=== PATIENT | female | born 1970 | race Caucasian/White ===

== ENCOUNTER 2020-02-23 08:45 | Emergency (ER) | payer MEDICARE, MEDICAID, SELFPAY ==
[2020-02-23 09:05] VITALS: BP 131/70; PULSE 78; RESP 16; TEMP 37.1; O2SAT 99; BMI 25.6
--- NOTE | 2020-02-23 09:12 | ED.BACK ---
HPI - Back Pain/Injury General Chief Complaint: Back Pain/Injury Stated Complaint: upper buttock pain Time Seen by Provider: 02/23/20 09:02 Source: patient Mode of arrival: ambulatory Limitations: language barrier History of Present Illness HPI Narrative: 49 y/o female with history of chronic back pain for the last 5 years presenting with worsening right lower back pain that started yesterday after she was lifting heavy boxes while at work. She states the pain is aching and worse with movement or palpation. She has been taking Avdil with no improvement. She reports the pain travels down her right leg and causing her to limp when she walks. No recent trauma. No bladder/bowel incontinence, saddle paresethesias. Pertinent past history: prior back pain Onset (ago): day(s) (1) Timing: constant Severity: severe Similar Symptoms Previously: Yes Quality: aching Location: right lower back Radiation: buttocks and right upper leg Exacerbating factors: movement and walking Relieving factors: immobilization Context: while lifting Associated symptoms: difficulty walking Treatments prior to arrival: NSAIDS Work related injury: Yes Related Data Previous Rx's Medication Instructions Recorded cyclobenzaprine 10 mg PO TID PRN #14 tab 02/23/20 ibuprofen 600 mg PO Q8H PRN #30 tab 02/23/20 lidocaine [Lidoderm] 1 patch TOPICAL DAILY #15 ea 02/23/20 tramadol 50 mg PO Q8H PRN #10 tab 02/23/20 Allergies Allergy/AdvReac Type Severity Reaction Status Date / Time No Known Allergies Allergy Verified 02/23/20 09:14 [No Known Allergies*] seasonal Allergy Unknown Itchy Eyes Uncoded 02/23/20 09:14 Review of Systems Review of Systems: Constitutional: No Fever, No Chills ENT/Mouth: No sore throat, No Rhinorrhea, No Swallowing Difficulty Cardiovascular: No Chest Pain, No SOB, No Orthopnea, No Edema Respiratory: No Cough, No Sputum, No Wheezing, No dyspnea Gastrointestinal: No Nausea, No Vomiting, No Diarrhea, No abdominal Pain Genitourinary: No Dysuria, No Urinary Frequency, No Hematuria Musculoskeletal: + joint pain, + Myalgias Skin: No Skin Lesions, No rash Neuro: No Weakness, No Numbness, No Dizziness, No Headache Psych: No Anxiety/Panic, No Depression Heme/Lymph: No Bruising, No Lymphadenopathy Endocrine: No Polyuria, No Polydipsia [facility] Past Medical History Attestation statement: The following information was validated with the patient. Medical History Anxiety Back pain Depression Social History Social History Use of substances other than those prescribed or required for medical reasons: No Advance Directives: No Advance Directives Information Provided: No Physical Exam Vital Signs: Vital Signs: Vital Signs Temp Pulse Resp BP Pulse Ox 02/23/20 09:05 98.7 F 78 16 131/70 99 Body Mass Index 25.6 Appearance: Alert. Oriented X3. No acute distress. HEENT: normal inspection Respiratory: No respiratory distress. Skin: Skin warm and dry. Normal skin color. Normal skin turgor. No rashes. Back: normal inspection, right lower lumbar soft tissue tenderness, no spinal tenderness +straight leg raise test Extremities: full ROM, normal inspection. Neuro: Oriented X 3. No motor deficit. No sensory deficit. Course Course Course Narrative: right lower back pain after lifting, acute on chronic. neuro exam intact. MDM - Back Pain/Injury Differential Diagnosis Differential diagnosis: Likely lumbar radiculopathy, sciatica and strain of lumbar region Discharge Plan Discharge Clinical Impression: Strain of lumbar region Qualifiers: Encounter type: initial encounter Qualified Code(s): S39.012A - Strain of muscle, fascia and tendon of lower back, initial encounter Patient Disposition: Home, Self-Care Instructions: Low Back Strain (ED), Lower Back Exercises (ED) Additional Instructions: Follow up with your Primary Care Doctor this week. If your pain worsens, if you develop worsening numbness, tingling or loss of function come back to the ER for further evaluation. Use ice several times per day for the next 24 hours then change to heat. Limit lifting, bending and twisting. Prescriptions: New cyclobenzaprine 10 mg tablet 10 mg PO TID PRN (Reason: muscle spasm) Qty: 14 RF: 0 lidocaine [Lidoderm] 5 % adhesive patch,medicated 1 patch topical DAILY Qty: 15 RF: 0 ibuprofen 600 mg tablet 600 mg PO Q8H PRN (Reason: pain) Qty: 30 RF: 0 tramadol 50 mg tablet 50 mg PO Q8H PRN (Reason: pain) Qty: 10 RF: 0 Stand Alone Forms: Work/School Release Interventions: ED Discharge Assessment Last Done: 02/23/20 09:36 Discharge Date/Time: 02/23/20 09:36 Print Language: South African
== END 2020-02-23 09:36 | disposition home or self-care (01) ==
PROVIDERS: Emergency Provider Emergency Medicine
DX: S39.012A Strain of muscle, fascia and tendon of lower back, initial encounter (principal); X50.0XXA Overexertion from strenuous movement or load, initial encounter; Y93.89 Activity, other specified; Y92.9 Unspecified place or not applicable; Y99.0 Civilian activity done for income or pay
CPT/HCPCS: 99283; 99284

== ENCOUNTER 2020-03-14 07:23 | Outpatient (REF) | payer MEDICARE, MEDICAID, SELFPAY | END 2020-03-14 07:24 | disposition home or self-care (01) | LOC: HO.LAB 07:23 | PROVIDERS: Visit Provider Internal Medicine | DX: Z20.828 Contact with and (suspected) exposure to other viral communicable diseases (principal) | CPT/HCPCS: C9803; U0003 ==

== ENCOUNTER → 2020-06-01 12:31 | Outpatient (BNVA) | payer MEDICARE, MEDICAID, SELFPAY | PROVIDERS: Visit Provider Advanced Practice Midwife | DX: Z76.89 Persons encountering health services in other specified circumstances (principal) ==

== ENCOUNTER 2022-04-04 07:43 | Emergency (ER) | payer MEDICARE, SELFPAY ==
--- NOTE | ~2022-04-04 | XR_ITS ---
EXAMINATION: XR CHEST CLINICAL INFORMATION: Chest tightness COMPARISON: 01/30/2019 TECHNIQUE: Frontal view of the chest was obtained. FINDINGS: No acute finding. Lung gautam are grossly clear. The cardiac silhouette is within normal limits. There is no effusion. The hilar regions do not appear pathologically enlarged. XR/XR chest 1V IMPRESSION: No acute finding.
[2022-04-04 07:49] VITALS: BP 173/99; PULSE 98; RESP 16; TEMP 36.3; O2SAT 98; BMI 29.6
--- NOTE | 2022-04-04 07:58 | ECG_ITS ---
Test Reason : Difficulty Breathing Blood Pressure : / mmHG Vent. Rate : 087 BPM Atrial Rate : 087 BPM P-R Int : 172 ms QRS Dur : 076 ms QT Int : 368 ms P-R-T Axes : 036 007 013 degrees QTc Int : 442 ms Normal sinus rhythm Left axis deviation Otherwise normal ECG No significant changes seen Referred By: Generic ED Physician Electronically Signed By:HARMONY WILSON MD
--- NOTE | 2022-04-04 08:00 | PC.NURSE ---
lungs - slightly diminished all lobes
[2022-04-04 08:27] LABS: MANUAL DIFF FLAG NO
[2022-04-04 08:34] LABS: Basophils Percent Auto 0.4 % (0-2); Eosinophils Absolute Auto 0.1 X10*3/uL (0.0-0.4); Eosinophils Percent Auto 1.1 % (0-4); Hematocrit 38.4 % (37.0-47.0); Hemoglobin 13.1 g/dl (12.0-16.0); Imm Gran Abs Auto 0.05 X10*3/uL (0.00-0.03); Imm Gran Pct Auto 0.5 % (0.0-0.4); Lymphocytes Absolute Auto 2.9 X10*3/uL (1.2-4.9); Lymphocytes Percent Auto 29.5 % (20-40); Mean Corpuscular HGB Conc 34.1 g/dl (31.0-35.0); Mean Corpuscular Hemoglobin 28.3 pg (27.0-33.0); Mean Corpuscular Volume 82.9 fL (80.0-98.0); Mean Platelet Volume 9.8 fL (9.4-12.3); Monocytes Absolute Auto 0.5 X10*3/uL (0.1-1.2); Neutrophils Absolute Auto 6.3 x10*3/uL (2.0-8.3); Neutrophils Percent Auto 63.5 % (45-73); Platelet Count 284 X10*3/uL (160-400); Red Blood Count 4.63 X10*6/uL (4.20-5.50); Red Cell Distribution Width 12.6 % (11.0-16.0)
[2022-04-04 08:45] LABS: COVID-19 Test Positive (Negative); IDNOW Serial# BCCEAD1C
[2022-04-04 08:47] LABS: Anion Gap 14 (12-20); Blood Urea Nitrogen 12 mg/dL (9-16); Calcium 9.4 mg/dL (8.4-10.2); Carbon Dioxide 26 mmol/L (22-29); Chloride 103 mmol/L (96-108); Creatinine Clr Calc Pharmacy 89.3; Estimated Glomerular Filt Rate > 60; Glucose Random 145 mg/dL (60-115); Sodium 139 mmol/L (135-145)
[2022-04-04 08:50] LABS: IDNOW Serial# 16C4AD1C; Influenza A Negative (Negative); Influenza B2 Negative (Negative)
[2022-04-04 08:55] LABS: Troponin-I High Sensitivity < 3.5 ng/L (<3.5-17.0)
--- OUTSIDE RECORDS SUMMARY | 2022-04-04 09:01 | XMS_ITS | Continuity of Care Document ---
:1970 Author Organization [facility] Address [address] [place] [address]- Care Team Providers Name Role Phone Trever OBSWELL, Dara Primary Care Physician Encounter [facility] Date(s): 12/12/20 - 01/27/21 [facility] [address] [place] [id number] Attending Physician: Sim Hernandez MD Admitting Physician: Sim Hernandez MD Allergies, Adverse Reactions, Alerts No Known Medication Allergies Immunizations Given and Recorded Vaccine Date Status Refusal Reason influenza virus vaccine, inactivated 08/17/15 Given influenza virus vaccine, inactivated 05/17/14 Given influenza virus vaccine, inactivated1 02/13/12 Given tetanus/diphtheria/pertussis, acel(Tdap)2 10/15/12 Given 1Admin Note: PATIENT [id number] Note: vis given dated 05/29/2011 Medications ARIPiprazole 2 mg oral tablet Refills 0, Maintenance, 07/27/20 9:39:00 EDT, Partial fill upon patient request if the prescription is for a schedule II opioid drug. Start Date: 07/27/20 Status: OrderedmetFORMIN 500 mg oral tablet, extended release 1 tablet = 500 mg, By Mouth, Daily, # 30 tablet, 5 Refills, Maintenance, 10/20/20 10:51:00 EDT, ER Tablet, [id number], Partial fill upon patient request if the prescription is for a schedule IIopioid drug., 155, cm, 09/21/20 9:29:00 EDT, Height Start Date: 10/20/20 Status: OrderedTylenol Extra Strength 500 mg oral tablet 1 tablet = 500 mg, By Mouth, 2 times a day, PRN Pain , Mild, # 50 tablet, 1 Refills, Maintenance, 04/07/20 15:50:00 EST, Tablet, [id number], 155, cm, 02/29/20 12:46:00 EDT, Height Start Date: 04/07/20 Status: Ordered Problem List Condition Effective Dates Status Health Status Informant Depression(Confirmed) Active *[employer] [facility] 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
--- OUTSIDE RECORDS SUMMARY | 2022-04-04 09:01 | XMS_ITS | Continuity of Care Document ---
:1970 Author Organization [facility] Address [address] [place] [address]- Care Team Providers Name Role Phone Dara Perera MD Primary Care Physician Encounter [facility] [place] Date(s): 01/01/20 - 01/31/20 [facility] [address] [place] [phone] [facility] Attending Physician: Travis Cortes Admitting Physician: Travis Cortes Referring Physician: Admtr, Travis Allergies, Adverse Reactions, Alerts No Known Medication Allergies Immunizations Given and Recorded Vaccine Date Status Refusal Reason influenza virus vaccine, inactivated 08/17/15 Given influenza virus vaccine, inactivated 05/17/14 Given influenza virus vaccine, inactivated1 02/13/12 Given tetanus/diphtheria/pertussis, acel(Tdap)2 10/15/12 Given 1Admin Note: PATIENT [id number] Note: vis given dated 05/29/2011 Medications ARIPiprazole 2 mg oral tablet Refills 0, Maintenance, 07/08/19 15:06:00 EST Start Date: 07/08/19 Status: OrderedCompression stockings Compression stockings, See Instructions, # 1 application, Refills 0, Tot. Refills 0, Maintenance, Use Daily I83.81 Varicose veins Compression 15-20 Knee high, 04/21/19 9:11:47 EST, Compression 15-20; Knee high, Compound Start Date: 04/21/19 Status: Ordereddiclofenac 1% topical gel 1 application, Topically, 4 times a day, not to exceed 8 grams/day/single joint of upper extremities, # 100 Gm, 4 Refills, Maintenance, 09/11/19 10:06:00 EDT, Gel, [id number], 155, cm, 07/07/2014:25:00 EST, Height Start Date: 09/11/19 Status: Orderedescitalopram 10 mg oral tablet 1 tablet = 10 mg, By Mouth, Daily, via psychiatry, # 1 tablet, 1 Refills, Maintenance, 01/01/20 18:41:00 EDT, Tablet, [id number], 155, cm, 07/08/19 15:25:00 EST, Height Start Date: 01/01/20 Status: OrderedTylenol Extra Strength 500 mg oral tablet 1 tablet = 500 mg, By Mouth, 2 times a day, PRN Pain , Mild, # 50 tablet, 0 Refills, Maintenance, 12/09/19 9:23:00 EDT, Tablet, [id number], 155, cm, 07/08/19 15:25:00 EST, Height Start Date: 12/09/19 Status: Ordered Problem List Condition Effective Dates Status Health Status Informant *[facility] 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
--- OUTSIDE RECORDS SUMMARY | 2022-04-04 09:01 | XMS_ITS | Continuity of Care Document ---
:1970 Author Organization [facility] Address [address] [place] [id number]- Care Team Providers Name Role Phone Dara Perera MD Primary Care Physician Encounter [facility] [place] Date(s): 11/14/20 - 12/14/[address] [id number] Attending Physician: Travis Cortes Admitting Physician: AdmtrTravis Referring Physician: Admtr, Ar8 Allergies, Adverse Reactions, Alerts No Known Medication Allergies Immunizations Given and Recorded Vaccine Date Status Refusal Reason influenza virus vaccine, inactivated 08/17/15 Given influenza virus vaccine, inactivated 05/17/14 Given influenza virus vaccine, inactivated1 02/13/12 Given tetanus/diphtheria/pertussis, acel(Tdap)2 10/15/12 Given 1Admin Note: PATIENT [id number] Note: vis given dated 05/29/2011 Medications ARIPiprazole 2 mg oral tablet Refills 0, Maintenance, 07/27/20 9:39:00 EDT, Partial fill upon patient request if the prescription is for a schedule II opioid drug. Start Date: 07/27/20 Status: OrderedmetFORMIN 500 mg oral tablet, extended release 1 tablet = 500 mg, By Mouth, Daily, # 30 tablet, 5 Refills, Maintenance, 10/20/20 10:51:00 EDT, ER Tablet, [id number], Partial fill upon patient request if the [...] Dates Status Health Status Informant Depression(Confirmed) Active *[facility] Food And Drug Inspector Alma Reaves Active [phone](Confirmed) Hysterectomy(Confirmed)1 Active Overweight(Confirmed) Active Prediabetes(Confirmed) Active Prehypertension(Confirmed) Active Hepatic steatosis(Confirmed) Active 1D/T fibroids, ovaries remain ~ 2009 Social History Social History Type Response Smoking Status Never smoker entered on: 05/17/14 Sex Female
--- OUTSIDE RECORDS SUMMARY | 2022-04-04 09:01 | XMS_ITS | Continuity of Care Document ---
:1970 Author Organization [facility] Address [address] [place] [address]- Care Team Providers Name Role Phone Trever BOSWELL, Dara Primary Care Physician Encounter [facility] Date(s): 07/27/20 - 08/26/20 [facility] [address] [place], [place] [address] Attending Physician: Travis Cortes Admitting Physician: Travis Cortes Referring Physician: AdmtrTravis Allergies, Adverse Reactions, Alerts No Known Medication Allergies Immunizations Given and Recorded Vaccine Date Status Refusal Reason influenza virus vaccine, inactivated 08/17/15 Given influenza virus vaccine, inactivated 05/17/14 Given influenza virus vaccine, inactivated1 02/13/12 Given tetanus/diphtheria/pertussis, acel(Tdap)2 10/15/12 Given 1Admin Note: PATIENT [id number] Note: vis given dated 05/29/2011 Medications ARIPiprazole 2 mg oral tablet Refills 0, Maintenance, 07/27/20 9:39:00 EDT, Partial fill upon patient request if the prescription is for a schedule II opioid drug. Start Date: 07/27/20 Status: Ordereddiclofenac 1% topical gel 1 application, Topically, 4 times a day, not to exceed 8 grams/day/single joint of upper extremities, # 100 Gm, 4 Refills, Maintenance, 04/07/20 15:50:00 EST, Gel, [facility] #[id number], 155, cm, 02/29/2012:46:00 EDT, Height Start Date: 04/07/20 Status: Orderedlidocaine 4% topical film 1 patch, Topically, Daily, do not leave patch on for more than 8 hours at a time, # 6 each, 1 Refills, Maintenance, 04/07/20 15:49:00 EST, Film, [facility]/pharmacy #[id number], 1 patch Topically Daily,Instr:do notleave patch on for more than 8 hours at a time, 1... Start Date: 04/07/20 Status: Orderednaproxen 250 mg oral tablet 250 mg, 1, tablet, By Mouth, 2 times a day, PRN, Print instructions in faroese with food, # 20 tablet, Refills 1, Tot. Refills 1, Maintenance, for pain, 05/02/20 12:08:00 EST, Route to Pharmacy Electronically, [facility]/pharmacy #[id number], Partial fill upon pa... Start Date: 05/02/20 Status: OrderedTylenol Extra Strength 500 mg oral tablet 1 tablet = 500 mg, By Mouth, 2 times a day, PRN Pain , Mild, # 50 tablet, 1 Refills, Maintenance, 04/07/20 15:50:00 EST, Tablet, [facility]/pharm[facility] #207, 155, cm, 02/29/20 12:46:00 EDT, Height Start Date: 04/07/20 Status: Ordered Problem List Condition Effective Dates Status Health Status Informant *[facility] Records Associate Alma Reaves Active [phone](Confirmed) Hysterectomy(Confirmed)1 Active Overweight(Confirmed) Active Prediabetes(Confirmed) Active Hepatic steatosis(Confirmed) Active 1D/T fibroids, ovaries remain ~ 2009 Social History Social History Type Response Smoking Status Never smoker entered on: 05/17/14 Sex Female
--- OUTSIDE RECORDS SUMMARY | 2022-04-04 09:01 | XMS_ITS | Continuity of Care Document ---
:1970 Author Organization [facility] [address] [place] [address]- Care Team Providers Name Role Phone Trever BOSWELL, Dara Primary Care Physician Encounter [facility] Date(s): 07/26/20 - 10/01/[address] [place], [place] [address] Attending Physician: Renae Marley Allergies, Adverse Reactions, Alerts No Known Medication Allergies Immunizations Given and Recorded Vaccine Date Status Refusal Reason influenza virus vaccine, inactivated 08/17/15 Given influenza virus vaccine, inactivated 05/17/14 Given influenza virus vaccine, inactivated1 02/13/12 Given tetanus/diphtheria/pertussis, acel(Tdap)2 10/15/12 Given 1Admin Note: PATIENT [id number] Note: vis given dated 05/29/2011 Medications ARIPiprazole 2 mg oral tablet Refills 0, Maintenance, 07/27/20 9:39:00 EDT, Partial fill upon patient request if the prescription is for a schedule II opioid drug. Start Date: 07/27/20 Status: OrderedmetFORMIN 500 mg oral tablet, extended release 1 tablet = 500 mg, By Mouth, Daily, # 30 tablet, 0 Refills, Maintenance, 09/21/20 9:55:00 EDT, ER Tablet, [id number], Partial fill upon patient request if the prescription is for a schedule II opioid drug., 155, cm, 09/21/20 9:29:00 EDT, Height Start Date: 09/21/20 Status: OrderedTylenol Extra Strength 500 mg oral tablet 1 tablet = 500 mg, By Mouth, 2 times a day, PRN Pain , Mild, # 50 tablet, 1 Refills, Maintenance, 04/07/20 15:50:00 EST, Tablet, [id number], 155, cm, 02/29/20 12:46:00 EDT, Height Start Date: 04/07/20 Status: Ordered Problem List Condition Effective Dates Status Health Status Informant Depression(Confirmed) Active *[facility] Complex Human Resources Manager Alma Reaves Active [phone](Confirmed) Hysterectomy(Confirmed)1 Active Overweight(Confirmed) Active Prediabetes(Confirmed) Active Prehypertension(Confirmed) Active Hepatic steatosis(Confirmed) Active 1D/T fibroids, ovaries remain ~ 2009 Social History Social History Type Response Smoking Status Never smoker entered on: 05/17/14 Sex Female
--- OUTSIDE RECORDS SUMMARY | 2022-04-04 09:01 | XMS_ITS | Continuity of Care Document ---
:1970 Author Organization [facility] Address [address] [place] [address]- Care Team Providers Name Role Phone Trever BOSWELL, Dara Primary Care Physician [place] [facility] [place]20 [place] 06/01/20 [facility] [address] [place] [id number] Allergies, Adverse Reactions, Alerts No Known Medication Allergies Immunizations Given and Recorded Vaccine Date Status Refusal Reason influenza virus vaccine, inactivated 08/17/15 Given influenza virus vaccine, inactivated 05/17/14 Given influenza virus vaccine, inactivated1 02/13/12 Given tetanus/diphtheria/pertussis, acel(Tdap)2 10/15/12 Given 1Admin Note: PATIENT [id number] Note: vis given dated 05/29/2011 Medications ARIPiprazole [...] 4 Refills, Maintenance, 04/07/20 15:50:00 EST, Gel, [id number], 155, cm, 02/29/2012:46:00 EDT, Height Start Date: 04/07/20 Status: Orderedescitalopram 10 mg oral tablet 1 tablet = 10 mg, By Mouth, Daily, via psychiatry, # 1 tablet, 1 Refills, Maintenance, 01/01/20 18:41:00 EDT, Tablet, [facility]/pharmacy #[id number], 155, cm, 07/08/19 15:25:00 EST, Height Start Date: 01/01/20 Status: Orderedlidocaine 4% topical film 1 patch, Topically, Daily, do not leave patch on for more than 8 hours at a time, # 6 each, 1 Refills, Maintenance, 04/07/20 15:49:00 EST, Film, [facility]/pharmacy #[id number], 1 patch Topically Daily,Instr:do notleave patch on for more than 8 hours at a time, 1... Start Date: 04/07/20 Status: Orderedmeclizine 12.5 mg oral tablet 1 tablet = 12.5 mg, By Mouth, 3 times a day, PRN for dizziness, for 30 days, label in Thai, # 60 tablet, 0 Refills, Acute 06/08/20 15:31:00 EST, 05/09/20 15:31:00 EST, Tablet, [facility]/pharmacy #207, Partial fill upon patient request if the prescriptio... Start Date: 05/09/20 Stop Date: 06/08/20 Status: Orderednaproxen 250 mg oral tablet 250 mg, 1, tablet, By Mouth, 2 times a day, PRN, Print instructions in latvian with food, # 20 tablet, Refills 1, Tot. Refills 1, Maintenance, for pain, 05/02/20 12:08:00 EST, Route to Pharmacy Electronically, [facility]/pharmacy #207, Partial fill upon pa... Start Date: 05/02/20 Status: OrderedTylenol Extra Strength 500 mg oral tablet 1 tablet = 500 mg, By Mouth, 2 times a day, PRN Pain , Mild, # 50 tablet, 1 Refills, Maintenance, 04/07/20 15:50:00 EST, Tablet, [facility]/pharmacy #[id number], 155, cm, 02/29/20 12:46:00 EDT, Height Start Date: 04/07/20 Status: Ordered Problem List Condition Effective Dates Status Health Status Informant *[facility] Progress Man Alma Reaves Active [phone](Confirmed) Hysterectomy(Confirmed)1 Active Overweight(Confirmed) Active Prediabetes(Confirmed) Active 1D/T fibroids, ovaries remain ~ 2009 Social History Social History Type Response Smoking Status Never smoker entered on: 05/17/14 Sex Female
--- OUTSIDE RECORDS SUMMARY | 2022-04-04 09:01 | XMS_ITS | Continuity of Care Document ---
:1970 Author Organization [address] [place] [address]- Care Team Providers Name Role Phone Dara Perera MD Primary Care Physician [place] [facility] [place](s[place] 10/20/20 - 12/10/[address] [place], [place] [address] Attending Physician: Renae Marley Referring Physician: Dara Perera MD Allergies, Adverse Reactions, Alerts No Known Medication Allergies Immunizations Given and Recorded Vaccine Date Status Refusal Reason influenza virus vaccine, inactivated 08/17/15 Given influenza virus vaccine, inactivated 05/17/14 Given influenza virus vaccine, inactivated1 02/13/12 Given tetanus/diphtheria/pertussis, acel(Tdap)2 10/15/12 Given 1Admin Note: PATIENT [id number] Note: vis given dated 05/29/2011 Medications ARIPiprazole 2 mg oral tablet Refills 0, Maintenance, 07/27/20 9:39:00 EDT, Partial fill upon patient request if the prescription is for a schedule II opioid drug. 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
--- OUTSIDE RECORDS SUMMARY | 2022-04-04 09:01 | XMS_ITS | Continuity of Care Document ---
:1970 Author Organization [facility] Address [address] [place] [id number]- Care Team Providers Name Role Phone Dara Perera MD Primary Care Physician Encounter [facility] [place] Date(s): 08/20/20 - 09/25/20 [facility] [address] [address] Attending Physician: Renae Marley Admitting Physician: Renae Marley Referring Physician: Renae Marley Allergies, Adverse Reactions, Alerts No Known Medication Allergies Immunizations Given and Recorded Vaccine Date Status Refusal Reason influenza virus vaccine, inactivated 08/17/15 Given influenza virus vaccine, inactivated 05/17/14 Given influenza virus vaccine, inactivated1 02/13/12 Given tetanus/diphtheria/pertussis, acel(Tdap)2 10/15/12 Given 1Admin Note: PATIENT [id number] Note: vis given dated 05/29/2011 Medications ARIPiprazole 2 mg oral tablet Refills 0, Maintenance, 07/27/20 9:39:00 EDT, Partial fill upon patient request if the prescription is for a schedule II opioid drug. Start Date: 07/27/20 Status: OrderedmetFORMIN 500 mg oral tablet, extended release 1 tablet = 500 mg, By Mouth, Daily, # 30 tablet, 0 Refills, Maintenance, 09/21/20 9:55:00 EDT, ER Tablet, [id number], Partial fill upon patient request if the [...] Status Health Status Informant Depression(Confirmed) Active *[facility] Property Management Intern Alma Reaves Active [phone](Confirmed) Hysterectomy(Confirmed)1 Active Overweight(Confirmed) Active Prediabetes(Confirmed) Active Prehypertension(Confirmed) Active Hepatic steatosis(Confirmed) Active 1D/T fibroids, ovaries remain ~ 2009 Social History Social History Type Response Smoking Status Never smoker entered on: 05/17/14 Sex Female
--- OUTSIDE RECORDS SUMMARY | 2022-04-04 09:01 | XMS_ITS | Continuity of Care Document ---
:1970 Author Organization [facility] Address [address] [place] [address] [place] [address]- Care Team Providers Name Role Phone Dara Perera MD Primary Care Physician [place] [facility] [place]): [place] 07[place]28/20 [facility] [address] [place] [address] Drive [address] [place], [place] [address] Attending Physician: Renae Marley Referring Physician: Dara Perera MD Allergies, Adverse Reactions, Alerts No Known Medication Allergies Immunizations Given and Recorded Vaccine Date Status Refusal Reason influenza virus vaccine, inactivated 08/17/15 Given influenza virus vaccine, inactivated 05/17/14 Given influenza virus vaccine, inactivated1 02/13/12 Given tetanus/diphtheria/pertussis, acel(Tdap)2 10/15/12 Given 1Admin Note: PATIENT [id number] Note: vis given dated 05/29/2011 Medications ARIPiprazole [...] Refills, Maintenance, 04/07/20 15:50:00 EST, Gel, [id number], 155, cm, 02/29/2012:46:00 EDT, Height Start Date: 04/07/20 Status: Orderedlidocaine 4% topical film 1 patch, Topically, Daily, do not leave patch on for more than 8 hours at a time, # 6 each, 1 Refills, Maintenance, 04/07/20 15:49:00 EST, Film, [id number], 1 patch Topically Daily,Instr:do notleave patch on for more than 8 hours at a time, 1... Start Date: 04/07/20 Status: Orderednaproxen 250 mg oral tablet 250 mg, 1, tablet, By Mouth, 2 times a day, PRN, Print instructions in turkmen with food, # 20 tablet, Refills 1, Tot. Refills 1, Maintenance, for pain, 05/02/20 12:08:00 EST, Route to Pharmacy Electronically, [facility] #[id number], Partial fill upon pa... 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
--- OUTSIDE RECORDS SUMMARY | 2022-04-04 09:01 | XMS_ITS | Continuity of Care Document ---
:1970 Author Organization [facility] Address [address] [place] [id number]- Care Team Providers Name Role Phone Darion Linton MD Primary Care Physician Encounter [facility] Date(s): 05/22/19 - 06/01/19 [facility] [address] [place] [address] Attending Physician: Travis Cortes Admitting Physician: AdmtrTravis Referring Physician: Admtr, Travis Allergies, Adverse Reactions, Alerts No Known Medication Allergies Immunizations Given and Recorded Vaccine Date Status Refusal Reason influenza virus vaccine, inactivated 08/17/15 Given influenza virus vaccine, inactivated 05/17/14 Given influenza virus vaccine, inactivated1 02/13/12 Given tetanus/diphtheria/pertussis, acel(Tdap)2 10/15/12 Given 1Admin Note: PATIENT [id number] Note: vis given dated 05/29/2011 Medications ARIPiprazole 10 mg oral tablet 10 mg, 1, tablet, By Mouth, Daily, # 30 tablet, Refills 3, Tot. Refills 3, Maintenance, 05/16/18 8:57:03 EST, Route to Pharmacy Electronically, [id number], [facility]/pharmacy #[id number] Start Date: 05/16/18 Stop Date: 09/13/18 Status: OrderedCompression stockings Compression stockings, See Instructions, # 1 application, Refills 0, Tot. Refills 0, Maintenance, Use Daily I83.81 Varicose veins Compression 15-20 Knee high, 04/21/19 9:11:47 EST, Compression 15-20; Knee high, Compound Start Date: 04/21/19 Status: Ordereddiclofenac 1% topical gel 1 application, Topically, 4 times a day, # 100 Gm, 4 Refills, Maintenance, 10/29/18 9:05:47 EDT, Gel, 1 application Topically 4 times a day Start Date: 10/29/18 Status: Orderedescitalopram 10 mg oral tablet via psychiatry, 0 Refills, Maintenance, 10/29/18 9:13:14 EDT Start Date: 10/29/18 Status: Orderednaproxen sodium 550 mg oral tablet 1 tablet = 550 mg, By Mouth, 2 times a day, PRN for pain, # 20 tablet, 0 Refills, Maintenance, 09/11/17 15:31:08 EDT, Tablet Start Date: 09/11/17 Status: OrderedPlantar fascitis left foot brace Plantar fascitis left foot brace, See Instructions, # 1 each, Refills 0, Tot. Refills 0, Maintenance, Dx: left plantar fascitis Duration: 3 months. 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
--- NOTE | 2022-04-04 09:26 | ED.GENADULT ---
HPI - General Adult General Chief complaint: General Medical Stated complaint: diff breathing Time Seen by Provider: 04/04/22 08:46 Source: patient Mode of arrival: ambulatory History of Present Illness HPI narrative: 51-year-old female with a past medical history of anxiety, depression, presenting to the ED complaining chest tightness, mild SOB, productive cough, rhinorrhea/nasal congestion x2 days. Admits was in contact with friend who had fever/cough. Denies abdominal pain, nausea/vomiting, fever, chills, pedal edema, calf pain Onset (ago): day(s) Related Data Home Medications Medication Instructions Recorded Confirmed aripiprazole 2 mg tablet 2 mg PO DAILY 06/01/20 Previous Rx's Medication Instructions Recorded cyclobenzaprine 10 mg tablet 10 mg PO TID PRN muscle spasm #14 02/23/20 tabs ibuprofen 600 mg tablet 600 mg PO Q8H PRN pain #30 tabs 02/23/20 lidocaine 5 % topical patch 1 patch topical DAILY #15 ea 02/23/20 (Lidoderm) tramadol 50 mg tablet 50 mg PO Q8H PRN pain #10 tabs 02/23/20 Allergies Allergy/AdvReac Type Severity Reaction Status Date / Time No Known Allergies Allergy Verified 02/23/20 09:14 [No Known Allergies*] seasonal Allergy Unknown Itchy Eyes Uncoded 02/23/20 09:14 Review of Systems Review of Systems: Constitutional: No Fever, No Chills, No Fatigue, No Malaise ENT/Mouth: No Ear Pain, + Nasal Congestion, No sore throat, + Rhinorrhea, No Swallowing Difficulty Eyes: No Eye Pain, No Swelling, No Redness, No Vision Changes Cardiovascular: + Chest tightness, + SOB, No Dyspnea on Exertion, No Orthopnea, No Edema, No Palpitations Respiratory: + Cough, + Sputum, No Wheezing, No Dyspnea Gastrointestinal: No Nausea, No Vomiting, No Diarrhea, No Constipation, No Abdominal pain Genitourinary: No Dysuria, No Urinary Frequency, No Hematuria, No Flank Pain Musculoskeletal: No joint pain, No Myalgias, No Joint Swelling Skin: No Skin Lesions, No rash Neuro: No Weakness, No Loss of Consciousness, No Dizziness, No Headache Yes all other systems are reviewed and are negative Constitutional: Constitutional: Reports as per [facility] Past Medical History Attestation statement: The following information was validated with the patient. Medical History Anxiety Back pain Depression Surgical History History of hysterectomy Hx of section Hx of cholecystectomy Social History Social History Alcohol intake: current Alcohol intake frequency: holidays/special occasions only Advance Directives: No Physical Exam ED Vital Signs: Vital Signs - 24 hr 04/04/22 07:49 Temperature 97.3 F Pulse Rate 98 Respiratory Rate 16 Blood Pressure 173/99 H Pulse Oximetry 98 Oxygen Delivery Method Room Air BMI result Body Mass Index 29.6 Const General: cooperative, healthy appearing, no acute distress, alert and awake Orientation/consciousness: patient oriented x3 Limitations: no limitations HENMT Head: Yes normal to inspection and Yes atraumatic Ears: hearing grossly normal bilaterally General nose exam: Normal external nose present Face and sinus: Yes normal facial exam Throat: Yes posterior oropharynx normal, Yes tonsils normal and Yes uvula midline Eyes General: appearance normal, both eyes and all related structures EOM: EOMs intact bilaterally Neck Neck: Yes normal visual inspection and Yes no meningeal signs Resp Effort & Inspection: normal respiratory effort and no respiratory distress Auscultation: clear to auscultation bilaterally, no crackles, no rales, no rhonchi and no wheezes Cardio Rate: regular rate Heart sounds: S1 normal heart sound present and S2 normal heart sound present GI Inspection: Yes normal to inspection Palpation (GI): Soft to palpation, nontender, no guarding and not rigid Skin Rashes: no rashes Wounds: no wounds Neuro General: patient oriented x3, tone normal and no meningeal signs Gait exam (Neuro): Normal gait present Extrem General: Yes normal to inspection, Yes no pedal edema and Yes no calf tenderness Course Course Course Narrative: -931--labs unremarkable. Troponin negative. 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 They verbalized understanding and feel safe for discharge at this time. Medical Decision Making MDM Narrative Medical decision making narrative: 51-year-old female with a past medical history of anxiety, depression, presenting to the ED complaining chest tightness, mild SOB, productive cough, rhinorrhea/nasal congestion x2 days. On exam vital signs stable, NAD, nontoxic appearing, lungs CTA, abdomen soft/nontender, no pedal edema. Concern for viral illness vs bronchitis vs pneumonia. Low suspicion for PE/DVT or ACS Plan: EKG, labs, CXR, COVID 19/influenza testing, re-evaluate Medical Records Medical records reviewed: Yes I reviewed the patient's medical records. Lab Data Lab results reviewed: Yes I reviewed the patient's lab results. Result diagrams: 04/04/22 08:12 04/04/22 08:12 Labs: Lab Results 04/04/22 04/04/22 04/04/22 Range/Units 08:12 08:12 08:12 WBC 10.0 (4.8-10.8) X10*3/uL RBC 4.63 (4.20-5.50) X10*6/uL Hgb 13.1 (12.0-16.0) g/dl Hct 38.4 (37.0-47.0) % MCV 82.9 (80.0-98.0) fL MCH 28.3 (27.0-33.0) pg MCHC 34.1 (31.0-35.0) g/dl RDW 12.6 (11.0-16.0) % Plt Count 284 (160-400) X10*3/uL MPV 9.8 (9.4-12.3) fL Immature Gran % (Auto) 0.5 H (0.0-0.4) % Neut % (Auto) 63.5 (45-73) % Lymph % (Auto) 29.5 (20-40) % Pennington % (Auto) 5.0 (2-11) % Eos % (Auto) 1.1 (0-4) % Baso % (Auto) 0.4 (0-2) % Lymph # (Auto) 2.9 (1.2-4.9) X10*3/uL Pennington # (Auto) 0.5 (0.1-1.2) X10*3/uL Eos # (Auto) 0.1 (0.0-0.4) X10*3/uL Baso # (Auto) 0.0 (0.0-0.2) X10*3/uL Abs Immat Gran (auto) 0.05 H (0.00-0.03) X10*3/uL Absolute Neuts (auto) 6.3 (2.0-8.3) x10*3/uL Absolute Nucleated RBC 0.000 (0.0-0.012) X10*3/uL Nucleated RBC % (auto) 0.0 (0.0-0.2) /100WBC Sodium 139 (135-145) mmol/L Potassium 4.0 (3.3-5.1) mmol/L Chloride 103 (96-108) mmol/L Carbon Dioxide 26 (22-29) mmol/L Anion Gap 14 (12-20) BUN 12 (9-16) mg/dL Creatinine 0.68 (0.5-1.4) mg/dL Estim Creat Clear Calc 89.3 Estimated GFR > 60 Random Glucose 145 H (60-115) mg/dL Calcium 9.4 (8.4-10.2) mg/dL Troponin I High Sens < 3.5 (<3.5-17.0) ng/L COVID-19 (WENDY) (Negative) COVID-19 Clin Com Influenza Type A (HAIR) (Negative) Influenza Type B (HAIR) (Negative) Influenza A & B Note 04/04/22 04/04/22 Range/Units 08:12 08:12 WBC (4.8-10.8) X10*3/uL RBC (4.20-5.50) X10*6/uL Hgb (12.0-16.0) g/dl Hct (37.0-47.0) % MCV (80.0-98.0) fL MCH (27.0-33.0) pg MCHC (31.0-35.0) g/dl RDW (11.0-16.0) % Plt Count (160-400) X10*3/uL MPV (9.4-12.3) fL Immature Gran % (Auto) (0.0-0.4) % Neut % (Auto) (45-73) % Lymph % (Auto) (20-40) % Pennington % (Auto) (2-11) % Eos % (Auto) (0-4) % Baso % (Auto) (0-2) % Lymph # (Auto) (1.2-4.9) X10*3/uL Pennington # (Auto) (0.1-1.2) X10*3/uL Eos # (Auto) (0.0-0.4) X10*3/uL Baso # (Auto) (0.0-0.2) X10*3/uL Abs Immat Gran (auto) (0.00-0.03) X10*3/uL Absolute Neuts (auto) (2.0-8.3) x10*3/uL Absolute Nucleated RBC (0.0-0.012) X10*3/uL Nucleated RBC % (auto) (0.0-0.2) /100WBC Sodium (135-145) mmol/L Potassium (3.3-5.1) mmol/L Chloride (96-108) mmol/L Carbon Dioxide (22-29) mmol/L Anion Gap (12-20) BUN (9-16) mg/dL Creatinine (0.5-1.4) mg/dL Estim Creat Clear Calc Estimated GFR Random Glucose (60-115) mg/dL Calcium (8.4-10.2) mg/dL Troponin I High Sens (<3.5-17.0) ng/L COVID-19 (WENDY) Positive A (Negative) COVID-19 Clin Com See Note Influenza Type A (HAIR) Negative (Negative) Influenza Type B (HAIR) Negative (Negative) Influenza A & B Note See Note ECG Data Attestation: I personally reviewed and interpreted this ECG as follows: Interpretation: EKG normal sinus rhythm at a rate of 87. ME interval 172. QTC 442. No STEMI Discharge Plan Discharge Clinical Impression: COVID-19 Patient Disposition: Home, Self-Care Instructions: COVID-19 (Coronavirus Disease 2019) (ED) Additional Instructions: At this time you will be okay for discharge. Please self isolate for 5-10 days. Do not expose yourself to others. You may not go to work or school. Please continue to follow cold instructions and wash your hands frequently. You may take Tylenol / Motrin as directed on the bottle for pain or fever. If you have constant or persistent shortness of breath, fever unresolved with medications, chest pain, or your unable to eat or drink please return to the ED CDC Guidelines for home isolation: - Stay away from others - WEAR A MASK if you are sick AND STAY HOME - Cover your mouth and nose with a tissue when you cough or sneeze. Dispose of tissues in a lined trash can and wash your hands immediately with soap and water for at least 20 seconds. If soap and water are not available, clean hands with alcohol-based hand bottle labeler that contains at least 60% alcohol. - Clean your hands often with soap and water for at least 20 seconds - Avoid touching your eyes, nose and mouth with unwashed hands - Do not share dishes, drinking glasses, cups, eating utensils, towels, or bedding with other people in your home. After using these items, wash them thoroughly with soap and water or put in the novelty printing machine operator. - Clean high-touch surfaces in your isolation area ( sick room and bathroom) every day; let a caregiver clean and disinfect high-touch surfaces in other areas of the home. Clean the area or item with soap and water or another detergent if it is dirty. Then, use a household disinfectant. - Limit contact with pets and animals: If you must care for a pet, wash your hands before and after interacting with them) En roslyn momento estar? abhinav para el mark. A?slese por 5-10 d?as. No te expongas a los dem?s. Es posible que no vaya al trabajo ni a la escuela. Contin?e siguiendo las instrucciones en fr?o y l?vese las tatum con frecuencia. Puede aleida Tylenol/Motrin abdelrahman se indica en el frasco para el dolor o la fiebre. Si tiene dificultad para respirar pb o persistente, fiebre que no se resuelve con medicamentos, dolor en el pecho o no puede comer o beber, regrese al servicio de urgencias. Pautas de los CDC para el aislamiento en el hogar: - Mant?ngase alejado de los dem?s. - USE MARANDA MASCARILLA si est? enfermo Y QU?DESE EN CASA - C?brase la boca y la nariz con un pa?uelo desechable al toser o estornudar. Deseche los pa?uelos en un bote de basura forrado y l?vese las tatum inmediatamente con agua y jab?n jan al menos 20 segundos. Si no hay agua y jab?n disponibles, l?vese las tatum con un desinfectante para tatum a base de alcohol que contenga al menos un 60 % de alcohol. - L?vese las tatum con frecuencia con agua y jab?n jan al menos 20 segundos. - Evite tocarse los ojos, la nariz y la boca con las tatum sin giuliana - No comparta platos, vasos, tazas, utensilios para comer, toallas o ropa de cama con otras personas en adam hogar. Despu?s de usar estos art?culos, l?velos abhinav con agua y jab?n o col?quelos en el lavavajias. - Limpie las superficies de alto contacto en adam ?marco a de aislamiento ( cuarto de enfermos y ba?o) todos los d?as; permita que un cuidador limpie y desinfecte las superficies de alto contacto en otras ?reas del hogar. Limpie el ?marco a o art?culo con agua y jab?n u otro detergente si est? sucio. Luego, use un desinfectante dom?stico. - Limite el contacto con mascotas y animales: si debe cuidar maranda mascota, l?vese las tatum antes y despu?s de interactuar con ellos) Prescriptions: No Action cyclobenzaprine 10 mg tablet 10 mg PO TID PRN (Reason: muscle spasm) Qty: 14 0RF lidocaine [Lidoderm] 5 % adhesive patch,medicated 1 patch topical DAILY Qty: 15 0RF Rx Instructions: leave on most painful area for up to 12 hrs ibuprofen 600 mg tablet 600 mg PO Q8H PRN (Reason: pain) Qty: 30 0RF tramadol 50 mg tablet 50 mg PO Q8H PRN (Reason: pain) Qty: 10 0RF aripiprazole 2 mg tablet 2 mg PO DAILY Referrals: Michelle Gold [Emergency Nurse] - 1 week Stand Alone Forms: Work/School Release Print Language: Iranian
--- NOTE | 2022-04-04 10:00 | PC.NURSE ---
PT READY FOR DISCH.
== END 2022-04-04 10:03 | disposition home or self-care (01) ==
PROVIDERS: Emergency Provider Student in an Organized Health Care Education/Training Program
DX: U07.1 COVID-19 (principal); I10 Essential (primary) hypertension; E78.5 Hyperlipidemia, unspecified
CPT/HCPCS: 36415; 71045; 80048; 84484; 85025; 87502; 87635; 93005; 99283; 99284

== ENCOUNTER 2022-04-05 22:07 | Emergency (ER) | payer MEDICARE, MEDICAID, SELFPAY ==
[2022-04-05 22:47] VITALS: BP 154/83; PULSE 87; RESP 20; TEMP 36.1; O2SAT 97; BMI 29.6
== END 2022-04-06 01:39 | disposition left against medical advice (07) ==
PROVIDERS: Emergency Provider Emergency Medicine
DX: U07.1 COVID-19 (principal); I10 Essential (primary) hypertension
CPT/HCPCS: 99281

== ENCOUNTER 2022-04-08 09:46 | Emergency (ER) | payer MEDICARE, SELFPAY ==
--- NOTE | ~2022-04-08 | CT_ITS ---
EXAMINATION: CT ANGIOGRAM OF THE CHEST WITH AND WITHOUT CONTRAST (CT PULMONARY ANGIOGRAM FOR PE) CLINICAL INFORMATION: Reason for Exam + for covid now c cp/sob/palpitation/tachycardia COMPARISON: Chest radiograph 04/08/2022 TECHNIQUE: Prior to contrast administration, noncontrast localization images were obtained. Subsequently, multidetector volumetric imaging was performed from the thoracic inlet to below the diaphragms following the administration of 65 mL Omnipaque 350 intravenous contrast. No contrast reaction reported Sagittal, coronal, and MIP oblique sagittal reformatted images were obtained on the CT workstation, uploaded to PACS, and reviewed. This CT examination was performed using dose optimization techniques as appropriate, variously including the following: *Automated exposure control *Adjustment of mA and/or kV according to patient size (this includes techniques or standardized protocols for targeted exams where dose is matched to indication/reason for exam; i.e. extremities or head) *Use of iterative reconstruction technique Total exam dose-length product 270 mGy-cm FINDINGS: QUALITY OF STUDY/CONTRAST BOLUS: Satisfactory. PULMONARY ARTERIES: No pulmonary embolism. CHEST WALL/AXILLA: No axillary lymphadenopathy. LUNGS: No suspicious pulmonary nodule. No significant groundglass or consolidation. MEDIASTINUM: Heart is normal in size. No mediastinal lymphadenopathy. No hilar lymphadenopathy. CORONARY ARTERY CALCIFICATION: No significant coronary artery calcification appreciated on this exam. PLEURA: There is no pleural effusion. UPPER ABDOMEN: Hypoattenuating hepatic parenchyma compatible with hepatic steatosis. OSSEOUS STRUCTURES: Unremarkable. CT/CT angio chest PE protocol IMPRESSION: No pulmonary embolism. Hepatic steatosis. VTE: negative
--- NOTE | ~2022-04-08 | XR_ITS ---
EXAMINATION: XR CHEST CLINICAL INFORMATION: Chest pain COMPARISON: April 04, 2022 TECHNIQUE: AP portable view of the chest was obtained. FINDINGS: No significant abnormality is noted involving the heart, lungs, mediastinum, bony thorax or soft tissues. XR/XR chest 1V IMPRESSION: No acute disease.
--- NOTE | 2022-04-08 09:49 | ECG_ITS ---
Test Reason : CHEST PAIN Blood Pressure : / mmHG Vent. Rate : 111 BPM Atrial Rate : 111 BPM P-R Int : 152 ms QRS Dur : 072 ms QT Int : 334 ms P-R-T Axes : 059 009 039 degrees QTc Int : 454 ms Sinus tachycardia Possible Inferior infarct (cited on or before 08-APR-2022) Cannot rule out Anterior infarct (cited on or before 08-APR-2022) Abnormal ECG When compared with ECG of 04-APR-2022 08:00, No significant change was found Referred By: Generic ED Physician Electronically Signed By:NACHO CASTRO MD
[2022-04-08 10:00] VITALS: BP 152/83; PULSE 109; RESP 20; TEMP 36.3; O2SAT 96; BMI 29.7
[2022-04-08 10:11] LABS: MANUAL DIFF FLAG NO
[2022-04-08 10:13] LABS: Basophils Percent Auto 0.3 % (0-2); Eosinophils Absolute Auto 0.1 X10*3/uL (0.0-0.4); Eosinophils Percent Auto 1.3 % (0-4); Hematocrit 35.7 % (37.0-47.0); Hemoglobin 12.4 g/dl (12.0-16.0); Imm Gran Abs Auto 0.03 X10*3/uL (0.00-0.03); Imm Gran Pct Auto 0.3 % (0.0-0.4); Lymphocytes Absolute Auto 1.9 X10*3/uL (1.2-4.9); Lymphocytes Percent Auto 20.8 % (20-40); Mean Corpuscular HGB Conc 34.7 g/dl (31.0-35.0); Mean Corpuscular Hemoglobin 28.4 pg (27.0-33.0); Mean Corpuscular Volume 81.9 fL (80.0-98.0); Mean Platelet Volume 9.5 fL (9.4-12.3); Monocytes Absolute Auto 0.6 X10*3/uL (0.1-1.2); Monocytes Percent Auto 7.1 % (2-11); Neutrophils Absolute Auto 6.3 x10*3/uL (2.0-8.3); Neutrophils Percent Auto 70.2 % (45-73); Platelet Count 232 X10*3/uL (160-400); Red Blood Count 4.36 X10*6/uL (4.20-5.50); Red Cell Distribution Width 12.3 % (11.0-16.0); White Blood Count 8.9 X10*3/uL (4.8-10.8)
[2022-04-08 10:19] LABS: Prothrombin Time 11.6 SEC (10.0-13.1)
[2022-04-08 10:35] LABS: B Type Natriuretic Peptide < 10 pg/mL (<100)
--- NOTE | 2022-04-08 10:42 | ED_ITS ---
HPI - Chest Pain General Chief Complaint: Chest Pain Stated Complaint: Chest pain Time Seen by Provider: 04/08/22 09:52 Source: patient Mode of arrival: ambulatory Limitations: language barrier (Citizen Of [place]-speaking) History of Present Illness HPI narrative: 51yoF c PMHx of anxiety, depression, HLD, HTN who was recently diagnosed with COVID when she was seen here on 04/04/2022 who is presenting to the ER with complaints of persistent cough although now she has chest pain/shortness of breath worse with coughing with associated feeling like her heart is racing for the past few days worse today. She denies any fevers, dizziness, headaches, neck pain/stiffness, sore throat, nasal concerned/rhinorrhea, ear pain, orthopnea, dyspnea on exertion, nausea/vomiting/diarrhea constipation, black or bloody stools, abdominal pain, flank pain, dysuria, hematuria, abnormal vaginal discharge, lower extremity edema or calf tenderness, recent travel or any other symptoms complaints or concerns at this time. MD complaint: chest pain Pertinent past history: other (See above) Onset (ago): day(s) (For the past few days worse today) Timing of current episode: constant Onset: other (Worse with coughing) Pain location: other (Mid sternal and diffusely across the entire chest) Pain radiation: none Severity: mild Quality: tightness and aching Relieving factors: nothing Exacerbating factors: other (Coughing) Context: recent illness Associated symptoms: palpitations and cough Treatment prior to arrival: none Risk Factors Coronary artery disease risk factors: hyperlipidemia and hypertension Thoracic aortic dissection risk factors: longstanding hypertension Related Data Home Medications Medication Instructions Recorded Confirmed aripiprazole 2 mg tablet 2 mg PO DAILY 06/01/20 Previous Rx's Medication Instructions Recorded cyclobenzaprine 10 mg tablet 10 mg PO TID PRN muscle spasm #14 20 tabs ibuprofen 600 mg tablet 600 mg PO Q8H PRN pain #30 tabs 20 lidocaine 5 % topical patch 1 patch topical DAILY #15 ea 02/23/20 (Lidoderm) tramadol 50 mg tablet 50 mg PO Q8H PRN pain #10 tabs 20 albuterol sulfate 0.63 mg/3 mL 0.63 mg (3 mL) inhalation QID PRN 04/08/22 solution for nebulization shortness of breath or wheezing #75 mL albuterol sulfate 90 mcg/actuation 1 inh inhalation QID PRN shortness 04/08/22 aerosol inhaler of breath or wheezing #8.5 grams azithromycin 250 mg tablet See Rx Instructions PO .COMPLEX #6 04/08/22 tabs codeine 10 mg-guaifenesin 100 mg/5 5 ml PO Q6H PRN cold symptoms #120 04/08/22 mL oral liquid (Guaifenesin AC) mL Allergies Allergy/AdvReac Type Severity Reaction Status Date / Time No Known Allergies Allergy Verified 04/05/22 22:50 [No Known Allergies*] seasonal Allergy Unknown Itchy Eyes Uncoded 02/23/20 09:14 Review of Systems Review of Systems: Constitutional : No Weight loss, No Fever, No Chills, No Night Sweats, + Fatigue, + Malaise ENT/Mouth : No Hearing loss, No Ear Pain, No Nasal Congestion, No Sinus Pain, No Hoarseness, No sore throat, No Rhinorrhea, No Swallowing Difficulty Eyes: No Eye Pain, No Swelling, No Redness, No Foreign Body, No Discharge, No Vision Changes Cardiovascular : + Chest Pain, + SOB, No Dyspnea on Exertion, No Orthopnea, No Edema, No Palpitations Respiratory : + Cough, No Sputum, No Wheezing, No Smoke Exposure, + Dyspnea Gastrointestinal : No Nausea, No Vomiting, No Diarrhea, No Constipation, No abdominal Pain, No Hematochezia, No Melena Genitourinary : no irregular bleeding, No Dysuria, No Urinary Frequency, No Hematuria, No Urinary Incontinence, No Urgency, No Flank Pain, No Urinary Flow Changes, No Hesitancy Musculoskeletal : No joint pain, + Myalgias, No Joint Swelling Skin : No Skin Lesions, No rash Neuro : No Weakness, No Numbness, No Paresthesias, No Loss of Consciousness, No Dizziness, No Headache Psych : No Anxiety/Panic, No Depression, No SI/HI/AH/VH, No Social Issues, Heme/Lymph: No Bruising, No Bleeding,No Lymphadenopathy Endocrine : No Polyuria, No Polydipsia, No Temperature Intolerance Yes all other systems are reviewed and are negative [facility] Past Medical History Attestation statement: The following information was validated with the patient. Source: old records reviewed and nursing notes reviewed Medical History Anxiety Back pain Depression Surgical History History of hysterectomy Hx of section Hx of cholecystectomy Social History Social History Alcohol intake: current Alcohol intake frequency: does not drink Smoked in Last 30 Days: No Use of substances other than those prescribed or required for medical reasons: No Advance Directives: No Advance Directives Information Provided: No Physical Exam Vital Signs: Vital Signs: Last Vital Signs Temp 97.3 F 04/08/22 10:00 Pulse 96 04/08/22 11:14 Resp 18 04/08/22 11:14 BP 152/83 H 04/08/22 10:00 Pulse Ox 96 04/08/22 10:00 O2 Del Method 04/08/22 10:00 BMI result Body Mass Index 29.7 vital signs have been reviewed as normal and appeared to be correct. Blood pressure 152/83. Heart rate 109. Respiration rate normal. Temperature normal. Oxygen saturation normal. Appearance: Alert. Oriented X3. No acute distress. Head: Normal external exam. Normocephalic. Atraumatic. Eyes: PERRLA. EOMI. Conjunctiva and sclera normal. Eyelids normal. ENT: EAC normal. TM's Normal. Pharynx normal. Uvula midline. Moist mucous membranes. No lesions/ulcerations or masses noted on the tongue. Normal voice. No trismus noted. No drooling noted. No muffled voice noted. Neck: Normal inspection. Neck supple. FROM. No adenopathy. Thyroid Normal. No tracheal deviation noted. No crepitus is noted. No meningeal signs. No neck mass noted. No signs of trauma noted. CVS: Normal heart rate and rhythm. Heart sound normal. Pulses normal throughout. No murmurs/rales/gallops. Respiratory: No respiratory distress. Painless inspiration. Breath sounds normal. No wheezes/rales/rhonchi noted. Chest nontender. No crepitus is noted. No accessory muscle usage noted or decreased air movement noted. No signs of trauma. Abdomen: Soft and nontender. Nondistended. No guarding. No rigidity. Bowel sounds normal in all 4 quadrants. No distention noted. No organomegaly noted. No visible injury noted. No rebound tenderness. Negative Rovsing sign. Negative obturator's sign. Negative psoas sign. Negative Tee sign. Back: No CVA tenderness. Full range of motion noted. Nontender. No signs of trauma. Patient neuro intact bilaterally and distally on all 4 extremities. Patient's reflexes intact bilaterally and distally on all 4 extremities. No rashes/lesion/induration/fluctuance or signs of infection noted. Skin: Skin warm and dry. Normal skin color. Normal skin turgor. No rashes/lesions/lacerations noted. Extremities: No lower extremity edema. No calf tenderness is noted. Extremities exhibit normal range of motion and nontender. Neuro: Oriented X 3. No motor deficit. No sensory deficit. Reflexes normal. Normal steady gait. No focal neuro deficits noted. CN's II-XII intact bilaterally? Vascular: + radial pulses/+ 2 distal pedal pulses/+2 dorsalis pedis b/l. Normal cap refill. No cyanosis noted to upper extremity nails and lower extremity toes nails. Course Course Course Narrative: 9:55am - 51yoF c PMHx of anxiety and depression who was recently diagnosed with COVID when she was seen here on 04/04/2022 who is presenting to the ER with complaints of persistent cough although now she has chest pain/shortness of breath worse with coughing with associated feeling like her heart is racing for the past few days worse today. This patient presents with dyspnea, most likely secondary to COVID- 19/bronchospasm. Differential diagnosis includes COVID pneumonia. Presentation not consistent with acute cardiac etiologies to include ACS (HEART score 2), CHF, pericardial effusion / tamponade . Presentation not consistent with acute respiratory etiologies to include acute PE (Wells low risk score 1.5), pneumothorax , asthma, COPD exacerbation, allergic etiologies, or infectious etiologies. Presentation also not consistent with non-cardiopulmonary causes to include toxidromes, metabolic etiologies such as acidemia or electrolyte derangements, sepsis, neurologic causes (i.e. demyelinating diseases). Plan: Will obtain labs, EKG, chest x-ray, CT of chest for PE. Provide a breathing treatment and re-evaluate. Reevaluation(s) Reevaluation #1: Labs obtained reviewed - sodium 134. - anion gap 9. - random glucose 239. - magnesium 1.5. - ALT 34 - alkaline phosphate 176 Otherwise all other labs are within normal limits. Chest x-ray within normal limits no acute processes noted. Therefore at this time awaiting CTA of chest for PE. Will provide 2 g of IV magnesium and re-evaluate. Time: 12:53 Reevaluation #2: CTA negative. Patient reports she feels much better. Therefore at this time no indication for admission. Will DC home with symptomatic treatment for COVID/bronchospasm instructions return if any new or worsening symptoms. Patient understands agrees with this plan. Time: 13:40 Medications Administered Discontinued Medications Generic Name Dose Route Start Last Admin Trade Name Freq PRN Reason Stop Dose Admin Dexamethasone Sodium Phosphate 10 mg 04/08/22 11:31 04/08/22 11:56 Dexamethasone Sod Phosphate 10 Mg/Ml Vial IVPUSH 04/08/22 11:32 10 mg ONCE ONE Administration Magnesium Sulfate 2 gm in 50 mls @ 25 mls/hr 04/08/22 11:31 04/08/22 11:56 Magnesium Sulfate/H2o IV 04/08/22 13:30 25 mls/hr ONCE ONE Administration Iohexol 65 ml 04/08/22 12:22 04/08/22 12:24 Iohexol 350 Mg/Ml 100 Ml Infus..Btl IV 04/08/22 12:23 65 ml ONCE ONE Administration Levalbuterol HCl 1.25 mg 04/08/22 10:47 04/08/22 11:13 Levalbuterol Hcl 1.25 Mg/0.5 Ml Vial.Neb INHALE 04/08/22 10:48 1.25 mg ONCE ONE Administration MDM - Chest Pain Medical Records Data Attestation: I reviewed the patient's medical records. Lab Data Attestation: I reviewed the patient's lab results. Result diagrams: 04/08/22 10:08 04/08/22 10:08 Labs: Lab Results 04/08/22 04/08/22 04/08/22 Range/Units 10:08 10:08 10:08 WBC 8.9 (4.8-10.8) X10*3/uL RBC 4.36 (4.20-5.50) X10*6/uL Hgb 12.4 (12.0-16.0) g/dl Hct 35.7 L (37.0-47.0) % MCV 81.9 (80.0-98.0) fL MCH 28.4 (27.0-33.0) pg MCHC 34.7 (31.0-35.0) g/dl RDW 12.3 (11.0-16.0) % Plt Count 232 (160-400) X10*3/uL MPV 9.5 (9.4-12.3) fL Immature Gran % (Auto) 0.3 (0.0-0.4) % Neut % (Auto) 70.2 (45-73) % Lymph % (Auto) 20.8 (20-40) % [place] % (Auto) 7.1 (2-11) % Eos % (Auto) 1.3 (0-4) % Baso % (Auto) 0.3 (0-2) % Lymph # (Auto) 1.9 (1.2-4.9) X10*3/uL [place] # (Auto) 0.6 (0.1-1.2) X10*3/uL Eos # (Auto) 0.1 (0.0-0.4) X10*3/uL Baso # (Auto) 0.0 (0.0-0.2) X10*3/uL Abs Immat Gran (auto) 0.03 (0.00-0.03) X10*3/uL Absolute Neuts (auto) 6.3 (2.0-8.3) x10*3/uL Absolute Nucleated RBC 0.000 (0.0-0.012) X10*3/uL Nucleated RBC % (auto) 0.0 (0.0-0.2) /100WBC PT 11.6 (10.0-13.1) SEC INR 1.0 (0.9-1.1) Sodium 134 L (135-145) mmol/L Potassium 4.3 (3.3-5.1) mmol/L Chloride 103 (96-108) mmol/L Carbon Dioxide 26 (22-29) mmol/L Anion Gap 9 L (12-20) BUN 14 (9-16) mg/dL Creatinine 0.83 (0.5-1.4) mg/dL Estim Creat Clear Calc 73.2 Estimated GFR > 60 Random Glucose 239 H (60-115) mg/dL Calcium 9.7 (8.4-10.2) mg/dL Magnesium 1.5 L (1.6-2.6) mg/dL Total Bilirubin 0.4 (0.0-1.0) mg/dL AST 24 (5-31) U/L ALT 34 H (0-31) U/L Alkaline Phosphatase 176 H (39-117) U/L Troponin I High Sens (<3.5-17.0) ng/L B-Natriuretic Peptide (<100) pg/mL Total Protein 7.1 (6.5-8.0) g/dL Albumin 4.2 (3.5-5.0) g/dL 04/08/22 04/08/22 Range/Units 10:08 10:08 WBC (4.8-10.8) X10*3/uL RBC (4.20-5.50) X10*6/uL Hgb (12.0-16.0) g/dl Hct (37.0-47.0) % MCV (80.0-98.0) fL MCH (27.0-33.0) pg MCHC (31.0-35.0) g/dl RDW (11.0-16.0) % Plt Count (160-400) X10*3/uL MPV (9.4-12.3) fL Immature Gran % (Auto) (0.0-0.4) % Neut % (Auto) (45-73) % Lymph % (Auto) (20-40) % [place] % (Auto) (2-11) % Eos % (Auto) (0-4) % Baso % (Auto) (0-2) % Lymph # (Auto) (1.2-4.9) X10*3/uL [place] # (Auto) (0.1-1.2) X10*3/uL Eos # (Auto) (0.0-0.4) X10*3/uL Baso # (Auto) (0.0-0.2) X10*3/uL Abs Immat Gran (auto) (0.00-0.03) X10*3/uL Absolute Neuts (auto) (2.0-8.3) x10*3/uL Absolute Nucleated RBC (0.0-0.012) X10*3/uL Nucleated RBC % (auto) (0.0-0.2) /100WBC PT (10.0-13.1) SEC INR (0.9-1.1) Sodium (135-145) mmol/L Potassium (3.3-5.1) mmol/L Chloride (96-108) mmol/L Carbon Dioxide (22-29) mmol/L Anion Gap (12-20) BUN (9-16) mg/dL Creatinine (0.5-1.4) mg/dL Estim Creat Clear Calc Estimated GFR Random Glucose (60-115) mg/dL Calcium (8.4-10.2) mg/dL Magnesium (1.6-2.6) mg/dL Total Bilirubin (0.0-1.0) mg/dL AST (5-31) U/L ALT (0-31) U/L Alkaline Phosphatase (39-117) U/L Troponin I High Sens < 3.5 (<3.5-17.0) ng/L B-Natriuretic Peptide < 10 (<100) pg/mL Total Protein (6.5-8.0) g/dL Albumin (3.5-5.0) g/dL Imaging Data Chest x-ray: Attestation: I personally reviewed and interpreted this imaging study as follows: Radiologist's impression: FINDINGS: No significant abnormality is noted involving the heart, lungs, mediastinum, bony thorax or soft tissues. XR/XR chest 1V IMPRESSION: No acute disease CT of chest for PE: Attestation: I personally reviewed and interpreted this imaging study as follows: Radiologist's impression: FINDINGS: QUALITY OF STUDY/CONTRAST BOLUS: Satisfactory. PULMONARY ARTERIES: No pulmonary embolism.? CHEST WALL/AXILLA: No axillary lymphadenopathy. LUNGS: No suspicious pulmonary nodule. No significant groundglass or consolidation. MEDIASTINUM:? Heart is normal in size. No mediastinal lymphadenopathy. No hilar lymphadenopathy. CORONARY ARTERY CALCIFICATION: No significant coronary artery calcification appreciated on this exam. PLEURA: There is no pleural effusion.? ? UPPER ABDOMEN: Hypoattenuating hepatic parenchyma compatible with hepatic steatosis. OSSEOUS STRUCTURES: Unremarkable.? CT/CT angio chest PE protocol IMPRESSION: ? No pulmonary embolism. ? Hepatic steatosis. ? ? VTE: negative ECG Data ECG #1: Attestation: I personally reviewed and interpreted this ECG as follows: ECG interpretation date: 04/08/22 ECG interpretation time: 09:51 Prior ECG tracings: available for review Interpretation: Sinus tachycardia ventricular rate of 111 with nonspecific T-wave abnormalities no acute ischemic change are noted. Some mild changes when compared to prior EKG 04/04/2022. Critical Care Time Critical Care Time Critical Care Time: Yes Total Critical Care Time: 60 Attestation: I personally attest to this time spent taking care of the patient Discharge Plan Discharge Clinical Impression: Low blood magnesium level, Acute bronchitis with bronchospasm, COVID-19 Patient Disposition: Home, Self-Care Instructions: Acute Bronchitis (ED) Prescriptions: New albuterol sulfate 0.63 mg/3 mL solution for nebulization 0.63 mg inhalation QID PRN (Reason: shortness of breath or wheezing) Qty: 75 0RF azithromycin 250 mg tablet See Rx Instructions .ROUTE .COMPLEX Qty: 6 0RF Rx Instructions: take 500 mg today (day 1), then 250 mg for 4 days (days 2-5) codeine-guaifenesin [Guaifenesin AC] 10-100 mg/5 mL liquid 5 ml PO Q6H PRN (Reason: cold symptoms) Qty: 120 0RF albuterol sulfate 90 mcg/actuation HFA aerosol inhaler 1 inh inhalation QID PRN (Reason: shortness of breath or wheezing) Qty: 8.5 0RF No Action cyclobenzaprine 10 mg tablet 10 mg PO TID PRN (Reason: muscle spasm) Qty: 14 0RF lidocaine [Lidoderm] 5 % adhesive patch,medicated 1 patch topical DAILY Qty: 15 0RF Rx Instructions: leave on most painful area for up to 12 hrs ibuprofen 600 mg tablet 600 mg PO Q8H PRN (Reason: pain) Qty: 30 0RF tramadol 50 mg tablet 50 mg PO Q8H PRN (Reason: pain) Qty: 10 0RF aripiprazole 2 mg tablet 2 mg PO DAILY Referrals: Physician,Unknown J [Primary Care Provider] - (your pcp)
[2022-04-08 11:11] LABS: Alanine Aminotransferase 34 U/L (0-31); Albumin Level 4.2 g/dL (3.5-5.0); Alkaline Phosphatase 176 U/L (39-117); Anion Gap 9 (12-20); Aspartate Amino Transferase 24 U/L (5-31); Bilirubin Total 0.4 mg/dL (0.0-1.0); Blood Urea Nitrogen 14 mg/dL (9-16); Calcium 9.7 mg/dL (8.4-10.2); Carbon Dioxide 26 mmol/L (22-29); Chloride 103 mmol/L (96-108); Creatinine Clr Calc Pharmacy 73.2; Estimated Glomerular Filt Rate > 60; Glucose Random 239 mg/dL (60-115); Magnesium 1.5 mg/dL (1.6-2.6); Potassium 4.3 mmol/L (3.3-5.1); Sodium 134 mmol/L (135-145); Total Protein 7.1 g/dL (6.5-8.0); Troponin-I High Sensitivity < 3.5 ng/L (<3.5-17.0)
[2022-04-08 11:14] VITALS: PULSE 96; RESP 18; O2SAT 96
[2022-04-08] MEDS: dexAMETHasone sod phosphate 10 MG/ML VIAL IVPUSH (11:56)
[2022-04-08] MEDS: Magnesium Sulfate/H2O 2 GM/50 ML PIGGYBACK IV (11:56)
[2022-04-08] MEDS: iohexoL 350 MG/ML 100 ML INFUS..BTL 65 ML IV (12:24)
[2022-04-08 13:52] VITALS: BP 132/73; PULSE 99; RESP 22; TEMP 37; O2SAT 97
== END 2022-04-08 14:00 | disposition home or self-care (01) ==
PROVIDERS: Physician Assistant Medical; Emergency Provider Emergency Medicine
DX: U07.1 COVID-19 (principal); J20.9 Acute bronchitis, unspecified; R07.89 Other chest pain; I10 Essential (primary) hypertension; R05.9 Cough, unspecified; R06.02 Shortness of breath; Z79.899 Other long term (current) drug therapy
CPT/HCPCS: 36415; 71045; 71275; 80053; 83735; 83880; 84484; 85025; 85610; 93005; 94640; 96365; 96366; 96375; 99285; J1100; J3475; Q9967

== ENCOUNTER 2022-04-11 09:38 | Outpatient (REF) | payer MEDICARE, SELFPAY ==
[2022-04-11 10:29] LABS: COVID-19 Test Negative (Negative); IDNOW Serial# BCCEAD1C
== END 2022-04-11 09:39 | disposition home or self-care (01) ==
LOC: HO.LAB 09:38
PROVIDERS: Visit Provider Internal Medicine
DX: Z20.822 Contact with and (suspected) exposure to COVID-19 (principal)
CPT/HCPCS: 87635; C9803

== ENCOUNTER 2022-06-17 09:49 | Emergency (ER) | payer MEDICARE, SELFPAY ==
[2022-06-17 09:55] VITALS: BP 126/71; PULSE 67; RESP 16; TEMP 36.6; O2SAT 98; BMI 29.2
--- NOTE | 2022-06-17 10:13 | ED_ITS ---
HPI - General Adult General Chief complaint: General Medical Stated complaint: HBP/Headache/Needs medication Time Seen by Provider: 06/17/22 10:13 Source: patient and group care worker Mode of arrival: ambulatory Limitations: language barrier History of Present Illness HPI narrative: Patient is a 52 year old assigned female at with a history of HTN presenting to the emergency department today requesting a medication refill. Patient states that she has a history of high blood pressure and has been out of her medications for a little while now. Patient states that she is on a wait list for a new PCP since she moved here. Patient states that she had a headache yesterday that is now resolved. Patient denies any dizziness, lightheadedness, abdominal pain, nausea, vomiting, fever, chills, blurry vision, double vision, loss of vision, chest pain, difficulty breathing, shortness of breath, back pain, night sweats, pain with urination, increased urinary frequency, increased urinary urgency, blood in her urine or stool, syncope or a near syncopal episode, recent trauma or falls, bowel incontinence, bladder incontinence, bowel retention, bladder retention, or any other complaints at this time. Onset (ago): day(s) Severity: mild Severity scale (1-10): 1 Relieving factors: none Exacerbating factors: none Associated symptoms: denies other symptoms Treatments prior to arrival: none Related Data Home Medications Medication Instructions Recorded Confirmed aripiprazole 2 mg tablet 2 mg PO DAILY 06/01/20 Previous Rx's Medication Instructions Recorded cyclobenzaprine 10 mg tablet 10 mg PO TID PRN muscle spasm #14 02/23/20 tabs ibuprofen 600 mg tablet 600 mg PO Q8H PRN pain #30 tabs 02/23/20 lidocaine 5 % topical patch 1 patch topical DAILY #15 ea 02/23/20 (Lidoderm) tramadol 50 mg tablet 50 mg PO Q8H PRN pain #10 tabs 02/23/20 albuterol sulfate 0.63 mg/3 mL 0.63 mg (3 mL) inhalation QID PRN 04/08/22 solution for nebulization shortness of breath or wheezing #75 mL albuterol sulfate 90 mcg/actuation 1 inh inhalation QID PRN shortness 04/08/22 aerosol inhaler of breath or wheezing #8.5 grams azithromycin 250 mg tablet See Rx Instructions PO .COMPLEX #6 04/08/22 tabs codeine 10 mg-guaifenesin 100 mg/5 5 ml PO Q6H PRN cold symptoms #120 04/08/22 mL oral liquid (Guaifenesin AC) mL atorvastatin 40 mg tablet 40 mg PO DAILY #30 tabs 06/17/22 celecoxib 200 mg capsule 200 mg PO DAILY #30 caps 06/17/22 cetirizine 10 mg tablet 10 mg PO DAILY #30 tabs 06/17/22 lisinopril 5 mg tablet 5 mg PO DAILY #30 tabs 06/17/22 Allergies Allergy/AdvReac Type Severity Reaction Status Date / Time No Known Allergies Allergy Verified 04/05/22 22:50 [No Known Allergies*] seasonal Allergy Unknown Itchy Eyes Uncoded 02/23/20 09:14 Review of Systems Constitutional: Constitutional: Reports no additional constitutional complaints, Denies chills, Denies fever(s) and Denies night sweats Eyes: Eyes: Reports no additional eye complaints, Denies blurry vision, Denies change in vision, Denies diplopia, Denies eye discharge, Denies loss of vision and Denies eye pain ENT: Denies dizziness Cardiovascular: Cardiovascular: Reports no additional cardiovascular complaints, Denies chest pain, Denies lightheadedness, Denies Loss of Consc iousness and Denies dyspnea Respiratory: Respiratory: Reports no additional respiratory complaints and Denies dyspnea Gastrointestinal: Gastrointestinal: Reports no additional gastrointestinal complaints, Denies abdominal pain, Denies melena, Denies hematochezia, Denies change in bowel habits and Denies change in stool character Genitourinary: Genitourinary: Denies hematuria, Denies urinary frequency, Denies dysuria, Denies urinary incontinence, Denies urinary hesitancy and Denies urinary urgency Musculoskeletal: Musculoskeletal: Reports no additional musculoskeletal complaints, Denies numbness and Denies tingling Neurologic: Denies dizziness, Denies loss of vision, Denies numbness and Denies tingling Psychiatric: Psychiatric: Reports no additional psychiatric complaints Endocrine: Endocrine: Reports no additional endocrine complaints Hematologic/Lymphatic: Hematologic/Lymphatic: Reports no additional hematologic/lymphatic complaints Allergic/Immunologic: Allergic/Immunologic: Reports no additional allergic/immunologic complaints PMFSH Past Medical History Attestation statement: The following information was validated with the patient. Source: old records reviewed and nursing notes reviewed Medical History Anxiety Back pain Depression Surgical History History of hysterectomy Hx of section Hx of cholecystectomy Social History Social History Alcohol intake: current Alcohol intake frequency: does not drink Advance Directives: No Advance Directives Information Provided: No Physical Exam ED Vital Signs: Vital Signs - 24 hr 06/17/22 09:55 Temperature 98 F Pulse Rate 67 Respiratory Rate 16 Blood Pressure 126/71 Pulse Oximetry 98 Oxygen Delivery Method Room Air BMI result Body Mass Index 29.2 Const General: cooperative, no acute distress, alert and awake Nutritional Appearance: well nourished Orientation/consciousness: patient oriented x3 Limitations: no limitations HENMT Head: Yes normal to inspection and Yes atraumatic Ears: hearing grossly normal bilaterally and external ears normal General nose exam: Normal external nose present, no nasal discharge noted and no epistaxis Face and sinus: Yes normal facial exam, No abrasion and No laceration Mouth: Normal oral and palatal mucosa present, no drooling and no muffled voice Eyes General: appearance normal, both eyes and all related structures Periorbital: periorbital findings normal Eyelids: Yes eyelids normal Conjunctivae: conjunctivae normal Pupils: Equal, round and reactive pupils present EOM: EOMs intact bilaterally Neck Neck: Yes normal visual inspection, Yes full ROM and Yes no lymphadenopathy Chest Chest palpation & inspection: normal inspection of the chest Resp Effort & Inspection: normal respiratory effort and able to speak in complete sentences Auscultation: clear to auscultation bilaterally Cardio Rate: regular rate Rhythm: regular rhythm GI Inspection: Yes normal to inspection Neuro General: patient oriented x3 and moves all extremities Cranial nerves: Yes Equal, round and reactive pupils present Cognition (Neuro): normal cognition Motor exam (neuro): 5/5 motor strength present throughout Sensory Exam: Normal double simultaneous stimulation for sensation Coordination: [id number] test normal Extrem General: Yes normal to inspection, Yes full ROM and Yes capillary refill normal Psych Appearance: grossly normal Mental Status: mental status grossly normal Affect: normal affect Attitude: cooperative Thought process: Normal thought process present Thought content: Normal thought content present Insight: Good insight present (Psych) Medical Decision Making Medical Decision Making MDM Narrative: Patient is a 52 year old assigned female at with a history of HTN presenting to the emergency department today requesting a medication refll. Patient's physical exam was unremarkable. I explained my physical exam findings to the patient. I answered all questions asked by the patient. I stressed the importance of the patient taking her medication as prescribed. I stressed the importance of the patient following up with her primary care provider. I stressed the importance of the patient returning to the emergency department immediately if her symptoms were to worsen or if she were to develop any dizziness, shortness of breath, difficulty breathing, chest pain, blurry vision, loss of vision, nausea, vomiting, abdominal pain, fever, chills, back pain, or any other complaints. Patient verbalized agreement and understanding with this treatment plan and discharge. Differential Diagnosis Differential Diagnoses: The differential diagnosis associated with the presentation includes HTN, medication refill Social Determinants Patient?s care significantly limited by Social Determinants of Health including: Other Social Determinant of Health (patient does not have a primary care provider and is currently on a wait list for one) Discharge Plan Discharge Clinical Impression: Hypertension Patient Disposition: Home, Self-Care Instructions: Hypertension (ED) Additional Instructions: Follow up with a primary care provider. Return to the emergency department immediately if your symptoms worsen or if you develop any dizziness, shortness of breath, difficulty breathing, chest pain, blurry vision, loss of vision, nausea, vomiting, abdominal pain, fever, chills, back pain, or any other complaints. Seguimiento con un proveedor de atenci?n primaria. Regrese a la michelle de emergencias de inmediato si sissy s?ntomas empeoran o si presenta mareos, dificultad para respirar, dolor de pecho, visi?n borrosa, p?rdida de la visi?n, n?useas, v?mitos, dolor abdominal, fiebre, escalofr?os, dolor de espalda o cualquier otras quejas. Prescriptions: New celecoxib 200 mg capsule 200 mg PO DAILY Qty: 30 0RF lisinopril 5 mg tablet 5 mg PO DAILY Qty: 30 0RF cetirizine 10 mg tablet 10 mg PO DAILY Qty: 30 0RF atorvastatin 40 mg tablet 40 mg PO DAILY Qty: 30 0RF No Action cyclobenzaprine 10 mg tablet 10 mg PO TID PRN (Reason: muscle spasm) Qty: 14 0RF lidocaine [Lidoderm] 5 % adhesive patch,medicated 1 patch topical DAILY Qty: 15 0RF Rx Instructions: leave on most painful area for up to 12 hrs ibuprofen 600 mg tablet 600 mg PO Q8H PRN (Reason: pain) Qty: 30 0RF tramadol 50 mg tablet 50 mg PO Q8H PRN (Reason: pain) Qty: 10 0RF albuterol sulfate 0.63 mg/3 mL solution for nebulization 0.63 mg inhalation QID PRN (Reason: shortness of breath or wheezing) Qty: 75 0RF azithromycin 250 mg tablet See Rx Instructions .ROUTE .COMPLEX Qty: 6 0RF Rx Instructions: take 500 mg today (day 1), then 250 mg for 4 days (days 2-5) codeine-guaifenesin [Guaifenesin AC] 10-100 mg/5 mL liquid 5 ml PO Q6H PRN (Reason: cold symptoms) Qty: 120 0RF albuterol sulfate 90 mcg/actuation HFA aerosol inhaler 1 inh inhalation QID PRN (Reason: shortness of breath or wheezing) Qty: 8.5 0RF aripiprazole 2 mg tablet 2 mg PO DAILY Referrals: Marleny Dumas MD [Primary Care Provider] - Interventions: ED Discharge Assessment Last Done: 06/17/22 11:23 Discharge Date/Time: 06/17/22 11:24 Print Language: Latvian
== END 2022-06-17 11:24 | disposition home or self-care (01) ==
PROVIDERS: Emergency Provider Emergency Medicine Emergency Medical Services; PCP Internal Medicine
DX: R51.9 Headache, unspecified (principal); I10 Essential (primary) hypertension; Z79.899 Other long term (current) drug therapy
CPT/HCPCS: 99283

== ENCOUNTER 2022-08-09 07:52 | Emergency (ER) | payer MEDICARE, SELFPAY ==
[2022-08-09 07:59] VITALS: BP 124/69; PULSE 80; RESP 16; TEMP 36.8; O2SAT 97; BMI 30.9
--- NOTE | 2022-08-09 08:09 | ED.GENADULT ---
HPI - General Adult General Chief complaint: General Medical Stated complaint: medication Time Seen by Provider: 08/09/22 08:08 Source: patient, RN notes reviewed and primary counselor Mode of arrival: ambulatory Limitations: no limitations History of Present Illness HPI narrative: 52-year-old female with past medical history of hypertension, hypercholesteremia is here today requesting medication refills. Patient states that she went to her primary care provider trying to request appointment and refill on her medications, however she was told that she can get 1. Patient needs refill on her lisinopril and atorvastatin. Patient states that the last time she took it was 1 week ago. Patient denies any headache, dizziness, chest pain, SOB. Patient reports that she is feeling well. Denies any abdominal pain, nausea, vomiting, blurry vision, fever, chills, back pain, night sweats, pain with urination, urinary frequency or urgency, dyspepsia, dysphagia or odynophagia. Melena, hematochezia, unintentional weight loss or ribbon like stools. Related Data Home Medications Medication Instructions Recorded Confirmed aripiprazole 2 mg tablet 2 mg PO DAILY 06/01/20 Previous Rx's Medication Instructions Recorded cyclobenzaprine 10 mg tablet 10 mg PO TID PRN muscle spasm #14 02/23/20 tabs ibuprofen 600 mg tablet 600 mg PO Q8H PRN pain #30 tabs 02/23/20 lidocaine 5 % topical patch 1 patch topical DAILY #15 ea 02/23/20 (Lidoderm) tramadol 50 mg tablet 50 mg PO Q8H PRN pain #10 tabs 20 albuterol sulfate 0.63 mg/3 mL 0.63 mg (3 mL) inhalation QID PRN 04/08/22 solution for nebulization shortness of breath or wheezing #75 mL albuterol sulfate 90 mcg/actuation 1 inh inhalation QID PRN shortness 04/08/22 aerosol inhaler of breath or wheezing #8.5 grams azithromycin 250 mg tablet See Rx Instructions PO .COMPLEX #6 04/08/22 tabs codeine 10 mg-guaifenesin 100 mg/5 5 ml PO Q6H PRN cold symptoms #120 04/08/22 mL oral liquid (Guaifenesin AC) mL atorvastatin 40 mg tablet 40 mg PO DAILY #30 tabs 06/17/22 celecoxib 200 mg capsule 200 mg PO DAILY #30 caps 06/17/22 cetirizine 10 mg tablet 10 mg PO DAILY #30 tabs 06/17/22 lisinopril 5 mg tablet 5 mg PO DAILY #30 tabs 06/17/22 atorvastatin 40 mg tablet 40 mg PO QPM #30 tabs 08/09/22 lisinopril 5 mg tablet 5 mg PO DAILY #30 tabs 08/09/22 Allergies Allergy/AdvReac Type Severity Reaction Status Date / Time No Known Allergies Allergy Verified 04/05/22 22:50 [No Known Allergies*] seasonal Allergy Unknown Itchy Eyes Uncoded 02/23/20 09:14 Review of Systems Review of Systems: Constitutional : No Weight loss, No Fever, No Chills, No Night Sweats, No Fatigue, No Malaise ENT/Mouth : No Hearing loss, No Ear Pain, No Nasal Congestion, No Sinus Pain, No Hoarseness, No sore throat, No Rhinorrhea, No Swallowing Difficulty Eyes: No Eye Pain, No Swelling, No Redness, No Foreign Body, No Discharge, No Vision Changes Cardiovascular : No Chest Pain, No SOB, No Dyspnea on Exertion, No Orthopnea, No Edema, No Palpitations Respiratory : No Cough, No Sputum, No Wheezing, No Smoke Exposure, No Dyspnea Gastrointestinal : No Nausea, No Vomiting, No Diarrhea, No Constipation, No abdominal Pain, No Hematochezia, No Melena Musculoskeletal : No joint pain, No Myalgias, No Joint Swelling Skin : No Skin Lesions, No rash Neuro : No Weakness, No Numbness, No Paresthesias, No Loss of Consciousness, No Dizziness, No Headache Yes all other systems are reviewed and are negative [facility] Past Medical History Medical History Anxiety Back pain Depression Surgical History History of hysterectomy Hx of section Hx of cholecystectomy Social History Social History Alcohol intake: current Alcohol intake frequency: does not drink Advance Directives: No Physical Exam ED Vital Signs: Vital Signs - 24 hr 08/09/22 07:59 Temperature 98.2 F Pulse Rate 80 Respiratory Rate 16 Blood Pressure 124/69 Pulse Oximetry 97 Oxygen Delivery Method Room Air BMI result Body Mass Index 30.9 Const General: cooperative, no acute distress, alert and awake Nutritional Appearance: well nourished Orientation/consciousness: patient oriented x3 Limitations: no limitations HENMT Head: Yes normal to inspection and Yes atraumatic Ears: hearing grossly normal bilaterally and external ears normal General nose exam: Normal external nose present, no nasal discharge noted and no epistaxis Face and sinus: Yes normal facial exam, No abrasion and No laceration Mouth: Normal oral and palatal mucosa present, no drooling and no muffled voice Eyes General: appearance normal, both eyes and all related structures Periorbital: periorbital findings normal Eyelids: Yes eyelids normal Conjunctivae: conjunctivae normal Pupils: Equal, round and reactive pupils present EOM: EOMs intact bilaterally Neck Neck: Yes normal visual inspection, Yes full ROM and Yes no lymphadenopathy Chest Chest palpation & inspection: normal inspection of the chest Resp Effort & Inspection: normal respiratory effort and able to speak in complete sentences Auscultation: clear to auscultation bilaterally Cardio Rate: regular rate Rhythm: regular rhythm GI Inspection: Yes normal to inspection Neuro General: patient oriented x3 and moves all extremities Cranial nerves: Yes Equal, round and reactive pupils present Cognition (Neuro): normal cognition Motor exam (neuro): 5/5 motor strength present throughout Sensory Exam: Normal double simultaneous stimulation for sensation Coordination: [id number] test normal Extrem General: Yes normal to inspection, Yes full ROM and Yes capillary refill normal Psych Appearance: grossly normal Mental Status: mental status grossly normal Affect: normal affect Attitude: cooperative Thought process: Normal thought process present Thought content: Normal thought content present Insight: Good insight present (Psych) Course Course Course Narrative: 52-year-old female with past medical history of hypertension, hypercholesteremia is here today requesting medication refills. Patient states that she went to her primary care provider trying to request appointment and refill on her medications, however she was told that she can get 1. Patient needs refill on her lisinopril and atorvastatin. Patient states that the last time she took it was 1 week ago. Patient denies any headache, dizziness, chest pain, SOB. Patient reports that she is feeling well. Denies any abdominal pain, nausea, vomiting, blurry vision, fever, chills, back pain, night sweats, pain with urination, urinary frequency or urgency, dyspepsia, dysphagia or odynophagia. Melena, hematochezia, unintentional weight loss or ribbon like stools. Medical Decision Making Medical Decision Making MDM Narrative: Patient is here today for medication refills. History of hypertension and hypercholesteremia. Unremarkable physical exam. Patient tried going to her PCP, however unable to see provider yet. Patient was here last month and her lisinopril was filled. Patient has an appointment coming up unknown date or time yet patient is on a waiting list. Discussed with patient the importance of following up with PCP regarding her medications. She was instructed to return to emergency room if she will develop any dizziness, SOB, CP, blurry vision, nausea, vomiting, abdominal pain, fever, chills, any concerning symptoms. Patient verbalizes understanding and is agreeable to plan of care. She was given the opportunity to ask questions and all questions answered Differential Diagnosis Differential Diagnoses: The differential diagnosis associated with the presentation includes Hypertension, hypercholesteremia Discharge Plan Discharge Clinical Impression: Hypertension, Hyperlipidemia Patient Disposition: Home, Self-Care Instructions: Chronic Hypertension (DC), Hyperlipidemia (DC) Additional Instructions: Follow up with a primary care provider. Return to the emergency department immediately if your symptoms worsen or if you develop any dizziness, shortness of breath, difficulty breathing, chest pain, blurry vision, loss of vision, nausea, vomiting, abdominal pain, fever, chills, back pain, or any other complaints. Seguimiento con un proveedor de atenci?n primaria. Regrese a la michelle de emergencias de inmediato si sissy s?ntomas empeoran o si presenta mareos, dificultad para respirar, dolor de pecho, visi?n borrosa, p?rdida de la visi?n, n?useas, v?mitos, dolor abdominal, fiebre, escalofr?os, dolor de espalda o cualquier otras quejas. Prescriptions: New lisinopril 5 mg tablet 5 mg PO DAILY Qty: 30 0RF atorvastatin 40 mg tablet 40 mg PO QPM Qty: 30 0RF No Action cyclobenzaprine 10 mg tablet 10 mg PO TID PRN (Reason: muscle spasm) Qty: 14 0RF lidocaine [Lidoderm] 5 % adhesive patch,medicated 1 patch topical DAILY Qty: 15 0RF Rx Instructions: leave on most painful area for up to 12 hrs ibuprofen 600 mg tablet 600 mg PO Q8H PRN (Reason: pain) Qty: 30 0RF tramadol 50 mg tablet 50 mg PO Q8H PRN (Reason: pain) Qty: 10 0RF celecoxib 200 mg capsule 200 mg PO DAILY Qty: 30 0RF lisinopril 5 mg tablet 5 mg PO DAILY Qty: 30 0RF cetirizine 10 mg tablet 10 mg PO DAILY Qty: 30 0RF atorvastatin 40 mg tablet 40 mg PO DAILY Qty: 30 0RF albuterol sulfate 0.63 mg/3 mL solution for nebulization 0.63 mg inhalation QID PRN (Reason: shortness of breath or wheezing) Qty: 75 0RF azithromycin 250 mg tablet See Rx Instructions .ROUTE .COMPLEX Qty: 6 0RF Rx Instructions: take 500 mg today (day 1), then 250 mg for 4 days (days 2-5) codeine-guaifenesin [Guaifenesin AC] 10-100 mg/5 mL liquid 5 ml PO Q6H PRN (Reason: cold symptoms) Qty: 120 0RF albuterol sulfate 90 mcg/actuation HFA aerosol inhaler 1 inh inhalation QID PRN (Reason: shortness of breath or wheezing) Qty: 8.5 0RF aripiprazole 2 mg tablet 2 mg PO DAILY Referrals: Marleny Dumas MD [Primary Care Provider] - Interventions: ED Discharge Assessment Last Done: 08/09/22 08:54 Discharge Date/Time: 08/09/22 08:56
--- NOTE | 2022-08-09 08:55 | PC.NURSE ---
PT WAS EVALUATED AND PLAN FOR DISCHARGE.
== END 2022-08-09 08:56 | disposition home or self-care (01) ==
PROVIDERS: Emergency Provider Emergency Medicine; PCP Internal Medicine
DX: E78.5 Hyperlipidemia, unspecified (principal); I10 Essential (primary) hypertension; Z79.899 Other long term (current) drug therapy; Z76.0 Encounter for issue of repeat prescription
CPT/HCPCS: 99282; 99283

== ENCOUNTER 2022-09-14 14:37 | Emergency (ER) | payer MEDICARE, MEDICAID, SELFPAY ==
--- NOTE | ~2022-09-14 | XR_ITS ---
EXAMINATION: XR CHEST CLINICAL INFORMATION: Chest pain and SOB COMPARISON: None available. TECHNIQUE: Frontal view of the chest was obtained. FINDINGS: No significant abnormality is noted involving the heart, lungs, mediastinum, bony thorax or soft tissues. XR/XR chest 1V IMPRESSION: Unremarkable chest examination.
--- NOTE | ~2022-09-14 | CT_ITS ---
EXAMINATION: CT ABDOMEN AND PELVIS WITHOUT CONTRAST CLINICAL INFORMATION: Left-sided abdominal pain COMPARISON: CT abdomen pelvis 09/21/2019 TECHNIQUE: Multidetector volumetric imaging was performed from the superior aspect of the liver through the pubic symphysis. Sagittal and coronal reformatted images were obtained on the technologist's workstation. This CT examination was performed using dose optimization techniques as appropriate, variously including the following: *Automated exposure control *Adjustment of mA and/or kV according to patient size (this includes techniques or standardized protocols for targeted exams where dose is matched to indication/reason for exam; i.e. extremities or head) *Use of iterative reconstruction technique DLP: 535 mGy-cm FINDINGS: LUNG BASES: The visualized lung bases are unremarkable. LIVER, GALLBLADDER, AND BILIARY TREE: Diffuse low attenuation of liver parenchyma due to fatty change. No focal liver lesion and no intrahepatic bile duct dilatation. The liver is enlarged measuring 21.5 cm superior-inferior. The gallbladder is unremarkable with no evidence of radiopaque gallstones, gallbladder wall thickening, or obvious pericholecystic inflammatory changes. PANCREAS: Unremarkable. SPLEEN: Unremarkable. ADRENAL GLANDS: Unremarkable. KIDNEYS AND URETERS: The kidneys are normal in size, shape, and attenuation. No hydronephrosis, hydroureter, or calculi seen. No perinephric stranding. BLADDER: Unremarkable. GASTROINTESTINAL TRACT: There are scattered diverticula of the colon. There is no diverticulitis. There is no bowel wall thickening /edema. There is no bowel obstruction. There is a moderate to large volume of stool in the colon. The appendix is normal . The small bowel loops are unremarkable. The stomach is normal. There is no hiatal hernia. ABDOMINAL WALL: No significant hernia is appreciated. LYMPH NODES: Normal. VASCULAR: Unremarkable. PELVIC VISCERA: Status post hysterectomy. No adnexal abnormality. No pelvic fluid. OSSEOUS STRUCTURES: Unremarkable. CT/CT abdomen pelvis wo IV con IMPRESSION: 1. No acute abnormality CT scan abdomen pelvis. 2. Hepatomegaly with diffuse fatty change of liver. Fleischner guidelines were followed.
[2022-09-14 14:45] VITALS: BP 138/90; PULSE 90; PULSE 92; RESP 20; TEMP 36.8; O2SAT 97; BMI 31.7
--- NOTE | 2022-09-14 15:28 | ECG_ITS ---
Test Reason : CP Blood Pressure : / mmHG Vent. Rate : 094 BPM Atrial Rate : 094 BPM P-R Int : 148 ms QRS Dur : 070 ms QT Int : 358 ms P-R-T Axes : 023 010 021 degrees QTc Int : 447 ms Normal sinus rhythm Minimal voltage criteria for LVH, may be normal variant ( R in aVL ) Possible Inferior infarct (cited on or before 08-APR-2022) cannot exclude - Possible Anterior infarct (cited on or before 08-APR-2022) Abnormal ECG When compared with ECG of 08-APR-2022 09:51, Nonspecific T wave abnormality now evident in Anterior leads Referred By: Ramila Phillips Electronically Signed By:RAYMUNDO RIVERA
[2022-09-14 16:00] VITALS: BP 154/83; PULSE 98; RESP 20; TEMP 37; O2SAT 98
[2022-09-14 16:13] LABS: MANUAL DIFF FLAG NO
[2022-09-14 16:15] LABS: Basophils Percent Auto 0.2 % (0-2); Eosinophils Absolute Auto 0.1 X10*3/uL (0.0-0.4); Eosinophils Percent Auto 1.1 % (0-4); Hematocrit 39.9 % (37.0-47.0); Hemoglobin 13.8 g/dl (12.0-16.0); Imm Gran Abs Auto 0.04 X10*3/uL (0.00-0.03); Imm Gran Pct Auto 0.3 % (0.0-0.4); Lymphocytes Percent Auto 15.9 % (20-40); Mean Corpuscular HGB Conc 34.6 g/dl (31.0-35.0); Mean Corpuscular Hemoglobin 28.3 pg (27.0-33.0); Mean Corpuscular Volume 81.8 fL (80.0-98.0); Mean Platelet Volume 10.1 fL (9.4-12.3); Monocytes Absolute Auto 0.7 X10*3/uL (0.1-1.2); Monocytes Percent Auto 5.7 % (2-11); Neutrophils Absolute Auto 9.7 x10*3/uL (2.0-8.3); Neutrophils Percent Auto 76.8 % (45-73); Platelet Count 272 X10*3/uL (160-400); Red Blood Count 4.88 X10*6/uL (4.20-5.50); Red Cell Distribution Width 12.8 % (11.0-16.0); White Blood Count 12.7 X10*3/uL (4.8-10.8)
[2022-09-14 16:35] LABS: Alanine Aminotransferase 49 U/L (0-31); Albumin Level 4.5 g/dL (3.5-5.0); Alkaline Phosphatase 140 U/L (39-117); Anion Gap 15 (12-20); Aspartate Amino Transferase 42 U/L (5-31); Bilirubin Direct 0.2 mg/dL (0.0-0.5); Bilirubin Total 0.9 mg/dL (0.0-1.0); Blood Urea Nitrogen 12 mg/dL (9-16); Calcium 9.5 mg/dL (8.4-10.2); Carbon Dioxide 23 mmol/L (22-29); Chloride 108 mmol/L (96-108); Creatinine Clr Calc Pharmacy 91.2; Estimated Glomerular Filt Rate > 60; Glucose Random 119 mg/dL (60-115); Magnesium 1.7 mg/dL (1.6-2.6); Potassium 3.9 mmol/L (3.3-5.1); Sodium 142 mmol/L (135-145); Total Protein 7.7 g/dL (6.5-8.0)
[2022-09-14 16:39] LABS: Troponin-I High Sensitivity < 2.7 ng/L (<3.5-17.0)
--- NOTE | 2022-09-14 17:03 | ED.ABDPAIN ---
HPI - Abdominal Pain General Chief Complaint: Abdominal Pain Stated Complaint: Abd pain, weakness, dizzy per EMS Time Seen by Provider: 09/14/22 16:51 Source: patient Mode of arrival: ambulatory Limitations: no limitations History of Present Illness HPI narrative: Patient With no significant abdominal complaints in the past noticed pain in mid abdomen since yesterday afternoon rated the left side with nausea no vomiting no fever , no chills no urinary complaints no blood in the urine stool Related Data Home Medications Medication Instructions Recorded Confirmed aripiprazole 2 mg tablet 2 mg PO DAILY 06/01/20 Previous Rx's Medication Instructions Recorded cyclobenzaprine 10 mg tablet 10 mg PO TID PRN muscle spasm #14 02/23/20 tabs ibuprofen 600 mg tablet 600 mg PO Q8H PRN pain #30 tabs 02/23/20 lidocaine 5 % topical patch 1 patch topical DAILY #15 ea 02/23/20 (Lidoderm) tramadol 50 mg tablet 50 mg PO Q8H PRN pain #10 tabs 02/23/20 albuterol sulfate 0.63 mg/3 mL 0.63 mg (3 mL) inhalation QID PRN 04/08/22 solution for nebulization shortness of breath or wheezing #75 mL albuterol sulfate 90 mcg/actuation 1 inh inhalation QID PRN shortness 04/08/22 aerosol inhaler of breath or wheezing #8.5 grams azithromycin 250 mg tablet See Rx Instructions PO .COMPLEX #6 04/08/22 tabs codeine 10 mg-guaifenesin 100 mg/5 5 ml PO Q6H PRN cold symptoms #120 04/08/22 mL oral liquid (Guaifenesin AC) mL atorvastatin 40 mg tablet 40 mg PO DAILY #30 tabs 06/17/22 celecoxib 200 mg capsule 200 mg PO DAILY #30 caps 06/17/22 cetirizine 10 mg tablet 10 mg PO DAILY #30 tabs 06/17/22 lisinopril 5 mg tablet 5 mg PO DAILY #30 tabs 06/17/22 atorvastatin 40 mg tablet 40 mg PO QPM #30 tabs 08/09/22 lisinopril 5 mg tablet 5 mg PO DAILY #30 tabs 08/09/22 cefuroxime axetil 250 mg tablet 250 mg PO BID 7 days #14 tabs 09/14/22 ibuprofen 600 mg tablet 600 mg PO Q6H PRN fever or pain 09/14/22 #30 tabs Allergies Allergy/AdvReac Type Severity Reaction Status Date / Time No Known Allergies Allergy Verified 04/05/22 22:50 [No Known Allergies*] seasonal Allergy Unknown Itchy Eyes Uncoded 02/23/20 09:14 Review of Systems Review of Systems Yes all other systems are reviewed and are negative [facility] Past Medical History Medical History Anxiety Back pain Depression Surgical History History of hysterectomy Hx of section Hx of cholecystectomy Social History Social History Alcohol intake: current Alcohol intake frequency: holidays/special occasions only Smoked in Last 30 Days: No Use of substances other than those prescribed or required for medical reasons: No Advance Directives: No Advance Directives Information Provided: Yes Physical Exam ED Vital Signs: Vital Signs - 24 hr 09/14/22 14:45 09/14/22 16:00 09/14/22 20:10 Temperature 98.3 F 98.6 F 98.5 F Pulse Rate 92 98 96 Respiratory Rate 20 20 14 Blood Pressure 138/90 H 154/83 H 136/80 Pulse Oximetry 97 98 97 Oxygen Delivery Method Room Air Room Air Room Air BMI result Body Mass Index 31.7 Appearance: Alert. Oriented X3. No acute distress. Eyes: No pallor or icterus ENT: Pharynx normal. Oral Mucosa moist Neck: Normal inspection. Neck supple. CVS: Normal heart rate and rhythm. Pulses normal. Respiratory: No respiratory distress. Equal air entry bilateral, no wheezing/rales/rhonchi Abdomen: Soft and mild tenderness mid abdomen. Bowel sounds are present, no mass palpable, no CVA tenderness Skin: Skin warm and dry. Normal skin color. Normal skin turgor. Extremities: No lower extremity edema. No calf tenderness Neuro: Oriented X 3. No motor deficit. No sensory deficit.No cerebellar signs , cranial nerves II-XII intact Medical Decision Making Medical Decision Making [facility] Narrative: Patient abdominal pain CT scan negative workup shows UTI was given IV Rocephin discharge patient home on Ceftin Lab Data [facility] Lab Attestation statement: I reviewed the patient's lab results. 09/14/22 15:41 09/14/22 15:41 Labs: Lab Results 09/14/22 09/14/22 09/14/22 Range/Units 15:41 15:41 15:41 WBC 12.7 H (4.8-10.8) X10*3/uL RBC 4.88 (4.20-5.50) X10*6/uL Hgb 13.8 (12.0-16.0) g/dl Hct 39.9 (37.0-47.0) % MCV 81.8 (80.0-98.0) fL MCH 28.3 (27.0-33.0) pg MCHC 34.6 (31.0-35.0) g/dl RDW 12.8 (11.0-16.0) % Plt Count 272 (160-400) X10*3/uL MPV 10.1 (9.4-12.3) fL Immature Gran % (Auto) 0.3 (0.0-0.4) % Neut % (Auto) 76.8 H (45-73) % Lymph % (Auto) 15.9 L (20-40) % [place] % (Auto) 5.7 (2-11) % Eos % (Auto) 1.1 (0-4) % Baso % (Auto) 0.2 (0-2) % Lymph # (Auto) 2.0 (1.2-4.9) X10*3/uL [place] # (Auto) 0.7 (0.1-1.2) X10*3/uL Eos # (Auto) 0.1 (0.0-0.4) X10*3/uL Baso # (Auto) 0.0 (0.0-0.2) X10*3/uL Abs Immat Gran (auto) 0.04 H (0.00-0.03) X10*3/uL Absolute Neuts (auto) 9.7 H (2.0-8.3) x10*3/uL Absolute Nucleated RBC 0.000 (0.0-0.012) X10*3/uL Nucleated RBC % (auto) 0.0 (0.0-0.2) /100WBC Sodium 142 (135-145) mmol/L Potassium 3.9 (3.3-5.1) mmol/L Chloride 108 (96-108) mmol/L Carbon Dioxide 23 (22-29) mmol/L Anion Gap 15 (12-20) BUN 12 (9-16) mg/dL Creatinine 0.68 (0.5-1.4) mg/dL Estim Creat Clear Calc 91.2 Estimated GFR > 60 Random Glucose 119 H (60-115) mg/dL Calcium 9.5 (8.4-10.2) mg/dL Magnesium 1.7 (1.6-2.6) mg/dL Total Bilirubin 0.9 (0.0-1.0) mg/dL Direct Bilirubin 0.2 (0.0-0.5) mg/dL AST 42 H (5-31) U/L ALT 49 H (0-31) U/L Alkaline Phosphatase 140 H (39-117) U/L Troponin I High Sens < 2.7 (<3.5-17.0) ng/L Total Protein 7.7 (6.5-8.0) g/dL Albumin 4.5 (3.5-5.0) g/dL Lipase 24 (8-78) U/L Urine Color Urine Appearance Urine pH (5.0-9.0) Ur Specific [place] (1.005-1.025) Urine Protein (Neg-Trace) mg/dL Urine Glucose (UA) (Negative) mg/dL Urine Ketones (Negative) mg/dL Urine Blood (Negative) Urine Nitrite (Negative) Ur Leukocyte Esterase (Negative) Urine RBC (0-2) /HPF Urine WBC (0-5) /HPF Ur Squamous Epith Cells (0-2) /HPF Calcium Oxalate Crystal Urine Bacteria (None Seen) Hyaline Casts (0-2) /LPF 09/14/22 Range/Units 17:52 WBC (4.8-10.8) X10*3/uL RBC (4.20-5.50) X10*6/uL Hgb (12.0-16.0) g/dl Hct (37.0-47.0) % MCV (80.0-98.0) fL MCH (27.0-33.0) pg MCHC (31.0-35.0) g/dl RDW (11.0-16.0) % Plt Count (160-400) X10*3/uL MPV (9.4-12.3) fL Immature Gran % (Auto) (0.0-0.4) % Neut % (Auto) (45-73) % Lymph % (Auto) (20-40) % [place] % (Auto) (2-11) % Eos % (Auto) (0-4) % Baso % (Auto) (0-2) % Lymph # (Auto) (1.2-4.9) X10*3/uL [place] # (Auto) (0.1-1.2) X10*3/uL Eos # (Auto) (0.0-0.4) X10*3/uL Baso # (Auto) (0.0-0.2) X10*3/uL Abs Immat Gran (auto) (0.00-0.03) X10*3/uL Absolute Neuts (auto) (2.0-8.3) x10*3/uL Absolute Nucleated RBC (0.0-0.012) X10*3/uL Nucleated RBC % (auto) (0.0-0.2) /100WBC Sodium (135-145) mmol/L Potassium (3.3-5.1) mmol/L Chloride (96-108) mmol/L Carbon Dioxide (22-29) mmol/L Anion Gap (12-20) BUN (9-16) mg/dL Creatinine (0.5-1.4) mg/dL Estim Creat Clear Calc Estimated GFR Random Glucose (60-115) mg/dL Calcium (8.4-10.2) mg/dL Magnesium (1.6-2.6) mg/dL Total Bilirubin (0.0-1.0) mg/dL Direct Bilirubin (0.0-0.5) mg/dL AST (5-31) U/L ALT (0-31) U/L Alkaline Phosphatase (39-117) U/L Troponin I High Sens (<3.5-17.0) ng/L Total Protein (6.5-8.0) g/dL Albumin (3.5-5.0) g/dL Lipase (8-78) U/L Urine Color Yellow Urine Appearance Turbid Urine pH 5.0 (5.0-9.0) Ur Specific [place] 1.025 (1.005-1.025) Urine Protein Trace (Neg-Trace) mg/dL Urine Glucose (UA) Negative (Negative) mg/dL Urine Ketones Negative (Negative) mg/dL Urine Blood Small (1+) H (Negative) Urine Nitrite Negative (Negative) Ur Leukocyte Esterase Moderate (2+) H (Negative) Urine RBC >20 H (0-2) /HPF Urine WBC 21-50 H (0-5) /HPF Ur Squamous Epith Cells 11-20 (0-2) /HPF Calcium Oxalate Crystal Present Urine Bacteria 1+ (None Seen) Hyaline Casts 0-2 (0-2) /LPF Medications Administered Discontinued Medications Generic Name Dose Route Start Last Admin Trade Name Freq PRN Reason Stop Dose Admin Sodium Chloride 1,000 mls @ 999 mls/hr 09/14/22 17:13 09/14/22 20:21 Ns IV 09/14/22 18:13 Infused .Q1H1M ONE Infusion Ceftriaxone Sodium 1 gm/ 50 mls @ 100 mls/hr 09/14/22 18:14 09/14/22 19:52 Sodium Chloride IV 09/14/22 18:43 Infused ONCE ONE Infusion Morphine Sulfate 4 mg 09/14/22 17:13 09/14/22 17:31 Morphine Sulfate 4 Mg/Ml Cartridge IVPUSH 09/14/22 17:14 4 mg ONCE ONE Administration Protocol Ondansetron HCl 4 mg 09/14/22 17:13 09/14/22 17:31 Ondansetron Hcl 4 Mg/2 Ml Vial IVPUSH 09/14/22 17:14 4 mg ONCE ONE Administration Discharge Plan Discharge Clinical Impression: UTI (urinary tract infection) Patient Disposition: Home, Self-Care Instructions: Urinary Tract Infection in Women (ED) Additional Instructions: Drink plenty of fluids Take antibiotic as prescribed Tylenol/Motrin for pain Prescriptions: New cefuroxime axetil 250 mg tablet 250 mg PO BID 7 Days Qty: 14 0RF ibuprofen 600 mg tablet 600 mg PO Q6H PRN (Reason: fever or pain) Qty: 30 0RF No Action cyclobenzaprine 10 mg tablet 10 mg PO TID PRN (Reason: muscle spasm) Qty: 14 0RF lidocaine [Lidoderm] 5 % adhesive patch,medicated 1 patch topical DAILY Qty: 15 0RF Rx Instructions: leave on most painful area for up to 12 hrs ibuprofen 600 mg tablet 600 mg PO Q8H PRN (Reason: pain) Qty: 30 0RF tramadol 50 mg tablet 50 mg PO Q8H PRN (Reason: pain) Qty: 10 0RF celecoxib 200 mg capsule 200 mg PO DAILY Qty: 30 0RF lisinopril 5 mg tablet 5 mg PO DAILY Qty: 30 0RF cetirizine 10 mg tablet 10 mg PO DAILY Qty: 30 0RF atorvastatin 40 mg tablet 40 mg PO DAILY Qty: 30 0RF albuterol sulfate 0.63 mg/3 mL solution for nebulization 0.63 mg inhalation QID PRN (Reason: shortness of breath or wheezing) Qty: 75 0RF azithromycin 250 mg tablet See Rx Instructions .ROUTE .COMPLEX Qty: 6 0RF Rx Instructions: take 500 mg today (day 1), then 250 mg for 4 days (days 2-5) codeine-guaifenesin [Guaifenesin AC] 10-100 mg/5 mL liquid 5 ml PO Q6H PRN (Reason: cold symptoms) Qty: 120 0RF albuterol sulfate 90 mcg/actuation HFA aerosol inhaler 1 inh inhalation QID PRN (Reason: shortness of breath or wheezing) Qty: 8.5 0RF lisinopril 5 mg tablet 5 mg PO DAILY Qty: 30 0RF atorvastatin 40 mg tablet 40 mg PO QPM Qty: 30 0RF aripiprazole 2 mg tablet 2 mg PO DAILY Stand Alone Forms: Work/School Release Interventions: ED Discharge Assessment Last Done: 09/14/22 22:25 Discharge Date/Time: 09/14/22 22:26
[2022-09-14] MEDS: ondansetron HCL 4 MG/2 ML VIAL IVPUSH (17:31)
[2022-09-14] MEDS: Morphine Sulfate 4 MG/ML CARTRIDGE IVPUSH (17:31)
[2022-09-14] MEDS: 0.9 % Sodium Chloride 1,000 ML 999 ML IV (17:33)
[2022-09-14 17:41] LABS: Lipase 24 U/L (8-78)
--- NOTE | 2022-09-14 17:53 | PC.NURSE ---
pt medicated per JUL. EKG done and urine sent
--- NOTE | 2022-09-14 17:55 | MHC.EDTECH ---
Just acquired patient. EKG completed now
[2022-09-14 18:10] LABS: Appearance Urine Turbid; Color Urine Yellow; Glucose Urine UA Negative (Negative); Leukocyte Esterase Urine Moderate (2+) (Negative); Nitrite Urine Negative (Negative); Specific Gravity - Urine 1.025 (1.005-1.025); UMIC TRIGGER UACC YES; Urine Blood Small (1+) (Negative); Urine Ketones Negative (Negative); Urine Protein Trace mg/dL (Neg-Trace)
[2022-09-14 18:46] LABS: Bacteria Urine 1+ (None Seen); Calcium Oxalate Crystals Urine Present; Hyaline Casts Urine 0-2 /LPF (0-2); RBC Urine >20 /HPF (0-2); UACC Culture Trigger YES; WBC Urine 21-50 /HPF (0-5)
--- NOTE | 2022-09-14 19:13 | PC.NURSE ---
per MD no BC needed. Admin rocephin per JUL. Pt reports feeling better.
[2022-09-14] MEDS: cefTRIAXone sodium 1 GM in 0.9 % Sodium Chloride 50 ML IV (19:15)
[2022-09-14 20:10] VITALS: BP 136/80; PULSE 96; RESP 14; TEMP 36.9; O2SAT 97
== END 2022-09-14 22:26 | disposition home or self-care (01) ==
PROVIDERS: Physician Assistant; Emergency Provider Internal Medicine
DX: N39.0 Urinary tract infection, site not specified (principal); R10.9 Unspecified abdominal pain; I10 Essential (primary) hypertension; E78.5 Hyperlipidemia, unspecified; Z79.02 Long term (current) use of antithrombotics/antiplatelets; Z79.899 Other long term (current) drug therapy
CPT/HCPCS: 36415; 71045; 74176; 80048; 80076; 81001; 83690; 83735; 84484; 85025; 87086; 93005; 96361; 96374; 96375; 99284; 99285; J0696; J2270; J2405

== ENCOUNTER 2022-09-21 11:00 | Emergency (ER) | payer MEDICARE, MEDICAID, SELFPAY ==
[2022-09-21 11:07] VITALS: BP 132/74; PULSE 88; RESP 18; TEMP 36.6; O2SAT 98; BMI 30.3
--- NOTE | 2022-09-21 11:46 | ED.BACK ---
HPI - Back Pain/Injury General Chief Complaint: Back Pain/Injury Stated Complaint: back pain Time Seen by Provider: 09/21/22 11:21 Source: patient Mode of arrival: ambulatory Limitations: language barrier History of Present Illness HPI Narrative: 52-year-old female past medical history hypertension presents to the emergency department after injuring her back at work earlier today. 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 She denies any red flag symptoms such as saddle anesthesias, urinary hesitancy or incontinence, fecal incontinence, paresthesias, weakness in bilateral lower extremities, or changes in gait or ambulation. She reports she has not taken any [id number] analgesics for treatment of pain. Pertinent positives and negatives discussed in HPI. Related Data Home Medications Medication Instructions Recorded Confirmed aripiprazole 2 mg tablet 2 mg PO DAILY 06/01/20 Previous Rx's Medication Instructions Recorded cyclobenzaprine 10 mg tablet 10 mg PO TID PRN muscle spasm #14 02/23/20 tabs ibuprofen 600 mg tablet 600 mg PO Q8H PRN pain #30 tabs 02/23/20 lidocaine 5 % topical patch 1 patch topical DAILY #15 ea 02/23/20 (Lidoderm) tramadol 50 mg tablet 50 mg PO Q8H PRN pain #10 tabs 02/23/20 albuterol sulfate 0.63 mg/3 mL 0.63 mg (3 mL) inhalation QID PRN 04/08/22 solution for nebulization shortness of breath or wheezing #75 mL albuterol sulfate 90 mcg/actuation 1 inh inhalation QID PRN shortness 04/08/22 aerosol inhaler of breath or wheezing #8.5 grams azithromycin 250 mg tablet See Rx Instructions PO .COMPLEX #6 04/08/22 tabs codeine 10 mg-guaifenesin 100 mg/5 5 ml PO Q6H PRN cold symptoms #120 04/08/22 mL oral liquid (Guaifenesin AC) mL atorvastatin 40 mg tablet 40 mg PO DAILY #30 tabs 06/17/22 celecoxib 200 mg capsule 200 mg PO DAILY #30 caps 06/17/22 cetirizine 10 mg tablet 10 mg PO DAILY #30 tabs 06/17/22 lisinopril 5 mg tablet 5 mg PO DAILY #30 tabs 06/17/22 atorvastatin 40 mg tablet 40 mg PO QPM #30 tabs 08/09/22 lisinopril 5 mg tablet 5 mg PO DAILY #30 tabs 08/09/22 cefuroxime axetil 250 mg tablet 250 mg PO BID 7 days #14 tabs 09/14/22 ibuprofen 600 mg tablet 600 mg PO Q6H PRN fever or pain 09/14/22 #30 tabs Allergies Allergy/AdvReac Type Severity Reaction Status Date / Time No Known Allergies Allergy Verified 04/05/22 22:50 [No Known Allergies*] seasonal Allergy Unknown Itchy Eyes Uncoded 02/23/20 09:14 Review of Systems Review of Systems: Yes all other systems are reviewed and are negative [facility] Past Medical History Attestation statement: The following information was validated with the patient. Source: old records reviewed Medical History Anxiety Back pain Depression Surgical History History of hysterectomy Hx of section Hx of cholecystectomy Social History Social History Alcohol intake: current Alcohol intake frequency: holidays/special occasions only Advance Directives: No Advance Directives Information Provided: Yes Physical Exam Vital Signs: Vital Signs: Last Vital Signs Temp 98 F 09/21/22 11:07 Pulse 88 09/21/22 11:07 Resp 18 09/21/22 11:07 BP 132/74 09/21/22 11:07 Pulse Ox 98 09/21/22 11:07 O2 Del Method Room Air 09/21/22 11:07 BMI result Body Mass Index 30.3 Nursing notes and vital signs reviewed. GENERAL APPEARANCE: A&0 x 4, generally well appearing, no acute distress HENMT: Normal to inspection, atraumatic, face symmetrical. Normal external ears, nose, and oropharynx clear. EYE: PERRLA, EOM intact, structures appear normal NECK: Supple. No stiffness or restricted ROM. CHEST: Normal to inspection HEART: Normal rate and regular rhythm, normal S1/S2, no M/R/G LUNGS: LS CTA, moving air well. Able to speak in complete sentences. No crackles, wheezes, or rhonchi auscultated ABDOMEN: Soft, nontender, nondistended. Normal bowel sounds noted BACK: No CVAT, no obvious deformity. Tenderness with palpation at right low back/upper buttocks. EXTREMITIES: Moving all extremities without difficulty. No cyanosis, clubbing, or edema. Normal capillary refill. NEUROLOGICAL: Alert and oriented, moving all 4 extremities with equal strength. CN not formally tested but appearing grossly intact. Observed to ambulate with normal gait. Cognition normal SKIN: Warm and dry without any lesions, rash, or visible sores PSYCH: Cooperative, normal affect, normal thought process Medical Decision Making Medical Decision Making [facility] Narrative: 1135: Old records reviewed for previous imaging, lab studies, ECGs, or notes. Patient was assessed the emergency department with no step-offs or red flag symptoms.. No acute distress or toxicity noted. Patient is A&O x4, LS CTA, PENA x4 with good strength. Symptoms consistent with low back strain. Low suspicion of cauda equina, epidural abscess, systemic infection, or malignancy. Patient is safe for discharge at this time with plan for [id number] Tylenol and/or NSAID such as ibuprofen or naproxen for fever/discomfort with dosing as per packaging. HPI, PE, diagnostics, and plan discussed with patient and family with no unanswered questions at this time. Strict return precautions given to return to the emergency department with new, worsening, or concerning emergent symptoms. Recommended to follow-up with there primary care provider in 24-48 hours for further treatment and management. Discharge Plan Discharge Clinical Impression: Strain of lumbar region Patient Disposition: Home, Self-Care Instructions: Low Back Strain (ED), Acute Low Back Pain (ED) Additional Instructions: Your symptoms are consistent with a low back strain. Please use [id number] Tylenol and ibuprofen to manage discomfort. Prescriptions: No Action cyclobenzaprine 10 mg tablet 10 mg PO TID PRN (Reason: muscle spasm) Qty: 14 0RF lidocaine [Lidoderm] 5 % adhesive patch,medicated 1 patch topical DAILY Qty: 15 0RF Rx Instructions: leave on most painful area for up to 12 hrs ibuprofen 600 mg tablet 600 mg PO Q8H PRN (Reason: pain) Qty: 30 0RF tramadol 50 mg tablet 50 mg PO Q8H PRN (Reason: pain) Qty: 10 0RF celecoxib 200 mg capsule 200 mg PO DAILY Qty: 30 0RF lisinopril 5 mg tablet 5 mg PO DAILY Qty: 30 0RF cetirizine 10 mg tablet 10 mg PO DAILY Qty: 30 0RF atorvastatin 40 mg tablet 40 mg PO DAILY Qty: 30 0RF albuterol sulfate 0.63 mg/3 mL solution for nebulization 0.63 mg inhalation QID PRN (Reason: shortness of breath or wheezing) Qty: 75 0RF azithromycin 250 mg tablet See Rx Instructions .ROUTE .COMPLEX Qty: 6 0RF Rx Instructions: take 500 mg today (day 1), then 250 mg for 4 days (days 2-5) codeine-guaifenesin [Guaifenesin AC] 10-100 mg/5 mL liquid 5 ml PO Q6H PRN (Reason: cold symptoms) Qty: 120 0RF albuterol sulfate 90 mcg/actuation HFA aerosol inhaler 1 inh inhalation QID PRN (Reason: shortness of breath or wheezing) Qty: 8.5 0RF lisinopril 5 mg tablet 5 mg PO DAILY Qty: 30 0RF atorvastatin 40 mg tablet 40 mg PO QPM Qty: 30 0RF cefuroxime axetil 250 mg tablet 250 mg PO BID 7 Days Qty: 14 0RF ibuprofen 600 mg tablet 600 mg PO Q6H PRN (Reason: fever or pain) Qty: 30 0RF aripiprazole 2 mg tablet 2 mg PO DAILY Referrals: Rachel Suazo MD [Primary Care Provider] - Stand Alone Forms: Work/School Release Print Language: Faroese
[2022-09-21] MEDS: Acetaminophen 325 MG TABLET 650 MG PO (11:56)
[2022-09-21] MEDS: Ibuprofen 600 MG TABLET PO (11:56)
== END 2022-09-21 11:59 | disposition home or self-care (01) ==
PROVIDERS: Emergency Provider Emergency Medicine Emergency Medical Services; PCP Student in an Organized Health Care Education/Training Program
DX: S39.012A Strain of muscle, fascia and tendon of lower back, initial encounter (principal); X58.XXXA Exposure to other specified factors, initial encounter; Y93.9 Activity, unspecified; Y92.9 Unspecified place or not applicable; Y99.9 Unspecified external cause status
CPT/HCPCS: 99283

== ENCOUNTER 2022-10-08 09:01 | Outpatient (REF) | payer MEDICARE, MEDICAID, SELFPAY ==
--- NOTE | ~2022-10-08 | XR_ITS ---
EXAMINATION: XR LUMBOSACRAL SPINE CLINICAL INFORMATION: Chronic back pain with history of trauma. COMPARISON: CT abdomen study of 09/14/2022 . TECHNIQUE: Three views of the lumbosacral spine. FINDINGS: There are 5 war-gof-momynto lumbar vertebrae. The bony texture and alignment is satisfactory. Disc spaces are maintained. There is some minimal anterior spurring seen at multiple levels. No acute fracture, spondylolisthesis, or spondylolysis is appreciated. Sacroiliac joints are unremarkable. XR/XR lumbar spine 2-3V IMPRESSION: No significant bony abnormality of the lumbosacral spine identified.
== END 2022-10-08 09:02 | disposition home or self-care (01) ==
LOC: HO.HHCX 09:01
PROVIDERS: Visit Provider Student in an Organized Health Care Education/Training Program
DX: M54.50 Low back pain, unspecified (principal)
CPT/HCPCS: 72100

== ENCOUNTER 2022-10-22 10:36 | Emergency (ER) | payer MEDICARE, MEDICAID, SELFPAY ==
[2022-10-22 11:22] VITALS: BP 149/75; PULSE 69; RESP 18; TEMP 36.1; O2SAT 100; BMI 30.3
--- NOTE | 2022-10-22 11:29 | ECG_ITS ---
Test Reason : ANXIETY Blood Pressure : / mmHG Vent. Rate : 073 BPM Atrial Rate : 073 BPM P-R Int : 200 ms QRS Dur : 084 ms QT Int : 388 ms P-R-T Axes : 036 004 009 degrees QTc Int : 427 ms Normal sinus rhythm Minimal voltage criteria for LVH, may be normal variant ( R in aVL ) Inferior infarct (cited on or before 08-APR-2022) Cannot rule out Anterior infarct (cited on or before 08-APR-2022) Abnormal ECG When compared with ECG of 14-SEP-2022 17:43, No significant change was found Referred By: Irineo Tsang Electronically Signed By:RAYMUNDO RIVERA
--- NOTE | 2022-10-22 11:32 | ED.GENADULT ---
HPI - General Adult General Chief complaint: Syncope Stated complaint: anxiety attack Time Seen by Provider: 10/22/22 12:40 Source: patient Mode of arrival: ambulatory Limitations: no limitations History of Present Illness HPI narrative: 52 yo female with history of HTN, anxiety, back pain, HLD, history of syncopal episodes in the past who presents to the ER for evaluation of a syncopal episode at work today. 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 She suddenly became nauseated with a ball in her throat. She started to hyperventilate so she went and sat down. She stated to get tingling and contractions of her hands and fingers. She stood up and when she did she fell down with question LOC. She states she heard her co-workers voices in the distance. She did not hit her head. She did not sustain any injuries. She reports history of similar episodes in the past. She is on abilify for anxiety. Her PCP is aware of these episodes. MD complaint: anxiety, syncope Onset (ago): hour(s) Pain Consistency: now resolved Associated symptoms: shortness of breath and other (anxiety) Treatments prior to arrival: none Related Data Home Medications Medication Instructions Recorded Confirmed aripiprazole 2 mg tablet 2 mg PO DAILY 06/01/20 Previous Rx's Medication Instructions Recorded cyclobenzaprine 10 mg tablet 10 mg PO TID PRN muscle spasm #14 02/23/20 tabs ibuprofen 600 mg tablet 600 mg PO Q8H PRN pain #30 tabs 02/23/20 lidocaine 5 % topical patch 1 patch topical DAILY #15 ea 02/23/20 (Lidoderm) tramadol 50 mg tablet 50 mg PO Q8H PRN pain #10 tabs 20 albuterol sulfate 0.63 mg/3 mL 0.63 mg (3 mL) inhalation QID PRN 04/08/22 solution for nebulization shortness of breath or wheezing #75 mL albuterol sulfate 90 mcg/actuation 1 inh inhalation QID PRN shortness 04/08/22 aerosol inhaler of breath or wheezing #8.5 grams azithromycin 250 mg tablet See Rx Instructions PO .COMPLEX #6 04/08/22 tabs codeine 10 mg-guaifenesin 100 mg/5 5 ml PO Q6H PRN cold symptoms #120 04/08/22 mL oral liquid (Guaifenesin AC) mL atorvastatin 40 mg tablet 40 mg PO DAILY #30 tabs 06/17/22 celecoxib 200 mg capsule 200 mg PO DAILY #30 caps 06/17/22 cetirizine 10 mg tablet 10 mg PO DAILY #30 tabs 06/17/22 lisinopril 5 mg tablet 5 mg PO DAILY #30 tabs 06/17/22 atorvastatin 40 mg tablet 40 mg PO QPM #30 tabs 08/09/22 lisinopril 5 mg tablet 5 mg PO DAILY #30 tabs 08/09/22 cefuroxime axetil 250 mg tablet 250 mg PO BID 7 days #14 tabs 09/14/22 ibuprofen 600 mg tablet 600 mg PO Q6H PRN fever or pain 09/14/22 #30 tabs hydroxyzine HCl 25 mg tablet 25 mg PO TID PRN anxiety #10 tabs 10/22/22 Allergies Allergy/AdvReac Type Severity Reaction Status Date / Time No Known Allergies Allergy Verified 04/05/22 22:50 [No Known Allergies*] seasonal Allergy Unknown Itchy Eyes Uncoded 02/23/20 09:14 Review of Systems Review of Systems: Yes all other systems are reviewed and are negative [facility] Past Medical History Medical History Anxiety Back pain Depression Surgical History History of hysterectomy Hx of section Hx of cholecystectomy Social History Social History Alcohol intake: current Alcohol intake frequency: holidays/special occasions only Advance Directives: No Advance Directives Information Provided: No Physical Exam ED Vital Signs: Vital Signs - 24 hr 10/22/22 11:22 10/22/22 11:55 10/22/22 11:57 Temperature 97.0 F 97.5 F Pulse Rate 69 71 69 Respiratory Rate 18 21 H Blood Pressure 149/75 H 151/77 H 140/78 H Pulse Oximetry 100 98 Oxygen Delivery Method Room Air Room Air 10/22/22 11:58 10/22/22 11:59 Temperature Pulse Rate 74 75 Respiratory Rate Blood Pressure 132/71 123/71 Pulse Oximetry Oxygen Delivery Method BMI result Body Mass Index 30.3 Appearance: Alert. Oriented X3. No acute distress. Head: normocephalic, atraumatic. Eyes: Pupils equal, round and reactive to light. ENT: Pharynx normal. No tonsillar swelling or exudate. Neck: Normal inspection. Neck supple. No midline tenderness CVS: Normal heart rate and rhythm. Pulses normal. Respiratory: No respiratory distress. Breath sounds normal. Abdomen: Soft and nontender. +BS x4 Skin: Skin warm and dry. Normal skin color. Normal skin turgor. No rashes. Extremities: No lower extremity edema. No joint swelling. Neuro/psych: Oriented X 3. No motor deficit. No sensory deficit. CN II-XII intact. Normal speech and cognition. Course Course Course Narrative: 52-year-old primarily Upper Sorbian-speaking female presents for evaluation of a syncopal episode. Patient reports that she had ?an anxiety attack and then I passed out. ? She states that she has a history of similar. Denies having had any chest pain or shortness of breath. Plan for EKG, labs Medical Decision Making Medical Decision Making MDM Narrative: 52 yo female presenting for evaluation of syncope after a panic attack. Syncopal event preceded by hyperventilation and carpopedal spasm which lead to her event. it was brief and no injuries sustained. VSS on arrival. EKG unremarkable. Negative orthostatic VS. Doubt cardiac etiology at this time. she is stable for d/c home with follow up with her PCP and trial of PRN hydroxyzine. Differential Diagnosis Differential Diagnoses: The differential diagnosis associated with the presentation includes vasovagal syncope, panic attack, anemia, dehydration, cardiac arrythmia, orthostatic hypotension Lab Data MDM Lab Attestation statement: I reviewed the patient's lab results. unremarkable, no acute anemia or metabolic derangement. 10/22/22 11:45 10/22/22 11:45 Labs: Lab Results 10/22/22 10/22/22 10/22/22 Range/Units 11:45 11:45 11:45 WBC 8.1 (4.8-10.8) X10*3/uL RBC 4.36 (4.20-5.50) X10*6/uL Hgb 12.3 (12.0-16.0) g/dl Hct 36.7 L (37.0-47.0) % MCV 84.2 (80.0-98.0) fL MCH 28.2 (27.0-33.0) pg MCHC 33.5 (31.0-35.0) g/dl RDW 13.0 (11.0-16.0) % Plt Count 269 (160-400) X10*3/uL MPV 9.7 (9.4-12.3) fL Immature Gran % (Auto) 0.2 (0.0-0.4) % Neut % (Auto) 54.7 (45-73) % Lymph % (Auto) 38.3 (20-40) % [place] % (Auto) 5.2 (2-11) % Eos % (Auto) 1.1 (0-4) % Baso % (Auto) 0.5 (0-2) % Lymph # (Auto) 3.1 (1.2-4.9) X10*3/uL [place] # (Auto) 0.4 (0.1-1.2) X10*3/uL Eos # (Auto) 0.1 (0.0-0.4) X10*3/uL Baso # (Auto) 0.0 (0.0-0.2) X10*3/uL Abs Immat Gran (auto) 0.02 (0.00-0.03) X10*3/uL Absolute Neuts (auto) 4.5 (2.0-8.3) x10*3/uL Absolute Nucleated RBC 0.000 (0.0-0.012) X10*3/uL Nucleated RBC % (auto) 0.0 (0.0-0.2) /100WBC Sodium 142 (135-145) mmol/L Potassium 3.7 (3.3-5.1) mmol/L Chloride 107 (96-108) mmol/L Carbon Dioxide 27 (22-29) mmol/L Anion Gap 12 (12-20) BUN 10 (9-16) mg/dL Creatinine 0.71 (0.5-1.4) mg/dL Estim Creat Clear Calc 81.9 Estimated GFR > 60 Random Glucose 108 (60-115) mg/dL Calcium 9.8 (8.4-10.2) mg/dL Total Bilirubin 0.6 (0.0-1.0) mg/dL AST 25 (5-31) U/L ALT 31 (0-31) U/L Alkaline Phosphatase 136 H (39-117) U/L Troponin I High Sens < 2.7 (<3.5-17.0) ng/L Total Protein 7.2 (6.5-8.0) g/dL Albumin 4.2 (3.5-5.0) g/dL Lipase 31 (8-78) U/L Independent Interpretation I performed an independent interpretation of an: EKG Interpretation: normal sinus rhythm, HR 73 bpm. normal VT interval, no significant change from September 2022 External Record Review External record reviewed: Outpatient record, Prior outpatient labs and Prior outpatient radiology Prescription Management I considered prescription management with: Other (anxiolytic) Chronic Conditions Patient?s care impacted by: Hypertension Critical Care Time Critical Care Time Critical Care Time: No Discharge Plan Discharge Clinical Impression: Panic attack Patient Disposition: Home, Self-Care Instructions: Panic Attack (ED) Additional Instructions: Your lab workup today was unremarkable. You passed out because of an anxiety attack. Recommend trial of the prescribed medication as needed for anxiety. Follow up with your doctor as soon as possible. If you develop new or worsening symptoms call 911 or come back to the ER for further evaluation. Tu an?lisis de laboratorio de hoy no tuvo nada especial. Te desmayaste por un ataque de ansiedad. Recomendar prueba de la medicaci?n prescrita seg?n sea necesario para la ansiedad. Dyllan un seguimiento con adam m?dico lo antes posible. Si desarrolla s?ntomas nuevos o que empeoran, llame al 911 o regrese a la michelle de emergencias para maranda evaluaci?n adicional. Prescriptions: New hydroxyzine HCl 25 mg tablet 25 mg PO TID PRN (Reason: anxiety) Qty: 10 0RF No Action cyclobenzaprine 10 mg tablet 10 mg PO TID PRN (Reason: muscle spasm) Qty: 14 0RF lidocaine [Lidoderm] 5 % adhesive patch,medicated 1 patch topical DAILY Qty: 15 0RF Rx Instructions: leave on most painful area for up to 12 hrs ibuprofen 600 mg tablet 600 mg PO Q8H PRN (Reason: pain) Qty: 30 0RF tramadol 50 mg tablet 50 mg PO Q8H PRN (Reason: pain) Qty: 10 0RF celecoxib 200 mg capsule 200 mg PO DAILY Qty: 30 0RF lisinopril 5 mg tablet 5 mg PO DAILY Qty: 30 0RF cetirizine 10 mg tablet 10 mg PO DAILY Qty: 30 0RF atorvastatin 40 mg tablet 40 mg PO DAILY Qty: 30 0RF albuterol sulfate 0.63 mg/3 mL solution for nebulization 0.63 mg inhalation QID PRN (Reason: shortness of breath or wheezing) Qty: 75 0RF azithromycin 250 mg tablet See Rx Instructions .ROUTE .COMPLEX Qty: 6 0RF Rx Instructions: take 500 mg today (day 1), then 250 mg for 4 days (days 2-5) codeine-guaifenesin [Guaifenesin AC] 10-100 mg/5 mL liquid 5 ml PO Q6H PRN (Reason: cold symptoms) Qty: 120 0RF albuterol sulfate 90 mcg/actuation HFA aerosol inhaler 1 inh inhalation QID PRN (Reason: shortness of breath or wheezing) Qty: 8.5 0RF lisinopril 5 mg tablet 5 mg PO DAILY Qty: 30 0RF atorvastatin 40 mg tablet 40 mg PO QPM Qty: 30 0RF cefuroxime axetil 250 mg tablet 250 mg PO BID 7 Days Qty: 14 0RF ibuprofen 600 mg tablet 600 mg PO Q6H PRN (Reason: fever or pain) Qty: 30 0RF aripiprazole 2 mg tablet 2 mg PO DAILY Referrals: Rachel Suazo MD [Primary Care Provider] - Stand Alone Forms: Work/School Release Interventions: ED Discharge Assessment Last Done: 10/22/22 13:17 Print Language: Upper Sorbian
[2022-10-22 11:50] LABS: MANUAL DIFF FLAG NO
[2022-10-22 11:52] LABS: Basophils Percent Auto 0.5 % (0-2); Eosinophils Absolute Auto 0.1 X10*3/uL (0.0-0.4); Eosinophils Percent Auto 1.1 % (0-4); Hematocrit 36.7 % (37.0-47.0); Hemoglobin 12.3 g/dl (12.0-16.0); Imm Gran Abs Auto 0.02 X10*3/uL (0.00-0.03); Imm Gran Pct Auto 0.2 % (0.0-0.4); Lymphocytes Absolute Auto 3.1 X10*3/uL (1.2-4.9); Lymphocytes Percent Auto 38.3 % (20-40); Mean Corpuscular HGB Conc 33.5 g/dl (31.0-35.0); Mean Corpuscular Hemoglobin 28.2 pg (27.0-33.0); Mean Corpuscular Volume 84.2 fL (80.0-98.0); Mean Platelet Volume 9.7 fL (9.4-12.3); Monocytes Absolute Auto 0.4 X10*3/uL (0.1-1.2); Monocytes Percent Auto 5.2 % (2-11); Neutrophils Absolute Auto 4.5 x10*3/uL (2.0-8.3); Neutrophils Percent Auto 54.7 % (45-73); Platelet Count 269 X10*3/uL (160-400); Red Blood Count 4.36 X10*6/uL (4.20-5.50); White Blood Count 8.1 X10*3/uL (4.8-10.8)
[2022-10-22 11:55] VITALS: BP 151/77; PULSE 71; RESP 21; TEMP 36.4; O2SAT 98
[2022-10-22 11:57] VITALS: BP 140/78; PULSE 69
[2022-10-22 11:58] VITALS: BP 132/71; PULSE 74
[2022-10-22 11:59] VITALS: BP 123/71; PULSE 75
[2022-10-22 12:10] LABS: Alanine Aminotransferase 31 U/L (0-31); Albumin Level 4.2 g/dL (3.5-5.0); Alkaline Phosphatase 136 U/L (39-117); Anion Gap 12 (12-20); Aspartate Amino Transferase 25 U/L (5-31); Bilirubin Total 0.6 mg/dL (0.0-1.0); Blood Urea Nitrogen 10 mg/dL (9-16); Calcium 9.8 mg/dL (8.4-10.2); Carbon Dioxide 27 mmol/L (22-29); Chloride 107 mmol/L (96-108); Creatinine Clr Calc Pharmacy 81.9; Estimated Glomerular Filt Rate > 60; Glucose Random 108 mg/dL (60-115); Lipase 31 U/L (8-78); Potassium 3.7 mmol/L (3.3-5.1); Sodium 142 mmol/L (135-145); Total Protein 7.2 g/dL (6.5-8.0)
[2022-10-22 12:19] LABS: Troponin-I High Sensitivity < 2.7 ng/L (<3.5-17.0)
== END 2022-10-22 13:18 | disposition home or self-care (01) ==
PROVIDERS: Physician Assistant; Emergency Provider Student in an Organized Health Care Education/Training Program; PCP Student in an Organized Health Care Education/Training Program
DX: F41.0 Panic disorder [episodic paroxysmal anxiety] (principal); R55 Syncope and collapse; F41.9 Anxiety disorder, unspecified; R94.31 Abnormal electrocardiogram [ECG] [EKG]; Z79.899 Other long term (current) drug therapy
CPT/HCPCS: 36415; 80053; 83690; 84484; 85025; 93005; 99283; 99285

== ENCOUNTER 2022-12-05 10:26 | Outpatient (REF) | payer MEDICARE, SELFPAY ==
--- NOTE | ~2022-12-05 | MM_ITS ---
EXAMINATION: MM SCREENING DIGITAL BREAST TOMOSYNTHESIS, BILATERAL CLINICAL INFORMATION: Screening. Asymptomatic. The lifetime risk of breast cancer based on the Tyrer-Cuzick Model is 4.2%. COMPARISON: Mammography: This study is compared with prior exams dating back to 2017. TECHNIQUE: Digital breast tomosynthesis is performed in both the craniocaudal and mediolateral oblique views along with computer-aided detection (CAD). Synthesized 2D images are generated from the tomosynthesis. FINDINGS: The breasts are almost entirely fatty (ACR BI-RADS breast composition Category a). There are no significant masses, abnormal calcifications, or other abnormalities. MM/MM tomosynthesis screening BI IMPRESSION: No mammographic evidence of malignancy. ASSESSMENT: BI-RADS BI-RADS 1 - Negative RECOMMENDATION: Routine annual mammography screening. 1 year F/U This examination should not preclude the clinical evaluation of a suspicious palpable abnormality. This patient's information was entered into a reminder system with a target due date for their next mammogram.
== END 2022-12-05 10:27 | disposition home or self-care (01) ==
LOC: HO.MAMMO 10:26
PROVIDERS: PCP Student in an Organized Health Care Education/Training Program; Visit Provider Student in an Organized Health Care Education/Training Program
DX: Z12.31 Encounter for screening mammogram for malignant neoplasm of breast (principal)
CPT/HCPCS: 77063; 77067

== ENCOUNTER → 2022-12-05 10:30 | Outpatient (BNV) | payer MEDICARE, SELFPAY | PROVIDERS: PCP Student in an Organized Health Care Education/Training Program; Visit Provider Radiology Diagnostic Radiology | DX: Z12.31 Encounter for screening mammogram for malignant neoplasm of breast (principal) | CPT/HCPCS: 77063; 77067 ==

== ENCOUNTER 2022-12-15 15:30 | Emergency (ER) | payer MEDICARE, MEDICAID, SELFPAY ==
[2022-12-15 16:44] VITALS: BP 122/68; PULSE 89; RESP 18; TEMP 36.6; O2SAT 98; BMI 28.3
--- NOTE | 2022-12-15 16:47 | ED.GENADULT ---
HPI - General Adult General Chief complaint: Nausea/Vomiting/Diarrhea Stated complaint: Sugar uncontrollable Time Seen by Provider: 12/15/22 17:41 Source: patient Mode of arrival: ambulatory Limitations: no limitations History of Present Illness HPI narrative: 52 yo female with history of HTN, HLD, DM who presents to the ER for evaluation of 3 days of nausea and vomiting, episodes of loose stool, dry throat, and nasal congestion as well. She reports last vomiting episode was yesterday and nausea persisted today. She has had diarrhea intermittently since starting metformin a few months ago. No abdominal pain, fever, chills, known sick contacts. No blood in her stool or vomitus. Her glucose has been 80-120 at home. complaint: N/V/D Onset (ago): day(s) (3) Location: face, mouth and abdomen Radiation: non-radiation Severity: moderate Quality: aching Pain Consistency: intermittent Relieving factors: none Exacerbating factors: none Associated symptoms: loss of appetite, malaise and nausea/vomiting Treatments prior to arrival: none Related Data Home Medications Medication Instructions Recorded Confirmed aripiprazole 2 mg tablet 2 mg PO DAILY 06/01/20 Previous Rx's Medication Instructions Recorded cyclobenzaprine 10 mg tablet 10 mg PO TID PRN muscle spasm #14 02/23/20 tabs ibuprofen 600 mg tablet 600 mg PO Q8H PRN pain #30 tabs 20 lidocaine 5 % topical patch 1 patch topical DAILY #15 ea 02/23/20 (Lidoderm) tramadol 50 mg tablet 50 mg PO Q8H PRN pain #10 tabs 20 albuterol sulfate 0.63 mg/3 mL 0.63 mg (3 mL) inhalation QID PRN 04/08/22 solution for nebulization shortness of breath or wheezing #75 mL albuterol sulfate 90 mcg/actuation 1 inh inhalation QID PRN shortness 04/08/22 aerosol inhaler of breath or wheezing #8.5 grams azithromycin 250 mg tablet See Rx Instructions PO .COMPLEX #6 04/08/22 tabs codeine 10 mg-guaifenesin 100 mg/5 5 ml PO Q6H PRN cold symptoms #120 04/08/22 mL oral liquid (Guaifenesin AC) mL atorvastatin 40 mg tablet 40 mg PO DAILY #30 tabs 02/12/23 celecoxib 200 mg capsule 200 mg PO DAILY #30 caps 06/17/22 cetirizine 10 mg tablet 10 mg PO DAILY #30 tabs 06/17/22 lisinopril 5 mg tablet 5 mg PO DAILY #30 tabs 06/17/22 atorvastatin 40 mg tablet 40 mg PO QPM #30 tabs 08/09/22 lisinopril 5 mg tablet 5 mg PO DAILY #30 tabs 08/09/22 cefuroxime axetil 250 mg tablet 250 mg PO BID 7 days #14 tabs 09/14/22 ibuprofen 600 mg tablet 600 mg PO Q6H PRN fever or pain 09/14/22 #30 tabs hydroxyzine HCl 25 mg tablet 25 mg PO TID PRN anxiety #10 tabs 10/22/22 ondansetron 4 mg disintegrating 4 mg PO Q8H PRN nausea and 12/15/22 tablet vomiting #7 tabs Allergies Allergy/AdvReac Type Severity Reaction Status Date / Time No Known Allergies Allergy Verified 12/15/22 16:44 [No Known Allergies*] seasonal Allergy Unknown Itchy Eyes Uncoded 02/23/20 09:14 Review of Systems Review of Systems: Yes all other systems are reviewed and are negative [facility] Past Medical History Medical History Anxiety Back pain Depression Surgical History History of hysterectomy Hx of section Hx of cholecystectomy Social History Social History Alcohol intake: current Alcohol intake frequency: holidays/special occasions only Advance Directives: No Advance Directives Information Provided: Yes Physical Exam ED Vital Signs: Vital Signs - 24 hr 12/15/22 16:44 Temperature 98 F Pulse Rate 89 Respiratory Rate 18 Blood Pressure 122/68 Pulse Oximetry 98 Oxygen Delivery Method Room Air BMI result Body Mass Index 28.3 Appearance: Alert. Oriented X3. No acute distress. Head: normocephalic, atraumatic. Eyes: Pupils equal, round and reactive to light. ENT: Pharynx normal. No tonsillar swelling or exudate. Neck: Normal inspection. Neck supple. CVS: Normal heart rate and rhythm. Pulses normal. Respiratory: No respiratory distress. Breath sounds normal. Abdomen: Soft and nontender. +BS x4 Skin: Skin warm and dry. Normal skin color. Normal skin turgor. No rashes. Extremities: No lower extremity edema. No joint swelling. Neuro/psych: Oriented X 3. No motor deficit. No sensory deficit. CN II-XII intact. Normal speech and cognition. Medical Decision Making Medical Decision Making [facility] Narrative: 52 year old female presents for evaluation of nausea, cough, dry throat. Plan for basic labs and a covid swab - labs were unremarkable aside from WBC 12K which is likely reactive from vomiting. COVID negative. VSS and physical exam is unremarkable. she has no chest pain or abdominal pain. She appears well. Stable for d/c home w/ prn zofran. Differential Diagnosis Differential Diagnoses: The differential diagnosis associated with the presentation includes viral gastroenteritis, bacterial gastroenteritis, adverse side effect of medication, viral syndrome, COVID, hyperglycemia Lab Data [facility] Lab Attestation statement: I reviewed the patient's lab results. Mild leukocytosis, no major metabolic derangement to suggest dehydration 12/15/22 16:57 12/15/22 16:57 Labs: Lab Results 12/15/22 12/15/22 12/15/22 Range/Units 16:43 16:57 16:57 WBC 12.0 H (4.8-10.8) X10*3/uL RBC 4.76 (4.20-5.50) X10*6/uL Hgb 13.1 (12.0-16.0) g/dl Hct 39.6 (37.0-47.0) % MCV 83.2 (80.0-98.0) fL MCH 27.5 (27.0-33.0) pg MCHC 33.1 (31.0-35.0) g/dl RDW 12.8 (11.0-16.0) % Plt Count 306 (160-400) X10*3/uL MPV 9.4 (9.4-12.3) fL Immature Gran % (Auto) 0.4 (0.0-0.4) % Neut % (Auto) 59.3 (45-73) % Lymph % (Auto) 34.2 (20-40) % [place] % (Auto) 5.0 (2-11) % Eos % (Auto) 0.7 (0-4) % Baso % (Auto) 0.4 (0-2) % Lymph # (Auto) 4.1 (1.2-4.9) X10*3/uL [place] # (Auto) 0.6 (0.1-1.2) X10*3/uL Eos # (Auto) 0.1 (0.0-0.4) X10*3/uL Baso # (Auto) 0.1 (0.0-0.2) X10*3/uL Abs Immat Gran (auto) 0.05 H (0.00-0.03) X10*3/uL Absolute Neuts (auto) 7.1 (2.0-8.3) x10*3/uL Absolute Nucleated RBC 0.000 (0.0-0.012) X10*3/uL Nucleated RBC % (auto) 0.0 (0.0-0.2) /100WBC Sodium 143 (135-145) mmol/L Potassium 4.3 (3.3-5.1) mmol/L Chloride 106 (96-108) mmol/L Carbon Dioxide 26 (22-29) mmol/L Anion Gap 15 (12-20) BUN 16 (9-16) mg/dL Creatinine 0.88 (0.5-1.4) mg/dL Estim Creat Clear Calc 66.7 Estimated GFR > 60 POC Glucose 109 (60-115) mg/dL Random Glucose 113 (60-115) mg/dL Calcium 9.6 (8.4-10.2) mg/dL Total Bilirubin 0.5 (0.0-1.0) mg/dL AST 28 (5-31) U/L ALT 39 H (0-31) U/L Alkaline Phosphatase 112 (39-117) U/L Total Protein 7.9 (6.5-8.0) g/dL Albumin 4.6 (3.5-5.0) g/dL Lipase 32 (8-78) U/L COVID-19 (WENDY) (Negative) COVID-19 Clin Com 12/15/22 Range/Units 16:57 WBC (4.8-10.8) X10*3/uL RBC (4.20-5.50) X10*6/uL Hgb (12.0-16.0) g/dl Hct (37.0-47.0) % MCV (80.0-98.0) fL MCH (27.0-33.0) pg MCHC (31.0-35.0) g/dl RDW (11.0-16.0) % Plt Count (160-400) X10*3/uL MPV (9.4-12.3) fL Immature Gran % (Auto) (0.0-0.4) % Neut % (Auto) (45-73) % Lymph % (Auto) (20-40) % [place] % (Auto) (2-11) % Eos % (Auto) (0-4) % Baso % (Auto) (0-2) % Lymph # (Auto) (1.2-4.9) X10*3/uL [place] # (Auto) (0.1-1.2) X10*3/uL Eos # (Auto) (0.0-0.4) X10*3/uL Baso # (Auto) (0.0-0.2) X10*3/uL Abs Immat Gran (auto) (0.00-0.03) X10*3/uL Absolute Neuts (auto) (2.0-8.3) x10*3/uL Absolute Nucleated RBC (0.0-0.012) X10*3/uL Nucleated RBC % (auto) (0.0-0.2) /100WBC Sodium (135-145) mmol/L Potassium (3.3-5.1) mmol/L Chloride (96-108) mmol/L Carbon Dioxide (22-29) mmol/L Anion Gap (12-20) BUN (9-16) mg/dL Creatinine (0.5-1.4) mg/dL Estim Creat Clear Calc Estimated GFR POC Glucose (60-115) mg/dL Random Glucose (60-115) mg/dL Calcium (8.4-10.2) mg/dL Total Bilirubin (0.0-1.0) mg/dL AST (5-31) U/L ALT (0-31) U/L Alkaline Phosphatase (39-117) U/L Total Protein (6.5-8.0) g/dL Albumin (3.5-5.0) g/dL Lipase (8-78) U/L COVID-19 (WENDY) Negative (Negative) COVID-19 Clin Com See Note External Record Review External record reviewed: Office record, Outpatient record and Prior outpatient labs Prescription Management I considered prescription management with: Other ( antiemetics) Chronic Conditions Patient?s care impacted by: Diabetes and Hypertension Critical Care Time Critical Care Time Critical Care Time: No Discharge Plan Discharge Clinical Impression: Viral gastroenteritis Patient Disposition: Home, Self-Care Instructions: Acute Nausea and Vomiting (ED) Additional Instructions: You lab workup today was unremarkable. You most likely have a viral GI bug also known as gastroenteritis. Treatment is supportive care, symptoms usually resolve on their own in 48-72 hours. Recommend rest and plenty of oral hydration. Stick to a bland diet like soup and toast while you are not feeling well. Take the prescribed medication as needed for nausea. Recommend over the counter Pepto Bismol or Imodium for upset stomach and diarrhea. Follow up with your doctor as needed. If you develop new or worsening symptoms call 911 or come back to the ER for further evaluation. Tu an?lisis de laboratorio de tito no tuvo nada especial. Lo m?s probable es que tenga un bicho GI viral, tambi?n conocido abdelrahman gastroenteritis. El tratamiento es atenci?n de apoyo, los s?ntomas generalmente se resuelven por s? solos en 48 a 72 horas. Recomendable reposo y davina hidrataci?n oral. Siga maranda dieta blanda abdelrahman sopa y tostadas mientras no se sienta abhinav. Gomer el medicamento recetado seg?n sea necesario para las n?useas. Recomiende Pepto Bismol o Imodium de venta elo para el malestar estomacal y la diarrea. Dyllan un seguimiento con adam m?dico seg?n sea necesario. Si desarrolla s?ntomas nuevos o que empeoran, llame al 911 o regrese a la michelle de emergencias para maranda evaluaci?n adicional. Prescriptions: New ondansetron 4 mg tablet,disintegrating 4 mg PO Q8H PRN (Reason: nausea and vomiting) Qty: 7 0RF No Action cyclobenzaprine 10 mg tablet 10 mg PO TID PRN (Reason: muscle spasm) Qty: 14 0RF lidocaine [Lidoderm] 5 % adhesive patch,medicated 1 patch topical DAILY Qty: 15 0RF Rx Instructions: leave on most painful area for up to 12 hrs ibuprofen 600 mg tablet 600 mg PO Q8H PRN (Reason: pain) Qty: 30 0RF tramadol 50 mg tablet 50 mg PO Q8H PRN (Reason: pain) Qty: 10 0RF celecoxib 200 mg capsule 200 mg PO DAILY Qty: 30 0RF lisinopril 5 mg tablet 5 mg PO DAILY Qty: 30 0RF cetirizine 10 mg tablet 10 mg PO DAILY Qty: 30 0RF atorvastatin 40 mg tablet 40 mg PO DAILY Qty: 30 0RF albuterol sulfate 0.63 mg/3 mL solution for nebulization 0.63 mg inhalation QID PRN (Reason: shortness of breath or wheezing) Qty: 75 0RF azithromycin 250 mg tablet See Rx Instructions .ROUTE .COMPLEX Qty: 6 0RF Rx Instructions: take 500 mg today (day 1), then 250 mg for 4 days (days 2-5) codeine-guaifenesin [Guaifenesin AC] 10-100 mg/5 mL liquid 5 ml PO Q6H PRN (Reason: cold symptoms) Qty: 120 0RF albuterol sulfate 90 mcg/actuation HFA aerosol inhaler 1 inh inhalation QID PRN (Reason: shortness of breath or wheezing) Qty: 8.5 0RF lisinopril 5 mg tablet 5 mg PO DAILY Qty: 30 0RF atorvastatin 40 mg tablet 40 mg PO QPM Qty: 30 0RF cefuroxime axetil 250 mg tablet 250 mg PO BID 7 Days Qty: 14 0RF ibuprofen 600 mg tablet 600 mg PO Q6H PRN (Reason: fever or pain) Qty: 30 0RF hydroxyzine HCl 25 mg tablet 25 mg PO TID PRN (Reason: anxiety) Qty: 10 0RF aripiprazole 2 mg tablet 2 mg PO DAILY Referrals: [place] [Primary Care Provider] - Print Language: Belarusian
[2022-12-15 16:56] LABS: Glucose, Whole Blood 109 mg/dL (60-115)
[2022-12-15 17:02] LABS: MANUAL DIFF FLAG NO
[2022-12-15 17:03] LABS: Basophils Absolute Auto 0.1 X10*3/uL (0.0-0.2); Basophils Percent Auto 0.4 % (0-2); Eosinophils Absolute Auto 0.1 X10*3/uL (0.0-0.4); Eosinophils Percent Auto 0.7 % (0-4); Hematocrit 39.6 % (37.0-47.0); Hemoglobin 13.1 g/dl (12.0-16.0); Imm Gran Abs Auto 0.05 X10*3/uL (0.00-0.03); Imm Gran Pct Auto 0.4 % (0.0-0.4); Lymphocytes Absolute Auto 4.1 X10*3/uL (1.2-4.9); Lymphocytes Percent Auto 34.2 % (20-40); Mean Corpuscular HGB Conc 33.1 g/dl (31.0-35.0); Mean Corpuscular Hemoglobin 27.5 pg (27.0-33.0); Mean Corpuscular Volume 83.2 fL (80.0-98.0); Mean Platelet Volume 9.4 fL (9.4-12.3); Monocytes Absolute Auto 0.6 X10*3/uL (0.1-1.2); Neutrophils Absolute Auto 7.1 x10*3/uL (2.0-8.3); Neutrophils Percent Auto 59.3 % (45-73); Platelet Count 306 X10*3/uL (160-400); Red Blood Count 4.76 X10*6/uL (4.20-5.50); Red Cell Distribution Width 12.8 % (11.0-16.0)
[2022-12-15 17:16] LABS: COVID-19 Test Negative (Negative); IDNOW Serial# 08D9AD1C
[2022-12-15 17:22] LABS: Alanine Aminotransferase 39 U/L (0-31); Albumin Level 4.6 g/dL (3.5-5.0); Alkaline Phosphatase 112 U/L (39-117); Anion Gap 15 (12-20); Aspartate Amino Transferase 28 U/L (5-31); Bilirubin Total 0.5 mg/dL (0.0-1.0); Blood Urea Nitrogen 16 mg/dL (9-16); Calcium 9.6 mg/dL (8.4-10.2); Carbon Dioxide 26 mmol/L (22-29); Chloride 106 mmol/L (96-108); Creatinine Clr Calc Pharmacy 66.7; Estimated Glomerular Filt Rate > 60; Glucose Random 113 mg/dL (60-115); Lipase 32 U/L (8-78); Potassium 4.3 mmol/L (3.3-5.1); Sodium 143 mmol/L (135-145); Total Protein 7.9 g/dL (6.5-8.0)
== END 2022-12-15 18:28 | disposition home or self-care (01) ==
PROVIDERS: Physician Assistant; Emergency Provider Emergency Medicine
DX: A08.4 Viral intestinal infection, unspecified (principal); R11.2 Nausea with vomiting, unspecified; I10 Essential (primary) hypertension; E11.9 Type 2 diabetes mellitus without complications; Z79.84 Long term (current) use of oral hypoglycemic drugs; Z20.822 Contact with and (suspected) exposure to COVID-19
CPT/HCPCS: 36415; 80053; 82947; 83690; 85025; 87635; 99282; 99283

== ENCOUNTER 2023-02-18 09:35 | Outpatient (REF) | payer MEDICARE, MEDICAID, SELFPAY ==
--- NOTE | ~2023-02-18 | US_ITS ---
EXAMINATION: US PELVIS CLINICAL INFORMATION: Status post hysterectomy. Follow up right ovarian cyst. COMPARISON: Pelvic ultrasound 12/03/2019. CT abdomen and pelvis 09/14/2022. TECHNIQUE: Ultrasound of the pelvis is performed using both transabdominal and transvaginal transducers along with Doppler. Transvaginal imaging is performed due to inadequate visualization transabdominally. FINDINGS: The uterus is surgically absent. No significant free fluid. The left ovary was not visualized. The right ovary measures 2.0 x 0.9 x 1.1 cm, volume 1.10 mL. A 0.6 x 0.7 x 0.7 cm right ovarian cyst is likely simple. Previously identified 5.8 cm large septated right ovarian cyst is not clearly identified. A 0.7 x 0.7 x 0.6 cm cyst is identified adjacent to the right ovary, probably simple, probably separate from the right ovary. This was not clearly appreciated on prior studies. US/US pelvic and transvaginal IMPRESSION: 1. Status post hysterectomy. 2. Left ovary not visualized. 3. A 0.7 cm right ovarian cyst is likely simple. Previously identified 5.8 cm large septated right ovarian cyst is not clearly identified. 4. A 0.7 cm cyst is identified adjacent to the right ovary, probably simple, probably separate from the right ovary. This was not clearly appreciated on prior studies.
== END 2023-02-18 09:36 | disposition home or self-care (01) ==
LOC: HO.US 09:35
PROVIDERS: Visit Provider Student in an Organized Health Care Education/Training Program
DX: N83.209 Unspecified ovarian cyst, unspecified side (principal)
CPT/HCPCS: 76830; 76856

== ENCOUNTER 2023-02-25 12:03 | Outpatient (REF) | payer MEDICARE, SELFPAY ==
[2023-02-25 13:30] LABS: MANUAL DIFF FLAG NO
[2023-02-25 13:44] LABS: Basophils Absolute Auto 0.1 X10*3/uL (0.0-0.2); Basophils Percent Auto 0.6 % (0-2); Eosinophils Absolute Auto 0.1 X10*3/uL (0.0-0.4); Hematocrit 38.9 % (37.0-47.0); Hemoglobin 12.9 g/dl (12.0-16.0); Imm Gran Abs Auto 0.03 X10*3/uL (0.00-0.03); Imm Gran Pct Auto 0.3 % (0.0-0.4); Lymphocytes Absolute Auto 3.3 X10*3/uL (1.2-4.9); Lymphocytes Percent Auto 36.3 % (20-40); Mean Corpuscular HGB Conc 33.2 g/dl (31.0-35.0); Mean Corpuscular Hemoglobin 28.6 pg (27.0-33.0); Mean Corpuscular Volume 86.3 fL (80.0-98.0); Mean Platelet Volume 10.6 fL (9.4-12.3); Monocytes Absolute Auto 0.5 X10*3/uL (0.1-1.2); Monocytes Percent Auto 5.4 % (2-11); Neutrophils Absolute Auto 5.1 x10*3/uL (2.0-8.3); Neutrophils Percent Auto 56.4 % (45-73); Platelet Count 308 X10*3/uL (160-400); Red Blood Count 4.51 X10*6/uL (4.20-5.50); Red Cell Distribution Width 13.2 % (11.0-16.0); White Blood Count 9.1 X10*3/uL (4.8-10.8)
[2023-02-25 14:12] LABS: Appearance Urine Clear; Color Urine Yellow; Glucose Urine UA >=1000 mg/dL (Negative); Leukocyte Esterase Urine Trace (Negative); Nitrite Urine Negative (Negative); PH 5.5 (5.0-9.0); Specific Gravity - Urine >= 1.030 (1.005-1.025); UMIC TRIGGER UACC YES; Urine Blood Trace (Negative); Urine Ketones Negative (Negative); Urine Protein Negative (Neg-Trace)
[2023-02-25 14:24] LABS: Bacteria Urine 1+ (None Seen); Hyaline Casts Urine 0-2 /LPF (0-2); RBC Urine 0-2 /HPF (0-2); UACC Culture Trigger YES
[2023-02-25 14:45] LABS: Alanine Aminotransferase 34 U/L (0-31); Albumin Level 4.4 g/dL (3.5-5.0); Alkaline Phosphatase 142 U/L (39-117); Anion Gap 13 (12-20); Aspartate Amino Transferase 22 U/L (5-31); Bilirubin Total 0.3 mg/dL (0.0-1.0); Blood Urea Nitrogen 11 mg/dL (9-16); Calcium 10.2 mg/dL (8.4-10.2); Carbon Dioxide 25 mmol/L (22-29); Chloride 109 mmol/L (96-108); Estimated Glomerular Filt Rate > 60; Glucose Random 99 mg/dL (60-115); Potassium 3.8 mmol/L (3.3-5.1); Sodium 143 mmol/L (135-145); Total Protein 7.5 g/dL (6.5-8.0)
[2023-02-25 14:53] LABS: TSH reflex Free T4 1.48 uIU/mL (0.32-4.0)
[2023-02-26 09:27] LABS: ~HepC Num1 0.06 S/CO (0.00-0.79); ~Hepatitis C Antibody Nonreactive (Nonreactive)
[2023-03-02 22:38] LABS: VITAMIN D (1,25 OH) D3 33 pg/mL; Vit D (1,25-Dihydroxy) Total 33 pg/mL (18-72); Vitamin D (1,25 OH) D2 <8 pg/mL
== END 2023-02-25 12:04 | disposition home or self-care (01) ==
LOC: HO.HHCL 12:03
PROVIDERS: Visit Provider Emergency Medicine
DX: R53.83 Other fatigue (principal)
CPT/HCPCS: 36415; 80053; 81001; 82652; 84443; 85025; 86803; 87086

== ENCOUNTER 2023-03-05 22:11 | Emergency (ER) | payer MEDICARE, MEDICAID, SELFPAY ==
--- NOTE | 2023-03-05 | ECG_ITS ---
Test Reason : chest tightness Blood Pressure : / mmHG Vent. Rate : 078 BPM Atrial Rate : 078 BPM P-R Int : 186 ms QRS Dur : 080 ms QT Int : 370 ms P-R-T Axes : 046 002 005 degrees QTc Int : 421 ms Normal sinus rhythm Minimal voltage criteria for LVH, may be normal variant ( R in aVL ) Inferior infarct (cited on or before 08-APR-2022) Abnormal ECG When compared with ECG of 22-OCT-2022 11:32, No significant change was found Referred By: Generic ED Physician Electronically Signed By:HARMONY WILSON MD
--- NOTE | ~2023-03-05 | XR_ITS ---
EXAMINATION: XR CHEST CLINICAL INFORMATION: Cough. Chest tightness. COMPARISON: None available. TECHNIQUE: 2 views of the chest were obtained. FINDINGS: The cardiomediastinal silhouette is normal. There is no focal lung consolidation or pleural effusion. The bony structures and soft tissues are unremarkable. XR/XR chest 2V IMPRESSION: No active cardiopulmonary disease.
[2023-03-05 22:12] VITALS: BP 122/71; PULSE 87; RESP 16; TEMP 36.2; O2SAT 100; BMI 751.8
--- NOTE | 2023-03-05 22:44 | MHC.EDTECH ---
Patient brought from waiting area,EKG taken and labs were obtained and sent to lab and patient brought back to waiting area.
[2023-03-05 22:45] LABS: MANUAL DIFF FLAG NO
[2023-03-05 22:47] LABS: Basophils Absolute Auto 0.1 X10*3/uL (0.0-0.2); Basophils Percent Auto 0.5 % (0-2); Eosinophils Absolute Auto 0.2 X10*3/uL (0.0-0.4); Eosinophils Percent Auto 1.9 % (0-4); Hematocrit 38.1 % (37.0-47.0); Hemoglobin 12.8 g/dl (12.0-16.0); Imm Gran Abs Auto 0.03 X10*3/uL (0.00-0.03); Imm Gran Pct Auto 0.3 % (0.0-0.4); Lymphocytes Absolute Auto 4.5 X10*3/uL (1.2-4.9); Lymphocytes Percent Auto 48.7 % (20-40); Mean Corpuscular HGB Conc 33.6 g/dl (31.0-35.0); Mean Corpuscular Hemoglobin 28.6 pg (27.0-33.0); Mean Platelet Volume 9.7 fL (9.4-12.3); Monocytes Absolute Auto 0.6 X10*3/uL (0.1-1.2); Monocytes Percent Auto 6.2 % (2-11); Neutrophils Absolute Auto 3.9 x10*3/uL (2.0-8.3); Neutrophils Percent Auto 42.4 % (45-73); Platelet Count 270 X10*3/uL (160-400); Red Blood Count 4.48 X10*6/uL (4.20-5.50); Red Cell Distribution Width 12.8 % (11.0-16.0); White Blood Count 9.3 X10*3/uL (4.8-10.8)
[2023-03-05 22:59] LABS: COVID-19 Test Negative (Negative); IDNOW Serial# BCCEAD1C
[2023-03-05 23:00] LABS: IDNOW Serial# 08D9AD1C; Influenza A Negative (Negative); Influenza B2 Negative (Negative)
[2023-03-05 23:01] LABS: Alanine Aminotransferase 38 U/L (0-31); Albumin Level 4.3 g/dL (3.5-5.0); Alkaline Phosphatase 128 U/L (39-117); Anion Gap 13 (12-20); Aspartate Amino Transferase 26 U/L (5-31); Bilirubin Total 0.3 mg/dL (0.0-1.0); Blood Urea Nitrogen 9 mg/dL (9-16); Calcium 9.6 mg/dL (8.4-10.2); Carbon Dioxide 23 mmol/L (22-29); Chloride 109 mmol/L (96-108); Creatinine Clr Calc Pharmacy -14.4; Estimated Glomerular Filt Rate > 60; Glucose Random 121 mg/dL (60-115); Sodium 141 mmol/L (135-145); Total Protein 7.4 g/dL (6.5-8.0)
--- NOTE | 2023-03-05 23:44 | ED.GENADULT ---
HPI - General Adult General Chief complaint: General Medical Stated complaint: Asthma/weakness Time Seen by Provider: 03/05/23 23:44 Source: patient Mode of arrival: ambulatory Limitations: no limitations History of Present Illness HPI narrative: Patient with History of asthma hyperlipidemia hypertension breathing of tiredness weakness dry cough last 2 days no fever no chills cough is mostly dry without any upper respiratory symptoms no other family member sick no history of thyroid problem no recent weight gain no constipation denies significant depression is time Related Data Home Medications Medication Instructions Recorded Confirmed aripiprazole 2 mg tablet 2 mg PO DAILY 06/01/20 Previous Rx's Medication Instructions Recorded cyclobenzaprine 10 mg tablet 10 mg PO TID PRN muscle spasm #14 02/23/20 tabs ibuprofen 600 mg tablet 600 mg PO Q8H PRN pain #30 tabs 02/23/20 lidocaine 5 % topical patch 1 patch topical DAILY #15 ea 02/23/20 (Lidoderm) tramadol 50 mg tablet 50 mg PO Q8H PRN pain #10 tabs 02/23/20 albuterol sulfate 0.63 mg/3 mL 0.63 mg (3 mL) inhalation QID PRN 04/08/22 solution for nebulization shortness of breath or wheezing #75 mL albuterol sulfate 90 mcg/actuation 1 inh inhalation QID PRN shortness 04/08/22 aerosol inhaler of breath or wheezing #8.5 grams azithromycin 250 mg tablet See Rx Instructions PO .COMPLEX #6 04/08/22 tabs codeine 10 mg-guaifenesin 100 mg/5 5 ml PO Q6H PRN cold symptoms #120 04/08/22 mL oral liquid (Guaifenesin AC) mL atorvastatin 40 mg tablet 40 mg PO DAILY #30 tabs 06/17/22 celecoxib 200 mg capsule 200 mg PO DAILY #30 caps 06/17/22 cetirizine 10 mg tablet 10 mg PO DAILY #30 tabs 06/17/22 lisinopril 5 mg tablet 5 mg PO DAILY #30 tabs 06/17/22 atorvastatin 40 mg tablet 40 mg PO QPM #30 tabs 08/09/22 lisinopril 5 mg tablet 5 mg PO DAILY #30 tabs 08/09/22 cefuroxime axetil 250 mg tablet 250 mg PO BID 7 days #14 tabs 09/14/22 ibuprofen 600 mg tablet 600 mg PO Q6H PRN fever or pain 09/14/22 #30 tabs hydroxyzine HCl 25 mg tablet 25 mg PO TID PRN anxiety #10 tabs 10/22/22 ondansetron 4 mg disintegrating 4 mg PO Q8H PRN nausea and 12/15/22 tablet vomiting #7 tabs benzonatate 200 mg capsule 200 mg PO TID PRN cough #30 caps 03/06/23 ibuprofen 600 mg tablet 600 mg PO Q6H PRN fever or pain 03/06/23 #30 tabs Allergies Allergy/AdvReac Type Severity Reaction Status Date / Time No Known Allergies Allergy Verified 12/15/22 16:44 [No Known Allergies*] seasonal Allergy Unknown Itchy Eyes Uncoded 02/23/20 09:14 Review of Systems Review of Systems: Yes all other systems are reviewed and are negative [facility] Past Medical History Medical History Depression Anxiety Back pain Surgical History Hx of section Hx of cholecystectomy History of hysterectomy Social History Social History Alcohol intake: current Alcohol intake frequency: holidays/special occasions only Advance Directives: No Advance Directives Information Provided: No Physical Exam ED Vital Signs: Vital Signs - 24 hr 03/05/23 22:12 03/06/23 00:07 03/06/23 01:59 Temperature 97.1 F 97.4 F 98.4 F Pulse Rate 87 74 88 Respiratory Rate 16 16 16 Blood Pressure 122/71 115/64 118/80 Pulse Oximetry 100 98 98 Oxygen Delivery Method Room Air Room Air Room Air BMI result Body Mass Index 751.8 Appearance: Alert. Oriented X3. No acute distress. Eyes: No pallor or icterus ENT: Pharynx normal. Oral Mucosa moist Neck: Normal inspection. Neck supple. Thyroid not palpable CVS: Normal heart rate and rhythm. Pulses normal. Respiratory: No respiratory distress. Equal air entry bilateral, no wheezing/rales/rhonchi Abdomen: Soft and nontender. Bowel sounds are present, no mass palpable, no CVA tenderness Skin: Skin warm and dry. Normal skin color. Normal skin turgor. Extremities: No lower extremity edema. No calf tenderness Neuro: Oriented X 3. No motor deficit. Medical Decision Making Medical Decision Making [facility] Narrative: Patient with generalized weakness likely viral syndrome lab workup showed slightly elevated TSH but normal FT for [place] patient supportive treatment tessalon for cough and ibuprofen from apain Differential Diagnosis Differential Diagnoses: The differential diagnosis associated with the presentation includes Viral syndrome/viral bronchitis/COVID/influenza/hypothyroidism Lab Data [facility] Lab Attestation statement: I reviewed the patient's lab results. 03/05/23 22:40 03/05/23 22:40 Labs: Lab Results 03/05/23 Range/Units 22:40 WBC 9.3 (4.8-10.8) X10*3/uL RBC 4.48 (4.20-5.50) X10*6/uL Hgb 12.8 (12.0-16.0) g/dl Hct 38.1 (37.0-47.0) % MCV 85.0 (80.0-98.0) fL MCH 28.6 (27.0-33.0) pg MCHC 33.6 (31.0-35.0) g/dl RDW 12.8 (11.0-16.0) % Plt Count 270 (160-400) X10*3/uL MPV 9.7 (9.4-12.3) fL Immature Gran % (Auto) 0.3 (0.0-0.4) % Neut % (Auto) 42.4 L (45-73) % Lymph % (Auto) 48.7 H (20-40) % [place] % (Auto) 6.2 (2-11) % Eos % (Auto) 1.9 (0-4) % Baso % (Auto) 0.5 (0-2) % Lymph # (Auto) 4.5 (1.2-4.9) X10*3/uL [place] # (Auto) 0.6 (0.1-1.2) X10*3/uL Eos # (Auto) 0.2 (0.0-0.4) X10*3/uL Baso # (Auto) 0.1 (0.0-0.2) X10*3/uL Abs Immat Gran (auto) 0.03 (0.00-0.03) X10*3/uL Absolute Neuts (auto) 3.9 (2.0-8.3) x10*3/uL Absolute Nucleated RBC 0.000 (0.0-0.012) X10*3/uL Nucleated RBC % (auto) 0.0 (0.0-0.2) /100WBC Sodium 141 (135-145) mmol/L Potassium 4.0 (3.3-5.1) mmol/L Chloride 109 H (96-108) mmol/L Carbon Dioxide 23 (22-29) mmol/L Anion Gap 13 (12-20) BUN 9 (9-16) mg/dL Creatinine 0.80 (0.5-1.4) mg/dL Estim Creat Clear Calc -14.4 Estimated GFR > 60 Random Glucose 121 H (60-115) mg/dL Calcium 9.6 (8.4-10.2) mg/dL Total Bilirubin 0.3 (0.0-1.0) mg/dL AST 26 (5-31) U/L ALT 38 H (0-31) U/L Alkaline Phosphatase 128 H (39-117) U/L Total Protein 7.4 (6.5-8.0) g/dL Albumin 4.3 (3.5-5.0) g/dL TSH 9.83 H (0.32-4.0) uIU/mL Free T4 0.87 (0.71-1.85) ng/dL COVID-19 (WENDY) Negative (Negative) COVID-19 Clin Com See Note Influenza Type A (HAIR) Negative (Negative) Influenza Type B (HAIR) Negative (Negative) Influenza A & B Note See Note Discharge Plan Discharge Clinical Impression: Acute viral bronchitis Patient Disposition: Home, Self-Care Instructions: Acute Bronchitis (ED) Additional Instructions: Take cough drops as prescribed Drink plenty of fluid Check with your PCP about the thyroid function [place] pastillas para la tos seg?n lo prescrito Karin mucho l?quido Consulte con adam PCP sobre la funci?n tiroidea. Prescriptions: New benzonatate 200 mg capsule 200 mg PO TID PRN (Reason: cough) Qty: 30 0RF ibuprofen 600 mg tablet 600 mg PO Q6H PRN (Reason: fever or pain) Qty: 30 0RF No Action cyclobenzaprine 10 mg tablet 10 mg PO TID PRN (Reason: muscle spasm) Qty: 14 0RF lidocaine [Lidoderm] 5 % adhesive patch,medicated 1 patch topical DAILY Qty: 15 0RF Rx Instructions: leave on most painful area for up to 12 hrs ibuprofen 600 mg tablet 600 mg PO Q8H PRN (Reason: pain) Qty: 30 0RF tramadol 50 mg tablet 50 mg PO Q8H PRN (Reason: pain) Qty: 10 0RF celecoxib 200 mg capsule 200 mg PO DAILY Qty: 30 0RF lisinopril 5 mg tablet 5 mg PO DAILY Qty: 30 0RF cetirizine 10 mg tablet 10 mg PO DAILY Qty: 30 0RF atorvastatin 40 mg tablet 40 mg PO DAILY Qty: 30 0RF albuterol sulfate 0.63 mg/3 mL solution for nebulization 0.63 mg inhalation QID PRN (Reason: shortness of breath or wheezing) Qty: 75 0RF azithromycin 250 mg tablet See Rx Instructions .ROUTE .COMPLEX Qty: 6 0RF Rx Instructions: take 500 mg today (day 1), then 250 mg for 4 days (days 2-5) codeine-guaifenesin [Guaifenesin AC] 10-100 mg/5 mL liquid 5 ml PO Q6H PRN (Reason: cold symptoms) Qty: 120 0RF albuterol sulfate 90 mcg/actuation HFA aerosol inhaler 1 inh inhalation QID PRN (Reason: shortness of breath or wheezing) Qty: 8.5 0RF lisinopril 5 mg tablet 5 mg PO DAILY Qty: 30 0RF atorvastatin 40 mg tablet 40 mg PO QPM Qty: 30 0RF cefuroxime axetil 250 mg tablet 250 mg PO BID 7 Days Qty: 14 0RF ibuprofen 600 mg tablet 600 mg PO Q6H PRN (Reason: fever or pain) Qty: 30 0RF hydroxyzine HCl 25 mg tablet 25 mg PO TID PRN (Reason: anxiety) Qty: 10 0RF ondansetron 4 mg tablet,disintegrating 4 mg PO Q8H PRN (Reason: nausea and vomiting) Qty: 7 0RF aripiprazole 2 mg tablet 2 mg PO DAILY Stand Alone Forms: Work/School Release Interventions: ED Discharge Assessment Last Done: 03/06/23 02:01 Discharge Date/Time: 03/06/23 02:01 Print Language: Azeri
[2023-03-06 00:07] VITALS: BP 115/64; PULSE 74; RESP 16; TEMP 36.3; O2SAT 98
[2023-03-06 00:46] LABS: Thyroid Stimulating Hormone 9.83 uIU/mL (0.32-4.0)
[2023-03-06 01:59] VITALS: BP 118/80; PULSE 88; RESP 16; TEMP 36.9; O2SAT 98
[2023-03-06 02:03] LABS: Free T4 (Free Thyroxine) 0.87 ng/dL (0.71-1.85)
== END 2023-03-06 02:01 | disposition home or self-care (01) ==
PROVIDERS: Emergency Provider Internal Medicine; PCP Student in an Organized Health Care Education/Training Program
DX: J20.8 Acute bronchitis due to other specified organisms (principal); Z79.899 Other long term (current) drug therapy; Z11.52 Encounter for screening for COVID-19
CPT/HCPCS: 71046; 80053; 84439; 84443; 85025; 87502; 87635; 93005; 99283; 99284

== ENCOUNTER 2023-03-18 10:34 | Outpatient (REF) | payer MEDICARE, SELFPAY ==
[2023-03-18 11:31] LABS: Estimated Average Glucose 126 mg/dL
[2023-03-18 11:57] LABS: Alanine Aminotransferase 41 U/L (0-31); Albumin Level 4.4 g/dL (3.5-5.0); Alkaline Phosphatase 117 U/L (39-117); Anion Gap 14 (12-20); Aspartate Amino Transferase 27 U/L (5-31); Bilirubin Total 0.3 mg/dL (0.0-1.0); Blood Urea Nitrogen 12 mg/dL (9-16); Calcium 9.2 mg/dL (8.4-10.2); Carbon Dioxide 26 mmol/L (22-29); Chloride 107 mmol/L (96-108); Cholesterol 143 mg/dL (<200); Estimated Glomerular Filt Rate > 60; Glucose Random 124 mg/dL (60-115); HDL Cholesterol 30 mg/dL (>40); LDL Cholesterol Calculated 68 mg/dL (<100); Potassium 4.2 mmol/L (3.3-5.1); Sodium 143 mmol/L (135-145); Total Protein 7.8 g/dL (6.5-8.0); Triglycerides 229 mg/dL (<150)
[2023-03-18 12:05] LABS: Creatinine Urine 135.97 mg/dL; Microalbum/Creatinine Ratio Ur 49.2 ug/mg cr (<30)
[2023-03-18 12:32] LABS: Folate 10.7 ng/mL (> or = 4.0); Vitamin B12 284 pg/mL (200-900)
== END 2023-03-18 10:35 | disposition home or self-care (01) ==
LOC: HO.HHCL 10:34
PROVIDERS: Visit Provider Student in an Organized Health Care Education/Training Program
DX: E11.9 Type 2 diabetes mellitus without complications (principal)
CPT/HCPCS: 36415; 80053; 80061; 82043; 82570; 82607; 82746; 83036

== ENCOUNTER → 2023-05-22 09:35 | Outpatient (BNVA) | payer MEDICARE, SELFPAY | PROVIDERS: PCP Student in an Organized Health Care Education/Training Program; Visit Provider Nurse Practitioner Family ==

== ENCOUNTER 2023-05-23 10:19 | Outpatient (REF) | payer MEDICARE, SELFPAY ==
[2023-05-26 07:34] LABS: TS Negative Control Passed; TS Panel A 1; TS Panel B 2; TS Positive Control Passed; TSpotTB Negative (Negative)
== END 2023-05-23 10:20 | disposition home or self-care (01) ==
LOC: HO.HHCL 10:19
PROVIDERS: Visit Provider Student in an Organized Health Care Education/Training Program
DX: Z11.1 Encounter for screening for respiratory tuberculosis (principal)
CPT/HCPCS: 36415; 86481

== ENCOUNTER 2023-07-23 16:17 | Emergency (ER) | payer MEDICARE, MEDICAID, SELFPAY ==
--- NOTE | 2023-07-23 | ECG_ITS ---
Test Reason : CHEST PAIN Blood Pressure : / mmHG Vent. Rate : 077 BPM Atrial Rate : 077 BPM P-R Int : 190 ms QRS Dur : 072 ms QT Int : 382 ms P-R-T Axes : 052 018 036 degrees QTc Int : 432 ms Normal sinus rhythm Cannot rule out Anterior infarct (cited on or before 08-APR-2022) Abnormal ECG When compared with ECG of 05-MAR-2023 22:31, Criteria for Inferior infarct are no longer Present Referred By: Generic ED Physician Electronically Signed By:RAYMUNDO RIVERA
--- NOTE | ~2023-07-23 | XR_ITS ---
EXAMINATION: XR CHEST CLINICAL INFORMATION: Chest pain COMPARISON: Chest x-ray 03/05/2023 TECHNIQUE: Frontal view of the chest was obtained. FINDINGS: No significant abnormality is noted involving the heart, lungs, mediastinum, bony thorax or soft tissues. XR/XR chest 1V IMPRESSION: Unremarkable chest examination.
[2023-07-23 16:40] VITALS: BP 115/69; PULSE 82; RESP 20; TEMP 37; O2SAT 99; BMI 28.3
--- NOTE | 2023-07-23 16:42 | ED.CHESTPAIN ---
HPI - Chest Pain General Chief Complaint: Chest Pain Stated Complaint: chest pain Time Seen by Provider: 07/24/23 00:20 Source: patient Mode of arrival: ambulatory Limitations: no limitations History of Present Illness HPI narrative: Patient been coughing complaining of pain in the left side of chest in the shoulder for last 2 days no fever no shortness a breath history of same chest pain off and on in the past but not as severe no diaphoresis no nausea no vomiting patient had 2 sets of troponin done prior to my evaluation which were negative EKG was normal lab workup showed COVID positive patient is saturating 97% at room air Related Data Home Medications Medication Instructions Recorded Confirmed aripiprazole 2 mg tablet 2 mg PO DAILY 06/01/20 cefuroxime axetil 250 mg tablet 250 mg PO BID 05/22/23 dapagliflozin propanediol 5 mg 5 mg PO DAILY 05/22/23 tablet (Farxiga) lidocaine 5 % topical patch 1 patch topical DAILY PRN 05/22/23 (Lidoderm) metformin 1,000 mg tablet 1,000 mg PO BID 05/22/23 trazodone 50 mg tablet 50 mg PO BEDTIME 05/22/23 Previous Rx's Medication Instructions Recorded albuterol sulfate 0.63 mg/3 mL 0.63 mg (3 mL) inhalation QID PRN 04/08/22 solution for nebulization shortness of breath or wheezing #75 mL albuterol sulfate 90 mcg/actuation 1 inh inhalation QID PRN shortness 04/08/22 aerosol inhaler of breath or wheezing #8.5 grams celecoxib 200 mg capsule 200 mg PO DAILY #30 caps 06/17/22 cetirizine 10 mg tablet 10 mg PO DAILY #30 tabs 06/17/22 atorvastatin 40 mg tablet 40 mg PO QPM #30 tabs 08/09/22 lisinopril 5 mg tablet 5 mg PO DAILY #30 tabs 08/09/22 hydroxyzine HCl 25 mg tablet 25 mg PO TID PRN anxiety #10 tabs 10/22/22 benzonatate 200 mg capsule 200 mg PO TID PRN cough #30 caps 03/06/23 bisacodyl 5 mg tablet,delayed 20 mg (4 x 5 mg) PO ONCE 1 day #4 05/22/23 release (Dulcolax (bisacodyl)) tabs polyethylene glycol 3350 17 238 g PO ONCE #238 grams 05/22/23 gram/dose oral powder (Miralax) benzonatate 200 mg capsule 200 mg PO TID PRN cough #30 caps 07/24/23 ibuprofen 600 mg tablet 600 mg PO Q6H PRN fever or pain 07/24/23 #30 tabs Allergies Allergy/AdvReac Type Severity Reaction Status Date / Time seasonal Allergy Unknown Itchy Eyes Uncoded 07/23/23 16:44 Review of Systems Review of Systems: Yes all other systems are reviewed and are negative [facility] Past Medical History Medical History Depression Anxiety Back pain Surgical History Hx of section Hx of cholecystectomy History of hysterectomy Family History Family History (Updated 05/22/23 @ 09:41 by ASHELY Lema) Mother Cancer Social History Social History Alcohol intake: current Alcohol intake frequency: holidays/special occasions only Advance Directives: No Advance Directives Information Provided: No Physical Exam Vital Signs: Vital Signs: Last Vital Signs Temp 97.5 F 07/24/23 00:15 Pulse 74 07/24/23 00:15 Resp 16 07/24/23 00:15 BP 154/79 H 07/24/23 00:15 Pulse Ox 97 07/24/23 00:15 O2 Del Method Room Air 07/24/23 00:15 BMI result Body Mass Index 28.3 Appearance: Alert. Oriented X3. No acute distress. Eyes: No pallor ENT: Pharynx normal. Oral Mucosa moist Neck: Normal inspection. Neck supple. CVS: Normal heart rate and rhythm. Pulses normal. Respiratory: No respiratory distress. Equal air entry bilateral, no wheezing/rales/rhonchi Abdomen: Soft and nontender. Bowel sounds are present, Skin: Skin warm and dry. Normal skin color. Normal skin turgor. Extremities: No lower extremity edema. No calf tenderness Neuro: Oriented X 3. Course Course Course Narrative: This is an RME: Additional HPI, ROS, PE not included below will be deferred to primary provider. This is a 53-year-old female, with a history of asthma, hyperlipidemia, hypertension, who presents emergency department complaints of chest pain and shortness of breath since yesterday. Patient does report cough, and body aches. Plan: Labs, EKG, chest x-ray, viral swabs Medical Decision Making Medical Decision Making [facility] Narrative: Patient with atypical chest pain likely musculoskeletal for more than 6 hour duration to set her high sensitive troponin negative EKG with ischemic changes also noted to have the positive for COVID-19 as the cause for the skeletal pain patient is saturating 97% on room air discharge patient home on Tessalon cough drops and ibuprofen for pain Lab Data [facility] Lab Attestation statement: I reviewed the patient's lab results. 07/23/23 17:25 07/23/23 17:25 Labs: Lab Results 07/23/23 07/23/23 Range/Units 17:25 22:01 WBC 9.9 (4.8-10.8) X10*3/uL RBC 4.52 (4.20-5.50) X10*6/uL Hgb 12.9 (12.0-16.0) g/dl Hct 37.1 (37.0-47.0) % MCV 82.1 (80.0-98.0) fL MCH 28.5 (27.0-33.0) pg MCHC 34.8 (31.0-35.0) g/dl RDW 12.7 (11.0-16.0) % Plt Count 252 (160-400) X10*3/uL MPV 9.8 (9.4-12.3) fL Immature Gran % (Auto) 0.3 (0.0-0.4) % Neut % (Auto) 51.1 (45-73) % Lymph % (Auto) 42.0 H (20-40) % [place] % (Auto) 4.9 (2-11) % Eos % (Auto) 1.1 (0-4) % Baso % (Auto) 0.6 (0-2) % Lymph # (Auto) 4.2 (1.2-4.9) X10*3/uL [place] # (Auto) 0.5 (0.1-1.2) X10*3/uL Eos # (Auto) 0.1 (0.0-0.4) X10*3/uL Baso # (Auto) 0.1 (0.0-0.2) X10*3/uL Abs Immat Gran (auto) 0.03 (0.00-0.03) X10*3/uL Absolute Neuts (auto) 5.1 (2.0-8.3) x10*3/uL Absolute Nucleated RBC 0.000 (0.0-0.012) X10*3/uL Nucleated RBC % (auto) 0.0 (0.0-0.2) /100WBC PT 11.4 (11.1-13.3) SEC INR 0.9 (0.9-1.1) Sodium 143 (135-145) mmol/L Potassium 3.6 (3.3-5.1) mmol/L Chloride 109 H (96-108) mmol/L Carbon Dioxide 24 (22-29) mmol/L Anion Gap 14 (12-20) BUN 10 (9-16) mg/dL Creatinine 0.77 (0.5-1.4) mg/dL Estim Creat Clear Calc 84.7 Estimated GFR > 60 Random Glucose 137 H (60-115) mg/dL Calcium 9.2 (8.4-10.2) mg/dL Magnesium 1.6 (1.6-2.6) mg/dL Total Bilirubin 0.4 (0.0-1.0) mg/dL AST 23 (5-31) U/L ALT 35 H (0-31) U/L Alkaline Phosphatase 127 H (39-117) U/L Troponin I High Sens < 2.7 < 2.7 (<3.5-17.0) ng/L Total Protein 7.0 (6.5-8.0) g/dL Albumin 4.1 (3.5-5.0) g/dL Influenza Type A (PCR) NEGATIVE (Negative) Influenza Type B (PCR) NEGATIVE (Negative) RSV RNA Qual (PCR) NEGATIVE (Negative) SARS-CoV-2 RNA (RT-PCR) POSITIVE A (Negative) Independent Interpretation I performed an independent interpretation of an: EKG and Plain X-Ray Interpretation: Normal sinus rhythm heart rate 77 beats per minute normal interval normal axis no acute ST T wave changes no acute ischemia Radiology Impression Discussion of test interpretation with radiology: I have reviewed the radiologist's reading. Discharge Plan Discharge Clinical Impression: COVID-19, Atypical chest pain Patient Disposition: Home, Self-Care Instructions: Chest Pain (ED), COVID-19 (Coronavirus Disease 2019) (ED) Additional Instructions: Cough drops as prescribed Ibuprofen for pain Social distancing till completely get better Prescriptions: New benzonatate 200 mg capsule 200 mg PO TID PRN (Reason: cough) Qty: 30 0RF ibuprofen 600 mg tablet 600 mg PO Q6H PRN (Reason: fever or pain) Qty: 30 0RF No Action celecoxib 200 mg capsule 200 mg PO DAILY Qty: 30 0RF cetirizine 10 mg tablet 10 mg PO DAILY Qty: 30 0RF albuterol sulfate 0.63 mg/3 mL solution for nebulization 0.63 mg inhalation QID PRN (Reason: shortness of breath or wheezing) Qty: 75 0RF albuterol sulfate 90 mcg/actuation HFA aerosol inhaler 1 inh inhalation QID PRN (Reason: shortness of breath or wheezing) Qty: 8.5 0RF lisinopril 5 mg tablet 5 mg PO DAILY Qty: 30 0RF atorvastatin 40 mg tablet 40 mg PO QPM Qty: 30 0RF hydroxyzine HCl 25 mg tablet 25 mg PO TID PRN (Reason: anxiety) Qty: 10 0RF benzonatate 200 mg capsule 200 mg PO TID PRN (Reason: cough) Qty: 30 0RF aripiprazole 2 mg tablet 2 mg PO DAILY cefuroxime axetil 250 mg tablet 250 mg PO BID lidocaine [Lidoderm] 5 % adhesive patch,medicated 1 patch topical DAILY PRN Rx Instructions: leave on most painful area for up to 12 hrs metformin 1,000 mg tablet 1,000 mg PO BID Farxiga 5 mg tablet 5 mg PO DAILY trazodone 50 mg tablet 50 mg PO BEDTIME bisacodyl [Dulcolax (bisacodyl)] 5 mg tablet,delayed release (DR/EC) 20 mg PO ONCE 1 Days Qty: 4 0RF Rx Instructions: take 4 tabs at noon the day before your colonoscopy polyethylene glycol 3350 [Miralax] 17 gram/dose powder 238 g PO ONCE Qty: 238 0RF Rx Instructions: As directed by gastroenterology department at [facility] Stand Alone Forms: Work/School Release Print Language: Polish
[2023-07-23 17:30] LABS: MANUAL DIFF FLAG NO
[2023-07-23 17:34] LABS: Basophils Absolute Auto 0.1 X10*3/uL (0.0-0.2); Basophils Percent Auto 0.6 % (0-2); Eosinophils Absolute Auto 0.1 X10*3/uL (0.0-0.4); Eosinophils Percent Auto 1.1 % (0-4); Hematocrit 37.1 % (37.0-47.0); Hemoglobin 12.9 g/dl (12.0-16.0); Imm Gran Abs Auto 0.03 X10*3/uL (0.00-0.03); Imm Gran Pct Auto 0.3 % (0.0-0.4); Lymphocytes Absolute Auto 4.2 X10*3/uL (1.2-4.9); Mean Corpuscular HGB Conc 34.8 g/dl (31.0-35.0); Mean Corpuscular Hemoglobin 28.5 pg (27.0-33.0); Mean Corpuscular Volume 82.1 fL (80.0-98.0); Mean Platelet Volume 9.8 fL (9.4-12.3); Monocytes Absolute Auto 0.5 X10*3/uL (0.1-1.2); Monocytes Percent Auto 4.9 % (2-11); Neutrophils Absolute Auto 5.1 x10*3/uL (2.0-8.3); Neutrophils Percent Auto 51.1 % (45-73); Platelet Count 252 X10*3/uL (160-400); Red Blood Count 4.52 X10*6/uL (4.20-5.50); Red Cell Distribution Width 12.7 % (11.0-16.0); White Blood Count 9.9 X10*3/uL (4.8-10.8)
[2023-07-23 17:36] LABS: INTERNATIONAL NORM RATIO 0.9 (0.9-1.1); Prothrombin Time 11.4 SEC (11.1-13.3)
[2023-07-23 17:45] LABS: Alanine Aminotransferase 35 U/L (0-31); Albumin Level 4.1 g/dL (3.5-5.0); Alkaline Phosphatase 127 U/L (39-117); Anion Gap 14 (12-20); Aspartate Amino Transferase 23 U/L (5-31); Bilirubin Total 0.4 mg/dL (0.0-1.0); Blood Urea Nitrogen 10 mg/dL (9-16); Calcium 9.2 mg/dL (8.4-10.2); Carbon Dioxide 24 mmol/L (22-29); Chloride 109 mmol/L (96-108); Creatinine Clr Calc Pharmacy 84.7; Estimated Glomerular Filt Rate > 60; Glucose Random 137 mg/dL (60-115); Magnesium 1.6 mg/dL (1.6-2.6); Potassium 3.6 mmol/L (3.3-5.1); Sodium 143 mmol/L (135-145)
[2023-07-23 17:53] LABS: Troponin-I High Sensitivity < 2.7 ng/L (<3.5-17.0)
[2023-07-23 18:10] LABS: Influenza A PCR NEGATIVE (Negative); Influenza B PCR NEGATIVE (Negative); Resp Syncy Virus RNA Qual PCR NEGATIVE (Negative); SARS COV2 PCR INHOUSE POSITIVE (Negative)
[2023-07-23 20:00] VITALS: BP 140/68; PULSE 72; RESP 16; TEMP 36.3; O2SAT 97
--- NOTE | 2023-07-23 22:03 | MHC.EDTECH ---
PATIENT WAS CALLED BACK TO TRIAGE TO REASSESS ,2ND TROP DRAWN AND SENT TO LAB ,REPEATED VITALS TAKEN ,AND IS STABLE ,NO APPARENT DISTRESS NOTED .
[2023-07-23 22:28] LABS: Troponin-I High Sensitivity < 2.7 ng/L (<3.5-17.0)
[2023-07-24 00:15] VITALS: BP 154/79; PULSE 74; RESP 16; TEMP 36.4; O2SAT 97
--- NOTE | 2023-07-24 00:18 | MHC.EDTECH ---
PATIENT WAS BROUGHT BACK TO A ROOM ,VITALS TAKEN ,PATIENT WAITING TO SEE PROVIDER .
[2023-07-24] MEDS: Ibuprofen 600 MG TABLET PO (01:07)
[2023-07-24] MEDS: Benzonatate 100 MG CAPSULE 200 MG PO (01:07)
[2023-07-24 01:12] VITALS: BP 154/79; PULSE 74; RESP 16; TEMP 36.4; O2SAT 97
== END 2023-07-24 01:15 | disposition home or self-care (01) ==
PROVIDERS: Physician Assistant Medical; Emergency Provider Internal Medicine; PCP Student in an Organized Health Care Education/Training Program
DX: U07.1 COVID-19 (principal); R07.89 Other chest pain; M25.512 Pain in left shoulder; Z79.899 Other long term (current) drug therapy
CPT/HCPCS: 0241U; 36415; 71045; 80053; 83735; 84484; 85025; 85610; 93005; 99283; 99284

== ENCOUNTER → 2023-07-23 16:21 | Outpatient (BNV) | payer MEDICARE, SELFPAY | PROVIDERS: Emergency Provider Internal Medicine; PCP Student in an Organized Health Care Education/Training Program; Visit Provider Internal Medicine | DX: R07.9 Chest pain, unspecified (principal); R94.31 Abnormal electrocardiogram [ECG] [EKG] | CPT/HCPCS: 93010 ==

== ENCOUNTER 2023-07-28 10:59 | Emergency (ER) | payer MEDICARE, MEDICAID, SELFPAY ==
[2023-07-28 11:04] VITALS: BP 134/64; PULSE 78; RESP 18; TEMP 35.8; O2SAT 98; BMI 27.7
--- NOTE | 2023-07-28 11:04 | ED.GENADULT ---
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 Admits to testing positive for COVID 5 days ago at our facility after presenting with atypical chest pain. She states that she has now tested negative for COVID at. She has requesting a note for work stating that she is COVID negative so that she may return. Denies any physical complaints at present. Denies fever, chills, sore throat, ear pain, cough, sputum production, chest pain, shortness of breath, rashes. Denies other sick contacts. Vaccinations up-to-date. 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 Related Data Home Medications Medication Instructions Recorded Confirmed aripiprazole 2 mg tablet 2 mg PO DAILY 06/01/20 cefuroxime axetil 250 mg tablet 250 mg PO BID 05/22/23 dapagliflozin propanediol 5 mg 5 mg PO DAILY 05/22/23 tablet (Farxiga) lidocaine 5 % topical patch 1 patch topical DAILY PRN 05/22/23 (Lidoderm) metformin 1,000 mg tablet 1,000 mg PO BID 05/22/23 trazodone 50 mg tablet 50 mg PO BEDTIME 05/22/23 Previous Rx's Medication Instructions Recorded albuterol sulfate 0.63 mg/3 mL 0.63 mg (3 mL) inhalation QID PRN 04/08/22 solution for nebulization shortness of breath or wheezing #75 mL albuterol sulfate 90 mcg/actuation 1 inh inhalation QID PRN shortness 04/08/22 aerosol inhaler of breath or wheezing #8.5 grams celecoxib 200 mg capsule 200 mg PO DAILY #30 caps 06/17/22 cetirizine 10 mg tablet 10 mg PO DAILY #30 tabs 06/17/22 atorvastatin 40 mg tablet 40 mg PO QPM #30 tabs 08/09/22 lisinopril 5 mg tablet 5 mg PO DAILY #30 tabs 08/09/22 hydroxyzine HCl 25 mg tablet 25 mg PO TID PRN anxiety #10 tabs 10/22/22 benzonatate 200 mg capsule 200 mg PO TID PRN cough #30 caps 03/06/23 bisacodyl 5 mg tablet,delayed 20 mg (4 x 5 mg) PO ONCE 1 day #4 05/22/23 release (Dulcolax (bisacodyl)) tabs polyethylene glycol 3350 17 238 g PO ONCE #238 grams 05/22/23 gram/dose oral powder (Miralax) benzonatate 200 mg capsule 200 mg PO TID PRN cough #30 caps 07/24/23 ibuprofen 600 mg tablet 600 mg PO Q6H PRN fever or pain 07/24/23 #30 tabs Allergies Allergy/AdvReac Type Severity Reaction Status Date / Time seasonal Allergy Unknown Itchy Eyes Uncoded 07/23/23 16:44 Review of Systems Review of Systems: Constitutional: No fever, chills, fatigue, night sweats, weight changes ENT/Mouth: No ear pain, hearing loss, nasal congestion, sinus pain, rhinorrhea, sore throat Eyes: No eye pain, swelling, redness, vision changes, discharge Cardio: No chest pain, palpitations, BARONE, orthopnea, peripheral edema Pulm: No SOB, cough, sputum, wheezing, dyspnea, hemoptysis GI: No nausea, vomiting, hematemesis, abdominal pain, diarrhea, constipation, hematochezia, melena : No irregular bleeding, dysuria, frequency, urgency, hesitancy, hematuria, flank pain, urinary flow changes, urinary incontinence or retention MSK: No back pain, neck pain, joint pain, myalgias Skin: No lesions, rashes Neuro: No weakness, numbness, paresthesias, LOC, dizziness, headache Psych: No anxiety/panic, depression, SI/HI, AH/VH All other systems reviewed and are negative. [facility] Past Medical History Attestation statement: The following information was validated with the patient. Source: old records reviewed and nursing notes reviewed Medical History Depression Anxiety Back pain Surgical History Hx of section Hx of cholecystectomy History of hysterectomy Family History Family History Mother Cancer Social History Social History Alcohol intake: current Alcohol intake frequency: holidays/special occasions only Physical Exam ED Vital Signs: Vital Signs - 24 hr 07/28/23 11:04 Temperature 96.4 F L Pulse Rate 78 Respiratory Rate 18 Blood Pressure 134/64 Pulse Oximetry 98 Oxygen Delivery Method Room Air BMI result Body Mass Index 27.7 Vital signs stable, afebrile Const General: cooperative, healthy appearing, comfortable and no acute distress Orientation/consciousness: patient oriented x3 Limitations: no limitations HENMT Other: + posterior oropharynx without erythema or edema. No tonsillar exudates. No peritonsillar masses. Uvula midline. Controlling secretions and speaking complete sentences. Head: Yes normal to inspection, Yes No palpable skull fracture present, Yes normocephalic and Yes atraumatic Ears: hearing grossly normal bilaterally, external ears normal, TM's normal bilaterally, EAC's normal, mastoids normal and no periauricular adenopathy General nose exam: Normal external nose present Eyes General: appearance normal, both eyes and all related structures Conjunctivae: conjunctivae normal Sclerae: sclerae normal Pupils: Equal, round and reactive pupils present Neck Neck: Yes normal visual inspection, Yes full ROM, Yes no lymphadenopathy and Yes no meningeal signs Resp Effort & Inspection: normal respiratory effort and able to speak in complete sentences Auscultation: clear to auscultation bilaterally Cardio Rate: regular rate Rhythm: regular rhythm GI Inspection: Yes normal to inspection Palpation (GI): Soft to palpation and nontender Skin General skin exam: no rashes or lesions noted Neuro General: patient oriented x3, gait normal and no meningeal signs Cranial nerves: Yes Equal, round and reactive pupils present Extrem General: Yes normal to inspection and Yes capillary refill normal Course Course Course Narrative: RME:?53 yo female hx of HTN, HDL here requesting work note. she was 4 days ago and tested positive for COVID. She has now tested negative at home and is requesting note for work saying that she can return in his negative for COVID. denies fever, chills, sore throat, cough, chest pain, SOB, rashes. vaccines UTD. serology ordered. Full HPI, ROS and PE to be performed by the primary ED provider. Reevaluation(s) Reevaluation #1: 1241-- Patient has tested negative for covid, flu and rsv. Discussed all results with patient. Will provide her with note for work confirming her negative COVID test as she is requesting. She has remained stable throughout ED visit today. Discussed worrisome signs and symptoms and when to return to the ED. All questions answered at this time. Patient is agreeable with disposition and stable for discharge. Medical Decision Making Medical Decision Making [facility] [place] Narrative: 53 year old female with pmhx significant for HTN and HDL presents to the ED today requesting a work note. Vital signs stable, afebrile. Patient is nontoxic-appearing and in no acute distress. B/l EACs and TMs wnl. Posterior oropharynx without erythema or edema. Uvula midline. No tonsillar exudates or peritonsillar masses. Controlling secretions and speaking complete sentences. RRR. Lungs CTA b/l. No rashes. Exam unremarkable. Differential diagnosis includes viral syndrome. Plan for serology and discharge. Differential Diagnosis Differential Diagnoses: The differential diagnosis associated with the presentation includes as above. Admission/Observation Not indicated Lab Data [facility] [place] Lab Attestation statement: I reviewed the patient's lab results. As above External Record Review External record reviewed: Inpatient record, Office record, Outpatient record, Prior outpatient labs, Prior outpatient radiology, Primary care record and Outside ED record Prescription Management I considered prescription management with: Pain Medication and Antiviral Social Determinants Patient?s care significantly limited by Social Determinants of Health including: Other Social Determinant of Health Discharge Plan Discharge Clinical Impression: Encounter for laboratory testing for COVID-19 virus Patient Disposition: Home, Self-Care Additional Instructions: You tested negative for COVID, flu, RSV. Follow-up with PCP as needed. Please return with any new or worsening symptoms. In the case of an emergency call 911. Prescriptions: No Action celecoxib 200 mg capsule 200 mg PO DAILY Qty: 30 0RF cetirizine 10 mg tablet 10 mg PO DAILY Qty: 30 0RF albuterol sulfate 0.63 mg/3 mL solution for nebulization 0.63 mg inhalation QID PRN (Reason: shortness of breath or wheezing) Qty: 75 0RF albuterol sulfate 90 mcg/actuation HFA aerosol inhaler 1 inh inhalation QID PRN (Reason: shortness of breath or wheezing) Qty: 8.5 0RF lisinopril 5 mg tablet 5 mg PO DAILY Qty: 30 0RF atorvastatin 40 mg tablet 40 mg PO QPM Qty: 30 0RF benzonatate 200 mg capsule 200 mg PO TID PRN (Reason: cough) Qty: 30 0RF ibuprofen 600 mg tablet 600 mg PO Q6H PRN (Reason: fever or pain) Qty: 30 0RF hydroxyzine HCl 25 mg tablet 25 mg PO TID PRN (Reason: anxiety) Qty: 10 0RF benzonatate 200 mg capsule 200 mg PO TID PRN (Reason: cough) Qty: 30 0RF aripiprazole 2 mg tablet 2 mg PO DAILY cefuroxime axetil 250 mg tablet 250 mg PO BID lidocaine [Lidoderm] 5 % adhesive patch,medicated 1 patch topical DAILY PRN Rx Instructions: leave on most painful area for up to 12 hrs metformin 1,000 mg tablet 1,000 mg PO BID Farxiga 5 mg tablet 5 mg PO DAILY trazodone 50 mg tablet 50 mg PO BEDTIME bisacodyl [Dulcolax (bisacodyl)] 5 mg tablet,delayed release (DR/EC) 20 mg PO ONCE 1 Days Qty: 4 0RF Rx Instructions: take 4 tabs at noon the day before your colonoscopy polyethylene glycol 3350 [Miralax] 17 gram/dose powder 238 g PO ONCE Qty: 238 0RF Rx Instructions: As directed by gastroenterology department at [facility] Stand Alone Forms: Work/School Release
[2023-07-28 12:38] LABS: Influenza A PCR NEGATIVE (Negative); Influenza B PCR NEGATIVE (Negative); Resp Syncy Virus RNA Qual PCR NEGATIVE (Negative); SARS COV2 PCR INHOUSE NEGATIVE (Negative)
[2023-07-28 12:41] VITALS: BP 153/90; PULSE 91; RESP 16; TEMP 37; O2SAT 98
== END 2023-07-28 12:45 | disposition home or self-care (01) ==
LOC: HO.ED 12:43
PROVIDERS: Physician Assistant Medical; Emergency Provider Emergency Medicine; PCP Student in an Organized Health Care Education/Training Program
DX: Z02.79 Encounter for issue of other medical certificate (principal); Z11.52 Encounter for screening for COVID-19; Z20.828 Contact with and (suspected) exposure to other viral communicable diseases
CPT/HCPCS: 0241U; 99282; 99283

== ENCOUNTER 2023-09-02 08:52 | Emergency (ER) | payer MEDICARE, SELFPAY ==
--- NOTE | ~2023-09-02 | XR_ITS ---
EXAMINATION: XR LUMBOSACRAL SPINE CLINICAL INFORMATION: Pain for years. COMPARISON: Lumbar spine radiographs dated 10/08/2022. TECHNIQUE: Three views of the lumbosacral spine. FINDINGS: Straightening of the normal lumbar lordosis, which may be positional or related muscle spasm. No acute fracture or subluxation. No loss of vertebral body height. Minimal multilevel loss of intervertebral disc height. Small multilevel anterior endplate ossific throughout the lower thoracic and lumbar spine, slightly progressed. Bilateral facet arthropathy at L5-S1. No concerning lytic or blastic osseous lesion. No abnormal soft tissue calcification. XR/XR lumbar spine 2-3V IMPRESSION: 1. Straightening of the normal lumbar lordosis, which may be positional or related to muscle spasm. 2. Mild multilevel degenerative disc disease, slightly progressed. Facet arthropathy at L5-S1.
[2023-09-02 08:54] VITALS: BP 124/66; PULSE 77; RESP 16; TEMP 35.8; O2SAT 98; BMI 27.3
--- NOTE | 2023-09-02 09:20 | ED.GENADULT ---
HPI - General Adult General Chief complaint: Back Pain/Injury Stated complaint: Back pain Time Seen by Provider: 09/02/23 09:17 Source: patient and end user consultant Mode of arrival: ambulatory Limitations: language barrier History of Present Illness HPI narrative: Patient is a 53-year-old [place]ese-speaking female presenting to the emergency department with complaint of lower back pain for years. States she is unable to lay down or bend over due to pain. States pain is the same as always, no new changes today. Denies radiation of pain to legs. Denies saddle anesthesia or bowel or bladder incontinence. Denies fevers. Denies IVDU or history of cancer. Has been going to physical therapy with little relief. Denies any urinary urgency, dysuria, hematuria or other urinary symptoms. MD complaint: Back pain Onset (ago): year(s) Location: back Radiation: non-radiation Severity: severe Severity scale (1-10): 10 Quality: aching Pain Consistency: constant Relieving factors: none Exacerbating factors: movement Associated symptoms: denies other symptoms Treatments prior to arrival: other Related Data Home Medications ?Medication ?Instructions ?Recorded ?Confirmed aripiprazole 2 mg tablet 2 mg PO DAILY 06/01/20 cefuroxime axetil 250 mg tablet 250 mg PO BID 05/22/23 dapagliflozin propanediol 5 mg 5 mg PO DAILY 05/22/23 tablet (Farxiga) lidocaine 5 % topical patch 1 patch topical DAILY PRN 05/22/23 (Lidoderm) metformin 1,000 mg tablet 1,000 mg PO BID 05/22/23 trazodone 50 mg tablet 50 mg PO BEDTIME 05/22/23 Previous Rx's ?Medication ?Instructions ?Recorded albuterol sulfate 0.63 mg/3 mL 0.63 mg (3 mL) inhalation QID PRN 04/08/22 solution for nebulization shortness of breath or wheezing #75 mL albuterol sulfate 90 mcg/actuation 1 inh inhalation QID PRN shortness 04/08/22 aerosol inhaler of breath or wheezing #8.5 grams celecoxib 200 mg capsule 200 mg PO DAILY #30 caps 06/17/22 cetirizine 10 mg tablet 10 mg PO DAILY #30 tabs 06/17/22 atorvastatin 40 mg tablet 40 mg PO QPM #30 tabs 08/09/22 lisinopril 5 mg tablet 5 mg PO DAILY #30 tabs 08/09/22 hydroxyzine HCl 25 mg tablet 25 mg PO TID PRN anxiety #10 tabs 10/22/22 benzonatate 200 mg capsule 200 mg PO TID PRN cough #30 caps 03/06/23 bisacodyl 5 mg tablet,delayed 20 mg (4 x 5 mg) PO ONCE 1 day #4 05/22/23 release (Dulcolax (bisacodyl)) tabs polyethylene glycol 3350 17 238 g PO ONCE #238 grams 05/22/23 gram/dose oral powder (Miralax) benzonatate 200 mg capsule 200 mg PO TID PRN cough #30 caps 07/24/23 ibuprofen 600 mg tablet 600 mg PO Q6H PRN fever or pain 07/24/23 #30 tabs cyclobenzaprine 5 mg tablet 5 mg PO TID PRN muscle spasm #10 09/02/23 tabs lidocaine 5 % topical patch 1 patch topical DAILY #15 ea 09/02/23 Allergies Allergy/AdvReac Type Severity Reaction Status Date / Time seasonal Allergy Unknown Itchy Eyes Uncoded 09/02/23 08:54 Review of Systems Review of Systems: As per HPI. Yes all other systems are reviewed and are negative Constitutional: Constitutional: Reports as per HPI [facility] Past Medical History Medical History Depression Anxiety Back pain Surgical History Hx of section Hx of cholecystectomy History of hysterectomy Family History Family History Mother Cancer Social History Social History Alcohol intake: current Alcohol intake frequency: holidays/special occasions only Advance Directives: No Advance Directives Information Provided: Yes Do you have a plan to hurt others: No Plan Physical Exam ED Vital Signs: Vital Signs - 24 hr 09/02/23 08:54 Temperature 96.5 F L Pulse Rate 77 Respiratory Rate 16 Blood Pressure 124/66 Pulse Oximetry 98 Oxygen Delivery Method Room Air BMI result Body Mass Index 27.3 Vital signs have been reviewed and appear to be correct. Blood pressure normal. Heart rate normal. Respiratory rate normal. Temperature normal. Oxygen saturation normal. Const General: cooperative, healthy appearing and no acute distress Orientation/consciousness: oriented to person, oriented to place, oriented to time and patient oriented x3 Limitations: no limitations HENMT Head: Yes normocephalic and Yes atraumatic Ears: external ears normal General nose exam: Normal external nose present Face and sinus: Yes face symmetric Mouth: oropharynx normal and moist mucous membranes Throat: Yes uvula midline Eyes Pupils: Equal, round and reactive pupils present Neck Neck: Yes normal visual inspection, Yes no meningeal signs and Yes supple Resp Effort & Inspection: normal respiratory effort and able to speak in complete sentences Auscultation: clear to auscultation bilaterally Cardio Rate: regular rate Rhythm: regular rhythm Heart sounds: S1 normal heart sound present and S2 normal heart sound present GI Palpation (GI): Soft to palpation and nontender Auscultation: normoactive bowel sounds General: Yes no CVA tenderness Back/Spine/Pelvis Back: no CVA tenderness Thoracic/Lumbar Spine: thoracic and lumbar spine normal to inspection, pain with thoraco-lumbar ROM, No thoracic spinal tenderness, No lumbar spinal tenderness and straight leg raise positive bilateral Pelvis: no pain with anterior-posterior compression and no pain with lateral compression Skin General skin exam: elasticity normal and turgor normal Neuro General: oriented to person, oriented to place, oriented to time, patient oriented x3, gait normal, tone normal, moves all extremities, Normal light touch and pain sensation, no meningeal signs, no focal motor deficits, CN's II-XI intact bilaterally and deep tendon reflexes 2+ bilaterally Cranial nerves: Yes Equal, round and reactive pupils present Cognition (Neuro): normal cognition Motor exam (neuro): 5/5 motor strength present throughout Extrem General: Yes full ROM, Yes no pedal edema and Yes no calf tenderness Psych Mental Status: mental status grossly normal Affect: normal affect Thought process: Normal thought process present Medications Administered Discontinued Medications Generic Name Dose Route Start Last Admin Trade Name Toniq PRN Reason Stop Dose Admin Cyclobenzaprine HCl 10 mg 09/02/23 09:39 09/02/23 09:50 Cyclobenzaprine Hcl 10 Mg Tablet PO 09/02/23 09:40 10 mg ONCE ONE Administration Lidocaine 1 patch 09/02/23 09:39 09/02/23 09:49 Lidocaine 4 % Patch Adh..Patch TRANSDERMA 09/02/23 09:40 1 patch ONCE ONE Administration Protocol Naproxen 500 mg 09/02/23 09:39 09/02/23 09:50 Naproxen 500 Mg Tablet PO 09/02/23 09:40 500 mg ONCE ONE Administration Medical Decision Making Medical Decision Making [facility] Narrative: Patient is a 53-year-old [place]-speaking female presenting to the emergency department with complaint of lower back pain for years. On exam patient is awake, A+Ox3, VS WNL, afebrile, normal neurological exam without focal deficits, physical exam findings as above. Given reported symptoms and physical exam findings, initial differential includes osteoarthritis/degenerative disc disease, lumbar strain, lumbar radiculopathy, disc herniation, spinal stenosis, spondylosis. Less likely vertebral fracture. Do not suspect malignancy/mass, SEA, cauda equina/cord compression. X-ray notable for degenerative disc disease and muscle spasm. My interpretation is in agreement with the radiologist's interpretation. No evidence of infection on urinalysis. Will treat with cyclobenzaprine, lidocaine patches, recommend pain management given ongoing nature of symptoms. Return precautions discussed. Patient verbalized understanding of and agreement with plan. Differential Diagnosis Differential Diagnoses: The differential diagnosis associated with the presentation includes As per [facility]. Admission/Observation Consideration of admission/observation: Escalation of care including admission/observation considered Patient would have been admitted to the hospital had their work up had any findings where hospital admission was appropriate and their clinical presentation warranted hospital admission. Lab Data [facility] Lab Attestation statement: I reviewed the patient's lab results. As per [facility]. Labs: Lab Results 09/02/23 Range/Units 11:17 Urine Color Yellow Urine Appearance Clear Urine pH 5.5 (5.0-9.0) Ur Specific [place] >= 1.030 H (1.005-1.025) Urine Protein Negative (Neg-Trace) mg/dL Urine Glucose (UA) >=1000 H (Negative) mg/dL Urine Ketones Trace (Negative) mg/dL Urine Blood Trace H (Negative) Urine Nitrite Negative (Negative) Ur Leukocyte Esterase Negative (Negative) Independent Interpretation I performed an independent interpretation of an: Plain X-Ray Interpretation: Degenerative disc disease Radiology Impression Discussion of test interpretation with radiology: I have reviewed the radiologist's reading. Radiologist Impression: XR/XR lumbar spine 2-3V IMPRESSION: 1. Straightening of the normal lumbar lordosis, which may be positional or related to muscle spasm. 2. Mild multilevel degenerative disc disease, slightly progressed. Facet arthropathy at L5-S1. External Record Review External record reviewed: Inpatient record, Office record and Outpatient record Prescription Management I considered prescription management with: Pain Medication Discharge Plan Discharge Clinical Impression: Strain of lumbar region Patient Disposition: Home, Self-Care Instructions: Low Back Strain (ED) Additional Instructions: You were evaluated in the emergency department today for back pain. Your evaluation did not show signs of medical conditions requiring emergent intervention at this time. Given the ongoing nature of your symptoms, we recommend that you follow-up with pain management. We recommended that you use ibuprofen or Tylenol per package directions every 6 hours as needed for pain. If necessary, you can alternate these medications so that you take one medication every 3 hours. For instance, at noon take ibuprofen, then at 3:00 p.m. take Tylenol, then at 6:00 p.m. take ibuprofen. You have been prescribed a muscle relaxer which you may take every 8 hours as needed for spasms. You have been prescribed 5% topical lidocaine patches which you can wear for up to 12 hours in a 24 hour period. Do not apply heat directly over the patches. Please schedule an appointment for follow-up with your primary care physician this week for further evaluation of your symptoms. Return to the emergency department if you experience worsening back pain, difficulty walking, fevers, numbness, tingling, incontinence, groin numbness or tingling, or any other concerning symptoms. Prescriptions: New cyclobenzaprine 5 mg tablet 5 mg PO TID PRN (Reason: muscle spasm) Qty: 10 0RF lidocaine 5 % adhesive patch,medicated 1 patch topical DAILY Qty: 15 0RF Rx Instructions: leave on most painful area for up to 12 hrs No Action celecoxib 200 mg capsule 200 mg PO DAILY Qty: 30 0RF cetirizine 10 mg tablet 10 mg PO DAILY Qty: 30 0RF albuterol sulfate 0.63 mg/3 mL solution for nebulization 0.63 mg inhalation QID PRN (Reason: shortness of breath or wheezing) Qty: 75 0RF albuterol sulfate 90 mcg/actuation HFA aerosol inhaler 1 inh inhalation QID PRN (Reason: shortness of breath or wheezing) Qty: 8.5 0RF lisinopril 5 mg tablet 5 mg PO DAILY Qty: 30 0RF atorvastatin 40 mg tablet 40 mg PO QPM Qty: 30 0RF benzonatate 200 mg capsule 200 mg PO TID PRN (Reason: cough) Qty: 30 0RF ibuprofen 600 mg tablet 600 mg PO Q6H PRN (Reason: fever or pain) Qty: 30 0RF hydroxyzine HCl 25 mg tablet 25 mg PO TID PRN (Reason: anxiety) Qty: 10 0RF benzonatate 200 mg capsule 200 mg PO TID PRN (Reason: cough) Qty: 30 0RF aripiprazole 2 mg tablet 2 mg PO DAILY cefuroxime axetil 250 mg tablet 250 mg PO BID lidocaine [Lidoderm] 5 % adhesive patch,medicated 1 patch topical DAILY PRN Rx Instructions: leave on most painful area for up to 12 hrs metformin 1,000 mg tablet 1,000 mg PO BID Farxiga 5 mg tablet 5 mg PO DAILY trazodone 50 mg tablet 50 mg PO BEDTIME bisacodyl [Dulcolax (bisacodyl)] 5 mg tablet,delayed release (DR/EC) 20 mg PO ONCE 1 Days Qty: 4 0RF Rx Instructions: take 4 tabs at noon the day before your colonoscopy polyethylene glycol 3350 [Miralax] 17 gram/dose powder 238 g PO ONCE Qty: 238 0RF Rx Instructions: As directed by gastroenterology department at [facility] Print Language: [place]
[2023-09-02] MEDS: Lidocaine 4 % Patch ADH..PATCH 1 PATCH TRANSDERMA (09:49)
[2023-09-02] MEDS: Cyclobenzaprine HCl 10 MG TABLET PO (09:50)
[2023-09-02] MEDS: NaPROXEN 500 MG TABLET PO (09:50)
[2023-09-02 11:33] LABS: Appearance Urine Clear; Color Urine Yellow; Glucose Urine UA >=1000 mg/dL (Negative); Leukocyte Esterase Urine Negative (Negative); Nitrite Urine Negative (Negative); PH 5.5 (5.0-9.0); Specific Gravity - Urine >= 1.030 (1.005-1.025); UMIC TRIGGER UACC YES; Urine Blood Trace (Negative); Urine Ketones Trace mg/dL (Negative); Urine Protein Negative (Neg-Trace)
[2023-09-02 11:59] VITALS: BP 131/78; PULSE 67; RESP 16; TEMP 36.7; O2SAT 100
--- NOTE | 2023-09-02 12:00 | PC.NURSE ---
PT CLEARED FOR DISCHARGE, DISCHARGE INSTRUCTIONS REVIEWED WITH PT. GREGORY.
[2023-09-02 13:02] LABS: Bacteria Urine 3+ (None Seen); Hyaline Casts Urine 0-2 /LPF (0-2); WBC Urine 0-5 /HPF (0-5)
== END 2023-09-02 12:01 | disposition home or self-care (01) ==
PROVIDERS: Registered Nurse Emergency; Emergency Provider Emergency Medicine; PCP Student in an Organized Health Care Education/Training Program
DX: S39.012A Strain of muscle, fascia and tendon of lower back, initial encounter (principal); X58.XXXA Exposure to other specified factors, initial encounter; Y93.9 Activity, unspecified; Y92.9 Unspecified place or not applicable; Y99.8 Other external cause status; Z79.899 Other long term (current) drug therapy
CPT/HCPCS: 72100; 81001; 99283; 99284

== ENCOUNTER 2024-03-02 04:37 | Emergency (ER) | payer MEDICARE, SELFPAY ==
--- NOTE | ~2024-03-02 | CT_ITS ---
EXAMINATION: CT ABDOMEN AND PELVIS WITHOUT CONTRAST CLINICAL INFORMATION: Right flank pain COMPARISON: CT abdomen pelvis 09/14/2022 TECHNIQUE: Multidetector volumetric imaging was performed from the superior aspect of the liver through the pubic symphysis. Sagittal and coronal reformatted images were obtained on the technologist's workstation. This CT examination was performed using dose optimization techniques as appropriate, variously including the following: *Automated exposure control *Adjustment of mA and/or kV according to patient size (this includes techniques or standardized protocols for targeted exams where dose is matched to indication/reason for exam; i.e. extremities or head) *Use of iterative reconstruction technique DLP: 488 mGy-cm FINDINGS: LUNG BASES: The visualized lung bases are unremarkable. LIVER, GALLBLADDER, AND BILIARY TREE: The liver is normal in size, shape, and attenuation. No focal hepatic lesion or biliary ductal dilatation is present. Gallbladder is not visualized. PANCREAS: Unremarkable. SPLEEN: Unremarkable. ADRENAL GLANDS: Unremarkable. KIDNEYS AND URETERS: No hydronephrosis. No urolithiasis. No ureterectasis. No perinephric inflammatory changes. BLADDER: Unremarkable. GASTROINTESTINAL TRACT: Normal appearance of the appendix. Normal appearance of the terminal ileum. No intestinal dilatation or mural thickening. No free intraperitoneal fluid or gas collections. Normal appearance of the stomach and duodenum. ABDOMINAL WALL: No significant hernia is appreciated. LYMPH NODES: Normal. VASCULAR: Unremarkable. PELVIC VISCERA: The uterus is absent. No adnexal lesions noted. OSSEOUS STRUCTURES: No suspicious skeletal abnormalities. CT/CT abdomen pelvis wo IV con IMPRESSION: 1. No acute abnormalities identified. No urolithiasis. No hydronephrosis. Normal appearance of the appendix. 2. Status post cholecystectomy and hysterectomy. Electronically signed by: Hosea Infante MD 03/02/2024 06:40 AM EDT
--- NOTE | 2024-03-02 04:46 | ED_ITS ---
HPI - Abdominal Pain General Chief Complaint: Abdominal Pain Stated Complaint: severe abdominal pain Time Seen by Provider: 03/02/24 04:45 Source: patient, old records reviewed and university registrar Mode of arrival: ambulatory Limitations: no limitations History of Present Illness ED Provider: Cisco JUÁREZ narrative: 53 yo female with PMH of asthma, HTN, HLD, prior hysterectomy, prior cholecystectomy here with c/o abrupt onset R flank and abdominal pain that started at 3am and woke her with nausea. She had some loose stool in the waiting room. No fevers, no urinary issues. Has not had kidney stones before. Went to bed fine. MD elicited complaint: flank pain Pertinent past history: none Onset (ago): hour(s) (3am) Pain Consistency: constant Location: R flank Severity: severe Quality: stabbing Radiation: RLQ Migration to: no migration Exacerbating factors: movement Relieving factors: nothing Associated symptoms: nausea Related Data Home Medications ?Medication ?Instructions ?Recorded ?Confirmed aripiprazole 2 mg tablet 2 mg PO DAILY 06/01/20 cefuroxime axetil 250 mg tablet 250 mg PO BID 05/22/23 dapagliflozin propanediol 5 mg 5 mg PO DAILY 05/22/23 tablet (Farxiga) lidocaine 5 % topical patch 1 patch topical DAILY PRN 05/22/23 (Lidoderm) metformin 1,000 mg tablet 1,000 mg PO BID 05/22/23 trazodone 50 mg tablet 50 mg PO BEDTIME 05/22/23 Previous Rx's ?Medication ?Instructions ?Recorded albuterol sulfate 0.63 mg/3 mL 0.63 mg (3 mL) inhalation QID PRN 04/08/22 solution for nebulization shortness of breath or wheezing #75 mL albuterol sulfate 90 mcg/actuation 1 inh inhalation QID PRN shortness 04/08/22 aerosol inhaler of breath or wheezing #8.5 grams celecoxib 200 mg capsule 200 mg PO DAILY #30 caps 06/17/22 cetirizine 10 mg tablet 10 mg PO DAILY #30 tabs 06/17/22 atorvastatin 40 mg tablet 40 mg PO QPM #30 tabs 08/09/22 lisinopril 5 mg tablet 5 mg PO DAILY #30 tabs 08/09/22 hydroxyzine HCl 25 mg tablet 25 mg PO TID PRN anxiety #10 tabs 10/22/22 benzonatate 200 mg capsule 200 mg PO TID PRN cough #30 caps 03/06/23 bisacodyl 5 mg tablet,delayed 20 mg (4 x 5 mg) PO ONCE 1 day #4 05/22/23 release (Dulcolax (bisacodyl)) tabs polyethylene glycol 3350 17 238 g PO ONCE #238 grams 05/22/23 gram/dose oral powder (Miralax) benzonatate 200 mg capsule 200 mg PO TID PRN cough #30 caps 07/24/23 ibuprofen 600 mg tablet 600 mg PO Q6H PRN fever or pain 07/24/23 #30 tabs cyclobenzaprine 5 mg tablet 5 mg PO TID PRN muscle spasm #10 09/02/23 tabs lidocaine 5 % topical patch 1 patch topical DAILY #15 ea 09/02/23 bisacodyl 5 mg tablet,delayed 20 mg (4 x 5 mg) PO ONCE 1 day #4 09/18/23 release (Dulcolax (bisacodyl)) tabs polyethylene glycol 3350 17 238 g PO ONCE 1 day #238 grams 09/18/23 gram/dose oral powder (Miralax) ondansetron 4 mg disintegrating 4 mg PO Q8H PRN nausea and 03/02/24 tablet vomiting #20 tabs Allergies Allergy/AdvReac Type Severity Reaction Status Date / Time seasonal Allergy Unknown Itchy Eyes Uncoded 03/02/24 04:55 Review of Systems Review of Systems Constitutional : No Weight loss, No Fever, No Chills ENT/Mouth : No sore throat, No Rhinorrhea Eyes: No Swelling, No Redness Cardiovascular : No Chest Pain, No SOB, NoEdema Respiratory : No Cough, No Sputum, No Wheezing Gastrointestinal : Positive Nausea, no Vomiting, no Diarrhea, positive abdominal Pain, No Hematochezia, No Melena Genitourinary : No Dysuria, No Urinary Frequency, No Hematuria, No Urgency Musculoskeletal : No joint pain, No Myalgias, No Joint Swelling Skin : No Skin Lesions, No rash Neuro : No Weakness, No Numbness, No Dizziness, No Headache Psych : No Anxiety/Panic, No Depression All other systems reviewed and are negative. [facility] Past Medical History Attestation statement: The following information was validated with the patient. Source: old records reviewed Medical History Depression Anxiety Back pain Surgical History Hx of section Hx of cholecystectomy History of hysterectomy Family History Family History Mother Cancer Social History Social History Alcohol intake: current Alcohol intake frequency: holidays/special occasions only Smoked in Last 30 Days: No Use of substances other than those prescribed or required for medical reasons: Yes Substance Use Type Other:: edibles Advance Directives: No Advance Directives Information Provided: Yes Do you have a plan to hurt others: No Plan Physical Exam ED Vital Signs: Vital Signs - 24 hr 03/02/24 04:47 03/02/24 06:07 Temperature 98.2 F 98.5 F Pulse Rate 83 95 Respiratory Rate 16 16 Blood Pressure 156/69 H 119/62 Pulse Oximetry 96 97 Oxygen Delivery Method Room Air Room Air BMI result Body Mass Index 26.9 Appearance: Alert. Oriented X3. in pain mild acute distress. Eyes: Pupils equal, round and reactive to light. ENT: Pharynx normal. Neck: Normal inspection. Neck supple. CVS: Normal heart rate and rhythm. Pulses normal. Respiratory: No respiratory distress. Breath sounds normal. Abdomen: Soft and mild R abdominal ttp no rebound Skin: Skin warm and dry. Normal skin color. Normal skin turgor. Extremities: No lower extremity edema. No calf ttp Neuro: Oriented X 3. No motor deficit. No sensory deficit. Course Course Course Narrative: signed out to Dr. De pending UA results Medical Decision Making Medical Decision Making [facility] Narrative: 53 yo female with PMH of asthma, HTN, HLD, prior hysterectomy, prior cholecystectomy here with c/o R flank pain and nausea. No vomiting, mild loose stools. No urinary symptoms. At this time basic labs, UA and CT scan for renal colic ordered. IV toradol and morphine for pain ordered. Differential Diagnosis Differential Diagnoses: The differential diagnosis associated with the presentation includes renal colic, constipation, SBO Admission/Observation Consideration of admission/observation: Escalation of care including admission/observation considered pain improved feels much better Lab Data [facility] Lab Attestation statement: I reviewed the patient's lab results. 03/02/24 04:56 03/02/24 04:56 Labs: Lab Results 03/02/24 Range/Units 04:56 WBC 9.6 (4.8-10.8) X10*3/uL RBC 4.71 (4.20-5.50) X10*6/uL Hgb 13.5 (12.0-16.0) g/dl Hct 38.5 (37.0-47.0) % MCV 81.7 (80.0-98.0) fL MCH 28.7 (27.0-33.0) pg MCHC 35.1 H (31.0-35.0) g/dl RDW 13.1 (11.0-16.0) % Plt Count 289 (160-400) X10*3/uL MPV 9.7 (9.4-12.3) fL Immature Gran % (Auto) 0.2 (0.0-0.4) % Neut % (Auto) 53.0 (45-73) % Lymph % (Auto) 38.9 (20-40) % [place] % (Auto) 6.5 (2-11) % Eos % (Auto) 1.1 (0-4) % Baso % (Auto) 0.3 (0-2) % Lymph # (Auto) 3.8 (1.2-4.9) X10*3/uL [place] # (Auto) 0.6 (0.1-1.2) X10*3/uL Eos # (Auto) 0.1 (0.0-0.4) X10*3/uL Baso # (Auto) 0.0 (0.0-0.2) X10*3/uL Abs Immat Gran (auto) 0.02 (0.00-0.03) X10*3/uL Absolute Neuts (auto) 5.1 (2.0-8.3) x10*3/uL Absolute Nucleated RBC 0.000 (0.0-0.012) X10*3/uL Nucleated RBC % (auto) 0.0 (0.0-0.2) /100WBC Sodium 141 (135-145) mmol/L Potassium 3.3 (3.3-5.1) mmol/L Chloride 109 H (96-108) mmol/L Carbon Dioxide 22 (22-29) mmol/L Anion Gap 13 (12-20) BUN 10 (9-16) mg/dL Creatinine 0.68 (0.5-1.4) mg/dL Estim Creat Clear Calc 86.6 Estimated GFR > 60 Random Glucose 117 H (60-115) mg/dL Calcium 9.2 (8.4-10.2) mg/dL Magnesium 1.5 L (1.6-2.6) mg/dL Total Bilirubin 0.4 (0.0-1.0) mg/dL Direct Bilirubin 0.1 (0.0-0.5) mg/dL AST 30 (5-31) U/L ALT 38 H (0-31) U/L Alkaline Phosphatase 131 H (39-117) U/L Troponin I High Sens < 2.7 (<3.5-17.0) ng/L Total Protein 7.4 (6.5-8.0) g/dL Albumin 4.4 (3.5-5.0) g/dL Lipase 30 (8-78) U/L Independent Interpretation I performed an independent interpretation of an: EKG and CT Scan (no acute findings) Interpretation: Rate: 77 Rhythm: NSR [place]: left Normal P waves. Normal YAJAIRA. Normal QRS complex. ST T wave : inverted t waves V1 and III, no HODA qTC: 434 prior studies: no acute ischemia The study has been interpreted contemporaneously by me. . Radiology Impression Discussion of test interpretation with radiology: I have reviewed the radiologist's reading. External Record Review External record reviewed: Office record Prescription Management I considered prescription management with: Pain Medication and Other Medications Administered Generic Name Dose Route Start Last Admin Trade Name Freq PRN Reason Stop Dose Admin Magnesium Sulfate 2 gm in 50 mls @ 25 mls/hr 03/02/24 05:15 03/02/24 06:25 Magnesium Sulfate/H2o IV 03/02/24 07:14 25 mls/hr ONCE ONE Administration Discontinued Medications Generic Name Dose Route Start Last Admin Trade Name Freq PRN Reason Stop Dose Admin Ketorolac Tromethamine 15 mg 03/02/24 04:53 03/02/24 05:16 Ketorolac Tromethamine 15 Mg/Ml Vial IVPUSH 03/02/24 04:54 15 mg ONCE ONE Administration Morphine Sulfate 4 mg 03/02/24 04:53 03/02/24 05:17 Morphine Sulfate 4 Mg/Ml Cartridge IVPUSH 03/02/24 04:54 4 mg ONCE ONE Administration Protocol Ondansetron HCl 4 mg 03/02/24 04:53 03/02/24 05:17 Ondansetron Hcl 4 Mg/2 Ml Vial IVPUSH 03/02/24 04:54 4 mg ONCE ONE Administration Discharge Plan Discharge Clinical Impression: Acute flank pain, Hypomagnesemia Patient Disposition: Home, Self-Care Instructions: Abdominal Pain (ED), Hypomagnesemia (ED) Additional Instructions: normal labs, CT scan no acute findings please return for any worsening symptoms or concerns eat a bland diet and stay hydrated could be a small passed renal stone CT/CT abdomen pelvis wo IV con IMPRESSION: 1. No acute abnormalities identified. No urolithiasis. No hydronephrosis. Normal appearance of the appendix. 2. Status post cholecystectomy and hysterectomy. Prescriptions: New ondansetron 4 mg tablet,disintegrating 4 mg PO Q8H PRN (Reason: nausea and vomiting) Qty: 20 0RF No Action bisacodyl [Dulcolax (bisacodyl)] 5 mg tablet,delayed release (DR/EC) 20 mg PO ONCE 1 Days Qty: 4 0RF Rx Instructions: take at noon the day before colonoscopy polyethylene glycol 3350 [Miralax] 17 gram/dose powder 238 g PO ONCE 1 Days Qty: 238 0RF Rx Instructions: Take as directed by mouth the day before your procedure. celecoxib 200 mg capsule 200 mg PO DAILY Qty: 30 0RF cetirizine 10 mg tablet 10 mg PO DAILY Qty: 30 0RF albuterol sulfate 0.63 mg/3 mL solution for nebulization 0.63 mg inhalation QID PRN (Reason: shortness of breath or wheezing) Qty: 75 0RF albuterol sulfate 90 mcg/actuation HFA aerosol inhaler 1 inh inhalation QID PRN (Reason: shortness of breath or wheezing) Qty: 8.5 0RF lisinopril 5 mg tablet 5 mg PO DAILY Qty: 30 0RF atorvastatin 40 mg tablet 40 mg PO QPM Qty: 30 0RF benzonatate 200 mg capsule 200 mg PO TID PRN (Reason: cough) Qty: 30 0RF ibuprofen 600 mg tablet 600 mg PO Q6H PRN (Reason: fever or pain) Qty: 30 0RF cyclobenzaprine 5 mg tablet 5 mg PO TID PRN (Reason: muscle spasm) Qty: 10 0RF lidocaine 5 % adhesive patch,medicated 1 patch topical DAILY Qty: 15 0RF Rx Instructions: leave on most painful area for up to 12 hrs hydroxyzine HCl 25 mg tablet 25 mg PO TID PRN (Reason: anxiety) Qty: 10 0RF benzonatate 200 mg capsule 200 mg PO TID PRN (Reason: cough) Qty: 30 0RF aripiprazole 2 mg tablet 2 mg PO DAILY cefuroxime axetil 250 mg tablet 250 mg PO BID lidocaine [Lidoderm] 5 % adhesive patch,medicated 1 patch topical DAILY PRN Rx Instructions: leave on most painful area for up to 12 hrs metformin 1,000 mg tablet 1,000 mg PO BID Farxiga 5 mg tablet 5 mg PO DAILY trazodone 50 mg tablet 50 mg PO BEDTIME bisacodyl [Dulcolax (bisacodyl)] 5 mg tablet,delayed release (DR/EC) 20 mg PO ONCE 1 Days Qty: 4 0RF Rx Instructions: take 4 tabs at noon the day before your colonoscopy polyethylene glycol 3350 [Miralax] 17 gram/dose powder 238 g PO ONCE Qty: 238 0RF Rx Instructions: As directed by gastroenterology department at [facility] Forms: Work/School Release Print Language: Estonian
[2024-03-02 04:47] VITALS: BP 156/69; PULSE 83; RESP 16; TEMP 36.8; O2SAT 96; BMI 26.9
--- NOTE | 2024-03-02 04:53 | ECG_ITS ---
Test Reason : ABD PAIN Blood Pressure : / mmHG Vent. Rate : 077 BPM Atrial Rate : 077 BPM P-R Int : 190 ms QRS Dur : 078 ms QT Int : 384 ms P-R-T Axes : 046 005 023 degrees QTc Int : 434 ms Normal sinus rhythm Cannot rule out Anterior infarct (cited on or before 08-APR-2022) ; can be related to body habitus and lead placement Abnormal ECG When compared with ECG of 23-JUL-2023 16:21, No significant changes seen Referred By: Ruth Valentino Electronically Signed By:RAYMUNDO RIVERA
[2024-03-02 05:00] LABS: Basophils Percent Auto 0.3 % (0-2); Eosinophils Absolute Auto 0.1 X10*3/uL (0.0-0.4); Eosinophils Percent Auto 1.1 % (0-4); Hematocrit 38.5 % (37.0-47.0); Hemoglobin 13.5 g/dl (12.0-16.0); Imm Gran Abs Auto 0.02 X10*3/uL (0.00-0.03); Imm Gran Pct Auto 0.2 % (0.0-0.4); Lymphocytes Absolute Auto 3.8 X10*3/uL (1.2-4.9); Lymphocytes Percent Auto 38.9 % (20-40); MANUAL DIFF FLAG NO; Mean Corpuscular HGB Conc 35.1 g/dl (31.0-35.0); Mean Corpuscular Hemoglobin 28.7 pg (27.0-33.0); Mean Corpuscular Volume 81.7 fL (80.0-98.0); Mean Platelet Volume 9.7 fL (9.4-12.3); Monocytes Absolute Auto 0.6 X10*3/uL (0.1-1.2); Monocytes Percent Auto 6.5 % (2-11); Neutrophils Absolute Auto 5.1 x10*3/uL (2.0-8.3); Platelet Count 289 X10*3/uL (160-400); Red Blood Count 4.71 X10*6/uL (4.20-5.50); Red Cell Distribution Width 13.1 % (11.0-16.0); White Blood Count 9.6 X10*3/uL (4.8-10.8)
[2024-03-02 05:14] LABS: Alanine Aminotransferase 38 U/L (0-31); Albumin Level 4.4 g/dL (3.5-5.0); Alkaline Phosphatase 131 U/L (39-117); Anion Gap 13 (12-20); Aspartate Amino Transferase 30 U/L (5-31); Bilirubin Direct 0.1 mg/dL (0.0-0.5); Bilirubin Total 0.4 mg/dL (0.0-1.0); Blood Urea Nitrogen 10 mg/dL (9-16); Calcium 9.2 mg/dL (8.4-10.2); Carbon Dioxide 22 mmol/L (22-29); Chloride 109 mmol/L (96-108); Creatinine Clr Calc Pharmacy 86.6; Estimated Glomerular Filt Rate > 60; Glucose Random 117 mg/dL (60-115); Lipase 30 U/L (8-78); Magnesium 1.5 mg/dL (1.6-2.6); Potassium 3.3 mmol/L (3.3-5.1); Sodium 141 mmol/L (135-145); Total Protein 7.4 g/dL (6.5-8.0)
--- OUTSIDE RECORDS SUMMARY | 2024-03-02 05:14 | XMS_ITS | Continuity of Care Document ---
Author Organization [facility] Cherri nessa Address [address] [place] [address] Dr [address] [place] [address]- Care Team Providers Care Production Engine Repairer Name Role Phone Dara Perera MD Primary Care Physician [phone] Encounter [facility] Date(s): 09/01/20 - 10/29/20 [facility] [address] [place], [place] [address] Attending Physician: Renae Marley Referring Physician: Dara Perera MD Allergies, Adverse Reactions, Alerts No Known Medication Allergies Immunizations Given and Recorded Vaccine Date Status Refusal Reason influenza virus vaccine, inactivated 08/17/15 Give n influenza virus vaccine, inactivated 05/17/14 Give n influenza virus vaccine, inactivated 1 02/13/12 Gi denisse tetanus/diphtheria/pertussis, acel(Tdap) 2 10/15/12 Given 1Admin Note: PATIENT REFUSED 2Admin Note: vis given dated 05/29/2011 Medications ARIPiprazole 2 mg oral tablet Refills 0, Maintenance, 07/27/20 9:39:00 EDT, Partial fill upon patient request if the prescriptionis for a schedule II opioid drug. Start Date: 07/27/20 Status: Ordered metFORMIN 500 mg oral tablet, extended release 1 tablet = 500 mg, By Mouth, Daily, # 30 tablet, 5 Refills, Maintenance, 10/20/20 10:51:00 EDT, ER Tablet, [id number], Partial fill upon patient request if the prescription is for a schedule II opioid drug., 155, cm, 09/21/20 9:29:00 EDT, Height Start Date: 10/20/20 Status: Ordered Tylenol Extra Strength 500 mg oral tablet 1 tablet = 500 mg, By Mouth, 2 times a day, PRN Pain , Mild, # 50 tablet, 1 Refills, Maintenance, 04/07/20 15:50:00 EST, Tablet, [id number], 155, cm, 02/29/20 12:46:00 EDT, Height Start Date: 04/07/20 Status: Ordered Problem List Condition Effective Dates Status Health Status Inform ant Depression(Confirmed) Active *[facility] Fiction And Nonfiction Author Forrest Reaves [phone](Confirmed) Active Hysterectomy(Confirmed) 1 Active Overweight(Confirmed) Active Prediabetes(Confirmed) Active Prehypertension(Confirmed) Active Hepatic steatosis(Confirmed) Active 1D/T fibroids, ovaries remain ~ 2009 Social History Social History Type Response Smoking Status Never smoker entered on: 05/17/14 Sex Female
--- OUTSIDE RECORDS SUMMARY | 2024-03-02 05:14 | XMS_ITS | Continuity of Care Document ---
Author Organization [facility] Address [address] [place] [address]- Care Team Providers Care Instrument And Electrical Technician Name Role Phone Darion Linton MD Primary Care Physician [phone] Encounter [facility] Date(s): 04/30/19 - 06/21/19 [facility] [address] [place] [address]- [facility] Attending Physician: Sim Hernandez MD Admitting Physician: Sim Hernandez MD Allergies, Adverse Reactions, Alerts No Known Medication Allergies Immunizations Given and Recorded Vaccine Date Status Refusal Reason influenza virus vaccine, inactivated 08/17/15 Give n influenza virus vaccine, inactivated 05/17/14 Give n influenza virus vaccine, inactivated 1 02/13/12 Gi densise tetanus/diphtheria/pertussis, acel(Tdap) 2 10/15/12 Given 1Admin Note: PATIENT REFUSED 2Admin Note: vis given dated 05/29/2011 Medications ARIPiprazole 10 mg oral tablet 10 mg, 1, tablet, By Mouth, Daily, # 30 tablet, Refills 3, Tot. Refills 3, Maintenance, 05/16/18 8:57:03 EST, Route to Pharmacy Electronically, [id number], [facility] #[id number] Start Date: 05/16/18 Stop Date: 09/13/18 Status: Ordered Compression stockings Compression stockings, See Instructions, # 1 application, Refills 0, Tot. Refills 0, Maintenance, Use Daily I83.81 Varicose veins Compression 15-20 Knee high, 04/21/19 9:11:47 EST, Compression 15-20;Knee high, Compound Start Date: 04/21/19 Status: Ordered diclofenac 1% topical gel 1 application, Topically, 4 times a day, # 100 Gm, 4 Refills, Maintenance, 10/29/18 9:05:47 EDT, Gel, 1 application Topically 4 times a day Start Date: 10/29/18 Status: Ordered escitalopram 10 mg oral tablet via psychiatry, 0 Refills, Maintenance, 10/29/18 9:13:14 EDT Start Date: 10/29/18 Status: Ordered naproxen sodium 550 mg oral tablet 1 tablet = 550 mg, By Mouth, 2 times a day, PRN for pain, # 20 tablet, 0 Refills, Maintenance, 09/11/17 15:31:08 EDT, Tablet Start Date: 09/11/17 Status: Ordered Plantar fascitis left foot brace Plantar fascitis left foot brace, See Instructions, # 1 each, Refills 0, Tot. Refills 0, Maintenance, Dx: left plantar fascitis Duration: 3 months. Wear each night, 02/23/19 16:46:50 EDT, Compound Start Date: 02/23/19 Status: Ordered Splint See Instructions, # 1 each, Maintenance, elbow support brace dx epicondylitis ICD M77.11, 08/16/17 9:59:53 EDT, Compound Start Date: 08/16/17 Status: Ordered Problem List Condition Effective Dates Status Health Status Inform ant *[facility] Sales Commissions Analyst Forrest Reaves [phone](Confirmed) Active Hysterectomy(Confirmed) 1 Active Overweight(Confirmed) Active Prediabetes(Confirmed) Active 1D/T fibroids, ovaries remain ~ 2009 Social History Social History Type Response Smoking Status Never smoker entered on: 05/17/14 Sex Female
--- OUTSIDE RECORDS SUMMARY | 2024-03-02 05:14 | XMS_ITS | Continuity of Care Document ---
Author Organization [facility] Address [address] [place] [address]- Care Team Providers Care Licensed Journeyman Electrician Name Role Phone Dara Perera MD Primary Care Physician [phone] [place] [facility] Date(s): 12/09/19 - 01/08/20 [facility] [address] [place] [address]- [facility] Allergies, Adverse Reactions, Alerts No Known Medication [...] 07/08/19 15:06:00 EST Start Date: 07/08/19 Status: Ordered Compression stockings Compression stockings, See [...] 10:06:00 EDT, Gel, [id number], 155, cm, 07/08/19 15:25:00 EST, Height Start Date: 09/11/19 Status: Ordered escitalopram 10 mg oral tablet 1 tablet = 10 mg, By Mouth, Daily, via psychiatry, # 1 tablet, 1 Refills, Maintenance, 01/01/20 18:41:00 EDT, Tablet, [id number], 155, cm, 07/08/19 15:25:00 EST, Height Start Date: 01/01/20 Status: Ordered Tylenol Extra Strength 500 mg oral tablet 1 tablet = 500 mg, By Mouth, 2 times a day, PRN Pain , Mild, # 50 tablet, 0 Refills, Maintenance, 12/09/19 9:23:00 EDT, Tablet, [id number], 155, cm, 07/08/19 15:25:00 EST, Height Start Date: 12/09/19 Status: Ordered Problem List Condition Effective Dates Status Health Status Inform ant *[facility] Electric Meter Tester Helper Forrest Reaves [phone](Confirmed) Active Hysterectomy(Confirmed) 1 Active Overweight(Confirmed) Active Prediabetes(Confirmed) Active 1D/T fibroids, ovaries remain ~ 2009 Social History Social History Type Response Smoking Status Never smoker entered on: 05/17/14 Sex Female
--- OUTSIDE RECORDS SUMMARY | 2024-03-02 05:14 | XMS_ITS | Continuity of Care Document ---
Author Organization [facility] Address [address] [place] [address]- Care Team Providers Care Toy Packer Name Role Phone Darion Linton MD Primary Care Physician [phone] Encounter [facility] Date(s): 09/22/19 - 10/22/19 [facility] [address] [place] [address]- [facility] Attending Physician: Travis Cortes Admitting Physician: Admtr, Travis Referring Physician: Admtr, Ar8 Allergies, Adverse Reactions, [...] 9:13:14 EDT Start Date: 10/29/18 Status: Ordered Problem List Condition Effective Dates Status Health Status Inform ant *[facility] Pattern Perforating Machine Operator Forrest Reaves [phone](Confirmed) Active Hysterectomy(Confirmed) 1 Active Overweight(Confirmed) Active Prediabetes(Confirmed) Active 1D/T fibroids, ovaries remain ~ 2009 Social History Social History Type Response Smoking Status Never smoker entered on: 05/17/14 Sex Female
--- OUTSIDE RECORDS SUMMARY | 2024-03-02 05:14 | XMS_ITS | Continuity of Care Document ---
Author Organization [facility] Address [address] [place] [address]- Care Team Providers Care Laser Beam Trim Operator Name Role Phone Dara Perera MD Primary Care Physician Encounter [facility] Date(s): 05/09/20 - 06/08/20 [facility] [address] [place] [address]- Allergies, Adverse Reactions, Alerts No Known Medication [...] 15:50:00 EST, Gel, [id number], 155, cm, 02/29/20 12:46:00 EDT, Height Start Date: 04/07/20 Status: Ordered escitalopram 10 mg oral tablet 1 tablet = 10 mg, By Mouth, Daily, via psychiatry, # 1 tablet, 1 Refills, Maintenance, 01/01/20 18:41:00 EDT, Tablet, [id number], 155, cm, 07/08/19 15:25:00 EST, Height Start Date: 01/01/20 Status: Ordered lidocaine 4% topical film 1 patch, Topically, Daily, do not leave patch on for more than 8 hours at a time, # 6 each, 1 Refills, Maintenance, 04/07/20 15:49:00 EST, Film, [facility]/pharmacy #1, 1 patch Topically Daily,Instr:do not leave patch on for more than 8 hours at a time, 1... Start Date: 04/07/20 Status: Ordered naproxen 250 mg oral tablet 250 mg, 1, tablet, By Mouth, 2 times a day, PRN, Print instructions in amharic with food, # 20 tablet, Refills 1, Tot. Refills 1, Maintenance, for pain, 05/02/20 12:08:00 EST, Route to Pharmacy Electronically, [facility]/pharmacy #[id number], Partial fill upon pa... Start Date: 05/02/20 Status: Ordered Tylenol Extra Strength 500 mg oral tablet 1 tablet = 500 mg, By Mouth, 2 times a day, PRN Pain , Mild, # 50 tablet, 1 Refills, Maintenance, 04/07/20 15:50:00 EST, Tablet, [id number], 155, cm, 02/29/20 12:46:00 EDT, Height Start Date: 04/07/20 Status: Ordered Problem List Condition Effective Dates Status Health Status Inform [facility] Fabric Machine Operator Forrest Reaves [phone](Confirmed) Active Hysterectomy(Confirmed) 1 Active Overweight(Confirmed) Active Prediabetes(Confirmed) Active 1D/T fibroids, ovaries remain ~ 2009 Social History Social History Type Response Smoking Status Never smoker entered on: 05/17/14 Sex Female
--- OUTSIDE RECORDS SUMMARY | 2024-03-02 05:14 | XMS_ITS | Continuity of Care Document ---
Author Organization [facility] Address [address] [place] [address]- Care Team Providers Care Senior Clerk Name Role Phone Dara Perera MD Primary Care Physician [place] [facility] [place]s): 05/16/20 - 06/15/20 [facility] [address] [place] [address]- Attending Physician: Admtr, Travis Admitting Physician: Admtr, [id number] Referring Physician: Admtr, Ar8 Allergies, Adverse Reactions, [...] Film, [id number], 1 patch Topically Daily,Instr:do not leave patch on for more than 8 hours at a time, 1... Start Date: 04/07/20 Status: Ordered naproxen 250 mg oral tablet 250 mg, 1, tablet, By Mouth, 2 times a day, PRN, Print instructions in burkinan with food, # 20 tablet, Refills 1, Tot. Refills 1, Maintenance, for pain, 05/02/20 12:08:00 EST, Route to Pharmacy Electronically, [facility]/pharmacy #[id number], Partial fill upon pa... Start Date: [...] Condition Effective Dates Status Health Status Inform [facility] *[facility] Plate Glass Installer Helper Forrest Reaves [phone](Confirmed) Active Hysterectomy(Confirmed) 1 Active Overweight(Confirmed) Active Prediabetes(Confirmed) Active 1D/T fibroids, ovaries remain ~ 2009 Social History Social History Type Response Smoking Status Never smoker entered on: 05/17/14 Sex Female
--- OUTSIDE RECORDS SUMMARY | 2024-03-02 05:14 | XMS_ITS | Continuity of Care Document ---
Author Organization [facility] Adult Medicine Address [address] [place] [address]- Care Team Providers Care Social Welfare Administrator Name Role Phone Dara Perera MD Primary Care Physician [phone] Encounter [facility] Date(s): 05/09/20 - 06/08/20 [facility] Adult Medicine [address] [place] [address]- Allergies, Adverse Reactions, Alerts No Known Medication [...] 1 Refills, Maintenance, 04/07/20 15:49:00 EST, Film, [facility]/pharmacy #1, 1 patch Topically Daily,Instr:do not leave patch on for more than 8 hours at a time, 1... Start Date: 04/07/20 Status: Ordered naproxen 250 mg oral tablet 250 mg, 1, tablet, By Mouth, 2 times a day, PRN, Print instructions in ukrainian with food, # 20 tablet, Refills 1, Tot. Refills 1, Maintenance, for pain, 05/02/20 12:08:00 EST, Route to Pharmacy Electronically, [facility]/pharmacy #207, Partial fill upon pa... Start [...] Condition Effective Dates Status Health Status Inform [facility] Manager Exchange Forrest Reaves [phone](Confirmed) Active Hysterectomy(Confirmed) 1 Active Overweight(Confirmed) Active Prediabetes(Confirmed) Active 1D/T fibroids, ovaries remain ~ 2009 Social History Social History Type Response Smoking Status Never smoker entered on: 05/17/14 Sex Female
--- OUTSIDE RECORDS SUMMARY | 2024-03-02 05:14 | XMS_ITS | Continuity of Care Document ---
Author Organization [facility] Adult Medicine Address [address] [place] [address]- Care Team Providers Care Vegetable Preparer Name Role Phone Dara Perera MD Primary Care Physician [place] [facility] [place] 12/30/19 - 01/29/20 [facility] Adult Medicine [address] [place] [address]- [facility] Allergies, Adverse Reactions, Alerts No Known Medication [...] Effective Dates Status Health Status Inform ant *[facility] Burning Plant Operator Forrest Reaves [phone](Confirmed) Active Hysterectomy(Confirmed) 1 Active Overweight(Confirmed) Active Prediabetes(Confirmed) Active 1D/T fibroids, ovaries remain ~ 2009 Social History Social History Type Response Smoking Status Never smoker entered on: 05/17/14 Sex Female
--- OUTSIDE RECORDS SUMMARY | 2024-03-02 05:14 | XMS_ITS | Continuity of Care Document ---
Author Organization [facility] Adult Medicine Address [address] [place] [address]- Care Team Providers Care Heating Unit Installer Name Role Phone Dara Perera MD Primary Care Physician Encounter [facility] Date(s): 12/16/20 - 01/15/21 [facility] Adult Medicine [address] [place] [address]- Allergies, Adverse Reactions, Alerts No Known Medication [...] Status Health Status Inform ant Depression(Confirmed) Active *[facility] Logistics Officer Forrest Reaves [phone](Confirmed) Active Hysterectomy(Confirmed) 1 Active Overweight(Confirmed) Active Prediabetes(Confirmed) Active Prehypertension(Confirmed) Active Hepatic steatosis(Confirmed) Active 1D/T fibroids, ovaries remain ~ 2009 Social History Social History Type Response Smoking Status Never smoker entered on: 05/17/14 Sex Female
--- OUTSIDE RECORDS SUMMARY | 2024-03-02 05:14 | XMS_ITS | Continuity of Care Document ---
Author Organization [facility] Adult Medicine Address [address] [place] [address]- Care Team Providers Care Senior Ux Designer Name Role Phone Trever BOSWELL, Dara Primary Care Physician [phone] Encounter [facility] Date(s): 10/24/20 - 11/23/20 [facility] Adult Medicine [address] [place], [place] [address] Attending Physician: Travis Cortes Admitting Physician: AdmTravis toledo Referring Physician: AdmtrTravis Allergies, Adverse Reactions, Alerts [...] Maintenance, 10/20/20 10:51:00 EDT, ER Tablet, [id number], Partial fill upon patient request if the [...] Status Health Status Inform ant Depression(Confirmed) Active *[facility] Board Filler Forrest Reaves [phone](Confirmed) Active Hysterectomy(Confirmed) 1 Active Overweight(Confirmed) Active Prediabetes(Confirmed) Active Prehypertension(Confirmed) Active Hepatic steatosis(Confirmed) Active 1D/T fibroids, ovaries remain ~ 2009 Social History Social History Type Response Smoking Status Never smoker entered on: 05/17/14 Sex Female
--- OUTSIDE RECORDS SUMMARY | 2024-03-02 05:14 | XMS_ITS | Continuity of Care Document ---
Author Organization [facility] Adult [facility] Address [address] [place] [address]- Care Team Providers Care Head Worker Name Role Phone Dara Perera MD Primary Care Physician [place] [facility] [place]20 - 06/15/20 [facility] [address] [place] [address]- Attending Physician: Sim Hernandez MD Admitting Physician: [...] 1 Refills, Maintenance, 01/01/20 18:41:00 EDT, Tablet, [facility]/pharmacy #[id number], 155, cm, 07/08/19 15:25:00 EST, Height [...] times a day, PRN, Print instructions in kosovan with food, # 20 tablet, Refills 1, Tot. Refills 1, Maintenance, for pain, 05/02/20 12:08:00 EST, Route to Pharmacy Electronically, [facility]/pharmacy #207, Partial fill upon pa... Start [...] Condition Effective Dates Status Health Status Inform [facility] Environmental Services Attendant Forrest Reaves [phone](Confirmed) Active Hysterectomy(Confirmed) 1 Active Overweight(Confirmed) Active Prediabetes(Confirmed) Active 1D/T fibroids, ovaries remain ~ 2009 Social History Social History Type Response Smoking Status Never smoker entered on: 05/17/14 Sex Female
--- OUTSIDE RECORDS SUMMARY | 2024-03-02 05:14 | XMS_ITS | Continuity of Care Document ---
Author Organization [facility] Plastic Cherri nessa Address [address] [place] [address] [address] [place] [address]- Care Team Providers Care Manager Apple Name Role Phone Dara Perera MD Primary Care Physician [place] [facility] [place]/10/20 - 12/10/20 [facility] Plastic [address] [place], [place] [address] Attending Physician: AdmtrTravis Admitting Physician: Admtr, Ar8 Referring Physician: Admtr, Ar8 Allergies, Adverse Reactions, [...] Maintenance, 10/20/20 10:51:00 EDT, ER Tablet, [id number], Partial fill upon patient request if the [...] Status Health Status Inform ant Depression(Confirmed) Active *[facility] Steward/Stewardess Chief Cargo Vessel Forrest Reaves [phone](Confirmed) Active Hysterectomy(Confirmed) 1 Active Overweight(Confirmed) Active Prediabetes(Confirmed) Active Prehypertension(Confirmed) Active Hepatic steatosis(Confirmed) Active 1D/T fibroids, ovaries remain ~ 2009 Social History Social History Type Response Smoking Status Never smoker entered on: 05/17/14 Sex Female
--- OUTSIDE RECORDS SUMMARY | 2024-03-02 05:14 | XMS_ITS | Continuity of Care Document ---
Author Organization [facility] Adult Medicine Address [address] [place] [address]- Care Team Providers Care Import Dispatcher Name Role Phone Dara Perera MD Primary Care Physician [place] [facility] [place]07[place]20 - 08/06/20 [facility] Adult Medicine [address] [place] [address]- Allergies, Adverse Reactions, Alerts No Known Medication [...] opioid drug. Start Date: 07/27/20 Status: Ordered diclofenac 1% topical gel 1 application, Topically, 4 times a day, not to exceed 8 grams/day/single joint of upper extremities, # 100 Gm, 4 Refills, Maintenance, 04/07/20 15:50:00 EST, Gel, [id number], 155, cm, 02/29/20 12:46:00 EDT, Height Start Date: 04/07/20 Status: Ordered lidocaine 4% topical film 1 patch, Topically, Daily, do not leave patch on for more than 8 hours at a time, # 6 each, 1 Refills, Maintenance, 04/07/20 15:49:00 EST, Film, [id number], 1 patch Topically Daily,Instr:do not leave patch on for more than 8 hours at a time, 1... Start Date: 04/07/20 Status: Ordered naproxen 250 mg oral tablet 250 mg, 1, tablet, By Mouth, 2 times a day, PRN, Print instructions in wolof with food, # 20 tablet, Refills 1, Tot. Refills 1, Maintenance, for pain, 05/02/20 12:08:00 EST, [id number] fill upon pa... Start Date: 05/02/20 Status: Ordered Tylenol Extra Strength 500 mg oral tablet 1 tablet = 500 mg, By Mouth, 2 times a day, PRN Pain , Mild, # 50 tablet, 1 Refills, Maintenance, 04/07/20 15:50:00 EST, Tablet, [facility]/pharmacy #[id number], 155, cm, 02/29/20 12:46:00 EDT, Height Start Date: 04/07/20 Status: Ordered Problem List Condition Effective Dates Status Health Status Inform ant *[facility] Gas Examiner Forrest Reaves [phone](Confirmed) Active Hysterectomy(Confirmed) 1 Active Overweight(Confirmed) Active Prediabetes(Confirmed) Active Hepatic steatosis(Confirmed) Active 1D/T fibroids, ovaries remain ~ 2009 Social History Social History Type Response Smoking Status Never smoker entered on: 05/17/14 Sex Female
--- OUTSIDE RECORDS SUMMARY | 2024-03-02 05:14 | XMS_ITS | Continuity of Care Document ---
Author Organization [facility] Adult Medicine Address [address] [place] [address]- Care Team Providers Care Larry Operator Name Role Phone Trever BOSWELL, Dara Primary Care Physician En[facility] Date(s): 12/30/20 - 02/22/21 [facility] Adult Medicine [address] [place] [address] Attending Physician: Sim Hernandez MD Admitting Physician: [...] Maintenance, 10/20/20 10:51:00 EDT, ER Tablet, [id number], Partial fill upon patient request if the [...] Status Health Status Inform ant Depression(Confirmed) Active *[facility] Brand Specialist Forrest Reaves [phone](Confirmed) Active Hysterectomy(Confirmed) 1 Active Overweight(Confirmed) Active Prediabetes(Confirmed) Active Prehypertension(Confirmed) Active Hepatic steatosis(Confirmed) Active 1D/T fibroids, ovaries remain ~ 2009 Social History Social History Type Response Smoking Status Never smoker entered on: 05/17/14 Sex Female
--- OUTSIDE RECORDS SUMMARY | 2024-03-02 05:14 | XMS_ITS | Continuity of Care Document ---
Author Organization [facility] Adult Medicine Address [address] [place] [address]- Care Team Providers Care Electrical Equipment Assembler Name Role Phone Darion Linton MD Primary Care Physician Encounter [facility] Date(s): 07/08/19 - 07/18/19 [facility] Adult Medicine [address] [place] [address]- [facility] Attending Physician: Travis Cortes Admitting Physician: AdmtrTravis [...] Effective Dates Status Health Status Inform ant *[facility] Graphic Arts Instructor Forrest Reaves [phone](Confirmed) Active Hysterectomy(Confirmed) 1 Active Overweight(Confirmed) Active Prediabetes(Confirmed) Active 1D/T fibroids, ovaries remain ~ 2009 Social History Social History Type Response Smoking Status Never smoker entered on: 05/17/14 Sex Female
--- OUTSIDE RECORDS SUMMARY | 2024-03-02 05:14 | XMS_ITS | Continuity of Care Document ---
Author Organization [facility] Adult Medicine Address [address] [place] [address]- Care Team Providers Care Unit Nurse Name Role Phone Dara Perera MD Primary Care Physician [phone] [place] [facility] Date(s): 07/18/20 - 08/17/20 [facility] Adult Medicine [address] [place] [address]- Allergies, Adverse Reactions, Alerts No Known Medication [...] times a day, PRN, Print instructions in haitian with food, # 20 tablet, Refills 1, Tot. Refills 1, Maintenance, for pain, 05/02/20 12:08:00 EST, [id number] fill upon pa... Start Date: 05/02/20 Status: Ordered Tylenol Extra Strength 500 mg oral tablet 1 tablet = 500 mg, By Mouth, 2 times a day, PRN Pain , Mild, # 50 tablet, 1 Refills, Maintenance, 04/07/20 15:50:00 EST, Tablet, [facility]/pharmacy #[id number], 155, cm, 02/29/20 12:46:00 EDT, Height Start Date: 04/07/20 Status: Ordered Problem List Condition Effective Dates Status Health Status Inform ant *[facility] Price Clerk Forrest Reaves [phone](Confirmed) Active Hysterectomy(Confirmed) 1 Active Overweight(Confirmed) Active Prediabetes(Confirmed) Active Hepatic steatosis(Confirmed) Active 1D/T fibroids, ovaries remain ~ 2009 Social History Social History Type Response Smoking Status Never smoker entered on: 05/17/14 Sex Female
--- OUTSIDE RECORDS SUMMARY | 2024-03-02 05:14 | XMS_ITS | Continuity of Care Document ---
Author Organization [facility] Adult Medicine Address [address] [place] [address]- Care Team Providers Care Crtt Name Role Phone Dara Perera MD Primary Care Physician Encounter [facility] Date(s): 01/23/21 - 02/22/21 [facility] Adult Medicine [address] [place] [id number] Attending Physician: Travis Cortes Admitting Physician: AdmTravis [...] Maintenance, 10/20/20 10:51:00 EDT, ER Tablet, [id number], Partial fill upon patient request if the [...] Status Health Status Inform ant Depression(Confirmed) Active *[facility] Pneumatic Tester Mechanic Forrest Reaves [phone](Confirmed) Active Hysterectomy(Confirmed) 1 Active Overweight(Confirmed) Active Prediabetes(Confirmed) Active Prehypertension(Confirmed) Active Hepatic steatosis(Confirmed) Active 1D/T fibroids, ovaries remain ~ 2009 Social History Social History Type Response Smoking Status Never smoker entered on: 05/17/14 Sex Female
--- OUTSIDE RECORDS SUMMARY | 2024-03-02 05:14 | XMS_ITS | Continuity of Care Document ---
Author Organization [facility] Adult Medicine Address [address] [place] [address]- Care Team Providers Care Ict Managers Name Role Phone Dara Perera MD Primary Care Physician En[place] [facility] Date(s): 05/03/20 - 06/02/20 [facility] Adult Medicine [address] [place] [address]- Allergies, Adverse Reactions, Alerts No Known Medication [...] 1 Refills, Maintenance, 01/01/20 18:41:00 EDT, Tablet, [facility]/pharmacy #[id number], 155, cm, 07/08/19 15:25:00 EST, Height Start Date: 01/01/20 Status: Ordered lidocaine 4% topical film 1 patch, Topically, Daily, do not leave patch on for more than 8 hours at a time, # 6 each, 1 Refills, Maintenance, 04/07/20 15:49:00 EST, Film, [facility]/pharmacy #[id number], 1 patch Topically Daily,Instr:do not leave patch on for more than 8 hours at a time, 1... Start Date: 04/07/20 Status: Ordered meclizine 12.5 mg oral tablet 1 tablet = 12.5 mg, By Mouth, 3 times a day, PRN for dizziness, for 30 days, label in Wallisian, # 60tablet, 0 Refills, Acute 06/08/20 15:31:00 EST, 05/09/20 15:31:00 EST, Tablet, [facility]/pharmacy #[id number], Partial fill upon patient request if the prescriptio... Start Date: 05/09/20 Stop Date: 06/08/20 Status: Ordered naproxen 250 mg oral tablet 250 mg, 1, tablet, By Mouth, 2 times a day, PRN, Print instructions in new zealander with food, # 20 tablet, Refills 1, Tot. Refills 1, Maintenance, for pain, 05/02/20 12:08:00 EST, Route to Pharmacy Electronically, [facility]/pharmacy #[id number], Partial fill upon pa... Start Date: [...] Dates Status Health Status Inform ant *[facility] Turret Lathe Operator Forrest Reaves [phone](Confirmed) Active Hysterectomy(Confirmed) 1 Active Overweight(Confirmed) Active Prediabetes(Confirmed) Active 1D/T fibroids, ovaries remain ~ 2009 Social History Social History Type Response Smoking Status Never smoker entered on: 05/17/14 Sex Female
--- OUTSIDE RECORDS SUMMARY | 2024-03-02 05:14 | XMS_ITS | Continuity of Care Document ---
Author Organization [facility] nessa Address [address] [place] [address] [address] [place] [address]- Care Team Providers Care Global Marketing Manager Name Role Phone Trever BOSWELL, Dara Primary Care Physician [place] [facility] [place]20 - 11/19/20 [facility]astic [address] [place], [place] [address] Attending Physician: Renae Marley Allergies, Adverse [...] Status Health Status Inform ant Depression(Confirmed) Active *[facility] Statistical Financial Analyst Forrest Reaves [phone](Confirmed) Active Hysterectomy(Confirmed) 1 Active Overweight(Confirmed) Active Prediabetes(Confirmed) Active Prehypertension(Confirmed) Active Hepatic steatosis(Confirmed) Active 1D/T fibroids, ovaries remain ~ 2009 Social History Social History Type Response Smoking Status Never smoker entered on: 05/17/14 Sex Female
--- OUTSIDE RECORDS SUMMARY | 2024-03-02 05:14 | XMS_ITS | Continuity of Care Document ---
Author Organization [facility] Adult Medicine Address [address] [place] [address]- Care Team Providers Care Mixing Engineer Name Role Phone Trever BOSWELL, Dara Primary Care Physician Encounter [facility] Date(s): 08/01/20 - 08/31/20 [facility] Adult Medicine [address] [place], [place] [address] Allergies, Adverse Reactions, Alerts No Known Medication [...] times a day, PRN, Print instructions in italian with food, # 20 tablet, Refills 1, Tot. Refills 1, Maintenance, for pain, 05/02/20 12:08:00 EST, Route to Pharmacy Electronically, [facility]/pharmacy #[id number], Partial fill upon pa... Start Date: 05/02/20 Status: Ordered Tylenol Extra Strength 500 mg oral tablet 1 tablet = 500 mg, By Mouth, 2 times a day, PRN Pain , Mild, # 50 tablet, 1 Refills, Maintenance, 04/07/20 15:50:00 EST, Tablet, [facility]/pharmacy #[id number], 155, cm, 02/29/20 12:46:00 EDT, Height Start Date: 04/07/20 Status: Ordered Problem List Condition Effective Dates Status Health Status Inform ant *[facility] Train Announcer Forrest Reaves [phone](Confirmed) Active Hysterectomy(Confirmed) 1 Active Overweight(Confirmed) Active Prediabetes(Confirmed) Active Hepatic steatosis(Confirmed) Active 1D/T fibroids, ovaries remain ~ 2009 Social History Social History Type Response Smoking Status Never smoker entered on: 05/17/14 Sex Female
--- OUTSIDE RECORDS SUMMARY | 2024-03-02 05:14 | XMS_ITS | Continuity of Care Document ---
Author Organization [facility] Address [address] [place] [address]- Care Team Providers Care Warehouse Packaging Supervisor Name Role Phone Dara Perera MD Primary Care Physician [place] [facility] [place] Date(s): 10/14/20 - 11/13/[address] [address]- Attending Physician: Travis Cortes Admitting Physician: AdmtrTravis Referring Physician: AdmtrTravis Allergies, Adverse Reactions, Alerts [...] Maintenance, 10/20/20 10:51:00 EDT, ER Tablet, [id number], Partial fill upon patient request if the [...] Status Health Status Inform ant Depression(Confirmed) Active *[facility] Guide Plant Forrest Reaves [phone](Confirmed) Active Hysterectomy(Confirmed) 1 Active Overweight(Confirmed) Active Prediabetes(Confirmed) Active Prehypertension(Confirmed) Active Hepatic steatosis(Confirmed) Active 1D/T fibroids, ovaries remain ~ 2009 Social History Social History Type Response Smoking Status Never smoker entered on: 05/17/14 Sex Female
--- OUTSIDE RECORDS SUMMARY | 2024-03-02 05:14 | XMS_ITS | Continuity of Care Document ---
Author Organization [facility] Address [address] [place] [address]- Care Team Providers Care Supervisor Tile [employer] Mottle Name Role Phone Dara Perera MD Primary Care Physician En[place] [facility] [place] Date(s): 02/28/20 - 02/28/[address] [address] [facility] Encounter Diagnosis Back pain(Final) - 02/28/20 Ovarian cyst(Final) - 02/28/20 Discharge Disposition: A-D/C Home Attending Physician: Alis Olivia MD Admitting Physician: Alis Olivia MD Referring Physician: Not on Staff, Referring MD Allergies, Adverse Reactions, Alerts No Known [...] Refills, Maintenance, 09/11/19 10:06:00 EDT, Gel, [facility], 155, cm, 07/08/19 15:25:00 EST, Height Start Date: 09/11/19 Status: Ordered escitalopram 10 mg oral tablet 1 tablet = 10 mg, By Mouth, Daily, via psychiatry, # 1 tablet, 1 Refills, Maintenance, 01/01/20 18:41:00 EDT, Tablet, [facility], 155, cm, 07/08/19 15:25:00 EST, Height Start Date: 01/01/20 Status: Ordered lidocaine 4% topical film 1 patch, Topically, Daily, do not leave patch on for more than 8 hours at a time, # 6 each, 0 Refills, Acute 02/29/20 16:00:00 EDT, 02/28/20 15:45:00 EDT, Film, [id number], 1 patch Topically Daily,Instr:do not leave patch on for more than 8 ho... Start Date: 02/28/20 Stop Date: 02/29/20 Status: Ordered Tylenol Extra Strength 500 mg oral tablet 1 tablet = 500 mg, By Mouth, 2 times a day, PRN Pain , Mild, # 50 tablet, 0 Refills, Maintenance, 12/09/19 9:23:00 EDT, Tablet, [id number], 155, cm, 07/08/19 15:25:00 EST, Height Start Date: 12/09/19 Status: Ordered Problem List Condition Effective Dates Status Health Status Inform [facility] *[facility] Keg Inspector Forrest Reaves [phone](Confirmed) Active Hysterectomy(Confirmed) 1 Active Overweight(Confirmed) Active Prediabetes(Confirmed) Active 1D/T fibroids, ovaries remain ~ 2009 Vital Signs Most recent to oldest [Reference Range]: 1 2 Oxygen Saturation [94-100 %] 100 % (02/28/20 12:57 PM) 100 % (02/28/20 12:12 PM) Pulse Rate [55-90 bpm] 89 bpm (02/28/20 12:57 PM) 100 bpm *H* (02/28/20 12:12 PM) Blood Pressure [90-138/55-84 mm Hg] 141/ 80mm Hg *H* (02/28/20 12:57 PM) Respiratory Rate [16-30 br/min] 14 br/mi n *L* (02/28/20 12:57 PM) Temperature [96.8-100.4 DegF] 97.9 DegF (02/28/20 12:57 PM) Mode of Delivery (Oxygen) Room air (02/28/20 12:57 PM) Room air (02/28/20 12:12 PM) Blood pressure sites Arm, right (02/28/20 12:57 PM) Temperature Route Oral (02/28/20 12:57 PM) Social History Social History Type Response Smoking Status Never smoker entered on: 05/17/14 Sex Female
--- OUTSIDE RECORDS SUMMARY | 2024-03-02 05:14 | XMS_ITS | Continuity of Care Document ---
Author Organization [facility] Plastic Cherri nessa Address [address] [place] [address] [address] [place] [address]- Care Team Providers Care Mold Unloader Name Role Phone Trever BOSWELL, Dara Primary Care Physician En[facility] [place] Date(s): 09/01/20 - 10/01/20 [facility] [address] [place], [place] [address] Attending Physician: Renae Marley Allergies, Adverse Reactions, [...] 9:29:00 EDT, Height Start Date: 09/21/20 Status: Ordered Tylenol Extra Strength 500 mg oral tablet 1 tablet = 500 mg, By Mouth, 2 times a day, PRN Pain , Mild, # 50 tablet, 1 Refills, Maintenance, 04/07/20 15:50:00 EST, Tablet, [id number], 155, cm, 02/29/20 12:46:00 EDT, Height Start Date: 04/07/20 Status: Ordered Problem List Condition Effective Dates Status Health Status Inform ant Depression(Confirmed) Active *[facility] Bulk Intake Worker Forrest Reaves [phone](Confirmed) Active Hysterectomy(Confirmed) 1 Active Overweight(Confirmed) Active Prediabetes(Confirmed) Active Prehypertension(Confirmed) Active Hepatic steatosis(Confirmed) Active 1D/T fibroids, ovaries remain ~ 2009 Social History Social History Type Response Smoking Status Never smoker entered on: 05/17/14 Sex Female
--- OUTSIDE RECORDS SUMMARY | 2024-03-02 05:14 | XMS_ITS | Continuity of Care Document ---
Author Organization [facility] Address [address] [place] [address]- Care Team Providers Care Tub Attendant Name Role Phone Darion Linton MD Primary Care Physician [phone] Encounter [facility] Date(s): 09/11/19 - 09/18/19 [facility] [address] [place] [id number]- [facility] Attending Physician: Mary BOSWELL, Sim Menjivar Allergies, Adverse Reactions, Alerts No Known Medication [...] Effective Dates Status Health Status Inform ant *[facility] Bunch Maker Hand Forrest Reaves [phone](Confirmed) Active Hysterectomy(Confirmed) 1 Active Overweight(Confirmed) Active Prediabetes(Confirmed) Active 1D/T fibroids, ovaries remain ~ 2009 Social History Social History Type Response Smoking Status Never smoker entered on: 05/17/14 Sex Female
--- OUTSIDE RECORDS SUMMARY | 2024-03-02 05:14 | XMS_ITS | Continuity of Care Document ---
Author Organization [facility] Address [address] [place] [id number]- Care Team Providers Care Bioinformatics Associate Name Role Phone Darion Linton MD Primary Care Physician Encounter [facility] Date(s): 09/22/19 - 09/29/19 [facility] [address] [place] [id number]- [facility] Attending Physician: Toan Singh MD Allergies, Adverse Reactions, Alerts No Known [...] Inform ant *[facility] Mixer Operator Vacuum Pan Salt Forrest Reaves [phone](Confirmed) Active Hysterectomy(Confirmed) 1 Active Overweight(Confirmed) Active Prediabetes(Confirmed) Active 1D/T fibroids, ovaries remain ~ 2009 Social History Social History Type Response Smoking Status Never smoker entered on: 05/17/14 Sex Female
[2024-03-02] MEDS: Ketorolac Tromethamine 15 MG/ML VIAL IVPUSH (05:16)
[2024-03-02] MEDS: Morphine Sulfate 4 MG/ML CARTRIDGE IVPUSH (05:17)
[2024-03-02] MEDS: ondansetron HCL 4 MG/2 ML VIAL IVPUSH (05:17)
[2024-03-02 05:21] LABS: Troponin-I High Sensitivity < 2.7 ng/L (<3.5-17.0)
[2024-03-02 06:07] VITALS: BP 119/62; PULSE 95; RESP 16; TEMP 36.9; O2SAT 97
[2024-03-02] MEDS: Magnesium Sulfate/H2O 2 GM/50 ML PIGGYBACK IV (06:25)
[2024-03-02 07:14] VITALS: BP 145/75; PULSE 81; RESP 18; TEMP 36.8; O2SAT 97
[2024-03-02 07:29] LABS: Appearance Urine Cloudy; Color Urine Yellow; Glucose Urine UA >=1000 mg/dL (Negative); Leukocyte Esterase Urine Negative (Negative); Nitrite Urine Negative (Negative); PH 5.5 (5.0-9.0); Specific Gravity - Urine >= 1.030 (1.005-1.025); UMIC TRIGGER UACC YES; Urine Blood Small (1+) (Negative); Urine Ketones Trace mg/dL (Negative); Urine Protein 100 (2+) mg/dL (Neg-Trace)
[2024-03-02 07:44] LABS: Bacteria Urine 3+ (None Seen); Hyaline Casts Urine 0-2 /LPF (0-2); UACC Culture Trigger YES
[2024-03-02 08:30] VITALS: BP 145/75; PULSE 81; RESP 18; TEMP 36.8; O2SAT 97
== END 2024-03-02 08:30 | disposition home or self-care (01) ==
PROVIDERS: Emergency Provider Emergency Medicine; PCP Student in an Organized Health Care Education/Training Program
DX: R10.9 Unspecified abdominal pain (principal); E83.42 Hypomagnesemia; I10 Essential (primary) hypertension; E78.5 Hyperlipidemia, unspecified; J45.909 Unspecified asthma, uncomplicated; Z79.84 Long term (current) use of oral hypoglycemic drugs; Z79.02 Long term (current) use of antithrombotics/antiplatelets; Z79.899 Other long term (current) drug therapy
CPT/HCPCS: 36415; 74176; 80048; 80076; 81001; 83690; 83735; 84484; 85025; 87086; 93005; 96365; 96366; 96375; 99284; 99285; J1885; J2270; J2405; J3475

== ENCOUNTER → 2024-03-02 04:53 | Outpatient (BNV) | payer MEDICARE, SELFPAY | PROVIDERS: Emergency Provider Emergency Medicine; PCP Student in an Organized Health Care Education/Training Program; Visit Provider Internal Medicine | DX: R94.31 Abnormal electrocardiogram [ECG] [EKG] (principal) | CPT/HCPCS: 93010 ==

== ENCOUNTER 2024-04-06 15:54 | Outpatient (REF) | payer MEDICARE, SELFPAY ==
--- NOTE | ~2024-04-06 | MM_ITS ---
EXAMINATION: MM SCREENING DIGITAL BREAST TOMOSYNTHESIS, BILATERAL CLINICAL INFORMATION: Screening. Asymptomatic. COMPARISON: Mammography: Comparison is made with available priors TECHNIQUE: Digital breast mammography with tomosynthesis is performed in both the craniocaudal and mediolateral oblique views along with computer-aided detection (CAD). FINDINGS: There are scattered areas of fibroglandular density (ACR BI-RADS breast composition Category b). There are no significant masses, abnormal calcifications, or other abnormalities. MM/MM tomosynthesis screening BI IMPRESSION: No mammographic evidence of malignancy. ASSESSMENT: BI-RADS BI-RADS 1 - Negative RECOMMENDATION: Routine annual mammography screening. 1 year F/U This examination should not preclude the clinical evaluation of a suspicious palpable abnormality. This patient's information was entered into a reminder system with a target due date for their next mammogram. Electronically signed by: Tere Pizano DO 04/13/2024 10:44 AM LORI
== END 2024-04-06 15:55 | disposition home or self-care (01) ==
LOC: HO.MAMMO 15:54
PROVIDERS: PCP Student in an Organized Health Care Education/Training Program; Visit Provider Student in an Organized Health Care Education/Training Program
DX: Z12.31 Encounter for screening mammogram for malignant neoplasm of breast (principal)
CPT/HCPCS: 77063; 77067

== ENCOUNTER → 2024-04-06 16:15 | Outpatient (BNV) | payer MEDICARE, SELFPAY | PROVIDERS: PCP Student in an Organized Health Care Education/Training Program; Visit Provider Internal Medicine | DX: Z12.31 Encounter for screening mammogram for malignant neoplasm of breast (principal) | CPT/HCPCS: 77063; 77067 ==

== ENCOUNTER 2024-04-14 11:00 | Outpatient (REF) | payer MEDICARE, SELFPAY ==
[2024-04-14 11:40] LABS: Urine Cytology See Pathology rpt
[2024-04-14 11:43] LABS: Appearance Urine Cloudy; Color Urine Yellow; Glucose Urine UA >=1000 mg/dL (Negative); Leukocyte Esterase Urine Trace (Negative); Nitrite Urine Negative (Negative); PH 5.5 (5.0-9.0); Specific Gravity - Urine >= 1.030 (1.005-1.025); UMIC TRIGGER UA YES; Urine Blood Small (1+) (Negative); Urine Ketones Trace mg/dL (Negative); Urine Protein Trace mg/dL (Neg-Trace)
[2024-04-14 11:57] LABS: Hematocrit 39.2 % (37.0-47.0); Hemoglobin 13.5 g/dl (12.0-16.0); Mean Corpuscular HGB Conc 34.4 g/dl (31.0-35.0); Mean Corpuscular Hemoglobin 28.8 pg (27.0-33.0); Mean Corpuscular Volume 83.8 fL (80.0-98.0); Mean Platelet Volume 10.3 fL (9.4-12.3); Platelet Count 285 X10*3/uL (160-400); Red Blood Count 4.68 X10*6/uL (4.20-5.50); Red Cell Distribution Width 13.2 % (11.0-16.0); White Blood Count 8.6 X10*3/uL (4.8-10.8)
[2024-04-14 12:10] LABS: Bacteria Urine 4+ (None Seen); Hyaline Casts Urine 0-2 /LPF (0-2); Squamous Epithelial Cell Urine >20 /HPF (0-2); WBC Urine 21-50 /HPF (0-5)
[2024-04-14 12:16] LABS: Estimated Average Glucose 128 mg/dL; Hemoglobin A1C 146.8379 umol/L; Hemoglobin A1c % 6.1 % (<6.0)
[2024-04-14 12:43] LABS: HBS Num1 74.46 mIU/mL (0-7.99); HBc Num1 0.08 S/CO (0.00-0.79); HBsAGNum1 0.41 S/CO (0.00-0.99); HIV AB/AG Nonreactive (Nonreactive); HIV Num 1 0.06 S/CO (0.00-0.99); Hepatitis B Core Antibody Nonreactive (Nonreactive); Hepatitis B Surface Antigen Negative (Negative); ~HepC Num1 0.15 S/CO (0.00-0.79); ~Hepatitis B Surface Antibody REACTIVE (Nonreactive); ~Hepatitis C Antibody Nonreactive (Nonreactive)
[2024-04-14 12:44] LABS: Syphilis Screen Nonreactive (Nonreactive)
[2024-04-14 12:50] LABS: TSH reflex Free T4 2.78 uIU/mL (0.32-4.0)
[2024-04-14 13:00] LABS: Anion Gap 12 (12-20)
[2024-04-14 13:04] LABS: Folate 12.1 ng/mL (> or = 4.0); Vitamin B12 229 pg/mL (200-900)
[2024-04-14 13:05] LABS: Alanine Aminotransferase 32 U/L (0-31); Albumin Level 4.3 g/dL (3.5-5.0); Alkaline Phosphatase 107 U/L (39-117); Aspartate Amino Transferase 25 U/L (5-31); Bilirubin Total 0.6 mg/dL (0.0-1.0); Blood Urea Nitrogen 9 mg/dL (9-16); Calcium 8.6 mg/dL (8.4-10.2); Carbon Dioxide 28 mmol/L (22-29); Chloride 107 mmol/L (96-108); Cholesterol 132 mg/dL (<200); Estimated Glomerular Filt Rate > 60; Glucose Random 97 mg/dL (60-115); HDL Cholesterol 34 mg/dL (>40); LDL Cholesterol Calculated 65 mg/dL (<100); Potassium 3.6 mmol/L (3.3-5.1); Sodium 143 mmol/L (135-145); Total Protein 7.3 g/dL (6.5-8.0); Triglycerides 166 mg/dL (<150)
[2024-04-14 13:10] LABS: Creatinine Urine 239.19 mg/dL
[2024-04-14 13:37] LABS: CT PCR NOT DETECTED (Not Detect.); NG PCR NOT DETECTED (Not Detect.)
== END 2024-04-14 11:01 | disposition home or self-care (01) ==
LOC: HO.HHCL 11:00
PROVIDERS: Visit Provider Student in an Organized Health Care Education/Training Program
DX: Z00.00 Encounter for general adult medical examination without abnormal findings (principal); R31.9 Hematuria, unspecified; Z13.1 Encounter for screening for diabetes mellitus
CPT/HCPCS: 80053; 80061; 81001; 82043; 82570; 82607; 82746; 83036; 84443; 85027; 86704; 86706; 86780; 86803; 87340; 87389; 87491; 87591; 88112

== ENCOUNTER 2024-07-02 15:37 | Outpatient (REF) | payer MEDICARE, SELFPAY ==
--- OUTSIDE RECORDS SUMMARY | 2024-07-02 19:01 | XMS_ITS | Clinical Summary ---
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 Halftone Operator Name Role Phone Unavailable Primary Care Provider Unavailabl e Social History Tobacco Use Types Packs/Day Years Used Date Smoking Tobacco: Never Assessed Comments Unknown Sex and Gender Information Value Date Recorded Sex Assigned at Not on file Legal Sex Female 8:28 AM EST Gender Identity Not on file Sexual Orientation Not on file Plan of Treatment Health Maintenance Due Date Last Done Comments Breast Cancer Screening 1971 DTaP,Tdap,and Td Vaccines (1 - Tdap) 1990 Hepatitis B Vaccines (1 of 3 - 19+ 3-dose series) 1990 Cervical Cancer Screening: P ap Smear 1992 Pneumococcal Vaccine: 50+ Ye ars (1 of 1 - PCV) 2021 Zoster Vaccines (1 of 2) 2021 COVID-19 Vaccine ( - 2023-2 5 season) 2024 Influenza Vaccine (#1) 2024 HIB Vaccines Aged Out No longer eligi ble based on patient's age to complete this topic HPV Vaccines Aged Out No longer eligi ble based on patient's age to complete this topic Hepatitis A Vaccines Aged Out No long er eligible based on patient's age to complete this topic IPV Vaccines Aged Out No longer eligi ble based on patient's age to complete this topic MMR Vaccines Aged Out No longer eligi ble based on patient's age to complete this topic Meningococcal ACWY Vaccine Aged Out N o longer eligible based on patient's age to complete this topic Meningococcal B Vacine Aged Out No lo nger eligible based on patient's age to complete this topic Pneumococcal Vaccine: Pediat rics (0 to 5 Years) and At-Risk Patients (6 to 64 Years) Aged Out No longer eligible b ased on patient's age to complete this topic RSV Immunization Patients Un radha 20 months Aged Out No longer eligible b ased on patient's age to complete this topic Varicella Vaccines Aged Out No longer eligible based on patient's age to complete this topic
[2024-07-05 13:48] LABS: TS Negative Control Passed; TS Panel A 0; TS Panel B 0; TS Positive Control Passed; TSpotTB Negative (Negative)
== END 2024-07-02 15:38 | disposition home or self-care (01) ==
LOC: HO.HHCL 15:37
PROVIDERS: Visit Provider Internal Medicine
DX: Z00.00 Encounter for general adult medical examination without abnormal findings (principal); Z11.1 Encounter for screening for respiratory tuberculosis
CPT/HCPCS: 36415; 86481

== ENCOUNTER 2024-07-23 11:22 | Emergency (ER) | payer MEDICARE, SELFPAY ==
[2024-07-23 11:26] VITALS: BP 143/77; PULSE 104; RESP 20; TEMP 37.2; O2SAT 98; BMI 27.1
--- NOTE | 2024-07-23 11:28 | ECG_ITS ---
Test Reason : weakness Blood Pressure : */* mmHG Vent. Rate : 96 BPM Atrial Rate : 96 BPM P-R Int : 176 ms QRS Dur : 72 ms QT Int : 358 ms P-R-T Axes : 31 21 36 degrees QTcB Int : 452 ms Normal sinus rhythm Nonspecific T wave abnormality Abnormal ECG When compared with ECG of 02-Mar-2024 04:53, No significant change was found Referred By: Ruth Valentino Electronically Signed By: Johnie Rocha
[2024-07-23] MEDS: 0.9 % Sodium Chloride 1,000 ML 999 ML IV (11:48)
[2024-07-23] MEDS: ondansetron HCL 4 MG/2 ML VIAL IVPUSH (11:49)
[2024-07-23] MEDS: LORazepam 2 MG/ML VIAL 0.5 MG IVPUSH (11:50)
--- NOTE | 2024-07-23 11:58 | ED_ITS ---
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 Her friend brought her here after a severe panic attack and then ran into ED stating patient was unresponsive in the car. The patient was awake, no LOC, forcing eyes shut having carpopedal spasms. She denies trauma, SI/HI, at this time. She has not had CP/SOB or fevers. MD elicited complaint: nausea, vomiting and diarrhea Onset (ago): day(s) (1) Description of vomiting: watery Description of diarrhea: watery Associated nausea: Yes Associated abdominal pain: Yes Location of pain: diffuse Radiation: diffuse Pain consistency: intermittent Severity: mild Quality: cramping Exacerbating factors: eating Relieving factors: none Context: sick contacts Associated symptoms: headaches, loss of appetite, malaise, nausea/vomiting, weakness and anxiety Related Data Home Medications ?Medication ?Instructions ?Recorded ?Confirmed aripiprazole 2 mg tablet 2 mg PO DAILY 06/01/20 cefuroxime axetil 250 mg tablet 250 mg PO BID 05/22/23 dapagliflozin propanediol 5 mg 5 mg PO DAILY 05/22/23 tablet (Farxiga) lidocaine 5 % topical patch 1 patch topical DAILY PRN 05/22/23 (Lidoderm) metformin 1,000 mg tablet 1,000 mg PO BID 05/22/23 trazodone 50 mg tablet 50 mg PO BEDTIME 05/22/23 Previous Rx's ?Medication ?Instructions ?Recorded albuterol sulfate 0.63 mg/3 mL 0.63 mg (3 mL) inhalation QID PRN 04/08/22 solution for nebulization shortness of breath or wheezing #75 mL albuterol sulfate 90 mcg/actuation 1 inh inhalation QID PRN shortness 04/08/22 aerosol inhaler of breath or wheezing #8.5 grams celecoxib 200 mg capsule 200 mg PO DAILY #30 caps 06/17/22 cetirizine 10 mg tablet 10 mg PO DAILY #30 tabs 06/17/22 atorvastatin 40 mg tablet 40 mg PO QPM #30 tabs 08/09/22 lisinopril 5 mg tablet 5 mg PO DAILY #30 tabs 08/09/22 hydroxyzine HCl 25 mg tablet 25 mg PO TID PRN anxiety #10 tabs 10/22/22 benzonatate 200 mg capsule 200 mg PO TID PRN cough #30 caps 03/06/23 bisacodyl 5 mg tablet,delayed 20 mg (4 x 5 mg) PO ONCE 1 day #4 05/22/23 release (Dulcolax (bisacodyl)) tabs polyethylene glycol 3350 17 238 g PO ONCE #238 grams 05/22/23 gram/dose oral powder (Miralax) benzonatate 200 mg capsule 200 mg PO TID PRN cough #30 caps 07/24/23 ibuprofen 600 mg tablet 600 mg PO Q6H PRN fever or pain 07/24/23 #30 tabs cyclobenzaprine 5 mg tablet 5 mg PO TID PRN muscle spasm #10 09/02/23 tabs lidocaine 5 % topical patch 1 patch topical DAILY #15 ea 09/02/23 bisacodyl 5 mg tablet,delayed 20 mg (4 x 5 mg) PO ONCE 1 day #4 09/18/23 release (Dulcolax (bisacodyl)) tabs polyethylene glycol 3350 17 238 g PO ONCE 1 day #238 grams 09/18/23 gram/dose oral powder (Miralax) ondansetron 4 mg disintegrating 4 mg PO Q8H PRN nausea and 03/02/24 tablet vomiting #20 tabs ondansetron 4 mg disintegrating 4 mg PO Q8H PRN nausea and 07/23/24 tablet vomiting #20 tabs potassium chloride 20 mEq 20 meq PO DAILY #5 tabs 07/23/24 tablet,extended release Allergies Allergy/AdvReac Type Severity Reaction Status Date / Time seasonal Allergy Unknown Itchy Eyes Uncoded 07/23/24 11:27 Review of Systems 2 Review of Systems: Constitutional : No Weight loss, No Fever, No Chills ENT/Mouth : No sore throat, No Rhinorrhea Eyes: No Swelling, No Redness Cardiovascular : No Chest Pain, No SOB, NoEdema Respiratory : No Cough, No Sputum, No Wheezing Gastrointestinal : Positive Nausea, Positive Vomiting, positive Diarrhea, positive abdominal Pain, No Hematochezia, No Melena Genitourinary : No Dysuria, No Urinary Frequency, No Hematuria, No Urgency Musculoskeletal : No joint pain, No Myalgias, No Joint Swelling Skin : No Skin Lesions, No rash Neuro : No Weakness, No Numbness, No Dizziness, No Headache Psych : pos Anxiety/Panic, No Depression All other systems reviewed and are negative. Gastrointestinal: Gastrointestinal: Reports nausea PMFSH Past Medical History Attestation statement: The following information was validated with the patient. Source: old records reviewed Medical History Depression Anxiety Back pain Surgical History Hx of section Hx of cholecystectomy History of hysterectomy Family History Family History Mother Cancer Social History Social History Alcohol intake: current Alcohol intake frequency: holidays/special occasions only Smoked in Last 30 Days: No Use of substances other than those prescribed or required for medical reasons: No Advance Directives: No Advance Directives Information Provided: Yes Physical Exam 2 Vital Signs: Vital Signs: Last Vital Signs Temp 99.1 F 07/23/24 15:26 Pulse 98 07/23/24 14:27 Resp 15 07/23/24 14:27 BP 129/67 07/23/24 14:27 Pulse Ox 97 07/23/24 14:27 O2 Del Method Room Air 07/23/24 14:27 BMI result Body Mass Index 27.1 Appearance: Alert. Oriented X3. No acute distress. Eyes: Pupils equal, round and reactive to light. ENT: Pharynx normal. Neck: Normal inspection. Neck supple. CVS: Normal heart rate and rhythm. Pulses normal. Respiratory: No respiratory distress. Breath sounds normal. Abdomen: Soft and non-tender. Skin: Skin warm and dry. Normal skin color. Normal skin turgor. Extremities: No lower extremity edema. Neuro: Oriented X 3. No motor deficit. No sensory deficit. CN2-12 intact Medications Administered Discontinued Medications Generic Name Dose Route Start Last Admin Trade Name Freq PRN Reason Stop Dose Admin Acetaminophen 650 mg 07/23/24 14:32 07/23/24 14:41 Acetaminophen 325 Mg Tablet PO 07/23/24 14:33 650 mg ONCE ONE Administration Sodium Chloride 1,000 mls @ 999 mls/hr 07/23/24 11:28 07/23/24 14:44 Ns IV 07/23/24 12:28 Infused .Q1H1M ONE Infusion Magnesium Sulfate 2 gm in 50 mls @ 25 mls/hr 07/23/24 12:20 07/23/24 15:12 Magnesium Sulfate/H2o IV 07/23/24 14:19 Infused ONCE ONE Infusion Lorazepam 0.5 mg 07/23/24 11:37 07/23/24 11:50 Lorazepam 2 Mg/Ml Vial IVPUSH 07/23/24 11:38 0.5 mg STAT STA Administration Ondansetron HCl 4 mg 07/23/24 11:28 07/23/24 11:49 Ondansetron Hcl 4 Mg/2 Ml Vial IVPUSH 07/23/24 11:29 4 mg ONCE ONE Administration Potassium Chloride 40 meq 07/23/24 12:21 07/23/24 12:56 Potassium Chloride Er 20 Meq Tab.Er.Prt PO 07/23/24 12:22 40 meq ONCE ONE Administration Medical Decision Making Medical Decision Making MDM Narrative: 54 yo female with PMH of HTN, HLD, asthma here with c/o n/v/d anxiety and panic attack after COVID exposure at this time she is having a panic attack with carpopedal spasms - will obtain basic labs, hydrate, zofran, EKG, ativan - she has benign abdominal exam has no CP/SOB to suggest ACS or VTE. Differential Diagnosis Differential Diagnoses: The differential diagnosis associated with the presentation includes viral syndrome, dehydration, panic attack Admission/Observation Consideration of admission/observation: Escalation of care including admission/observation considered Lab Data [facility] Lab Attestation statement: I reviewed the patient's lab results. 07/23/24 11:48 07/23/24 15:11 Labs: Lab Results 07/23/24 07/23/24 07/23/24 Range/Units 11:48 12:11 15:11 WBC 8.5 (4.8-10.8) X10*3/uL RBC 4.84 (4.20-5.50) X10*6/uL Hgb 13.7 (12.0-16.0) g/dl Hct 39.7 (37.0-47.0) % MCV 82.0 (80.0-98.0) fL MCH 28.3 (27.0-33.0) pg MCHC 34.5 (31.0-35.0) g/dl RDW 13.1 (11.0-16.0) % Plt Count 241 (160-400) X10*3/uL MPV 9.6 (9.4-12.3) fL Immature Gran % (Auto) 0.6 H (0.0-0.4) % Neut % (Auto) 87.6 H (45-73) % Lymph % (Auto) 6.4 L (20-40) % Cooper % (Auto) 4.9 (2-11) % Eos % (Auto) 0.4 (0-4) % Baso % (Auto) 0.1 (0-2) % Lymph # (Auto) 0.5 L (1.2-4.9) X10*3/uL Cooper # (Auto) 0.4 (0.1-1.2) X10*3/uL Eos # (Auto) 0.0 (0.0-0.4) X10*3/uL Baso # (Auto) 0.0 (0.0-0.2) X10*3/uL Abs Immat Gran (auto) 0.05 H (0.00-0.03) X10*3/uL Absolute Neuts (auto) 7.4 (2.0-8.3) x10*3/uL Absolute Nucleated RBC 0.000 (0.0-0.012) X10*3/uL Nucleated RBC % (auto) 0.0 (0.0-0.2) /100WBC Sodium 141 (135-145) mmol/L Potassium 3.0 L 3.3 (3.3-5.1) mmol/L Chloride 107 (96-108) mmol/L Carbon Dioxide 23 (22-29) mmol/L Anion Gap 14 (12-20) BUN 13 (9-16) mg/dL Creatinine 0.67 (0.5-1.4) mg/dL Estim Creat Clear Calc 83.8 Estimated GFR > 60 Random Glucose 126 H (60-115) mg/dL Calcium 8.7 (8.4-10.2) mg/dL Magnesium 1.3 L* 2.3 (1.6-2.6) mg/dL Total Bilirubin 1.3 H (0.0-1.0) mg/dL Direct Bilirubin 0.4 (0.0-0.5) mg/dL AST 44 H (5-31) U/L ALT 45 H (0-31) U/L Alkaline Phosphatase 102 (39-117) U/L Troponin I High Sens < 2.7 (<3.5-17.0) ng/L Total Protein 7.5 (6.5-8.0) g/dL Albumin 4.0 (3.5-5.0) g/dL Lipase 13 (8-78) U/L Urine Color Yellow Urine Appearance Clear Urine pH 5.5 (5.0-9.0) Ur Specific [place] >= 1.030 H (1.005-1.025) Urine Protein Negative (Neg-Trace) mg/dL Urine Glucose (UA) >=1000 H (Negative) mg/dL Urine Ketones Trace (Negative) mg/dL Urine Blood Small (1+) H (Negative) Urine Nitrite Negative (Negative) Ur Leukocyte Esterase Negative (Negative) Urine RBC 0-2 (0-2) /HPF Urine WBC 0-5 (0-5) /HPF Ur Squamous Epith Cells 3-5 (0-2) /HPF Urine Bacteria None Seen (None Seen) Hyaline Casts 0-2 (0-2) /LPF Influenza Type A (PCR) NEGATIVE (Negative) Influenza Type B (PCR) NEGATIVE (Negative) RSV RNA Qual (PCR) NEGATIVE (Negative) SARS-CoV-2 RNA (RT-PCR) NEGATIVE (Negative) Independent Interpretation I performed an independent interpretation of an: EKG Interpretation: Rate: 96 Rhythm: NSR [place]: normal Normal P waves. Normal YAJAIRA. Normal QRS complex. ST T wave : normal no HODA, inverted t wave V1 qTC: 452 prior studies: no acute ischemia The study has been interpreted contemporaneously by me. . Independent Historian Clinical information obtained from an independent historian. History obtained from or confirmed by: Friend External Record Review External record reviewed: Outpatient record Critical Care Time Critical Care Time Critical Care Time: Yes Total Critical Care Time: 60 Attestation: IV magnesuim and potassium repletion to prevent life threatening arrhythmia, repeat labs I attest to this time spent taking care of the patient Discharge Plan Discharge Clinical Impression: Nausea vomiting and diarrhea, Anxiety attack, Acute hypokalemia, Hypomagnesemia, Acute viral syndrome Patient Disposition: Still a Patient Instructions: Hypokalemia (ED), Acute Nausea and Vomiting (ED), Viral Syndrome (ED), Hypomagnesemia (ED), Anxiety (ED) Additional Instructions: potassium and electrolytes repleted at this time negative for flu, covid, rsv - given exposure and symptoms it might be too early to test positive, you can test at home return for any further symptoms or concerns, stay hydrated and rest take tylenol and motrin as needed for fevers/pain Prescriptions: New ondansetron 4 mg tablet,disintegrating 4 mg PO Q8H PRN (Reason: nausea and vomiting) Qty: 20 0RF potassium chloride 20 mEq tablet extended release 20 meq PO DAILY Qty: 5 0RF No Action bisacodyl [Dulcolax (bisacodyl)] 5 mg tablet,delayed release (DR/EC) 20 mg PO ONCE 1 Days Qty: 4 0RF Rx Instructions: take at noon the day before colonoscopy polyethylene glycol 3350 [Miralax] 17 gram/dose powder 238 g PO ONCE 1 Days Qty: 238 0RF Rx Instructions: Take as directed by mouth the day before your procedure. celecoxib 200 mg capsule 200 mg PO DAILY Qty: 30 0RF cetirizine 10 mg tablet 10 mg PO DAILY Qty: 30 0RF albuterol sulfate 0.63 mg/3 mL solution for nebulization 0.63 mg inhalation QID PRN (Reason: shortness of breath or wheezing) Qty: 75 0RF albuterol sulfate 90 mcg/actuation HFA aerosol inhaler 1 inh inhalation QID PRN (Reason: shortness of breath or wheezing) Qty: 8.5 0RF lisinopril 5 mg tablet 5 mg PO DAILY Qty: 30 0RF atorvastatin 40 mg tablet 40 mg PO QPM Qty: 30 0RF benzonatate 200 mg capsule 200 mg PO TID PRN (Reason: cough) Qty: 30 0RF ibuprofen 600 mg tablet 600 mg PO Q6H PRN (Reason: fever or pain) Qty: 30 0RF cyclobenzaprine 5 mg tablet 5 mg PO TID PRN (Reason: muscle spasm) Qty: 10 0RF lidocaine 5 % adhesive patch,medicated 1 patch topical DAILY Qty: 15 0RF Rx Instructions: leave on most painful area for up to 12 hrs ondansetron 4 mg tablet,disintegrating 4 mg PO Q8H PRN (Reason: nausea and vomiting) Qty: 20 0RF hydroxyzine HCl 25 mg tablet 25 mg PO TID PRN (Reason: anxiety) Qty: 10 0RF benzonatate 200 mg capsule 200 mg PO TID PRN (Reason: cough) Qty: 30 0RF aripiprazole 2 mg tablet 2 mg PO DAILY cefuroxime axetil 250 mg tablet 250 mg PO BID lidocaine [Lidoderm] 5 % adhesive patch,medicated 1 patch topical DAILY PRN Rx Instructions: leave on most painful area for up to 12 hrs metformin 1,000 mg tablet 1,000 mg PO BID Farxiga 5 mg tablet 5 mg PO DAILY trazodone 50 mg tablet 50 mg PO BEDTIME bisacodyl [Dulcolax (bisacodyl)] 5 mg tablet,delayed release (DR/EC) 20 mg PO ONCE 1 Days Qty: 4 0RF Rx Instructions: take 4 tabs at noon the day before your colonoscopy polyethylene glycol 3350 [Miralax] 17 gram/dose powder 238 g PO ONCE Qty: 238 0RF Rx Instructions: As directed by gastroenterology department at [facility] Print Language: Vietnamese
[2024-07-23 12:00] LABS: MANUAL DIFF FLAG NO
[2024-07-23 12:02] LABS: Basophils Percent Auto 0.1 % (0-2); Eosinophils Percent Auto 0.4 % (0-4); Hematocrit 39.7 % (37.0-47.0); Hemoglobin 13.7 g/dl (12.0-16.0); Imm Gran Abs Auto 0.05 X10*3/uL (0.00-0.03); Imm Gran Pct Auto 0.6 % (0.0-0.4); Lymphocytes Absolute Auto 0.5 X10*3/uL (1.2-4.9); Lymphocytes Percent Auto 6.4 % (20-40); Mean Corpuscular HGB Conc 34.5 g/dl (31.0-35.0); Mean Corpuscular Hemoglobin 28.3 pg (27.0-33.0); Mean Platelet Volume 9.6 fL (9.4-12.3); Monocytes Absolute Auto 0.4 X10*3/uL (0.1-1.2); Monocytes Percent Auto 4.9 % (2-11); Neutrophils Absolute Auto 7.4 x10*3/uL (2.0-8.3); Neutrophils Percent Auto 87.6 % (45-73); Platelet Count 241 X10*3/uL (160-400); Red Blood Count 4.84 X10*6/uL (4.20-5.50); Red Cell Distribution Width 13.1 % (11.0-16.0); White Blood Count 8.5 X10*3/uL (4.8-10.8)
[2024-07-23 12:20] LABS: Alanine Aminotransferase 45 U/L (0-31); Alkaline Phosphatase 102 U/L (39-117); Anion Gap 14 (12-20); Aspartate Amino Transferase 44 U/L (5-31); Bilirubin Direct 0.4 mg/dL (0.0-0.5); Bilirubin Total 1.3 mg/dL (0.0-1.0); Blood Urea Nitrogen 13 mg/dL (9-16); Calcium 8.7 mg/dL (8.4-10.2); Carbon Dioxide 23 mmol/L (22-29); Chloride 107 mmol/L (96-108); Creatinine Clr Calc Pharmacy 83.8; Estimated Glomerular Filt Rate > 60; Glucose Random 126 mg/dL (60-115); Lipase 13 U/L (8-78); Sodium 141 mmol/L (135-145); Total Protein 7.5 g/dL (6.5-8.0)
[2024-07-23 12:21] LABS: Magnesium 1.3 mg/dL (1.6-2.6); Troponin-I High Sensitivity < 2.7 ng/L (<3.5-17.0)
[2024-07-23 12:23] LABS: Appearance Urine Clear; Color Urine Yellow; Glucose Urine UA >=1000 mg/dL (Negative); Leukocyte Esterase Urine Negative (Negative); Nitrite Urine Negative (Negative); PH 5.5 (5.0-9.0); Specific Gravity - Urine >= 1.030 (1.005-1.025); UMIC TRIGGER UACC YES; Urine Blood Small (1+) (Negative); Urine Ketones Trace mg/dL (Negative); Urine Protein Negative (Neg-Trace)
[2024-07-23 12:33] LABS: Bacteria Urine None Seen (None Seen); Hyaline Casts Urine 0-2 /LPF (0-2); RBC Urine 0-2 /HPF (0-2); WBC Urine 0-5 /HPF (0-5)
[2024-07-23 12:41] LABS: Influenza A PCR NEGATIVE (Negative); Influenza B PCR NEGATIVE (Negative); Resp Syncy Virus RNA Qual PCR NEGATIVE (Negative); SARS COV2 PCR INHOUSE NEGATIVE (Negative)
[2024-07-23] MEDS: Potassium Chloride ER 20 MEQ TAB.ER.PRT 40 MEQ PO (12:56)
[2024-07-23] MEDS: Magnesium Sulfate/H2O 2 GM/50 ML PIGGYBACK IV (12:56)
[2024-07-23 14:27] VITALS: BP 129/67; PULSE 98; RESP 15; TEMP 38.1; O2SAT 97
[2024-07-23] MEDS: Acetaminophen 325 MG TABLET 650 MG PO (14:41)
[2024-07-23 15:26] VITALS: TEMP 37.3
[2024-07-23 15:43] LABS: Magnesium 2.3 mg/dL (1.6-2.6); Potassium 3.3 mmol/L (3.3-5.1)
[2024-07-23 15:52] LABS: Glucose, Whole Blood 127 mg/dL (60-115)
[2024-07-23 16:00] VITALS: BP 128/64; PULSE 96; RESP 22; TEMP 37.1; O2SAT 97
== END 2024-07-23 16:02 | disposition home or self-care (01) ==
PROVIDERS: Emergency Provider Emergency Medicine; PCP Student in an Organized Health Care Education/Training Program
DX: B34.9 Viral infection, unspecified (principal); R11.2 Nausea with vomiting, unspecified; R19.7 Diarrhea, unspecified; F41.0 Panic disorder [episodic paroxysmal anxiety]; E87.6 Hypokalemia; E83.42 Hypomagnesemia; R51.9 Headache, unspecified; I10 Essential (primary) hypertension; E78.5 Hyperlipidemia, unspecified; Z79.84 Long term (current) use of oral hypoglycemic drugs; Z79.899 Other long term (current) drug therapy; Z03.818 Encounter for observation for suspected exposure to other biological agents ruled out; Z79.02 Long term (current) use of antithrombotics/antiplatelets
CPT/HCPCS: 0241U; 36415; 80048; 80076; 81001; 82947; 83690; 83735; 84132; 84484; 85025; 93005; 96361; 96374; 96375; 99284; J2060; J2405; J3475

== ENCOUNTER → 2024-07-23 11:28 | Outpatient (BNV) | payer MEDICARE, SELFPAY | PROVIDERS: Emergency Provider Emergency Medicine; PCP Student in an Organized Health Care Education/Training Program; Visit Provider Internal Medicine Cardiovascular Disease | DX: R94.31 Abnormal electrocardiogram [ECG] [EKG] (principal); R53.1 Weakness | CPT/HCPCS: 93010 ==

== ENCOUNTER 2024-09-12 00:11 | Emergency (ER) | payer MEDICAID, SELFPAY ==
--- NOTE | 2024-09-12 00:12 | ECG_ITS ---
Test Reason : CHEST PAIN Blood Pressure : */* mmHG Vent. Rate : 79 BPM Atrial Rate : 79 BPM P-R Int : 188 ms QRS Dur : 82 ms QT Int : 386 ms P-R-T Axes : 14 12 23 degrees QTcB Int : 442 ms Normal sinus rhythm Normal ECG When compared with ECG of 23-Jul-2024 11:38, No significant change was found Referred By: Generic ED Physician Electronically Signed By: RAYMUNDO RIVERA
[2024-09-12 00:14] VITALS: BP 135/70; PULSE 81; RESP 16; TEMP 36.3; O2SAT 100; BMI 26.4
--- OUTSIDE RECORDS SUMMARY | 2024-09-12 00:27 | XMS_ITS | Clinical Summary ---
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
--- NOTE | 2024-09-12 00:42 | ED_ITS ---
HPI - Chest Pain General Chief Complaint: Chest Pain Stated Complaint: Chest pain Time Seen by Provider: 09/12/24 00:42 Source: patient Mode of arrival: ambulatory Limitations: no limitations History of Present Illness ED Provider: HPI narrative: Patient's history of hypertension hyperlipidemia anxiety depression comes here with left-sided chest pain for last 3 weeks off and on sharp in nature no shortness of breath no diaphoresis Related Data Home Medications ?Medication ?Instructions ?Recorded ?Confirmed aripiprazole 2 mg tablet 2 mg PO DAILY 06/01/20 cefuroxime axetil 250 mg tablet 250 mg PO BID 05/22/23 dapagliflozin propanediol 5 mg 5 mg PO DAILY 05/22/23 tablet (Farxiga) lidocaine 5 % topical patch 1 patch topical DAILY PRN 05/22/23 (Lidoderm) metformin 1,000 mg tablet 1,000 mg PO BID 05/22/23 trazodone 50 mg tablet 50 mg PO BEDTIME 05/22/23 Previous Rx's ?Medication ?Instructions ?Recorded albuterol sulfate 0.63 mg/3 mL 0.63 mg (3 mL) inhalation QID PRN 04/08/22 solution for nebulization shortness of breath or wheezing #75 mL albuterol sulfate 90 mcg/actuation 1 inh inhalation QID PRN shortness 04/08/22 aerosol inhaler of breath or wheezing #8.5 grams celecoxib 200 mg capsule 200 mg PO DAILY #30 caps 06/17/22 cetirizine 10 mg tablet 10 mg PO DAILY #30 tabs 06/17/22 atorvastatin 40 mg tablet 40 mg PO QPM #30 tabs 08/09/22 lisinopril 5 mg tablet 5 mg PO DAILY #30 tabs 08/09/22 hydroxyzine HCl 25 mg tablet 25 mg PO TID PRN anxiety #10 tabs 10/22/22 benzonatate 200 mg capsule 200 mg PO TID PRN cough #30 caps 03/06/23 bisacodyl 5 mg tablet,delayed 20 mg (4 x 5 mg) PO ONCE 1 day #4 05/22/23 release (Dulcolax (bisacodyl)) tabs polyethylene glycol 3350 17 238 g PO ONCE #238 grams 05/22/23 gram/dose oral powder (Miralax) benzonatate 200 mg capsule 200 mg PO TID PRN cough #30 caps 07/24/23 ibuprofen 600 mg tablet 600 mg PO Q6H PRN fever or pain 07/24/23 #30 tabs cyclobenzaprine 5 mg tablet 5 mg PO TID PRN muscle spasm #10 09/02/23 tabs lidocaine 5 % topical patch 1 patch topical DAILY #15 ea 09/02/23 bisacodyl 5 mg tablet,delayed 20 mg (4 x 5 mg) PO ONCE 1 day #4 09/18/23 release (Dulcolax (bisacodyl)) tabs polyethylene glycol 3350 17 238 g PO ONCE 1 day #238 grams 09/18/23 gram/dose oral powder (Miralax) ondansetron 4 mg disintegrating 4 mg PO Q8H PRN nausea and 03/02/24 tablet vomiting #20 tabs ondansetron 4 mg disintegrating 4 mg PO Q8H PRN nausea and 07/23/24 tablet vomiting #20 tabs potassium chloride 20 mEq 20 meq PO DAILY #5 tabs 07/23/24 tablet,extended release ibuprofen 600 mg tablet 600 mg PO Q6H PRN fever or pain 09/12/24 #30 tabs Allergies Allergy/AdvReac Type Severity Reaction Status Date / Time seasonal Allergy Unknown Itchy Eyes Uncoded 09/12/24 00:15 Review of Systems 2 Review of Systems: Yes all other systems are reviewed and are negative PMFSH Past Medical History Medical History Depression Anxiety Back pain Surgical History Hx of section Hx of cholecystectomy History of hysterectomy Family History Family History Mother Cancer Social History Social History Alcohol intake: current Alcohol intake frequency: holidays/special occasions only Smoked in Last 30 Days: No Use of substances other than those prescribed or required for medical reasons: No Advance Directives: No Advance Directives Information Provided: Yes Do you have a plan to hurt others: No Plan Physical Exam 2 Vital Signs: Vital Signs: Last Vital Signs Temp 97.4 F 09/12/24 00:14 Pulse 81 09/12/24 00:14 Resp 16 09/12/24 00:14 BP 135/70 09/12/24 00:14 Pulse Ox 100 09/12/24 00:14 O2 Del Method Room Air 09/12/24 00:14 BMI result Body Mass Index 26.4 Appearance: Alert. Oriented X3. No acute distress. Eyes: No pallor or icterus ENT: Pharynx normal. Oral Mucosa moist Neck: Normal inspection. Neck supple. CVS: Normal heart rate and rhythm. Pulses normal. Local tenderness left chest wall Respiratory: No respiratory distress. Equal air entry bilateral, no wheezing/rales/rhonchi Abdomen: Soft and nontender. Bowel sounds are present, no mass palpable, no CVA tenderness Skin: Skin warm and dry. Normal skin color. Normal skin turgor. Extremities: No lower extremity edema. No calf tenderness Neuro: Oriented X 3. No motor deficit. Medications Administered Discontinued Medications Generic Name Dose Route Start Last Admin Trade Name Freq PRN Reason Stop Dose Admin Ibuprofen 600 mg 09/12/24 00:57 09/12/24 01:41 Ibuprofen 600 Mg Tablet PO 09/12/24 00:58 600 mg ONCE ONE Administration Medical Decision Making Medical Decision Making [facility] Narrative: Patient has atypical chest pain for last 3 weeks on examination patient does have local tenderness left anterior chest cardiac workup is negative will discharge patient home on ibuprofen Lab Data [facility] Lab Attestation statement: I reviewed the patient's lab results. 09/12/24 00:37 09/12/24 00:37 Labs: Lab Results 09/12/24 Range/Units 00:37 WBC 9.5 (4.8-10.8) X10*3/uL RBC 4.47 (4.20-5.50) X10*6/uL Hgb 12.9 (12.0-16.0) g/dl Hct 36.8 L (37.0-47.0) % MCV 82.3 (80.0-98.0) fL MCH 28.9 (27.0-33.0) pg MCHC 35.1 H (31.0-35.0) g/dl RDW 13.1 (11.0-16.0) % Plt Count 296 (160-400) X10*3/uL MPV 9.7 (9.4-12.3) fL Immature Gran % (Auto) 0.2 (0.0-0.4) % Neut % (Auto) 59.4 (45-73) % Lymph % (Auto) 33.1 (20-40) % [place] % (Auto) 5.5 (2-11) % Eos % (Auto) 1.3 (0-4) % Baso % (Auto) 0.5 (0-2) % Lymph # (Auto) 3.1 (1.2-4.9) X10*3/uL [place] # (Auto) 0.5 (0.1-1.2) X10*3/uL Eos # (Auto) 0.1 (0.0-0.4) X10*3/uL Baso # (Auto) 0.1 (0.0-0.2) X10*3/uL Abs Immat Gran (auto) 0.02 (0.00-0.03) X10*3/uL Absolute Neuts (auto) 5.7 (2.0-8.3) x10*3/uL Absolute Nucleated RBC 0.000 (0.0-0.012) X10*3/uL Nucleated RBC % (auto) 0.0 (0.0-0.2) /100WBC Sodium 143 (135-145) mmol/L Potassium 3.9 (3.3-5.1) mmol/L Chloride 108 (96-108) mmol/L Carbon Dioxide 26 (22-29) mmol/L Anion Gap 13 (12-20) BUN 12 (9-16) mg/dL Creatinine 0.99 (0.5-1.4) mg/dL Estim Creat Clear Calc 56.1 Estimated GFR 59 Random Glucose 125 H (60-115) mg/dL Calcium 9.0 (8.4-10.2) mg/dL Troponin I High Sens < 2.7 (<3.5-17.0) ng/L Independent Interpretation I performed an independent interpretation of an: EKG Interpretation: Normal sinus rhythm heart rate 79 beats per minute normal interval normal axis no acute ST-T changes no acute ischemia Discharge Plan Discharge Clinical Impression: Atypical chest pain Patient Disposition: Home, Self-Care Instructions: Chest Wall Pain (ED) Additional Instructions: Your chest pain is likely musculoskeletal pain Take ibuprofen for pain Prescriptions: New ibuprofen 600 mg tablet 600 mg PO Q6H PRN (Reason: fever or pain) Qty: 30 0RF No Action bisacodyl [Dulcolax (bisacodyl)] 5 mg tablet,delayed release (DR/EC) 20 mg PO ONCE 1 Days Qty: 4 0RF Rx Instructions: take at noon the day before colonoscopy polyethylene glycol 3350 [Miralax] 17 gram/dose powder 238 g PO ONCE 1 Days Qty: 238 0RF Rx Instructions: Take as directed by mouth the day before your procedure. celecoxib 200 mg capsule 200 mg PO DAILY Qty: 30 0RF cetirizine 10 mg tablet 10 mg PO DAILY Qty: 30 0RF albuterol sulfate 0.63 mg/3 mL solution for nebulization 0.63 mg inhalation QID PRN (Reason: shortness of breath or wheezing) Qty: 75 0RF albuterol sulfate 90 mcg/actuation HFA aerosol inhaler 1 inh inhalation QID PRN (Reason: shortness of breath or wheezing) Qty: 8.5 0RF lisinopril 5 mg tablet 5 mg PO DAILY Qty: 30 0RF atorvastatin 40 mg tablet 40 mg PO QPM Qty: 30 0RF benzonatate 200 mg capsule 200 mg PO TID PRN (Reason: cough) Qty: 30 0RF ibuprofen 600 mg tablet 600 mg PO Q6H PRN (Reason: fever or pain) Qty: 30 0RF cyclobenzaprine 5 mg tablet 5 mg PO TID PRN (Reason: muscle spasm) Qty: 10 0RF lidocaine 5 % adhesive patch,medicated 1 patch topical DAILY Qty: 15 0RF Rx Instructions: leave on most painful area for up to 12 hrs ondansetron 4 mg tablet,disintegrating 4 mg PO Q8H PRN (Reason: nausea and vomiting) Qty: 20 0RF ondansetron 4 mg tablet,disintegrating 4 mg PO Q8H PRN (Reason: nausea and vomiting) Qty: 20 0RF potassium chloride 20 mEq tablet extended release 20 meq PO DAILY Qty: 5 0RF hydroxyzine HCl 25 mg tablet 25 mg PO TID PRN (Reason: anxiety) Qty: 10 0RF benzonatate 200 mg capsule 200 mg PO TID PRN (Reason: cough) Qty: 30 0RF aripiprazole 2 mg tablet 2 mg PO DAILY cefuroxime axetil 250 mg tablet 250 mg PO BID lidocaine [Lidoderm] 5 % adhesive patch,medicated 1 patch topical DAILY PRN Rx Instructions: leave on most painful area for up to 12 hrs metformin 1,000 mg tablet 1,000 mg PO BID Farxiga 5 mg tablet 5 mg PO DAILY trazodone 50 mg tablet 50 mg PO BEDTIME bisacodyl [Dulcolax (bisacodyl)] 5 mg tablet,delayed release (DR/EC) 20 mg PO ONCE 1 Days Qty: 4 0RF Rx Instructions: take 4 tabs at noon the day before your colonoscopy polyethylene glycol 3350 [Miralax] 17 gram/dose powder 238 g PO ONCE Qty: 238 0RF Rx Instructions: As directed by gastroenterology department at [facility] Print Language: Burundian
[2024-09-12 00:45] LABS: MANUAL DIFF FLAG NO
[2024-09-12 00:46] LABS: Basophils Absolute Auto 0.1 X10*3/uL (0.0-0.2); Basophils Percent Auto 0.5 % (0-2); Eosinophils Absolute Auto 0.1 X10*3/uL (0.0-0.4); Eosinophils Percent Auto 1.3 % (0-4); Hematocrit 36.8 % (37.0-47.0); Hemoglobin 12.9 g/dl (12.0-16.0); Imm Gran Abs Auto 0.02 X10*3/uL (0.00-0.03); Imm Gran Pct Auto 0.2 % (0.0-0.4); Lymphocytes Absolute Auto 3.1 X10*3/uL (1.2-4.9); Lymphocytes Percent Auto 33.1 % (20-40); Mean Corpuscular HGB Conc 35.1 g/dl (31.0-35.0); Mean Corpuscular Hemoglobin 28.9 pg (27.0-33.0); Mean Corpuscular Volume 82.3 fL (80.0-98.0); Mean Platelet Volume 9.7 fL (9.4-12.3); Monocytes Absolute Auto 0.5 X10*3/uL (0.1-1.2); Monocytes Percent Auto 5.5 % (2-11); Neutrophils Absolute Auto 5.7 x10*3/uL (2.0-8.3); Neutrophils Percent Auto 59.4 % (45-73); Platelet Count 296 X10*3/uL (160-400); Red Blood Count 4.47 X10*6/uL (4.20-5.50); Red Cell Distribution Width 13.1 % (11.0-16.0); White Blood Count 9.5 X10*3/uL (4.8-10.8)
[2024-09-12 00:57] LABS: Anion Gap 13 (12-20); Blood Urea Nitrogen 12 mg/dL (9-16); Carbon Dioxide 26 mmol/L (22-29); Chloride 108 mmol/L (96-108); Creatinine Clr Calc Pharmacy 56.1; Estimated Glomerular Filt Rate 59; Glucose Random 125 mg/dL (60-115); Potassium 3.9 mmol/L (3.3-5.1); Sodium 143 mmol/L (135-145)
[2024-09-12 01:10] LABS: Troponin-I High Sensitivity < 2.7 ng/L (<3.5-17.0)
--- NOTE | 2024-09-12 01:38 | PC.NURSE ---
provider into assess her, labs collected and sent, waiting results
[2024-09-12] MEDS: Ibuprofen 600 MG TABLET PO (01:41)
--- NOTE | 2024-09-12 02:04 | PC.NURSE ---
medicated per mar.
[2024-09-12 03:19] VITALS: BP 121/71; PULSE 85; RESP 15; TEMP 36.3; O2SAT 100
[2024-09-12 03:20] VITALS: BP 118/74; PULSE 84; RESP 20; TEMP 36.4; O2SAT 100
== END 2024-09-12 03:20 | disposition home or self-care (01) ==
PROVIDERS: Emergency Provider Internal Medicine; PCP Student in an Organized Health Care Education/Training Program
DX: R07.89 Other chest pain (principal); I10 Essential (primary) hypertension; E78.5 Hyperlipidemia, unspecified; Z79.899 Other long term (current) drug therapy
CPT/HCPCS: 36415; 80048; 84484; 85025; 93005; 99284; 99285

== ENCOUNTER → 2024-09-12 00:12 | Outpatient (BNV) | payer MEDICAID, SELFPAY | PROVIDERS: Emergency Provider Internal Medicine; PCP Student in an Organized Health Care Education/Training Program; Visit Provider Internal Medicine | DX: R07.9 Chest pain, unspecified (principal) | CPT/HCPCS: 93010 ==

== ENCOUNTER 2024-09-13 21:19 | Inpatient (IN) | payer MEDICAID, SELFPAY ==
[2024-09-13 21:25] VITALS: BP 144/100; PULSE 100; O2SAT 100
[2024-09-13 21:28] VITALS: BP 171/98; PULSE 105; RESP 20; TEMP 36.7; O2SAT 99
[2024-09-13 21:48] VITALS: BP 171/98; PULSE 93; RESP 15; TEMP 37.1; O2SAT 98; BMI 26.2
--- NOTE | 2024-09-13 21:53 | ECG_ITS ---
Test Reason : OVERDOSE Blood Pressure : */* mmHG Vent. Rate : 86 BPM Atrial Rate : 86 BPM P-R Int : 176 ms QRS Dur : 80 ms QT Int : 378 ms P-R-T Axes : 67 20 43 degrees QTcB Int : 452 ms Normal sinus rhythm Cannot rule out Anterior infarct , age undetermined Abnormal ECG When compared with ECG of 12-Sep-2024 00:18, No significant change was found Referred By: Generic ED Physician Electronically Signed By: NACHO CASTRO MD
[2024-09-13 22:58] LABS: Basophils Absolute Auto 0.1 X10*3/uL (0.0-0.2); Basophils Percent Auto 0.5 % (0-2); Eosinophils Absolute Auto 0.1 X10*3/uL (0.0-0.4); Eosinophils Percent Auto 1.3 % (0-4); Hematocrit 38.9 % (37.0-47.0); Hemoglobin 13.4 g/dl (12.0-16.0); Imm Gran Abs Auto 0.03 X10*3/uL (0.00-0.03); Imm Gran Pct Auto 0.3 % (0.0-0.4); Lymphocytes Absolute Auto 3.7 X10*3/uL (1.2-4.9); MANUAL DIFF FLAG NO; Mean Corpuscular HGB Conc 34.4 g/dl (31.0-35.0); Mean Corpuscular Hemoglobin 28.2 pg (27.0-33.0); Mean Corpuscular Volume 81.9 fL (80.0-98.0); Mean Platelet Volume 9.6 fL (9.4-12.3); Monocytes Absolute Auto 0.5 X10*3/uL (0.1-1.2); Monocytes Percent Auto 5.4 % (2-11); Neutrophils Absolute Auto 5.3 x10*3/uL (2.0-8.3); Neutrophils Percent Auto 54.5 % (45-73); Platelet Count 302 X10*3/uL (160-400); Red Blood Count 4.75 X10*6/uL (4.20-5.50); Red Cell Distribution Width 12.9 % (11.0-16.0); White Blood Count 9.7 X10*3/uL (4.8-10.8)
[2024-09-13 23:12] LABS: Alanine Aminotransferase 37 U/L (0-31); Albumin Level 4.2 g/dL (3.5-5.0); Alkaline Phosphatase 127 U/L (39-117); Anion Gap 15 (12-20); Aspartate Amino Transferase 27 U/L (5-31); Bilirubin Total 0.3 mg/dL (0.0-1.0); Blood Urea Nitrogen 14 mg/dL (9-16); Calcium 9.3 mg/dL (8.4-10.2); Carbon Dioxide 25 mmol/L (22-29); Chloride 107 mmol/L (96-108); Creatinine Clr Calc Pharmacy 58.7; Estimated Glomerular Filt Rate 59; Ethanol < 10 mg/dL; Glucose Random 158 mg/dL (60-115); Potassium 3.7 mmol/L (3.3-5.1); Sodium 143 mmol/L (135-145); Total Protein 7.2 g/dL (6.5-8.0)
[2024-09-13 23:22] VITALS: BP 128/62; PULSE 108; RESP 20; TEMP 36.4; O2SAT 98
--- NOTE | 2024-09-13 23:23 | PC.NURSE ---
Pt requesting updates be given to friend Marlin Campos [phone]
[2024-09-13] MEDS: Activated charcoaL 50 GM/240 ML ORAL.SUSP PO (23:37)
[2024-09-14] VITALS (11 sets, daily range): BP systolic 86–130; BP diastolic 43–78; PULSE 72–88; RESP 12–20; TEMP 36.3–36.9; O2SAT 94–100; BMI 26.5
--- NOTE | 2024-09-14 00:33 | ED.OVERDOSE ---
HPI - Overdose General Chief Complaint: Overdose Stated Complaint: TOOK HANDFUL OF HYDROXYZINE PER EMS Time Seen by Provider: 09/13/24 23:10 Source: patient Mode of arrival: ambulatory Limitations: no limitations History of Present Illness ED Provider: HPI Narrative: Patient's history of depression and anxiety tried to overdose by taking 25 mg hydroxyzine 7 tablets from the pillbox at around 21:00 as she been from her partner about 4 months ago patient is calm and cooperative denied any SI at this time feeling sleepy denies any other substance intake requesting crisis for increasing depression anxiety Related Data Home Medications ?Medication ?Instructions ?Recorded ?Confirmed aripiprazole 2 mg tablet 2 mg PO DAILY 06/01/20 09/14/24 dapagliflozin propanediol 5 mg 5 mg PO DAILY 05/22/23 09/14/24 tablet (Farxiga) lidocaine 5 % topical patch 1 patch topical DAILY PRN Pain 05/22/23 09/14/24 (Lidoderm) trazodone 50 mg tablet 50 mg PO BEDTIME 05/22/23 09/14/24 atorvastatin 40 mg tablet 40 mg PO BEDTIME 09/14/24 09/14/24 metformin 500 mg tablet,extended 500 mg PO DAILY@1700 09/14/24 09/14/24 release 24 hr Previous Rx's ?Medication ?Instructions ?Recorded albuterol sulfate 0.63 mg/3 mL 0.63 mg (3 mL) inhalation QID PRN 04/08/22 solution for nebulization shortness of breath or wheezing #75 mL albuterol sulfate 90 mcg/actuation 1 inh inhalation QID PRN shortness 04/08/22 aerosol inhaler of breath or wheezing #8.5 grams cetirizine 10 mg tablet 10 mg PO DAILY #30 tabs 06/17/22 lisinopril 5 mg tablet 5 mg PO DAILY #30 tabs 08/09/22 hydroxyzine HCl 25 mg tablet 25 mg PO TID PRN anxiety #10 tabs 10/22/22 ibuprofen 600 mg tablet 600 mg PO Q6H PRN fever or pain 07/24/23 #30 tabs potassium chloride 20 mEq 20 meq PO DAILY #5 tabs 07/23/24 tablet,extended release Allergies Allergy/AdvReac Type Severity Reaction Status Date / Time seasonal Allergy Unknown Itchy Eyes Uncoded 09/13/24 21:52 Review of Systems Review of Systems: Yes all other systems are reviewed and are negative [facility] Past Medical History Medical History Depression Anxiety Back pain Surgical History Hx of section Hx of cholecystectomy History of hysterectomy Family History Family History Mother Cancer Social History Social History Household Members: None Housing: House Alcohol intake: current Alcohol intake frequency: holidays/special occasions only Patient Tobacco Use Status: Never used Tobacco Smoked in Last 30 Days: No Use of substances other than those prescribed or required for medical reasons: No Currently Displaying Signs/Symptoms of Drug Intoxication Withdrawal: No Have you been hit, kicked, punched, or otherwise hurt by someone within the past year? If so, by whom?: No Do you feel safe in your current relationship?: No Current Relationship Is there a partner from a previous relationship who is making you feel unsafe now?: No Are you made to feel afraid or neglected: No Advance Directives: No Advance Directives Information Provided: Yes Do you have thoughts of harming others: None Do you have a plan to hurt others: No Plan Recently lost weight without trying: No How much weight loss: Not applicable Eating poorly because of decreased appetite: Yes Nutrition screen score: 1 Nutrition Risks: No Nutritional Risk Patient : No Poor oral hygiene: No service: No Sexual orientation: Straight/Heterosexual Physical Exam Vital Signs: Vital Signs: Last Vital Signs Temp 98.3 F 09/16/24 19:50 Pulse 86 09/16/24 19:50 Resp 16 09/16/24 19:50 BP 113/58 L 09/16/24 19:50 Pulse Ox 96 09/16/24 19:50 O2 Del Method Room Air 09/16/24 19:50 BMI result Body Mass Index 26.2 Appearance: Alert. Oriented X3. No acute distress. Eyes: PERRLA, No Nystagmus ENT: Pharynx normal. Oral Mucosa moist Neck: Normal inspection. Neck supple. CVS: Normal heart rate and rhythm. Pulses normal. Respiratory: No respiratory distress. Equal air entry bilateral, no wheezing/rales/rhonchi Abdomen: Soft and nontender. Bowel sounds are present, no mass palpable, no CVA tenderness Skin: Skin warm and dry. Normal skin color. Normal skin turgor. Extremities: No lower extremity edema. No calf tenderness psych: Feel depressed denies any SI at this time no hallucination or delusion Neuro: Oriented X 3. No motor deficit. No sensory deficit.No cerebellar signs , cranial nerves II-XII intact Medications Administered Generic Name Dose Route Start Last Admin Trade Name Freq PRN Reason Stop Dose Admin Aripiprazole 4 mg 09/16/24 09:00 09/16/24 08:00 Aripiprazole 2 Mg Tablet PO 4 mg DAILY LOLI Administration Atorvastatin Calcium 40 mg 09/14/24 21:00 09/16/24 21:22 Atorvastatin Calcium 40 Mg Tablet PO 40 mg BEDTIME LOLI Administration Empagliflozin 10 mg 09/15/24 09:00 09/16/24 08:00 Empagliflozin 10 Mg Tablet PO 10 mg DAILY LOLI Administration Hydroxyzine HCl 25 mg 09/14/24 18:08 09/14/24 21:48 Hydroxyzine Hcl 25 Mg Tablet PO 25 mg TID PRN Administration anxiety Ibuprofen 600 mg 09/14/24 18:08 09/15/24 17:16 Ibuprofen 600 Mg Tablet PO 600 mg Q6H PRN Administration fever or pain Lisinopril 5 mg 09/15/24 09:00 09/16/24 08:00 Lisinopril 5 Mg Tablet PO 5 mg DAILY LOLI Administration Protocol Loratadine 10 mg 09/15/24 09:00 09/16/24 07:59 Loratadine 10 Mg Tablet PO 10 mg DAILY LOLI Administration Metformin HCl 500 mg 09/14/24 18:08 09/16/24 17:24 Metformin Hcl Er 500 Mg Tab.Er.24h PO 500 mg DAILY@1700 LOLI Administration Olanzapine 5 mg 09/16/24 13:52 09/16/24 13:57 Olanzapine 5 Mg Tablet PO 5 mg Q4H PRN Administration agitation Trazodone HCl 50 mg 09/14/24 21:00 09/16/24 21:22 Trazodone Hcl 50 Mg Tablet PO 50 mg BEDTIME LOLI Administration Discontinued Medications Generic Name Dose Route Start Last Admin Trade Name Freq PRN Reason Stop Dose Admin Aripiprazole 2 mg 09/15/24 09:00 09/15/24 10:05 Aripiprazole 2 Mg Tablet PO 09/15/24 16:18 2 mg DAILY LOLI Administration Charcoal 50 gm 09/13/24 23:12 09/13/24 23:37 Activated Charcoal 50 Gm/240 Ml Oral.Susp PO 09/13/24 23:13 50 gm ONCE ONE Administration Medical Decision Making Medical Decision Making [facility] Narrative: Patient has been nontoxic ingestion of hydroxyzine with increased depression SI feeling patient was given charcoal medically cleared for care team evaluate Patient will be admitted upstairs psych floor for depression suicidal attempt Lab Data [facility] Lab Attestation statement: I reviewed the patient's lab results. 09/13/24 22:52 09/13/24 22:52 Labs: Lab Results 09/13/24 09/14/24 09/14/24 Range/Units 22:52 01:08 07:24 WBC 9.7 (4.8-10.8) X10*3/uL RBC 4.75 (4.20-5.50) X10*6/uL Hgb 13.4 (12.0-16.0) g/dl Hct 38.9 (37.0-47.0) % MCV 81.9 (80.0-98.0) fL MCH 28.2 (27.0-33.0) pg MCHC 34.4 (31.0-35.0) g/dl RDW 12.9 (11.0-16.0) % Plt Count 302 (160-400) X10*3/uL MPV 9.6 (9.4-12.3) fL Immature Gran % (Auto) 0.3 (0.0-0.4) % Neut % (Auto) 54.5 (45-73) % Lymph % (Auto) 38.0 (20-40) % [place] % (Auto) 5.4 (2-11) % Eos % (Auto) 1.3 (0-4) % Baso % (Auto) 0.5 (0-2) % Lymph # (Auto) 3.7 (1.2-4.9) X10*3/uL [place] # (Auto) 0.5 (0.1-1.2) X10*3/uL Eos # (Auto) 0.1 (0.0-0.4) X10*3/uL Baso # (Auto) 0.1 (0.0-0.2) X10*3/uL Abs Immat Gran (auto) 0.03 (0.00-0.03) X10*3/uL Absolute Neuts (auto) 5.3 (2.0-8.3) x10*3/uL Absolute Nucleated RBC 0.000 (0.0-0.012) X10*3/uL Nucleated RBC % (auto) 0.0 (0.0-0.2) /100WBC Sodium 143 (135-145) mmol/L Potassium 3.7 (3.3-5.1) mmol/L Chloride 107 (96-108) mmol/L Carbon Dioxide 25 (22-29) mmol/L Anion Gap 15 (12-20) BUN 14 (9-16) mg/dL Creatinine 0.98 (0.5-1.4) mg/dL Estim Creat Clear Calc 58.7 Estimated GFR 59 Random Glucose 158 H (60-115) mg/dL Calcium 9.3 (8.4-10.2) mg/dL Total Bilirubin 0.3 (0.0-1.0) mg/dL AST 27 (5-31) U/L ALT 37 H (0-31) U/L Alkaline Phosphatase 127 H (39-117) U/L Total Protein 7.2 (6.5-8.0) g/dL Albumin 4.2 (3.5-5.0) g/dL Urine Color Yellow Urine Appearance Clear Urine pH 5.5 (5.0-9.0) Ur Specific [place] >= 1.030 H (1.005-1.025) Urine Protein Negative (Neg-Trace) mg/dL Urine Glucose (UA) >=1000 H (Negative) mg/dL Urine Ketones Negative (Negative) mg/dL Urine Blood Negative (Negative) Urine Nitrite Negative (Negative) Ur Leukocyte Esterase Negative (Negative) Urine RBC 0-2 (0-2) /HPF Urine WBC 0-5 (0-5) /HPF Ur Squamous Epith Cells 3-5 (0-2) /HPF Urine Bacteria Trace (None Seen) Hyaline Casts 0-2 (0-2) /LPF Salicylates < 5.0 L (15-30) mg/dL Urine Opiates Screen Not Detected (Not Detect) Ur Buprenorphine Scrn Not Detected (Not Detect) ng/mL Ur Oxycodone Screen Not Detected (Not Detect) ng/mL Urine Methadone Screen Not Detected (Not Detect) ng/mL Urine Fentanyl Screen Not Detected (Not Detect) Acetaminophen < 3 (<30) mcg/mL Ur Barbiturates Screen Not Detected (Not Detect) Ur Phencyclidine Scrn Not Detected (Not Detect) Ur Amphetamines Screen Not Detected (Not Detect) U Benzodiazepines Scrn Not Detected (Not Detect) Urine Cocaine Screen Not Detected (Not Detect) U Marijuana (THC) Screen Not Detected (Not Detect) Ethyl Alcohol < 10 mg/dL Independent Interpretation I performed an independent interpretation of an: EKG Interpretation: Normal sinus rhythm heart rate 86 beats per minute normal interval normal axis no acute STT wave changes no acute ischemia Discharge Plan Discharge Clinical Impression: Drug overdose, Depression with suicidal ideation Patient Disposition: Admitted As Inpatient Interventions: Admission Worksheet (ED) Last Done: 09/14/24 16:04 Discharge Date/Time: 09/14/24 18:17
[2024-09-14 02:21] LABS: Acetaminophen LAB < 3 mcg/mL (<30); Salicylate < 5.0 mg/dL (15-30)
--- NOTE | 2024-09-14 06:34 | PC.NURSE ---
vss and up to date. nsr on the cardiac rehab nurse. on RA w/o difficulty. pt remains asleep in no apparent distress. no sob/wob noted. respirations even/unlabored. pt aware urine specimen is still needed at this time. pending care team consult. 1:[address] plan of care ongoing. call thacker placed within reach.
--- NOTE | 2024-09-14 07:45 | PC.NURSE ---
Patient able to ambulate independently w/o assistive device. Patient used bathroom, urine sample collected/sent to lab Urine yellow, clear, no odor
[2024-09-14 07:48] LABS: Amphetamine Screen Urine Not Detected (Not Detect); Barbiturates, Urine Not Detected (Not Detect); Benzodiazepines Screen Urine Not Detected (Not Detect); Buprenorphine Scr Not Detected (Not Detect); Cannabinoid Screen Urine Not Detected (Not Detect); Cocaine Screen Urine Not Detected (Not Detect); Fentanyl, urine Not Detected (Not Detect); Methadone Screen, Urine Not Detected (Not Detect); Opiate Screen Urine Not Detected (Not Detect); Oxycodone Screen Urine Not Detected (Not Detect); Phencyclidine Screen Urine Not Detected (Not Detect)
--- NOTE | 2024-09-14 08:37 | MHC.CARE ---
Pt meets the criteria for IPLOC. Section 12a in chart. Provider in agreement with dispositon.
[2024-09-14 08:40] LABS: Appearance Urine Clear; Color Urine Yellow; Glucose Urine UA >=1000 mg/dL (Negative); Leukocyte Esterase Urine Negative (Negative); Nitrite Urine Negative (Negative); PH 5.5 (5.0-9.0); Specific Gravity - Urine >= 1.030 (1.005-1.025); UMIC TRIGGER UA YES; Urine Blood Negative (Negative); Urine Ketones Negative (Negative); Urine Protein Negative (Neg-Trace)
[2024-09-14 09:01] LABS: Bacteria Urine Trace (None Seen); Hyaline Casts Urine 0-2 /LPF (0-2); RBC Urine 0-2 /HPF (0-2); WBC Urine 0-5 /HPF (0-5)
--- NOTE | 2024-09-14 11:10 | PC.NURSE ---
Report received. Taken over care at this time.
--- NOTE | 2024-09-14 14:05 | PHA.MEDREC ---
Pharmacy Consult ? Medication Reconciliation Pharmacy has completed the medication reconciliation. Spoke with patient to confirm medications, she could name some medications and answered questions off a list. Pt confirmed the following medication with no claims: Albuterol, Hydroxyzine, lidocaine 5% patch.
--- NOTE | 2024-09-14 17:52 | PC.NURSE ---
CVV form being signed by pt. and CARE nutrition faculty member.
[2024-09-14] MEDS: metFORMIN HCl ER 500 MG TAB.ER.24H PO (19:54)
[2024-09-14] MEDS: Atorvastatin Calcium 40 MG TABLET PO (21:48)
[2024-09-14] MEDS: hydrOXYzine HCL 25 MG TABLET PO (21:48)
[2024-09-14] MEDS: traZODone HCL 50 MG TABLET PO (21:48)
--- NOTE | 2024-09-15 02:45 | PC.ADMIT ---
Bev is a 54 year old , Indian speaking female admitted to [facility] from [facility] for treatment of unspecified anxiety disorder and unspecified depressive disorder. Per crisis evaluation, She was BIBA after her friend called 911 reporting that pt intentionally overdosed on an unknown amount of prescribed hydroxyzine. Pt?s friend was present when she overdosed. PMHX of anxiety, depression, and one suicide attempt several years ago. Pt has been from her partner for four months and she reports this as the precipitating factor for her increased depression and suicide attempt. Reports one prior suicide attempt and inpatient psychiatric care ?a long time ago.? Skin check complete. Tox screen negative for all substances. Sleep and appetite are poor. Thought process is linear and organized. During 1:1, Anxiety 4-5/10, Depression 3/10. Mood is depressed and affect is flat. Compliant with HS medications. Pt takes prescribed 500mg Metformin daily. Denies currently taking Potassium Chloride (K+ level; 3.7 on 09/13). Limited participation, stated, ?I?m very tired and hot.?, requesting to go to bed after accepting HS meds. Currently, denies SI/HI. No A/VH. Reports feeling safe on the unit. Pt placed on 15 minute checks. Assessment facilitated with a science interpreter and information gathered from [facility] Crisis Evaluation.
[2024-09-15 07:10] VITALS: BP 117/65; PULSE 72; RESP 16; TEMP 36.4; O2SAT 97
--- NOTE | 2024-09-15 09:07 | P.HPPS_ITS ---
[facility] Date of Service: 09/15/24 Chief Complaint: TOOK HANDFUL OF HYDROXYZINE PER EMS Sources of Information: patient interviewed, chart reviewed and crisis/core team assessment reviewed HPI Subjective Notes: Watson Warning and Conditional Voluntary Narrative: Patient is a 54-year-old female with history of MDD and PTSD who presented to ER due to suicide attempt via intentionally overdosing on prescription medication secondary to increased life stressors. Per crisis report, patient's friend called 911 reporting she intentionally overdose on prescription medications in a suicide attempt. Patient has been from her partner for 4 months and reports this is the reason for her increased depression and suicide attempt. Patient overdosed on an unknown amount of medication. Patient stated, I'm tired of my life . denied HI/VH/AH. Patient reported 1 prior suicide attempt and inpatient psychiatric admission a long time ago . Patient reports she has been caring for her uncle and it became too much so he had to go into a senior living . She feels that her family keeps putting more stuff on her and makes her feel overwhelmed . She reports sleep and appetite are poor. Patient does not have outpatient psychiatric providers. Collateral was obtained from patient's daughter, who reports patient's ex broke up with her mother and started seeing someone else but continues to come to the mother's house. Patient's daughter believes the on/off relationship is the reason for her increased depression. During admission assessment, patient presents alert and oriented x3. Calm and cooperative. recruitment specialist services utilized. Patient reports feeling anxious and depressed; patient stated, I have too much in my head. I with my significant other. I can not pay rent because I don't make much money. I know that overdosing was not the right thing and I regret doing it . denies SI/HI/AH. She reports visual hallucinations described as something out of the corner of my eye . Patient reports she is inconsistent with taking her home medications; she takes her meds 2 days a week. Educated on the importance of medication compliance. Patient reports she wants to live for herself and her grandchildren . Patient reports that she does not have outpatient psychiatric providers but would like referrals. history of 2 other inpatient psychiatric hospitalizations and 3 other suicide attempts via overdose on medications and once attempting to drive her car into a pole. Patient is requesting increase in Abilify; patient stated, it usually helps me. I feel like it's the stress in my life that made me feel this way, not the medications not working . Past Psychiatric History: does not have outpatient psychiatric providers. history of 2 other inpatient psychiatric hospitalizations and 3 other suicide attempts via overdose on medications and once attempting to drive her car into a pole. denies hx of SIB. Medical Evaluation Reviewed: Yes [facility] Medical History Depression Anxiety Back pain Surgical History Hx of section Hx of cholecystectomy History of hysterectomy Family History: Denies Social History: Lives alone. . 2 children(1 in 2014). Works part-time at [employer]. Substance History: Denies Trauma History: Yes Diagnostics Vital Signs (24Hr): Vital Signs - 24 hr 09/14/24 10:00 09/14/24 12:00 09/14/24 16:26 Temperature 98.2 F 98.1 F 97.6 F Pulse Rate 82 87 83 Respiratory Rate 15 12 16 Blood Pressure 86/43 L 111/66 105/70 Pulse Oximetry 99 100 98 Oxygen Delivery Method Room Air Room Air Room Air 09/14/24 17:45 09/14/24 18:57 09/14/24 20:00 Temperature 97.6 F 97.7 F Pulse Rate 78 88 80 Respiratory Rate 15 16 16 Blood Pressure 121/71 130/78 118/57 L Pulse Oximetry 100 98 96 Oxygen Delivery Method Room Air Room Air Room Air 09/15/24 07:10 Temperature 97.5 F Pulse Rate 72 Respiratory Rate 16 Blood Pressure 117/65 Pulse Oximetry 97 Oxygen Delivery Method Room Air BMI result Body Mass Index 26.5 Labs 09/13/24 22:52 09/13/24 22:52 Labs: Laboratory Results - last 48 hr 09/13/24 09/14/24 09/14/24 22:52 01:08 07:24 WBC 9.7 RBC 4.75 Hgb 13.4 Hct 38.9 MCV 81.9 MCH 28.2 MCHC 34.4 RDW 12.9 Plt Count 302 MPV 9.6 Immature Gran % (Auto) 0.3 Neut % (Auto) 54.5 Lymph % (Auto) 38.0 Phillips % (Auto) 5.4 Eos % (Auto) 1.3 Baso % (Auto) 0.5 Lymph # (Auto) 3.7 Phillips # (Auto) 0.5 Eos # (Auto) 0.1 Baso # (Auto) 0.1 Abs Immat Gran (auto) 0.03 Absolute Neuts (auto) 5.3 Absolute Nucleated RBC 0.000 Nucleated RBC % (auto) 0.0 Sodium 143 Potassium 3.7 Chloride 107 Carbon Dioxide 25 Anion Gap 15 BUN 14 Creatinine 0.98 Estim Creat Clear Calc 58.7 Estimated GFR 59 Random Glucose 158 H Calcium 9.3 Total Bilirubin 0.3 AST 27 ALT 37 H Alkaline Phosphatase 127 H Total Protein 7.2 Albumin 4.2 Urine Color Yellow Urine Appearance Clear Urine pH 5.5 Ur Specific [place] >= 1.030 H Urine Protein Negative Urine Glucose (UA) >=1000 H Urine Ketones Negative Urine Blood Negative Urine Nitrite Negative Ur Leukocyte Esterase Negative Urine RBC 0-2 Urine WBC 0-5 Ur Squamous Epith Cells 3-5 Urine Bacteria Trace Hyaline Casts 0-2 Salicylates < 5.0 L Urine Opiates Screen Not Detected Ur Buprenorphine Scrn Not Detected Ur Oxycodone Screen Not Detected Urine Methadone Screen Not Detected Urine Fentanyl Screen Not Detected Acetaminophen < 3 Ur Barbiturates Screen Not Detected Ur Phencyclidine Scrn Not Detected Ur Amphetamines Screen Not Detected U Benzodiazepines Scrn Not Detected Urine Cocaine Screen Not Detected U Marijuana (THC) Screen Not Detected Ethyl Alcohol < 10 Meds/Allergies Meds Home Medications ?Medication ?Instructions ?Recorded ?Confirmed ?Type aripiprazole 2 mg tablet 2 mg PO DAILY 06/01/20 09/14/24 History dapagliflozin propanediol 5 mg 5 mg PO DAILY 05/22/23 09/14/24 History tablet (Farxiga) lidocaine 5 % topical patch 1 patch topical DAILY PRN Pain 05/22/23 09/14/24 History (Lidoderm) trazodone 50 mg tablet 50 mg PO BEDTIME 05/22/23 09/14/24 History atorvastatin 40 mg tablet 40 mg PO BEDTIME 09/14/24 09/14/24 History metformin 500 mg tablet,extended 500 mg PO DAILY@1700 09/14/24 09/14/24 History release 24 hr Allergies Allergies Allergy/AdvReac Type Severity Reaction Status Date / Time seasonal Allergy Unknown Itchy Eyes Uncoded 09/13/24 21:52 Mental Status Exam Mental Status Exam Narrative: Pt is alert and oriented; behavior is cooperative and calm; dressed in casual attire; mood is described as anxious and depressed ; eye contact appropriate; Speech is normal rate, volume and not pressured; thought process is organized and goal directed; Thought content is on tx; otherwise pertinent to relevant topics and without any delusional content, paranoid ideations or grandiosity; denies SI/HI/AH. Patient reports visual hallucinations;was unable to explain. other than saying she is seeing something out of the corner of her eye . Assessment & Plan Assessment & Plan (1) MDD (major depressive disorder), recurrent episode, severe: Status: Acute Code(s): F33.2 - Major depressive disorder, recurrent severe without psychotic features (2) PTSD (post-traumatic stress disorder): Status: Acute Code(s): F43.10 - Post-traumatic stress disorder, unspecified Plan Patient is a 54-year-old female with history of MDD and PTSD who presented to ER due to suicide attempt via intentionally overdosing on prescription medication secondary to increased life stressors. Plan: CV 15 minute safety checks Continue home medications Increase: Abilify to 4mg PO daily Obtain collateral Referral to outpatient psychiatric providers Encourage groups Discharge planning Patient educated on: diagnosis and medication risk/benefits Reason for continued inpatient stay Substantial Risk for: harm to self and med/psych decompensation Statement Statement: I have reviewed the history and physical and performed a pertinent examination on my patient. No changes have occurred unless specified. If the History and Physical was not performed prior to admission, the Hospitalist's service will be consulted for completing the admission physical. Time Spent With Patient Time: Total time managing care of this patient today _60___ minutes.
[2024-09-15 10:05] VITALS: BP 122/70
[2024-09-15] MEDS: Empagliflozin 10 MG TABLET PO (10:05)
[2024-09-15] MEDS: Loratadine 10 MG TABLET PO (10:05)
[2024-09-15] MEDS: ARIPiprazole 2 MG TABLET PO (10:05)
[2024-09-15] MEDS: lisinopriL 5 MG TABLET PO (10:05)
[2024-09-15 10:12] LABS: Glucose, Whole Blood 173 mg/dL (60-115)
[2024-09-15] MEDS: Ibuprofen 600 MG TABLET PO (17:16)
[2024-09-15] MEDS: metFORMIN HCl ER 500 MG TAB.ER.24H PO (17:16)
[2024-09-15 19:42] VITALS: BP 125/62; PULSE 83; RESP 16; TEMP 36.8; O2SAT 99
[2024-09-15] MEDS: Atorvastatin Calcium 40 MG TABLET PO (20:33)
[2024-09-15] MEDS: traZODone HCL 50 MG TABLET PO (20:34)
[2024-09-15 20:40] LABS: Glucose, Whole Blood 163 mg/dL (60-115)
[2024-09-16 07:40] LABS: Glucose, Whole Blood 91 mg/dL (60-115)
[2024-09-16 07:55] VITALS: BP 122/66; PULSE 77; RESP 16; TEMP 36.3; O2SAT 100
[2024-09-16] MEDS: Loratadine 10 MG TABLET PO (07:59)
[2024-09-16] MEDS: Empagliflozin 10 MG TABLET PO (08:00)
[2024-09-16] MEDS: lisinopriL 5 MG TABLET PO (08:00)
[2024-09-16] MEDS: ARIPiprazole 2 MG TABLET 4 MG PO (08:00)
--- NOTE | 2024-09-16 09:14 | HO.PSYCHPN ---
Subjective Subjective Date of Service: 09/16/24 Reason For Visit: TOOK HANDFUL OF HYDROXYZINE PER EMS Subjective Notes: Conditional Voluntary Interim History: Active on unit, social with peers. attending groups. outside production inspector present. Patient reports poor sleep last night d/t room mate opening door multiple times; offered room change but pt declined. She reports low anxiety; states suicidal ideation, went away yesterday after we spoke . Continues to report visual hallucinations; encouraged to utilize PRN medication. denies SI/HI/AH. Continue current tx plan. Medication Compliance: Yes Side effects from medications: No Attending Groups: Yes Mental Status Exam Mental Status Exam Narrative: Pt is alert and oriented; behavior is cooperative and calm; dressed in casual attire; mood is described as okay ; eye contact appropriate; Speech is normal rate, volume and not pressured; thought process is organized; Thought content is on tx; denies SI/HI/AH. Patient reports visual hallucinations; reports, seeing something out of the corner of her eye . Diagnostics Vital Signs (24Hr): Vital Signs - 24 hr 09/15/24 10:05 09/15/24 19:42 09/16/24 07:55 Temperature 98.2 F 97.4 F Pulse Rate 83 77 Respiratory Rate 16 16 Blood Pressure 122/70 125/62 122/66 Pulse Oximetry 99 100 Oxygen Delivery Method Room Air Room Air BMI result Body Mass Index 26.5 Labs 09/13/24 22:52 09/13/24 22:52 Labs: Laboratory Results - last 48 hr 09/15/24 09/15/24 09/16/24 10:07 20:31 07:36 POC Glucose 173 H 163 H 91 Medications Medications Current Medications Albuterol Sulfate (Albuterol Sulfate (0.042%) 1.25 Mg/3 Ml Vial.Neb) 0.63 mg INHALE QID PRN PRN Reason: shortness of breath or wheezing Albuterol Sulfate (Albuterol Sulfate 90 Mcg 8 Gm Inhaler) 1 puff INHALE QID PRN PRN Reason: shortness of breath or wheezing Aripiprazole (Aripiprazole 2 Mg Tablet) 4 mg PO DAILY [facility] Last Admin: 09/16/24 08:00 Dose: 4 mg Atorvastatin Calcium (Atorvastatin Calcium 40 Mg Tablet) 40 mg PO BEDTIME [facility] Last Admin: 09/15/24 20:33 Dose: 40 mg Empagliflozin (Empagliflozin 10 Mg Tablet) 10 mg PO DAILY [facility] Last Admin: 09/16/24 08:00 Dose: 10 mg Hydroxyzine HCl (Hydroxyzine Hcl 25 Mg Tablet) 25 mg PO TID PRN PRN Reason: anxiety Last Admin: 09/14/24 21:48 Dose: 25 mg Ibuprofen (Ibuprofen 600 Mg Tablet) 600 mg PO Q6H PRN PRN Reason: fever or pain Last Admin: 09/15/24 17:16 Dose: 600 mg Lidocaine (Lidocaine 4 % Patch Adh..Patch) 1 patch TRANSDERMA DAILY PRN PRN Reason: Pain Lisinopril (Lisinopril 5 Mg Tablet) 5 mg PO DAILY [facility]; Protocol Last Admin: 09/16/24 08:00 Dose: 5 mg Loratadine (Loratadine 10 Mg Tablet) 10 mg PO DAILY [facility] Last Admin: 09/16/24 07:59 Dose: 10 mg Metformin HCl (Metformin Hcl Er 500 Mg Tab.Er.24h) 500 mg PO DAILY@1700 [facility] Last Admin: 09/15/24 17:16 Dose: 500 mg Trazodone HCl (Trazodone Hcl 50 Mg Tablet) 50 mg PO BEDTIME [facility] Last Admin: 09/15/24 20:34 Dose: 50 mg Allergies Allergies Allergy/AdvReac Type Severity Reaction Status Date / Time seasonal Allergy Unknown Itchy Eyes Uncoded 09/13/24 21:52 Assessment & Plan Assessment & Plan (1) MDD (major depressive disorder), recurrent episode, severe: Status: Acute Code(s): F33.2 - Major depressive disorder, recurrent severe without psychotic features (2) PTSD (post-traumatic stress disorder): Status: Acute Code(s): F43.10 - Post-traumatic stress disorder, unspecified Plan Patient is a 54-year-old female with history of MDD and PTSD who presented to ER due to suicide attempt via intentionally overdosing on prescription medication secondary to increased life stressors. Plan: CV 15 minute safety checks Continue home medications Increase: Abilify to 4mg PO daily Obtain collateral Referral to outpatient psychiatric providers Encourage groups Discharge planning 09/16: Active on unit, social with peers. attending groups. outside production inspector present. Patient reports poor sleep last night d/t room mate opening door multiple times; offered room change but pt declined. She reports low anxiety; states suicidal ideation, went away yesterday after we spoke . Continues to report visual hallucinations; encouraged to utilize PRN medication. denies SI/HI/AH. denies side effects from increase in Abilify. Continue current tx plan. Patient educated on: diagnosis, medication risk/benefits and therapeutic strategies Reason for continued inpatient stay Substantial Risk for: med/psych decompensation Time Spent With Patient Time: Total time managing care of this patient today _20___ minutes.
[2024-09-16] MEDS: OLANZapine 5 MG TABLET PO (13:57)
[2024-09-16] MEDS: metFORMIN HCl ER 500 MG TAB.ER.24H PO (17:24)
[2024-09-16 19:50] VITALS: BP 113/58; PULSE 86; RESP 16; TEMP 36.8; O2SAT 96
[2024-09-16] MEDS: traZODone HCL 50 MG TABLET PO (21:22)
[2024-09-16] MEDS: Atorvastatin Calcium 40 MG TABLET PO (21:22)
[2024-09-16 21:29] LABS: Glucose, Whole Blood 179 mg/dL (60-115)
[2024-09-17 07:38] LABS: Glucose, Whole Blood 103 mg/dL (60-115)
[2024-09-17 07:48] VITALS: BP 114/72; PULSE 91; RESP 14; TEMP 37.1; O2SAT 99
[2024-09-17] MEDS: Loratadine 10 MG TABLET PO (08:14)
[2024-09-17] MEDS: lisinopriL 5 MG TABLET PO (08:14)
[2024-09-17] MEDS: ARIPiprazole 2 MG TABLET 4 MG PO (08:14)
[2024-09-17] MEDS: Empagliflozin 10 MG TABLET PO (08:14)
--- NOTE | 2024-09-17 09:46 | P.PNPSI_ITS ---
Subjective Subjective Date of Service: 09/17/24 Reason For Visit: TOOK HANDFUL OF HYDROXYZINE PER EMS Subjective Notes: Conditional Voluntary Interim History: Active on unit, social with peers. attending groups. hourly sign language interpreter present. Patient reports feeling better today; pt stated, I slept like a baby last night. The medication also helped with my hallucinations . denies SI/HI/AH/VH. denies side effects from medications. per nursing, slept 8 hours. Continue current tx plan. Medication Compliance: Yes Side effects from medications: No Attending Groups: Yes Mental Status Exam Mental Status Exam Narrative: Pt is alert and oriented; behavior is cooperative and calm; dressed in casual attire; mood is described as better ; eye contact appropriate; Speech is normal rate, volume and not pressured; thought process is organized; Thought content is on tx; denies SI/HI/AH/VH. Diagnostics Vital Signs (24Hr): Vital Signs - 24 hr 09/16/24 19:50 09/17/24 07:48 Temperature 98.3 F 98.7 F Pulse Rate 86 91 Respiratory Rate 16 14 Blood Pressure 113/58 L 114/72 Pulse Oximetry 96 99 Oxygen Delivery Method Room Air Room Air BMI result Body Mass Index 26.5 Labs 09/13/24 22:52 09/13/24 22:52 Labs: Laboratory Results - last 48 hr 09/15/24 09/15/24 09/16/24 10:07 20:31 07:36 POC Glucose 173 H 163 H 91 09/16/24 09/17/24 21:21 07:34 POC Glucose 179 H 103 Medications Medications Current Medications Albuterol Sulfate (Albuterol Sulfate (0.042%) 1.25 Mg/3 Ml Vial.Neb) 0.63 mg INHALE QID PRN PRN Reason: shortness of breath or wheezing Albuterol Sulfate (Albuterol Sulfate 90 Mcg 8 Gm Inhaler) 1 puff INHALE QID PRN PRN Reason: shortness of breath or wheezing Aripiprazole (Aripiprazole 2 Mg Tablet) 4 mg PO DAILY [facility] Last Admin: 09/17/24 08:14 Dose: 4 mg Atorvastatin Calcium (Atorvastatin Calcium 40 Mg Tablet) 40 mg PO BEDTIME [facility] Last Admin: 09/16/24 21:22 Dose: 40 mg Empagliflozin (Empagliflozin 10 Mg Tablet) 10 mg PO DAILY [facility] Last Admin: 09/17/24 08:14 Dose: 10 mg Hydroxyzine HCl (Hydroxyzine Hcl 25 Mg Tablet) 25 mg PO TID PRN PRN Reason: anxiety Last Admin: 09/14/24 21:48 Dose: 25 mg Ibuprofen (Ibuprofen 600 Mg Tablet) 600 mg PO Q6H PRN PRN Reason: fever or pain Last Admin: 09/15/24 17:16 Dose: 600 mg Lidocaine (Lidocaine 4 % Patch Adh..Patch) 1 patch TRANSDERMA DAILY PRN PRN Reason: Pain Lisinopril (Lisinopril 5 Mg Tablet) 5 mg PO DAILY [facility]; Protocol Last Admin: 09/17/24 08:14 Dose: 5 mg Loratadine (Loratadine 10 Mg Tablet) 10 mg PO DAILY [facility] Last Admin: 09/17/24 08:14 Dose: 10 mg Metformin HCl (Metformin Hcl Er 500 Mg Tab.Er.24h) 500 mg PO DAILY@1700 [facility] Last Admin: 09/16/24 17:24 Dose: 500 mg Olanzapine (Olanzapine 5 Mg Tablet) 5 mg PO Q4H PRN PRN Reason: agitation Last Admin: 09/16/24 13:57 Dose: 5 mg Trazodone HCl (Trazodone Hcl 50 Mg Tablet) 50 mg PO BEDTIME [facility] Last Admin: 09/16/24 21:22 Dose: 50 mg Allergies Allergies Allergy/AdvReac Type Severity Reaction Status Date / Time seasonal Allergy Unknown Itchy Eyes Uncoded 09/13/24 21:52 Assessment & Plan Assessment & Plan (1) MDD (major depressive disorder), recurrent episode, severe: Status: Acute Code(s): F33.2 - Major depressive disorder, recurrent severe without psychotic features (2) PTSD (post-traumatic stress disorder): Status: Acute Code(s): F43.10 - Post-traumatic stress disorder, unspecified Plan Patient is a 54-year-old female with history of MDD and PTSD who presented to ER due to suicide attempt via intentionally overdosing on prescription medication secondary to increased life stressors. Plan: CV 15 minute safety checks Continue home medications Increase: Abilify to 4mg PO daily Obtain collateral Referral to outpatient psychiatric providers Encourage groups Discharge planning 09/16: Active on unit, social with peers. attending groups. hourly sign language interpreter present. Patient reports poor sleep last night d/t room mate opening door multiple times; offered room change but pt declined. She reports low anxiety; states suicidal ideation, went away yesterday after we spoke . Continues to report visual hallucinations; encouraged to utilize PRN medication. denies SI/HI/AH. denies side effects from increase in Abilify. Continue current tx plan. 09/17: Active on unit, social with peers. attending groups. hourly sign language interpreter present. Patient reports feeling better today; pt stated, I slept like a baby last night. The medication also helped with my hallucinations . denies SI/HI/AH/VH. denies side effects from medications. per nursing, slept 8 hours. Continue current tx plan. Patient educated on: diagnosis and medication risk/benefits Reason for continued inpatient stay Substantial Risk for: med/psych decompensation Time Spent With Patient Time: Total time managing care of this patient today _20___ minutes.
[2024-09-17] MEDS: metFORMIN HCl ER 500 MG TAB.ER.24H PO (18:32)
[2024-09-17 19:40] VITALS: BP 117/68; PULSE 92; RESP 18; TEMP 36.4; O2SAT 100
[2024-09-17] MEDS: Atorvastatin Calcium 40 MG TABLET PO (21:02)
[2024-09-17] MEDS: hydrOXYzine HCL 25 MG TABLET PO (21:03)
[2024-09-17] MEDS: traZODone HCL 50 MG TABLET PO (21:03)
[2024-09-17] MEDS: Ibuprofen 600 MG TABLET PO (21:03)
[2024-09-17] MEDS: OLANZapine 5 MG TABLET PO (21:04)
[2024-09-18 07:39] VITALS: BP 117/65; PULSE 108; RESP 16; TEMP 36.4; O2SAT 99
[2024-09-18 07:53] LABS: Glucose, Whole Blood 124 mg/dL (60-115)
[2024-09-18 08:31] VITALS: BP 120/66
[2024-09-18] MEDS: ARIPiprazole 2 MG TABLET 4 MG PO (08:31)
[2024-09-18] MEDS: Empagliflozin 10 MG TABLET PO (08:31)
[2024-09-18] MEDS: lisinopriL 5 MG TABLET PO (08:31)
[2024-09-18] MEDS: Loratadine 10 MG TABLET PO (08:31)
--- NOTE | 2024-09-18 08:32 | HO.PSYCHPN ---
Subjective Subjective Date of Service: 09/18/24 Reason For Visit: TOOK HANDFUL OF HYDROXYZINE PER EMS Subjective Notes: Conditional Voluntary Interim History: healthcare interpreter present. Patient reports feeling good today; pt stated, I feel calm. I feel the increase in medications helps . focused on discharge; plan to discharge home Saturday if continues to improve; pt aware. denies SI/HI/AH/VH. Continue current tx plan. Medication Compliance: Yes Side effects from medications: No Attending Groups: Yes Mental Status Exam Mental Status Exam Narrative: Pt is alert and oriented; behavior is cooperative and calm; dressed in casual attire; mood is described as good ; eye contact appropriate; Speech is normal rate, volume and not pressured; thought process is organized; Thought content is on tx; denies SI/HI/AH/VH. Diagnostics Vital Signs (24Hr): Vital Signs - 24 hr 09/17/24 19:40 09/18/24 07:39 Temperature 97.5 F 97.5 F Pulse Rate 92 108 H Respiratory Rate 18 16 Blood Pressure 117/68 117/65 Pulse Oximetry 100 99 Oxygen Delivery Method Room Air Room Air BMI result Body Mass Index 26.5 Labs 09/13/24 22:52 09/13/24 22:52 Labs: Laboratory Results - last 48 hr 09/16/24 09/17/24 09/18/24 21:21 07:34 07:49 POC Glucose 179 H 103 124 H Medications Medications Current Medications Albuterol Sulfate (Albuterol Sulfate (0.042%) 1.25 Mg/3 Ml Vial.Neb) 0.63 mg INHALE QID PRN PRN Reason: shortness of breath or wheezing Albuterol Sulfate (Albuterol Sulfate 90 Mcg 8 Gm Inhaler) 1 puff INHALE QID PRN PRN Reason: shortness of breath or wheezing Aripiprazole (Aripiprazole 2 Mg Tablet) 4 mg PO DAILY [facility] Last Admin: 09/17/24 08:14 Dose: 4 mg Atorvastatin Calcium (Atorvastatin Calcium 40 Mg Tablet) 40 mg PO BEDTIME [facility] Last Admin: 09/17/24 21:02 Dose: 40 mg Empagliflozin (Empagliflozin 10 Mg Tablet) 10 mg PO DAILY [facility] Last Admin: 09/17/24 08:14 Dose: 10 mg Hydroxyzine HCl (Hydroxyzine Hcl 25 Mg Tablet) 25 mg PO TID PRN PRN Reason: anxiety Last Admin: 09/17/24 21:03 Dose: 25 mg Ibuprofen (Ibuprofen 600 Mg Tablet) 600 mg PO Q6H PRN PRN Reason: fever or pain Last Admin: 09/17/24 21:03 Dose: 600 mg Lidocaine (Lidocaine 4 % Patch Adh..Patch) 1 patch TRANSDERMA DAILY PRN PRN Reason: Pain Lisinopril (Lisinopril 5 Mg Tablet) 5 mg PO DAILY [facility]; Protocol Last Admin: 09/17/24 08:14 Dose: 5 mg Loratadine (Loratadine 10 Mg Tablet) 10 mg PO DAILY [facility] Last Admin: 09/17/24 08:14 Dose: 10 mg Metformin HCl (Metformin Hcl Er 500 Mg Tab.Er.24h) 500 mg PO DAILY@1700 [facility] Last Admin: 09/17/24 18:32 Dose: 500 mg Olanzapine (Olanzapine 5 Mg Tablet) 5 mg PO Q4H PRN PRN Reason: agitation Last Admin: 09/17/24 21:04 Dose: 5 mg Trazodone HCl (Trazodone Hcl 50 Mg Tablet) 50 mg PO BEDTIME [facility] Last Admin: 09/17/24 21:03 Dose: 50 mg Allergies Allergies Allergy/AdvReac Type Severity Reaction Status Date / Time seasonal Allergy Unknown Itchy Eyes Uncoded 09/13/24 21:52 Assessment & Plan Assessment & Plan (1) MDD (major depressive disorder), recurrent episode, severe: Status: Acute Code(s): F33.2 - Major depressive disorder, recurrent severe without psychotic features (2) PTSD (post-traumatic stress disorder): Status: Acute Code(s): F43.10 - Post-traumatic stress disorder, unspecified Plan Patient is a 54-year-old female with history of MDD and PTSD who presented to ER due to suicide attempt via intentionally overdosing on prescription medication secondary to increased life stressors. Plan: CV 15 minute safety checks Continue home medications Increase: Abilify to 4mg PO daily Obtain collateral Referral to outpatient psychiatric providers Encourage groups Discharge planning 09/16: Active on unit, social with peers. attending groups. healthcare interpreter present. Patient reports poor sleep last night d/t room mate opening door multiple times; offered room change but pt declined. She reports low anxiety; states suicidal ideation, went away yesterday after we spoke . Continues to report visual hallucinations; encouraged to utilize PRN medication. denies SI/HI/AH. denies side effects from increase in Abilify. Continue current tx plan. 09/17: Active on unit, social with peers. attending groups. healthcare interpreter present. Patient reports feeling better today; pt stated, I slept like a baby last night. The medication also helped with my hallucinations . denies SI/HI/AH/VH. denies side effects from medications. per nursing, slept 8 hours. Continue current tx plan. 09/18: healthcare interpreter present. Patient reports feeling good today; pt stated, I feel calm. I feel the increase in medications helps . focused on discharge; plan to discharge home Saturday if continues to improve; pt aware. denies SI/HI/AH/VH. Continue current tx plan. Patient educated on: diagnosis and medication risk/benefits Reason for continued inpatient stay Substantial Risk for: med/psych decompensation Time Spent With Patient Time: Total time managing care of this patient today _20___ minutes.
[2024-09-18] MEDS: Lidocaine 4 % Patch ADH..PATCH 1 PATCH TRANSDERMA (09:52)
[2024-09-18] MEDS: Ibuprofen 600 MG TABLET PO ×2 (11:23→20:24)
[2024-09-18] MEDS: hydrOXYzine HCL 25 MG TABLET PO (14:56)
[2024-09-18] MEDS: metFORMIN HCl ER 500 MG TAB.ER.24H PO (17:03)
[2024-09-18 20:00] VITALS: BP 117/65; PULSE 105; RESP 16; TEMP 36.4; O2SAT 99
[2024-09-18] MEDS: OLANZapine 5 MG TABLET PO (20:24)
[2024-09-18] MEDS: traZODone HCL 50 MG TABLET PO (20:25)
[2024-09-18] MEDS: Atorvastatin Calcium 40 MG TABLET PO (20:25)
[2024-09-18 21:50] LABS: Glucose, Whole Blood 144 mg/dL (60-115)
--- NOTE | 2024-09-19 07:24 | P.PNPSI_ITS ---
Subjective Subjective Date of Service: 09/19/24 Reason For Visit: TOOK HANDFUL OF HYDROXYZINE PER EMS Subjective Notes: Conditional Voluntary Interim History: interviewed with assembly machine operator machine id assembly machine operator [id number]. Patient reports she is doing well. Denied depression. No med concerns. Sleeping and eating well. Looking forward to discharge hopefully on Saturday Medication Compliance: Yes Side effects from medications: No Attending Groups: Yes Review of Systems Acute medical concerns: No Review of Systems Review of Systems unremarkable Mental Status Exam Mental Status Exam Narrative: pleasant. Engaged. Casually dressed and presented. Organized. Euthymic. No SI. No HI. No agitation. No psychosis. Insight and judgment good Diagnostics Vital Signs (24Hr): Vital Signs - 24 hr 09/18/24 07:39 09/18/24 08:31 09/18/24 20:00 Temperature 97.5 F 97.5 F Pulse Rate 108 H 105 H Respiratory Rate 16 16 Blood Pressure 117/65 120/66 117/65 Pulse Oximetry 99 99 Oxygen Delivery Method Room Air Room Air BMI result Body Mass Index 26.5 Labs 09/13/24 22:52 09/13/24 22:52 Labs: Laboratory Results - last 48 hr 09/17/24 09/18/24 09/18/24 07:34 07:49 21:45 POC Glucose 103 124 H 144 H Medications Medications Current Medications Albuterol Sulfate (Albuterol Sulfate (0.042%) 1.25 Mg/3 Ml Vial.Neb) 0.63 mg INHALE QID PRN PRN Reason: shortness of breath or wheezing Albuterol Sulfate (Albuterol Sulfate 90 Mcg 8 Gm Inhaler) 1 puff INHALE QID PRN PRN Reason: shortness of breath or wheezing Aripiprazole (Aripiprazole 2 Mg Tablet) 4 mg PO DAILY COUNTS INCLUDE 234 BEDS AT THE [facility] Last Admin: 09/18/24 08:31 Dose: 4 mg Atorvastatin Calcium (Atorvastatin Calcium 40 Mg Tablet) 40 mg PO BEDTIME LOLI Last Admin: 09/18/24 20:25 Dose: 40 mg Empagliflozin (Empagliflozin 10 Mg Tablet) 10 mg PO DAILY COUNTS INCLUDE 234 BEDS AT THE [facility] Last Admin: 09/18/24 08:31 Dose: 10 mg Hydroxyzine HCl (Hydroxyzine Hcl 25 Mg Tablet) 25 mg PO TID PRN PRN Reason: anxiety Last Admin: 09/18/24 14:56 Dose: 25 mg Ibuprofen (Ibuprofen 600 Mg Tablet) 600 mg PO Q6H PRN PRN Reason: fever or pain Last Admin: 09/18/24 20:24 Dose: 600 mg Lidocaine (Lidocaine 4 % Patch Adh..Patch) 1 patch TRANSDERMA DAILY PRN PRN Reason: Pain Last Admin: 09/18/24 09:52 Dose: 1 patch Lisinopril (Lisinopril 5 Mg Tablet) 5 mg PO DAILY COUNTS INCLUDE 234 BEDS AT THE [facility]; Protocol Last Admin: 09/18/24 08:31 Dose: 5 mg Loratadine (Loratadine 10 Mg Tablet) 10 mg PO DAILY COUNTS INCLUDE 234 BEDS AT THE [facility] Last Admin: 09/18/24 08:31 Dose: 10 mg Metformin HCl (Metformin Hcl Er 500 Mg Tab.Er.24h) 500 mg PO DAILY@1700 COUNTS INCLUDE 234 BEDS AT THE [facility] Last Admin: 09/18/24 17:03 Dose: 500 mg Olanzapine (Olanzapine 5 Mg Tablet) 5 mg PO Q4H PRN PRN Reason: agitation Last Admin: 09/18/24 20:24 Dose: 5 mg Trazodone HCl (Trazodone Hcl 50 Mg Tablet) 50 mg PO BEDTIME COUNTS INCLUDE 234 BEDS AT THE [facility] Last Admin: 09/18/24 20:25 Dose: 50 mg Allergies Allergies Allergy/AdvReac Type Severity Reaction Status Date / Time seasonal Allergy Unknown Itchy Eyes Uncoded 09/13/24 21:52 Assessment & Plan Assessment & Plan (1) MDD (major depressive disorder), recurrent episode, severe: Status: Acute Code(s): F33.2 - Major depressive disorder, recurrent severe without psychotic features (2) PTSD (post-traumatic stress disorder): Status: Acute Code(s): F43.10 - Post-traumatic stress disorder, unspecified Plan Patient is a 54-year-old female with history of MDD and PTSD who presented to ER due to suicide attempt via intentionally overdosing on prescription medication secondary to increased life stressors. Plan: CV 15 minute safety checks Continue home medications Increase: Abilify to 4mg PO daily Obtain collateral Referral to outpatient psychiatric providers Encourage groups Discharge planning 09/16: Active on unit, social with peers. attending groups. movie shot cameraman present. Patient reports poor sleep last night d/t room mate opening door multiple times; offered room change but pt declined. She reports low anxiety; states suicidal ideation, went away yesterday after we spoke . Continues to report visual hallucinations; encouraged to utilize PRN medication. denies SI/HI/AH. denies side effects from increase in Abilify. Continue current tx plan. 09/17: Active on unit, social with peers. attending groups. movie shot cameraman present. Patient reports feeling better today; pt stated, I slept like a baby last night. The medication also helped with my hallucinations . denies SI/HI/AH/VH. denies side effects from medications. per nursing, slept 8 hours. Continue current tx plan. 09/18: movie shot cameraman present. Patient reports feeling good today; pt stated, I feel calm. I feel the increase in medications helps . focused on discharge; plan to discharge home Saturday if continues to improve; pt aware. denies SI/HI/AH/VH. Continue current tx plan. 09/19/2024: No changes to primary team treatment plan. Reason for continued inpatient stay Substantial Risk for: rapid decompensation Time Spent With Patient Time: Total time managing care of this patient today ____ minutes.
[2024-09-19 08:00] VITALS: BP 116/70; PULSE 82; TEMP 37; O2SAT 100
[2024-09-19] MEDS: ARIPiprazole 2 MG TABLET 4 MG PO (08:51)
[2024-09-19 08:52] VITALS: BP 117/67
[2024-09-19] MEDS: Empagliflozin 10 MG TABLET PO (08:52)
[2024-09-19] MEDS: lisinopriL 5 MG TABLET PO (08:52)
[2024-09-19] MEDS: Loratadine 10 MG TABLET PO (08:52)
[2024-09-19 10:30] LABS: Glucose, Whole Blood 129 mg/dL (60-115)
[2024-09-19] MEDS: metFORMIN HCl ER 500 MG TAB.ER.24H PO (17:53)
[2024-09-19 20:00] VITALS: BP 95/57; PULSE 92; RESP 16; TEMP 36.6; O2SAT 99
[2024-09-19] MEDS: hydrOXYzine HCL 25 MG TABLET PO (20:19)
[2024-09-19] MEDS: OLANZapine 5 MG TABLET PO (20:19)
[2024-09-19] MEDS: Atorvastatin Calcium 40 MG TABLET PO (20:19)
[2024-09-19] MEDS: traZODone HCL 50 MG TABLET PO (20:20)
[2024-09-19] MEDS: Ibuprofen 600 MG TABLET PO (20:20)
[2024-09-19 20:31] LABS: Glucose, Whole Blood 174 mg/dL (60-115)
[2024-09-19] MEDS: Lidocaine 4 % Patch ADH..PATCH 1 PATCH TRANSDERMA (20:31)
[2024-09-20 07:45] VITALS: BP 120/77; PULSE 97; RESP 16; TEMP 36.6; O2SAT 99
[2024-09-20 08:05] LABS: Glucose, Whole Blood 122 mg/dL (60-115)
[2024-09-20 09:03] LABS: Creatinine Clr Calc Pharmacy 76.2; Estimated Glomerular Filt Rate > 60
[2024-09-20 09:10] VITALS: BP 108/73
[2024-09-20] MEDS: Loratadine 10 MG TABLET PO (09:10)
[2024-09-20] MEDS: Empagliflozin 10 MG TABLET PO (09:10)
[2024-09-20] MEDS: lisinopriL 5 MG TABLET PO (09:10)
[2024-09-20] MEDS: ARIPiprazole 2 MG TABLET 4 MG PO (09:13)
--- NOTE | 2024-09-20 13:17 | P.PNPSI_ITS ---
Subjective Subjective Date of Service: 09/20/24 Reason For Visit: TOOK HANDFUL OF HYDROXYZINE PER EMS Subjective Notes: Conditional Voluntary Medical Problems Affecting Mental Status: No Interim History: Seen with electronic assembler group leader. Reports some sleep disturbance related to roommate singing and clapping so is now back in bed. Eating OK. Back pain is improving with lidocaine patch. Looking forward to discharge, hoping for tomorrow. States she no longer hears voices now that she is back on meds. Medication Compliance: Yes Side effects from medications: No Attending Groups: Intermittent Review of Systems Acute medical concerns: No Medical Review of Systems: unchanged Mental Status Exam Mental Status Exam Patient Appearance: Well Grooomed Level of Consciousness: Alert Patient Behavior: Appropriate Mood Description: Anxious Affect Description: Anxious Patient Cognition Impaired: No Ability to Follow Directions: Excellent Speech Pattern: Clear Memory Description: Intact Hallucinations: None Delusions: Not Present Thought Process: Linear Thought Content: positive for Intact Depressive Symptoms: Increased Anxiety and Insomnia Judgement: Good Diagnostics Vital Signs (24Hr): Vital Signs - 24 hr 09/19/24 20:00 09/20/24 07:45 09/20/24 09:10 Temperature 97.9 F 97.8 F Pulse Rate 92 97 Respiratory Rate 16 16 Blood Pressure 95/57 L 120/77 108/73 Pulse Oximetry 99 99 Oxygen Delivery Method Room Air Room Air BMI result Body Mass Index 26.5 Labs 09/13/24 22:52 09/20/24 08:24 Labs: Laboratory Results - last 48 hr 09/18/24 09/19/24 09/19/24 21:45 10:25 20:23 Creatinine Estim Creat Clear Calc Estimated GFR POC Glucose 144 H 129 H 174 H 09/20/24 09/20/24 07:59 08:24 Creatinine 0.76 Estim Creat Clear Calc 76.2 Estimated GFR > 60 POC Glucose 122 H Medications Medications Current Medications Albuterol Sulfate (Albuterol Sulfate (0.042%) 1.25 Mg/3 Ml Vial.Neb) 0.63 mg INHALE QID PRN PRN Reason: shortness of breath or wheezing Albuterol Sulfate (Albuterol Sulfate 90 Mcg 8 Gm Inhaler) 1 puff INHALE QID PRN PRN Reason: shortness of breath or wheezing Aripiprazole (Aripiprazole 2 Mg Tablet) 4 mg PO DAILY LOLI Last Admin: 09/20/24 09:13 Dose: 4 mg Atorvastatin Calcium (Atorvastatin Calcium 40 Mg Tablet) 40 mg PO BEDTIME LOLI Last Admin: 09/19/24 20:19 Dose: 40 mg Empagliflozin (Empagliflozin 10 Mg Tablet) 10 mg PO DAILY LOLI Last Admin: 09/20/24 09:10 Dose: 10 mg Hydroxyzine HCl (Hydroxyzine Hcl 25 Mg Tablet) 25 mg PO TID PRN PRN Reason: anxiety Last Admin: 09/19/24 20:19 Dose: 25 mg Ibuprofen (Ibuprofen 600 Mg Tablet) 600 mg PO Q6H PRN PRN Reason: fever or pain Last Admin: 09/19/24 20:20 Dose: 600 mg Lidocaine (Lidocaine 4 % Patch Adh..Patch) 1 patch TRANSDERMA DAILY PRN PRN Reason: Pain Last Admin: 09/19/24 20:31 Dose: 1 patch Lisinopril (Lisinopril 5 Mg Tablet) 5 mg PO DAILY [facility]; Protocol Last Admin: 09/20/24 09:10 Dose: 5 mg Loratadine (Loratadine 10 Mg Tablet) 10 mg PO DAILY [facility] Last Admin: 09/20/24 09:10 Dose: 10 mg Metformin HCl (Metformin Hcl Er 500 Mg Tab.Er.24h) 500 mg PO DAILY@1700 LOLI Last Admin: 09/19/24 17:53 Dose: 500 mg Olanzapine (Olanzapine 5 Mg Tablet) 5 mg PO Q4H PRN PRN Reason: agitation Last Admin: 09/19/24 20:19 Dose: 5 mg Trazodone HCl (Trazodone Hcl 50 Mg Tablet) 50 mg PO BEDTIME LOLI Last Admin: 09/19/24 20:20 Dose: 50 mg Allergies Allergies Allergy/AdvReac Type Severity Reaction Status Date / Time seasonal Allergy Unknown Itchy Eyes Uncoded 09/13/24 21:52 Assessment & Plan Assessment & Plan (1) MDD (major depressive disorder), recurrent episode, severe: Status: Acute Code(s): F33.2 - Major depressive disorder, recurrent severe without psychotic features (2) PTSD (post-traumatic stress disorder): Status: Acute Code(s): F43.10 - Post-traumatic stress disorder, unspecified Plan Patient is a 54-year-old female with history of MDD and PTSD who presented to ER due to suicide attempt via intentionally overdosing on prescription medication secondary to increased life stressors. Plan: CV 15 minute safety checks Continue home medications Increase: Abilify to 4mg PO daily Obtain collateral Referral to outpatient psychiatric providers Encourage groups Discharge planning 09/16: Active on unit, social with peers. attending groups. electronic assembler group leader present. Patient reports poor sleep last night d/t room mate opening door multiple times; offered room change but pt declined. She reports low anxiety; states suicidal ideation, went away yesterday after we spoke . Continues to report visual hallucinations; encouraged to utilize PRN medication. denies SI/HI/AH. denies side effects from increase in Abilify. Continue current tx plan. 09/17: Active on unit, social with peers. attending groups. electronic assembler group leader present. Patient reports feeling better today; pt stated, I slept like a baby last night. The medication also helped with my hallucinations . denies SI/HI/AH/VH. denies side effects from medications. per nursing, slept 8 hours. Continue current tx plan. 09/18: electronic assembler group leader present. Patient reports feeling good today; pt stated, I feel calm. I feel the increase in medications helps . focused on discharge; plan to discharge home Saturday if continues to improve; pt aware. denies SI/HI/AH/VH. Continue current tx plan. 09/19/2024: No changes to primary team treatment plan. 09/20/24: no changes in management Reason for continued inpatient stay Substantial Risk for: med/psych decompensation Time Spent With Patient Time: Total time managing care of this patient today ____ minutes.
[2024-09-20 17:02] LABS: Glucose, Whole Blood 106 mg/dL (60-115)
[2024-09-20] MEDS: metFORMIN HCl ER 500 MG TAB.ER.24H PO (17:17)
[2024-09-20 20:20] VITALS: BP 128/66; PULSE 110; RESP 16; TEMP 36.6; O2SAT 97
[2024-09-20] MEDS: traZODone HCL 50 MG TABLET PO (22:03)
[2024-09-20] MEDS: hydrOXYzine HCL 25 MG TABLET PO (22:03)
[2024-09-20] MEDS: Atorvastatin Calcium 40 MG TABLET PO (22:03)
[2024-09-20] MEDS: Ibuprofen 600 MG TABLET PO (22:03)
[2024-09-20] MEDS: OLANZapine 5 MG TABLET PO (22:03)
[2024-09-20] MEDS: Lidocaine 4 % Patch ADH..PATCH 1 PATCH TRANSDERMA (22:05)
[2024-09-21 00:39] LABS: Glucose, Whole Blood 130 mg/dL (60-115)
[2024-09-21 07:40] VITALS: BP 90/55; PULSE 89; RESP 16; TEMP 36.4; O2SAT 96
[2024-09-21 08:03] VITALS: BP 90/55; PULSE 89; RESP 16; TEMP 36.4; O2SAT 96
[2024-09-21 08:05] VITALS: BP 95/58
[2024-09-21 08:05] LABS: Glucose, Whole Blood 115 mg/dL (60-115)
[2024-09-21] MEDS: Empagliflozin 10 MG TABLET PO (08:05)
[2024-09-21] MEDS: ARIPiprazole 2 MG TABLET 4 MG PO (08:05)
[2024-09-21] MEDS: lisinopriL 5 MG TABLET PO (08:05)
[2024-09-21] MEDS: Loratadine 10 MG TABLET PO (08:05)
--- NOTE | 2024-09-21 10:45 | P.DS_ITS ---
DS: Providers Provider Date of Service: 09/21/24 Date of admission: 09/14/24 15:08 Date of discharge: 09/21/24 Primary care physician: Rachel Domingo MD DS: Diagnosis Discharge Diagnosis (1) MDD (major depressive disorder), recurrent episode, severe: Status: Acute (2) PTSD (post-traumatic stress disorder): Status: Acute DS: Medications Discharge Medications Home Medications: Home Medications ?Medication ?Instructions ?Recorded ?Confirmed dapagliflozin propanediol 5 mg 5 mg PO DAILY 05/22/23 09/14/24 tablet (Farxiga) trazodone 50 mg tablet 50 mg PO BEDTIME 05/22/23 09/14/24 metformin 500 mg tablet,extended 500 mg PO DAILY@1700 09/14/24 09/14/24 release 24 hr Previous Rx's ?Medication ?Instructions ?Recorded albuterol sulfate 0.63 mg/3 mL 0.63 mg (3 mL) inhalation QID PRN 04/08/22 solution for nebulization shortness of breath or wheezing #75 mL albuterol sulfate 90 mcg/actuation 1 inh inhalation QID PRN shortness 04/08/22 aerosol inhaler of breath or wheezing #8.5 grams cetirizine 10 mg tablet 10 mg PO DAILY #30 tabs 06/17/22 hydroxyzine HCl 25 mg tablet 25 mg PO TID PRN anxiety #10 tabs 10/22/22 ibuprofen 600 mg tablet 600 mg PO Q6H PRN fever or pain 07/24/23 #30 tabs potassium chloride 20 mEq 20 meq PO DAILY #5 tabs 07/23/24 tablet,extended release aripiprazole 2 mg tablet (Abilify) 4 mg (2 x 2 mg) PO DAILY 30 days 09/21/24 #60 tabs atorvastatin 40 mg tablet 40 mg PO BEDTIME 30 days #30 tabs 09/21/24 lidocaine 5 % topical patch 1 patch topical DAILY PRN Pain 30 09/21/24 (Lidoderm) days #30 ea lisinopril 5 mg tablet 5 mg PO DAILY 30 days #30 tabs 09/21/24 Mental Status Exam Mental Status Exam Narrative: Pt is alert and oriented; behavior is cooperative and calm; dressed in casual attire; mood is described as good ; eye contact appropriate; Speech is normal rate, volume and not pressured; thought process is organized; Thought content is on tx; denies SI/HI/AH/VH. Data Data Completed and Pending Completed studies during hospitalization [Text1]: 09/15/24 09/15/24 09/16/24 10:07 20:31 07:36 Creatinine Estim Creat Clear Calc Estimated GFR POC Glucose 173 H 163 H 91 09/16/24 09/17/24 09/18/24 21:21 07:34 07:49 Creatinine Estim Creat Clear Calc Estimated GFR POC Glucose 179 H 103 124 H 09/18/24 09/19/24 09/19/24 21:45 10:25 20:23 Creatinine Estim Creat Clear Calc Estimated GFR POC Glucose 144 H 129 H 174 H 09/20/24 09/20/24 09/20/24 07:59 08:24 16:57 Creatinine 0.76 Estim Creat Clear Calc 76.2 Estimated GFR > 60 POC Glucose 122 H 106 09/20/24 09/21/24 22:02 08:00 Creatinine Estim Creat Clear Calc Estimated GFR POC Glucose 130 H 115 DS: Summary Hospital Course Hospital Course: per 09/15 admission note: HPI Subjective Notes: Watson Warning and Conditional Voluntary Narrative: Patient is a 54-year-old female with history of MDD and PTSD who presented to ER due to suicide attempt via intentionally overdosing on prescription medication secondary to increased life stressors. Per crisis report, patient's friend called 911 reporting she intentionally overdose on prescription medications in a suicide attempt. Patient has been from her partner for 4 months and reports this is the reason for her increased depression and suicide attempt. Patient overdosed on an unknown amount of medication. Patient stated, I'm tired of my life . denied HI/VH/AH. Patient reported 1 prior suicide attempt and inpatient psychiatric admission a long time ago . Patient reports she has been caring for her uncle and it became too much so he had to go into a longterm . She feels that her family keeps putting more stuff on her and makes her feel overwhelmed . She reports sleep and appetite are poor. Patient does not have outpatient psychiatric providers. Collateral was obtained from patient's daughter, who reports patient's ex broke up with her mother and started seeing someone else but continues to come to the mother's house. Patient's daughter believes the on/off relationship is the reason for her increased depression. During admission assessment, patient presents alert and oriented x3. Calm and cooperative. hair rooting machine operator services utilized. Patient reports feeling anxious and depressed; patient stated, I have too much in my head. I with my significant other. I can not pay rent because I don't make much money. I know that overdosing was not the right thing and I regret doing it . denies SI/HI/AH. She reports visual hallucinations described as something out of the corner of my eye . Patient reports she is inconsistent with taking her home medications; she takes her meds 2 days a week. Educated on the importance of medication compliance. Patient reports she wants to live for herself and her grandchildren . Patient reports that she does not have outpatient psychiatric providers but would like referrals. history of 2 other inpatient psychiatric hospitalizations and 3 other suicide attempts via overdose on medications and once attempting to drive her car into a pole. Patient is requesting increase in Abilify; patient stated, it usually helps me. I feel like it's the stress in my life that made me feel this way, not the medications not working . Past Psychiatric History: does not have outpatient psychiatric providers. history of 2 other inpatient psychiatric hospitalizations and 3 other suicide attempts via overdose on medications and once attempting to drive her car into a pole. denies hx of SIB. Medical Evaluation Reviewed: Yes [facility] Medical History Depression Anxiety Back pain Surgical History Hx of section Hx of cholecystectomy History of hysterectomy Family History: Denies Social History: Lives alone. . 2 children(1 in 2014). Works part-time at [employer]. Substance History: Denies Trauma History: Yes Precis: Patient is a 54-year-old female with history of MDD and PTSD who presented to ER due to suicide attempt via intentionally overdosing on prescription medication secondary to increased life stressors. 09/15: Continue home medications. Increase: Abilify to 4mg PO daily. Obtain collateral. Referral to outpatient psychiatric providers. Encourage groups. Discharge planning 09/16: Active on unit, social with peers. attending groups. hair rooting machine operator present. Patient reports poor sleep last night d/t room mate opening door multiple times; offered room change but pt declined. She reports low anxiety; states suicidal ideation, went away yesterday after we spoke . Continues to report visual hallucinations; encouraged to utilize PRN medication. denies SI/HI/AH. denies side effects from increase in Abilify. Continue current tx plan. 09/17: Active on unit, social with peers. attending groups. hair rooting machine operator present. Patient reports feeling better today; pt stated, I slept like a baby last night. The medication also helped with my hallucinations . denies SI/HI/AH/VH. denies side effects from medications. per nursing, slept 8 hours. Continue current tx plan. 09/18: hair rooting machine operator present. Patient reports feeling good today; pt stated, I feel calm. I feel the increase in medications helps . focused on discharge; plan to discharge home Saturday if continues to improve; pt aware. denies SI/HI/AH/VH. Continue current tx plan. 09/19: No changes to primary team treatment plan. 09/20: no changes in management. 09/21: denies safety concerns, ready for discharge. meds reviewed, reconciled, prescribed. lead manufacturing engineering tech present. aftercare plan reviewed, pt discharged as per plan. Time Spent with Patient Time attestation: Total time managing care of this patient today __35__ minutes. Discharge Plan Discharge Anticipated Discharge Date/Time: 09/21/24 10:29 Patient Disposition: Home, Self-Care Discharge Diagnosis: PTSD, Chronic MDD, Recurrent Referrals: Therapy & Psychiatry [Other] - 1 Week (You can present to the clinic above, Saturday through Saturday during the hours of 8am and 8pm, in order to obtain outpatient mental health providers. ) Therapy & Psychiatry [Other] - 1 Week (You can present to the clinic above, Saturday through Saturday during the hours of 10am and 12pm, in order to obtain outpatient mental health providers. ) Rachel Suazo MD [Primary Care Provider] - 10/01/24 10:00 am (09-17-24 Your follow up appt has been scheduled for 10-01-24 @ 10am.) Discharge Medications: New aripiprazole [Abilify] 2 mg Tablet 4 mg PO DAILY 30 Days Qty: 60 0RF Continued cetirizine 10 mg tablet 10 mg PO DAILY Qty: 30 0RF albuterol sulfate 0.63 mg/3 mL solution for nebulization 0.63 mg inhalation QID PRN (Reason: shortness of breath or wheezing) Qty: 75 0RF albuterol sulfate 90 mcg/actuation HFA aerosol inhaler 1 inh inhalation QID PRN (Reason: shortness of breath or wheezing) Qty: 8.5 0RF ibuprofen 600 mg tablet 600 mg PO Q6H PRN (Reason: fever or pain) Qty: 30 0RF metformin 500 mg tablet extended release 24 hr 500 mg PO DAILY@1700 lidocaine [Lidoderm] 5 % adhesive patch,medicated 1 patch topical DAILY PRN (Reason: Pain) 30 Days Qty: 30 0RF Rx Instructions: leave on most painful area for up to 12 hrs lisinopril 5 mg tablet 5 mg PO DAILY 30 Days Qty: 30 0RF hydroxyzine HCl 25 mg tablet 25 mg PO TID PRN (Reason: anxiety) Qty: 10 0RF Farxiga 5 mg tablet 5 mg PO DAILY Patient Comments: SARATH villanueva stated that this was prescribed on 07/06/2024 and was never picked up by patient. returned to shelf. trazodone 50 mg tablet 50 mg PO BEDTIME Patient Comments: confirmed SARATH villanueva Changed atorvastatin 40 mg tablet 40 mg PO BEDTIME 30 Days Qty: 30 0RF Held potassium chloride 20 mEq tablet extended release 20 meq PO DAILY Qty: 5 0RF Hold Instructions: Resume on 10/01/24. Discontinued aripiprazole 2 mg tablet 2 mg PO DAILY Patient Comments: confirmed [employer] Discharge Orders: Discharge Order (Routine); Ordered 09/21/24 Ordered By: Srinivasan Grant Diet: Advance to usual diet Activity on Discharge: As tolerated Stand Alone Forms: Patient Portal Discharge page, Community Support Print Language: [place] Care Plan Goals: remain safe and stable in the outpatient treatment setting Health Concerns: none Plan of Treatment: take medications as prescribed, attend appointments as scheduled Assessment: not at imminent risk of harm to self or others Discharge Date/Time: 09/21/24 11:05
== END 2024-09-21 11:05 | disposition home or self-care (01) | DRG 751 ==
LOC: HO.ED 09-14 15:09 → HO.PADLT16 09-14 15:09
PROVIDERS: Admitting Provider Psychiatry & Neurology Psychiatry; Emergency Provider Internal Medicine; PCP Student in an Organized Health Care Education/Training Program; Responsible Provider Registered Nurse; Visit Provider Psychiatry & Neurology Psychiatry
DX: F33.2 Major depressive disorder, recurrent severe without psychotic features (principal); F43.12 Post-traumatic stress disorder, chronic; T43.592A Poisoning by other antipsychotics and neuroleptics, intentional self-harm, initial encounter; Z79.899 Other long term (current) drug therapy
CPT/HCPCS: 36415; 80053; 80143; 80179; 80307; 81001; 82565; 82947; 85025; 93005; 99285; S9485

== ENCOUNTER → 2024-09-13 21:53 | Outpatient (BNV) | payer MEDICAID, SELFPAY | PROVIDERS: Emergency Provider Internal Medicine; PCP Student in an Organized Health Care Education/Training Program; Visit Provider Internal Medicine Cardiovascular Disease | DX: R94.31 Abnormal electrocardiogram [ECG] [EKG] (principal); T50.901A Poisoning by unspecified drugs, medicaments and biological substances, accidental (unintentional), initial encounter | CPT/HCPCS: 93010 ==

== ENCOUNTER → 2024-09-14 15:08 | Outpatient (BNV) | payer OTHER, SELFPAY | PROVIDERS: Admitting Provider Psychiatry & Neurology Psychiatry; Emergency Provider Internal Medicine; PCP Student in an Organized Health Care Education/Training Program; Responsible Provider Registered Nurse; Visit Provider Registered Nurse | DX: F33.2 Major depressive disorder, recurrent severe without psychotic features (principal); F43.11 Post-traumatic stress disorder, acute | CPT/HCPCS: 99231; 99232; 99233 ==